=== PATIENT | male | born 1960 | race Caucasian/White ===

== ENCOUNTER 2022-12-28 11:51 | Inpatient (IN) | payer MEDICARE, SELFPAY ==
[2022-12-28] VITALS (32 sets, daily range): BP systolic 115–138; BP diastolic 66–107; PULSE 61–90; RESP 16–26; TEMP 36.4–37; O2SAT 62–100; BMI 49.4
--- NOTE | ~2022-12-28 | XR_ITS ---
Portable chest x-ray Comparison: 01/03/2023 Clinical History: Respiratory failure Findings: Mild to moderate pulmonary edema pattern is present with central congestive changes. Endot nathanael tube and NG tube are in satisfactory positions. Cardiomediastinal silhouette is stable. Bone s and soft tissues are unremarkable. Impression: [id number] pulmonary edema pattern with central congestive change. Support tubes, as above. Reviewed, dictated and finalized at location . SERVICE ADVISOR Impression: [id number] pulmonary edema pattern with central congestive change. Support tubes, as above.
--- NOTE | ~2022-12-28 | XR_ITS ---
EXAMINATION: XR chest 1V portable DATE: 12/29/2022 06:29 INDICATION: Respiratory failure. TECHNIQUE: A single frontal view of the chest was obtained. COMPARISON: Chest single view 12/28/2022 FINDINGS: There are airspace opacities in the perihilar regions and lower lung zones. There is a smal l left pleural effusion. No pneumothorax. The heart size is normal. The endotracheal tube tip is 4.2 cm above the love. The nasogastric tube tip is beyond the inferior margin of the radiograph, but at least to the stomach. IMPRESSION: 1. Airspace opacities in the perihilar regions and lower lung zones with worsening on the left, consi stent with pulmonary edema versus pneumonia versus atelectasis. 2. Small left pleural effusion. Reviewed, dictated and finalized at location A. PRESIDENT OF COMMUNICATIONS IMPRESSION: 1. Airspace opacities in the perihilar regions and lower lung zones with worsen ing on the left, consistent with pulmonary edema versus pneumonia versus atelec tasis. 2. Small left pleural effusion.
--- NOTE | ~2022-12-28 | CT_ITS ---
EXAMINATION: CT diagnostic chest wo con DATE: 01/04/2023 08:03 INDICATION: CHF. Infiltrates on chest x-ray. TECHNIQUE: Computed tomography (CT) of the chest was performed without intravenous contrast. The dose -length product was 813.62 mGy-cm. COMPARISON: Chest x-ray dated 01/04/[address] dated 03/15/2014 FINDINGS: Mild mediastinal lymphadenopathy. Small pleural effusions, right greater than left. There a re hazy groundglass opacities in both lungs interlobular septal thickening. There are scattered calci fied granulomas in the lung parenchyma. No pneumothorax. Endotracheal and NG tubes are present. There are gallstones. IMPRESSION: 1. Ill-defined groundglass opacities in both lungs with interlobular septal thickening, most likely e kelley. Atypical pneumonia less favored. 2: Small pleural effusions. 3: Cardiomegaly. 4: Mediastinal lymphadenopathy, likely reactive. 5: Cholelithiasis. Reviewed, dictated and finalized at location L. INSPECTION SPECIALIST IMPRESSION: 1. Ill-defined groundglass opacities in both lungs with interlobular septal thi ckening, most likely edema. Atypical pneumonia less favored. 2: Small pleural effusions. 3: Cardiomegaly. 4: Mediastinal lymphadenopathy, likely reactive. 5: Cholelithiasis.
--- NOTE | ~2022-12-28 | XR_ITS ---
Portable chest x-ray Comparison: 01/04/2023 Clinical History: Respiratory failure Findings: NG tube and right-sided PICC line are in place. ET tube and probable satisfactory position . There is central interstitial changes with minimal bibasilar pulmonary edema. Cardiomediastinal si lhouette is stable. Bones and soft tissues are unremarkable. Impression: Central congestive change and minimal bibasilar pulmonary edema. Support tubes, as above. Reviewed, dictated and finalized at location . NG MAKER Impression: Central congestive change and minimal bibasilar pulmonary edema. Support tubes, as above.
--- NOTE | ~2022-12-28 | XR_ITS ---
Portable chest x-ray Comparison: 01/01/2023 Clinical History: Respiratory failure Findings: Endotracheal tube, NG tube, and right-sided PICC line are in satisfactory positions. There is mild bibasilar pulmonary edema. Possible minimal left pleural effusion. Cardiomediastinal silhou ette is stable. Bones and soft tissues are unremarkable. Impression: Mild bibasilar pulmonary edema with possible minimal left pleural effusion. Support tubes, as above. Reviewed, dictated and finalized at location . NTIFIC ARTIST Impression: Mild bibasilar pulmonary edema with possible minimal left pleural effusion. Support tubes, as above.
--- NOTE | ~2022-12-28 | XR_ITS ---
EXAMINATION: XR chest ET placement DATE: 12/28/2022 12:20 INDICATION: Intubation. Dyspnea. TECHNIQUE: An anteroposterior view of the chest was obtained. COMPARISON: Chest single view 11/12/2014, chest CT 03/15/2014 FINDINGS: There is chronic mild elevation of right hemidiaphragm. There are airspace opacities in all lung zones bilaterally with a perihilar predominance. No pleural effusion or pneumothorax. The heart size is normal. The nasogastric tube tip is beyond the inferior margin of the radiograph, but at renetta st to the stomach. The endotracheal tube tip is 5.3 cm above the love. IMPRESSION: 1. Diffuse lung disease, consistent with pulmonary edema versus pneumonia. Reviewed, dictated and finalized at location A. RECOVERER
--- NOTE | ~2022-12-28 | US_ITS ---
EXAMINATION: US venous doppler [facility] DATE: 12/28/2022 15:45 INDICATION: Lower limb swelling TECHNIQUE: Monteiro scale images without and with compression and Doppler images of the bilateral lower e xtremity veins were obtained. COMPARISON: 05/27/2008 FINDINGS: The right common femoral vein, profunda femoral vein, femoral vein, popliteal vein, peroneal trunk, p osterior tibial veins, and greater saphenous vein are patent. The left common femoral vein, profunda femoral vein, femoral vein, popliteal vein, peroneal trunk, po sterior tibial veins, and greater saphenous vein are patent. IMPRESSION: 1. Patent bilateral lower extremity veins. No evidence of deep venous thrombosis. Reviewed, dictated and finalized at location A. AL COMMUNICATIONS INSTRUCTOR IMPRESSION: 1. Patent bilateral lower extremity veins. No evidence of deep venous thrombosi s.
--- NOTE | ~2022-12-28 | XR_ITS ---
XR chest PICC line 12/31/2022 14:04 Indication: PICC line placement Procedure: AP portable chest Comparison: 12/31/2022 Findings: Right subclavian PICC line tip in the condyle aspect of the SVC near the cavoatrial junctio n. NG tube is present. There is diffuse bilateral airspace disease, most likely edema. Cardiomegaly. No pneumothorax. Impression: 1: Cardiomegaly with diffuse bilateral airspace disease, most likely pulmonary edema. Reviewed, dictated and finalized at location A. UNITY RELATIONS REP Impression: 1: Cardiomegaly with diffuse bilateral airspace disease, most likely pulmonary edema.
--- NOTE | ~2022-12-28 | US_ITS ---
EXAMINATION: US renal BI DATE: 12/28/2022 15:44 INDICATION: Elevated creatinine TECHNIQUE: Multiple grayscale and Doppler ultrasound images of the kidneys were obtained. COMPARISON: None. FINDINGS: The right kidney measures 12.0 x 6.4 x 7.1 cm. The left kidney is not visualized due to bod y habitus and patient condition. The kidneys demonstrate normal parenchymal echogenicity. There is no hydronephrosis. The bladder is not distended. IMPRESSION: 1. Normal right kidney without hydronephrosis. 2. Left kidney not visualized. Reviewed, dictated and finalized at location A. OPERATOR
--- NOTE | ~2022-12-28 | XR_ITS ---
Portable chest x-ray Comparison: 01/02/2023 Clinical History: Respiratory failure Findings: Endotracheal tube and NG tube and right-sided PICC line are in satisfactory positions. Mil d bibasilar pulmonary edema/atelectatic changes present. Probable minimal left pleural effusion. Car diomediastinal silhouette is stable. Bones and soft tissues are unremarkable. Impression: Mild bibasilar pulmonary edema/atelectasis with minimal left pleural effusion. Support tubes, as above. Reviewed, dictated and finalized at location M. ROFIT FUNDRAISER Impression: Mild bibasilar pulmonary edema/atelectasis with minimal left pleural effusion. Support tubes, as above.
--- NOTE | ~2022-12-28 | XR_ITS ---
XR chest 1V portable 12/31/2022 06:02 Indication: Respiratory failure Procedure: AP portable chest Comparison: Comparison to multiple prior studies sequentially, with oldest reviewed study dated 11/2014. Findings: Stable diffuse bilateral airspace disease which may represent edema or pneumonia. Endotrach eal and NG tubes are stable. No pneumothorax. No significant effusion. Impression: 1: Stable diffuse bilateral airspace disease which may represent edema or pneumonia Reviewed, dictated and finalized at location A. UNTING MANAGER CPA Impression: 1: Stable diffuse bilateral airspace disease which may represent edema or pneum onia
--- NOTE | ~2022-12-28 | XR_ITS ---
XR chest 1V portable DATE: 01/06/2023 05:59 INDICATION: Respiratory failure TECHNIQUE: Portable upright AP chest on January 06, 2023 at 0503 hours COMPARISON: January 05, 2023 portable AP chest at 0516 hours FINDINGS: NG tube in stomach. ET tube not identified. Right upper extremity PIC catheter in superior vena cava. Cardiomegaly. There is prominent elevation right leaf of the diaphragm. There is infiltrate or atelectasis involvin g primarily the the lower lung zones. IMPRESSION: No significant change since January 05, 2023 Reviewed, dictated and finalized at location A. OMIZER
--- NOTE | ~2022-12-28 | XR_ITS ---
XR chest 1V portable 12/30/2022 05:53 Indication: Respiratory failure Procedure: AP portable chest Comparison: Comparison to multiple prior studies sequentially, with oldest reviewed study dated 10/14. Findings: Endotracheal tube 5.1 cm above the love. NG tube in the stomach. Unchanged mild interstit ial edema. No significant effusion or pneumothorax. Stable cardiomediastinal silhouette. Impression: 1: Stable mild interstitial edema. Reviewed, dictated and finalized at location A. ECTOR BOOTH OPERATOR Impression: 1: Stable mild interstitial edema.
--- NOTE | ~2022-12-28 | XR_ITS ---
XR abdomen obstructive series DATE: 01/06/2023 08:03 INDICATION: Distended abdomen TECHNIQUE: 3 portable recumbent AP views and 1 portable upright AP view COMPARISON: None FINDINGS: There is an NG tube in the body of the stomach. There is prominent gaseous distention of the colon, measuring up to approximately 8 cm diameter. No intraperitoneal free air is evident. No visceromegaly is detected. Degenerative changes of the thoracic and lumbar spine. Severe right hip osteoarthritic change with suggestion of possible avascular necrosis of the right fe moral head. Bone detail is limited. IMPRESSION: Prominent gaseous distention of the colon NG tube in stomach Reviewed, dictated and finalized at Location A. Reviewed, dictated and finalized at location A. TH AND WELLNESS SALES CONSULTANT
--- NOTE | ~2022-12-28 | XR_ITS ---
XR chest 1V portable DATE: 01/07/2023 06:32 INDICATION: Respiratory failure TECHNIQUE: Portable AP chest on January 07, 2023 at 0530 hours COMPARISON: January 06, 2023 portable AP chest at 0503 hours FINDINGS: NG tube in stomach. Prominent elevation right diaphragm Cardiomegaly. Aortic calcification. Bibasilar infiltrate and/or atelectasis.. IMPRESSION: Elevated right diaphragm and bibasilar infiltrate and/atelectasis; little interval change since January 06, 2023 NG tube in stomach Reviewed, dictated and finalized at location A. OPERATOR
--- NOTE | ~2022-12-28 | XR_ITS ---
Portable chest x-ray Comparison: 12/31/2022 Clinical History: Respiratory failure Findings: Endotracheal tube, NG tube, and right-sided PICC line are in satisfactory positions. Proba ble minimal pleural effusions with probable mild pulmonary edema pattern. Cardiomediastinal silhouet te is stable. Bones and soft tissues are unremarkable. Impression: Minimal pleural effusions and mild pulmonary edema pattern, unchanged. Support tubes, as above. Reviewed, dictated and finalized at location . TH MACHINE OPERATOR Impression: Minimal pleural effusions and mild pulmonary edema pattern, unchanged. Support tubes, as above.
--- NOTE | ~2022-12-28 | US_ITS ---
US abdomen limited INDICATION: Elevated liver function tests PROCEDURE: Realtime right upper abdominal ultrasound. COMPARISON: No prior studies for comparison. FINDINGS: The pancreas is normal without focal mass or pancreatic ductal dilation. Liver echotexture is increased, consistent with fatty infiltration. There is normal directional flow in the portal ve in. There are gallstones. Common bile duct measures 5 mm. No sonographic Berumen's sign. IMPRESSION: 1: Cholelithiasis. 2: Hepatic steatosis. Reviewed, dictated and finalized at location A. GEMENT PROFESSIONALS
--- NOTE | 2022-12-28 11:58 | ECG_ITS ---
Measurements Intervals [place] Rate: 84 P: 64 TN: 146 QRS: 6 QRSD: 130 T: 28 QT: 328 QTc: 388 Interpretive Statements SINUS RHYTHM BASELINE ARTIFACT IS PRESENT POSSIBLE LEFT ATRIAL ENLARGEMENT [-0.1mV P WAVE IN V1/V2] RIGHT BUNDLE BRANCH BLOCK NO PREVIOUS ECG AVAILABLE FOR COMPARISON Electronically Signed On 12-28-2022 15:00:05 TECHNICAL SPECIALIST by Bernarda Parisi M.D.
--- NOTE | 2022-12-28 12:15 | ED.GENADULT ---
HPI - General Adult General Chief complaint: Shortness of Breath/Dyspnea Stated complaint: SOB Time Seen by Provider: 12/28/22 12:03 History of Present Illness HPI narrative: 62-year-old male presenting to the emergency department from [facility] for evaluation of shortness of breath. Patient is normally on 4 L of oxygen by nasal cannula and was found to be saturating at 58%. Patient was cyanotic on the extremities and lips. Patient was placed on CPAP by EMS. Upon arrival to the emergency department patient had limited gag reflex and was unresponsive. Patient was emergently intubated. Patient typically goes to [facility] but patient was too critical to be transferred. Related Data Home Medications Medication Instructions Recorded Confirmed Acidophilus Probiotic Blend 1 billion cells PO DAILY 12/28/22 12/28/22 acetaminophen 500 mg tablet 500 mg PO Q6H PRN Pain, Mild 12/28/22 12/28/22 apixaban 5 mg tablet (Eliquis) 5 mg PO BID 12/28/22 12/28/22 atorvastatin 20 mg tablet 20 mg PO DAILY 12/28/22 12/28/22 cholecalciferol (vitamin D3) 125 125 mcg PO DAILY 12/28/22 12/28/22 mcg (5,000 unit) tablet (Vitamin D3) digoxin 250 mcg (0.25 mg) tablet 250 mcg PO DAILY 12/28/22 12/28/22 ferrous sulfate 325 mg (65 mg 325 mg PO BID 12/28/22 12/28/22 iron) tablet (FeroSul) fluticasone propionate 50 50 mcg intranasal DAILY 12/28/22 12/28/22 mcg/actuation nasal spray,suspension furosemide 80 mg tablet 80 mg PO DAILY 12/28/22 12/28/22 gabapentin 600 mg tablet 600 mg PO TID 12/28/22 12/28/22 metoprolol succinate 25 mg 25 mg PO DAILY 12/28/22 12/28/22 tablet,extended release 24 hr pantoprazole 20 mg tablet,delayed 20 mg PO DAILY 12/28/22 12/28/22 release spironolactone 25 mg tablet 25 mg PO DAILY 12/28/22 12/28/22 tamsulosin 0.4 mg capsule 0.4 mg PO DAILY 12/28/22 12/28/22 umeclidinium 62.5 mcg/actuation 1 inh inhalation DAILY 12/28/22 12/28/22 blister powder for inhalation (Incruse Ellipta) vitamin B complex (B 1 tablet PO DAILY 12/28/22 12/28/22 Complex-Vitamin B12 tablet) Allergies Allergy/AdvReac Type Severity Reaction Status Date / Time amoxicillin Allergy Unknown Unknown Verified 12/28/22 17:44 Review of Systems Review of Systems: ROS unobtainable: Yes unobtainable due to medical condition PMFSH Past Medical History Medical History (Updated 12/28/22 @ 18:41 by Tahir Jacques MD) Atrial fibrillation Chronic kidney disease, stage 3 Chronic obstructive pulmonary disease Chronic respiratory failure with hypoxia, on home oxygen therapy Congestive heart failure Diabetes mellitus Hyperlipidemia Lymphedema Obstructive sleep apnea Surgical History Surgical History (Updated 12/28/22 @ 13:52 by Manjula Pace PA-C) History of meniscectomy of left knee Family History Family History Mother Atrial fibrillation Hypothyroidism Father Colon cancer Deep venous thrombosis Social History Social History (Updated 12/28/22 @ 13:59 by Manjula Pace PA-C) Social History: Surrogate medical decision maker: Code status: Full code. Smoking status: Never smoker Alcohol intake: former Substance use: never Spiritual care concerns: No Exam Narrative: APPEARANCE: Ill-appearing, cyanotic, unresponsive HEAD: normocephalic, atraumatic. EYES: PERRLA/EOMI, conjunctivae clear. NOSE: Normal no drainage NECK: Supple. No adenopathy, no masses. RESPIRATORY: Labored respiration CARDIOVASCULAR: Regular rate and rhythm without murmurs rubs or gallops. ABDOMINAL: Soft, nontender, nondistended, normal bowel sounds MUSCULOSKELETAL: No signs of injury. NEURO: Unresponsive, minimal gag SKIN: Warm, dry. Normal Color Course Course Emergency Course: Patient was emergently intubated upon arrival to the emergency department. Patient's oxygenation was 60% on CPAP and patient was cyanotic. After intubation patient's oxygen
--- NOTE | 2022-12-28 12:18 | PC.NURSE ---
meds for intubation 1157 etomidate 20 mg ivp succhs 100 mg ivp tube size 7.5 25 @ the lip intubated by Dr Jacques @ 1254
[2022-12-28 12:36] LABS: Hematocrit 53.1 % (42.0-52.0); Hemoglobin 14.9 g/dL (14.0-18.0); Mean Corpuscular HGB Conc 28.1 g/dl (32-36); Mean Corpuscular Hemoglobin 29.2 pg (26-34); Mean Corpuscular Volume 103.9 fl (80-100); Platelet Count Result 188 k/mm3 (150-375); Red Blood Count 5.11 M/mm3 (4.6-6.20); Red Cell Distribution Width 16.6 % (11.5-14.5); White Blood Count 10.8 K/mm3 (4.5-10.0)
[2022-12-28 12:47] LABS: INR 2.1; Partial Thromboplastin Time 31.9 SECONDS (22.3-36.8)
[2022-12-28 12:48] LABS: Alveolar/Arterial O2 Gradient 525.6 mmHg; Base Excess ABG -1.7 mEq/l (+/-2.0); Fractional Inspired Oxygen 100 %; Oxygen Content ABG 21.1 %vol (16.0-22.0); Oxygen Saturation ABG 93.7 % (95.0-100.0); Oxyhemoglobin 92.5 % THb (90.0-100.0); PO2 ABG 91.7 mmHg (80.0-100.0); PO2 FiO2 Ratio Arterial Blood 0.92 %; Total Hemoglobin 16.2 g/dL (12.0-18.0)
[2022-12-28 12:51] LABS: Alanine Aminotransferase 721 U/L (6-50); Albumin Level 4.2 g/dL (3.5-5.1); Alkaline Phosphatase 70 U/L (38-126); Anion Gap 6 mmol/L (8-16); Bilirubin,Total 2.1 mg/dL (0.2-1.3); Blood Urea Nitrogen 47 mg/dL (9-20); Calcium 8.1 mg/dL (8.4-10.2); Carbon Dioxide 32 mmol/L (22-30); Chloride 96 mmol/L (98-107); Estimated CRCL calculation 39 ml/min; Estimated Glomerular Filt Rate 24; Glucose 128 mg/dL (65-110); Potassium 6.9 mmol/L (3.4-5.0); Sodium 134 mmol/L (137-145); Triglycerides 125 mg/dL (<150)
[2022-12-28 12:52] LABS: Device VENTILATOR; Modified Allen's Test Unable to perform; PCO2 ABG 95.7 mmHg (35.0-45.0); Site Drawn RIGHT RADIAL; pH ABG 7.128 (7.350-7.450)
[2022-12-28 12:56] LABS: Anisocytosis 1+ (NORMAL); Lymphocytes Absolute Manual 0.75 K/mm3 (1.1-4.5); Lymphocytes Percent Manual 7 % (18-44); Monocytes Absolute Manual 0.75 K/mm3 (0.1-0.90); Monocytes Percent Manual 7 % (3-9); Neutrophils Percent Manual 86 % (46-73); Nucleated Red Blood Cells 1 %; Platelet Estimate Adequate (Adequate); Schistocytes None Seen (NORMAL); Total Cells Counted 100
[2022-12-28] MEDS: IPRATROPIUM BR 0.02% INH SOLN 0.5 MG/2.5 ML VIAL 2 MG INHALATION (12:56)
[2022-12-28] MEDS: ALBUTEROL SULFATE NEB 2.5 MG/3 ML INH 10 MG INHALATION (12:56)
[2022-12-28 12:57] LABS: Macrocytosis 1+ (NORMAL)
[2022-12-28 12:58] LABS: Lactic Acid Reflex 3.3 mmol/L (0.7-2.0)
[2022-12-28 12:59] LABS: NT Pro B Type Natriuretic Pept 14800 pg/mL (19.9-100); Troponin I 0.013 ng/mL (0.000-0.034)
[2022-12-28 13:05] LABS: Aspartate Amino Transferase 972 U/L (17-59)
[2022-12-28 13:15] LABS: Influenza A QL RT-PCR Negative (Negative); Influenza B QL RT-PCR Negative (Negative); SARS-CoV-2 RNA PCR Negative
[2022-12-28] MEDS: methylPREDNISolone SOD SUCC 125 MG VIAL IV PUSH (13:17)
[2022-12-28] MEDS: SODIUM BICARBONATE 8.4% 50 MEQ/50 ML SYRINGE IV PUSH (13:20)
[2022-12-28] MEDS: DEXTROSE 50% 25 GM/50 ML SYRINGE IV PUSH (13:22)
[2022-12-28] MEDS: INSULIN HUMAN REGULAR (*BKC) 100 UNITS/ML IV PUSH (13:23)
[2022-12-28] MEDS: PROPOFOL IV EMULSION 100 ML 4.62 MG IV CONT (13:28)
--- NOTE | 2022-12-28 13:31 | WPDCNINT ---
Assessment and Plan Assessment and plan (1) Acute and chronic respiratory failure: Code(s): J96.20 - Acute and chronic respiratory failure, unspecified whether with hypoxia or hypercapnia Status: Acute Assessment and Plan: Acute on chronic respiratory failure secondary to hypoxia and hypercarbia Likely combination secondary to CHF and possible pneumonia Patient has never smoked and does not have any documented history of COPD Patient now intubated and on mechanical ventilation Chest x-ray and ABG reviewed IV steroid was given in the ED but I will not continue at this time continue bronchodilators, Lasix 80 mg IV x1 Check echocardiogram Empiric antibiotics azithromycin and Rocephin Check blood and sputum culture Check urine Legionella pneumococcal antigens and mycoplasma IgM Vent settings reviewed and currently on 70% FiO2 and 10 of PEEP. Repeat ABGs ordered (2) CHF (congestive heart failure): Code(s): I50.9 - Heart failure, unspecified Status: Acute Assessment and Plan: check echo see above (3) Elevated serum creatinine: Code(s): R79.89 - Other specified abnormal findings of blood chemistry Status: Acute Assessment and Plan: Baseline unknown Not a candidate for IV fluids due to pulmonary edema Check CK level, urine electrolytes renal ultrasound Monitor urine output electrolytes and creatinine (4) Elevated liver enzymes: Code(s): R74.8 - Abnormal levels of other serum enzymes Status: Acute Assessment and Plan: Likely secondary to hypoxia hypoperfusion. patient also on statin acetaminophen level was normal Check right upper quadrant ultrasound, hepatitis panel hold statin Monitor labs (5) Hyperkalemia: Code(s): E87.5 - Hyperkalemia Status: Acute Assessment and Plan: Likely secondary to combination of renal failure and metabolic acidosis patient also on Aldactone as an outpatient Patient was treated in the ER with hyperkalemia with insulin D50 bicarb and calcium Correct respiratory acidosis with ventilator start Lokelma per tube Lasix IV as above mention Repeat BMP ordered (6) Diabetes mellitus: Code(s): E11.9 - Type 2 diabetes mellitus without complications Status: Acute Assessment and Plan: sliding scale insulin (7) Lymphedema: Code(s): I89.0 - Lymphedema, not elsewhere classified Status: Acute Assessment and Plan: lower extremity Dopplers to rule out DVT. patient is on anticoagulation as outpatient diuretics (8) Chronic kidney disease, stage 3: Code(s): N18.30 - Chronic kidney disease, stage 3 unspecified Status: Acute Assessment and Plan: patient has history of chronic kidney disease stage 3 although creatinine level is not known presented with a creatinine of 2.7 hyperkalemia treatment as above Lasix for volume overload check renal ultrasound Check CK level check urine electrolytes consult nephrology (9) Atrial fibrillation: Code(s): I48.91 - Unspecified atrial fibrillation Status: Acute Assessment and Plan: patient is on digoxin and Eliquis Check digoxin level hold Eliquis for next 24 hours in case patient needs further invasive procedures Plan DVT prophylaxis - SCDs Stress ulcer prophylaxis - PPI Nutrition - NPO Code Status - Full Code as per patient's sister who is his POA Total Critical Care Time - 60 minutes Due to a high probability of clinically significant, life threatening deterioration, the patient required my highest level of preparedness to intervene emergently and I personally spent this critical care time directly and personally managing the patient. This critical care time included obtaining a history; examining the patient; pulse oximetry; ordering and review of studies; arranging urgent treatment with development of a management plan; evaluation of patient's response to treatment; frequent
[2022-12-28 13:41] LABS: Acetaminophen < 10 ug/mL (10-30)
[2022-12-28] MEDS: MIDAZOLAM HCL (*CRX) 2 MG/2 ML VIAL 1 MG IV PUSH ×2 (13:50)
--- NOTE | 2022-12-28 14:00 | PM.IMHP ---
H&P: HPI History of Present Illness Date/Time: 12/28/22 14:00 Chief Complaint: Hypoxia. Narrative: This is a 62-year-old male with history of congestive heart failure, chronic respiratory failure on oxygen, COPD, sleep apnea, chronic kidney disease, paroxysmal atrial fibrillation on chronic anticoagulation, GERD, benign prostatic hyperplasia, diabetes, and other comorbidities who presented to the emergency department via EMS from his assisted living facility for evaluation of hypoxia. The following history is obtained via a review of his electronic medical records as well as discussions with his sister Millie who is at bedside. He is unable to provide history as he is currently sedated and intubated on mechanical ventilation. Millie reports that her brother typically goes to [facility] and he was hospitalized there this past fall under similar circumstances. She is not certain that he is compliant with his BiPAP at night he has started growing out his mcgarry again and she mentions that it fits poorly when he has a mcgarry. He does not get up and about much and is content staying in his apartment and watching television. Since the beginning of December he has put on at least 30 lb in water weight and she has been concerned about that. This afternoon she received a phone call that he was found hypoxic with an SpO2 of 58% on his 4 L nasal cannula. He was cyanotic on EMS arrival and he was placed on CPAP. In the ED he was minimally responsive with limited gag reflex and he was intubated. He has been afebrile since arrival with stable blood pressures. Pertinent labs include a WBC count of 10.8, sodium 134, potassium 6.9, BUN 47, creatinine 2.70, lactic acid 3.3, total bilirubin 2.1, AST 972, ALT 721, proBNP 33271. Initial ABG showed a pH of 7.128, pCO2 95.7, HC03 31.0. Chest x-ray showed diffuse lung disease consistent with pulmonary edema versus pneumonia. He has since been started on broad-spectrum antibiotics for possible pneumonia and he was also given a dose of furosemide given evidence of volume overload. Review of Systems Review of Systems: Unable to assess given current clinical condition as above. [facility] Past Medical History Medical History (Updated 12/28/22 @ 19:44 by Manjula Pace PA-C) Chronic kidney disease, stage 3 Chronic obstructive pulmonary disease Chronic respiratory failure with hypoxia, on home oxygen therapy Congestive heart failure Hyperlipidemia Lymphedema Obstructive sleep apnea Paroxysmal atrial fibrillation Type 2 diabetes mellitus Surgical History Surgical History (Updated 12/28/22 @ 13:52 by Manjula Pace PA-C) History of meniscectomy of left knee Family History Family History Mother Atrial fibrillation Hypothyroidism Father Colon cancer Deep venous thrombosis Social History Social History (Updated 12/28/22 @ 19:44 by Manjula Pace PA-C) Social History: Healthcare power of personal injury attorney: Millie Skinner, sister. Code status: Full code. Smoking status: Never smoker Alcohol intake: former Substance use: never Additional living arrangements comments: Assisted living at [facility]. Spiritual care concerns: No Meds Home Medications and Allergies Home Medications Medication Instructions Recorded Confirmed Type Acidophilus Probiotic Blend 1 billion cells PO DAILY 12/28/22 12/28/22 History acetaminophen 500 mg tablet 500 mg PO Q6H PRN Pain, Mild 12/28/22 12/28/22 History apixaban 5 mg tablet (Eliquis) 5 mg PO BID 12/28/22 12/28/22 History atorvastatin 20 mg tablet 20 mg PO DAILY 12/28/22 12/28/22 History cholecalciferol (vitamin D3) 125 125 mcg PO DAILY 12/28/22 12/28/22 History mcg (5,000 unit) tablet (Vitamin D3) digoxin 250 mcg (0.25 mg) tablet 250 mcg PO DAILY 12/28/22 12/28/22 History ferrous sulfate 325 mg (65 mg 325 mg PO BID 12/28/22 12/28/22 History iron) tablet (FeroSul) fluticasone p
[2022-12-28 14:26] LABS: Alveolar/Arterial O2 Gradient 375.8 mmHg; Base Excess ABG 0.1 mEq/l (+/-2.0); Fractional Inspired Oxygen 70 %; HCO3 ABG 28.3 mEq/l (22.0-26.0); Oxygen Content ABG 18.3 %vol (16.0-22.0); PO2 ABG 57.9 mmHg (80.0-100.0); PO2 FiO2 Ratio Arterial Blood 0.83 %; Total Hemoglobin 14.9 g/dL (12.0-18.0)
[2022-12-28 14:27] LABS: PCO2 ABG 60.8 mmHg (35.0-45.0); pH ABG 7.285 (7.350-7.450)
[2022-12-28 14:28] LABS: Modified Allen's Test Unable to perform; Oxygen Saturation ABG 86.2 % (95.0-100.0); Oxyhemoglobin 87.5 % THb (90.0-100.0); Site Drawn RIGHT RADIAL
[2022-12-28 14:29] LABS: Arterial Blood Gas PEEP 10 cmH2O; Arterial Blood Gas Tidal Volume 470 ml; Arterial Blood Gas Vent Mode CMV; Arterial Blood Gas Ventilator rate 20 /MIN; Device VENTILATOR
[2022-12-28 15:00] LABS: Appearance Urine Slightly Cloudy (Clear); Bilirubin Urine 1+ (Negative); Blood Urine Trace-intact (Negative); Color Urine Yellow (Yellow); Glucose Urine UA Negative (Negative); Ketones Urine Negative (Negative); Leukocyte Esterase Ur Negative LEU/UL (Negative); Nitrate Urine Negative (Negative); Protein Urine 2+ mg/dL (Negative); Specific Grav Ur >= 1.030 (1.001-1.035); pH Urine 5.5 (5.0-9.0)
[2022-12-28 15:05] LABS: Amorphous Sediment Urine Few; Bacteria Urine Trace /hpf; Mucus Urine Rare /lpf; Squamous Epithelial Cell Urine Rare /hpf (Few); WBC Urine 0-3 /hpf
[2022-12-28 15:06] LABS: Add Urine Microscopic? YES
[2022-12-28 15:07] LABS: Ammonia 24 umol/L (9-30)
[2022-12-28 15:09] LABS: Anion Gap 4 mmol/L (8-16); Blood Urea Nitrogen 48 mg/dL (9-20); Carbon Dioxide 34 mmol/L (22-30); Chloride 96 mmol/L (98-107); Creatine Kinase 20 U/L (55-170); Estimated CRCL calculation 41 ml/min; Estimated Glomerular Filt Rate 25; Glucose 177 mg/dL (65-110); Potassium 4.7 mmol/L (3.4-5.0); Sodium 134 mmol/L (137-145)
--- NOTE | 2022-12-28 15:32 | PM.CNNEP ---
Assessment and Plan Assessment and plan (1) CKD (chronic kidney disease): Code(s): N18.9 - Chronic kidney disease, unspecified Status: Chronic Assessment and Plan: reported history baseline creatinine unknown - admitted with a creatinine of 2.7mg/dl possibly related to DM, vascular disease, and JANETH follow-up on renal ultrasound check urine electrolytes, urine eosinophis, and CPK obtain old records regarding basline kidney function follow repeat labs and UOP (2) Hyperkalemia: Code(s): E87.5 - Hyperkalemia Status: Acute Assessment and Plan: doing better s/p medical management likely precipitated by renal dysfunction, metabolic acidosis, and use of spironolactone lokelma PRN IV diuresis as tolerated follow trend (3) Acute and chronic respiratory failure: Qualifiers: Respiratory failure complication: hypoxia and hypercapnia Qualified Code(s): J96.21 - Acute and chronic respiratory failure with hypoxia; J96.22 - Acute and chronic respiratory failure with hypercapnia; J96.22 - Acute and chronic respiratory failure with hypercapnia Code(s): J96.20 - Acute and chronic respiratory failure, unspecified whether with hypoxia or hypercapnia Status: Acute Assessment and Plan: due to hypoxia and hypercarbia CHF and possible pneumonia contributing aswell on mechanical ventilation follow cultures on antibiotics (4) CHF (congestive heart failure): Code(s): I50.9 - Heart failure, unspecified Status: Acute Assessment and Plan: Echo ordered IV diuretics as tolerated follow volume status (5) Diabetes mellitus: Code(s): E11.9 - Type 2 diabetes mellitus without complications Status: Chronic Assessment and Plan: follow accuchecks glycemic control per hospitalists Will continue to follow. History of Present Illness Reason for Consult Consult date: 12/28/22 Reason for consult: chronic renal failure and hyperkalemia Chief Complaint Chief complaint: hypercapnic respiratory failure,hyperkalemia History of Present Illness Narrative: All of the information I have obtained is from review of the electronic medical record as well as discussion with the physician/ nurses involved in the patient's care as he is unable to provide me that any history as he is currently intubated and on mechanical ventilation. The patient is a 62-year-old male with a past medical history is outlined below presented to [facility] Emergency room from his assisted living for further evaluation of hypoxia. Apparently, nursing staff at his assisted living facility found him confused and without oxygen saturations of 58% on his 4 L of oxygen by nasal cannula. EMS was called and on their arrival he was apparently cyanotic. CPAP was applied he was subsequently transferred to the ER for further assessment. By the time of his arrival to the emergency room, the patient was minimally responsive and was unable to protect his airway. He was immediately intubated and placed on mechanical ventilation which improved his oxygen saturations significantly. Routine blood tests were significant for a mildly elevated white blood cell count, mild hyponatremia, severe hyperkalemia, and elevated BUN and creatinine. His proBNP was elevated as were his LFTs and he had a lactic acid of 3.3. His chest x-ray demonstrated few Diaz disease consistent with pulmonary edema versus pneumonia. After appropriate cultures were obtained he was started broad-spectrum antibiotic therapy on the concern for possible pneumonia and subsequently admitted to the ICU for further management therapy. Renal consultation was requested due to his hyperkalemia and history of chronic kidney disease. The details of his chronic kidney disease are unknown to me but apparently he has some element of this issue which apparently was present on his last hospitalization at [facility]
[2022-12-28 15:37] LABS: Digoxin 2.1 ng/mL (0.8-2.0)
[2022-12-28 15:38] LABS: Reflex Lactic Acid Yes or No Add Lactic
[2022-12-28 16:02] LABS: Procalcitonin 0.4 ng/mL
[2022-12-28 16:18] LABS: Hepatitis B Surface Antigen Negative (Negative)
[2022-12-28 16:24] LABS: HAV RESULT Negative (Negative); Hepatitis B Core IgM Result Negative (Negative)
--- NOTE | 2022-12-28 16:30 | ADMGEN ---
This patient, Carmelo Jasmine, was admitted to Intensive Care Unit-1. Patient/family oriented to hospital policies and general routines including ID bracelet, bed and alarms, visiting hours, pain management, procedures, bathroom and other care routines, personal items, smoking policy, room service/diet, and visiting hours. Information on how to activate the Rapid Response Team has been discussed. Patient/Family are encouraged to report perceived risks to care and to ask questions if they do not understand what they are told or what they should do.
[2022-12-28] MEDS: FUROSEMIDE INJ 100 MG/10 ML VIAL 80 MG IV PUSH (16:32)
[2022-12-28] MEDS: PANTOPRAZOLE SODIUM IV 40 MG VIAL IV PUSH (16:32)
[2022-12-28 16:35] LABS: Hepatitis C Virus Antibody Negative (Negative)
[2022-12-28 16:45] LABS: Lactic Acid 4.4 mmol/L (0.7-2.0)
[2022-12-28 18:12] LABS: Alveolar/Arterial O2 Gradient 446.3 mmHg; Carboxyhemoglobin 2.3 % THb (0-2.0); Fractional Inspired Oxygen 80 %; HCO3 ABG 31.3 mEq/l (22.0-26.0); Methemoglobin ABG 0.3 %THb (0-1.5); Oxygen Content ABG 20.3 %vol (16.0-22.0); Oxygen Saturation ABG 95.3 % (95.0-100.0); Oxyhemoglobin 93.1 % THb (90.0-100.0); PCO2 ABG 47.4 mmHg (35.0-45.0); PO2 ABG 74.3 mmHg (80.0-100.0); PO2 FiO2 Ratio Arterial Blood 0.93 %; Reduced Hemoglobin 4.3 %THb (0-5.0); Total Hemoglobin 15.5 g/dL (12.0-18.0); pH ABG 7.438 (7.350-7.450)
[2022-12-28 18:13] LABS: Device VENTILATOR; Modified Allen's Test Pass; Site Drawn RIGHT RADIAL
[2022-12-28 18:14] LABS: Arterial Blood Gas PEEP 10 cmH2O; Arterial Blood Gas Tidal Volume 470 ml; Arterial Blood Gas Vent Mode CMV; Arterial Blood Gas Ventilator rate 24 /MIN
[2022-12-28] MEDS: PROPOFOL IV EMULSION 100 ML 18.24 MG IV CONT (19:15)
[2022-12-28 20:41] LABS: Glucose Point of Care 148 mg/dl (65-105)
[2022-12-28] MEDS: MINERAL OIL/WHITE PETROLATUM OINTMENT 1 APPLIC EACH EYE (20:42)
[2022-12-28] MEDS: TOLNAFTATE 1% POWDER 45 GM BTL 1 APPLIC TOPICAL (20:42)
[2022-12-28 21:20] LABS: Creatinine Urine 16.1 mg/dL
[2022-12-28 21:21] LABS: Sodium Urine Random 104 meq/L
[2022-12-28 21:31] LABS: Triglycerides 116 mg/dL (<150)
[2022-12-28 21:50] LABS: Hemoglobin A1C 5.5 % (<5.7)
[2022-12-28] MEDS: SODIUM ZIRCONIUM CYCLOSILICATE 10 GM POWD.PACK FEED TUBE (22:31)
[2022-12-28 23:00] LABS: Thyroid Stimulating Hormone Reflex 0.313 uIU/mL (0.465-4.68)
[2022-12-29] VITALS (32 sets, daily range): BP systolic 111–148; BP diastolic 62–106; PULSE 62–91; RESP 20–24; TEMP 36.9–37.5; O2SAT 91–100; BMI 48.0
--- NOTE | 2022-12-29 | ECHO_ITS ---
Patient Info Name: Carmelo Jasmine Age: 62 years : 1960 Gender: Male Ht: 70 in Wt: 339 lbs BSA: 2.84 m2 HR: 82 bpm BP: 125 / 74 mmHg Heart Rhythm: Sinus Rhythm Exam Date: 12/29/2022 7:57 AM Exam Location: [facility] Patient Status: Inpatient Admit Date: 12/28/2022 Staff Ordering Physician: Adan Golden MD Broommaking Supervisor: Baron Berumen, MELISSA, RT Attending Provider: Ari Sneed MD Exam Type: CA echo dop color flow w con Study Info Indications I50.9 - Heart failure, unspecified Complete two-dimensional, color flow and Doppler transthoracic echocardiogram is performed with contrast to opacify the left ventricle and to improve the deliniation of the left ventricle endocardial borders. Summary 1. Technically difficult echocardiogram in intubated patient, definity contrast used to improve exam. 2. Left ventricular hypertrophy with normal LV size and good systolic function. 3. Grade 2 diastolic noncompliance. 4. Enlarged right ventricle. 5. Tricuspid regurgitation velocities suggesting at least moderately elevated pulmonary artery pressure. Left Ventricle Left ventricular chamber dimension is normal. Left ventricular systolic function is normal, estimated at 65-70%. There is mild concentric increased left ventricular wall thickness. The left ventricular diastolic function is grade II diastolic dysfunction. Right Ventricle Right ventricular chamber dimension is moderately enlarged. Right ventricular systolic function is normal. Left Atria Left atrial chamber dimension is moderately enlarged. Right Atria Right atrial chamber dimension is mildly enlarged. Aortic Valve The aortic valve is normal. Pulmonic Valve The pulmonic valve is not well visualized. Mitral Valve The mitral valve has normal leaflets. There is no mitral valve regurgitation. The mitral valve annulus is mildly calcified. Tricuspid Valve The tricuspid valve leaflets are normal. There is mild tricuspid valve regurgitation. Moderate pulmonary hypertension, estimated pulmonary arterial systolic pressure is 62 mmHg. Pericardium/Pleural The pericardium appears normal. Aorta The aortic root size at the sinus of Valsalva is normal. Left Ventricular Outflow Tract Name Value Normal LVOT 2D LVOT Diameter 2.11 cm LVOT Doppler LVOT Peak Gradient 7 mmHg LVOT Mean Gradient 3 mmHg LVOT VTI 25.22 cm LVOT VTI/AV VTI Ratio 0.79 LVOT Stroke Volume 88.53 ml LVOT CO 6.20 l/min LVOT CI 2.19 L/min/m2 Mitral Valve Name Value Normal MV Doppler MV Decel [place] 267.27 cm/s2 MV PHT 0 s MV Area (PHT)
[2022-12-29 00:06] LABS: Free T4 Free Thyroxine Reflex 1.16 ng/dL (0.78-2.19)
[2022-12-29 00:10] LABS: Glucose Point of Care 147 mg/dl (65-105)
[2022-12-29] MEDS: PROPOFOL IV EMULSION 100 ML 18.24 MG IV CONT ×5 (01:00→21:29)
[2022-12-29 01:46] LABS: Total Triiodothyronine (T3) 0.48 NG/ML (0.97-1.69)
[2022-12-29 04:06] LABS: Basophils Percent Auto 0.1 % (0.2-1.2); Hematocrit 44.9 % (42.0-52.0); Hemoglobin 13.6 g/dL (14.0-18.0); Immature Granulocyte Absolute 0.05 K/mm3 (0.00-0.031); Immature Granulocyte Percent A 0.5 % (0-0.5); Lymphocytes Absolute Auto 0.67 K/mm3 (0.9-3.2); Lymphocytes Percent Auto 7.2 % (18.3-44.2); Mean Corpuscular HGB Conc 30.3 g/dl (32-36); Mean Corpuscular Hemoglobin 29.1 pg (26-34); Mean Corpuscular Volume 95.9 fl (80-100); Mean Platelet Volume 9.7 fl (7.4-10.4); Monocytes Absolute Auto 0.5 K/mm3 (0.1-0.6); Monocytes Percent Auto 5.3 % (2.6-8.5); Neutrophils Absolute Auto 8.1 K/mm3 (1.3-6.7); Neutrophils Percent Auto 86.9 % (45.5-73.1); Nucleated Red Blood Cells Perc 0.3 % (0.0-0.2); Platelet Count Result 151 k/mm3 (150-375); Red Blood Count 4.68 M/mm3 (4.6-6.20); Red Cell Distribution Width 16.2 % (11.5-14.5); White Blood Count 9.3 K/mm3 (4.5-10.0)
[2022-12-29 04:15] LABS: Alkaline Phosphatase 62 U/L (38-126); Anion Gap 4 mmol/L (8-16); Bilirubin,Total 1.7 mg/dL (0.2-1.3); Blood Urea Nitrogen 52 mg/dL (9-20); Calcium 8.3 mg/dL (8.4-10.2); Carbon Dioxide 37 mmol/L (22-30); Chloride 97 mmol/L (98-107); Estimated CRCL calculation 49 ml/min; Estimated Glomerular Filt Rate 32; Glucose 128 mg/dL (65-110); Magnesium 2.1 mg/dL (1.6-2.3); Potassium 3.9 mmol/L (3.4-5.0); Sodium 138 mmol/L (137-145)
[2022-12-29 04:24] LABS: Alanine Aminotransferase 963 U/L (6-50); Aspartate Amino Transferase 894 U/L (17-59)
[2022-12-29 05:13] LABS: Glucose Point of Care 136 mg/dl (65-105)
[2022-12-29 06:19] LABS: Alveolar/Arterial O2 Gradient 327.9 mmHg; Base Excess ABG 13.9 mEq/l (+/-2.0); Carboxyhemoglobin 0.9 % THb (0-2.0); Fractional Inspired Oxygen 60 %; HCO3 ABG 37.3 mEq/l (22.0-26.0); Methemoglobin ABG 0.3 %THb (0-1.5); Oxygen Content ABG 18.8 %vol (16.0-22.0); Oxygen Saturation ABG 92.3 % (95.0-100.0); Oxyhemoglobin 90.4 % THb (90.0-100.0); PCO2 ABG 41.2 mmHg (35.0-45.0); PO2 ABG 54.6 mmHg (80.0-100.0); PO2 FiO2 Ratio Arterial Blood 0.91 %; Reduced Hemoglobin 8.4 %THb (0-5.0); Total Hemoglobin 14.8 g/dL (12.0-18.0); pH ABG 7.575 (7.350-7.450)
[2022-12-29 06:20] LABS: Device VENTILATOR; Modified Allen's Test Pass; Site Drawn RIGHT RADIAL
[2022-12-29 06:21] LABS: Arterial Blood Gas Ventilator rate 24 /MIN
[2022-12-29 06:22] LABS: Arterial Blood Gas PEEP 10 cmH2O; Arterial Blood Gas Tidal Volume 470 ml; Arterial Blood Gas Vent Mode CMV
[2022-12-29 08:02] LABS: Glucose Point of Care 137 mg/dl (65-105)
[2022-12-29] MEDS: EUCERIN CREAM 120 GM JAR 1 APPLIC TOPICAL (08:16)
[2022-12-29] MEDS: MINERAL OIL/WHITE PETROLATUM OINTMENT 1 APPLIC EACH EYE ×2 (08:17→20:39)
[2022-12-29] MEDS: PANTOPRAZOLE SODIUM IV 40 MG VIAL IV PUSH (08:17)
[2022-12-29] MEDS: TOLNAFTATE 1% POWDER 45 GM BTL 1 APPLIC TOPICAL ×2 (08:17→20:39)
[2022-12-29] MEDS: FUROSEMIDE INJ 100 MG/10 ML VIAL 80 MG IV PUSH (09:03)
[2022-12-29 09:58] LABS: Eosinophil Urine None Seen % (None Seen); Urine Eos QC 2nd Tech Confirmed
[2022-12-29 10:27] LABS: Urea Random Urine 690 MG/DL
[2022-12-29 10:28] LABS: Sodium Urine Random 76 meq/L
--- NOTE | 2022-12-29 10:37 | WPDINTPN ---
Progress Note: A&P Assessment and Plan (1) Acute and chronic respiratory failure: Qualifiers: Respiratory failure complication: hypoxia and hypercapnia Qualified Code(s): J96.21 - Acute and chronic respiratory failure with hypoxia; J96.22 - Acute and chronic respiratory failure with hypercapnia; J96.22 - Acute and chronic respiratory failure with hypercapnia Code(s): J96.20 - Acute and chronic respiratory failure, unspecified whether with hypoxia or hypercapnia Status: Acute Assessment and Plan: Acute on chronic respiratory failure secondary to hypoxia and hypercarbia Likely combination secondary to CHF and possible pneumonia Patient has never smoked and does not have any documented history of COPD Patient now intubated and on mechanical ventilation Chest x-ray reviewed ABG reviewed-decrease respiratory rate to 20 IV steroid was given in the ED but were not continued continue bronchodilators, Lasix 80 mg IV x1 was given yesterday with good urine output I will continue Lasix Pending echocardiogram Empiric antibiotics azithromycin, vancomycin and Rocephin Pending blood and sputum culture Pending urine Legionella pneumococcal antigens and mycoplasma IgM Vent settings reviewed and currently on 60% FiO2 and 10 of PEEP. (2) CHF (congestive heart failure): Code(s): I50.9 - Heart failure, unspecified Status: Acute Assessment and Plan: Echocardiogram pending Lasix for diuresis (3) Elevated liver enzymes: Code(s): R74.8 - Abnormal levels of other serum enzymes Status: Acute Assessment and Plan: Likely secondary to hypoxia hypoperfusion and hepatic congestion. patient also on statin acetaminophen level was normal Check right upper quadrant ultrasound, negative viral hepatitis panel hold statin Monitor labs (4) Hyperkalemia: Code(s): E87.5 - Hyperkalemia Status: Acute Assessment and Plan: Likely secondary to combination of renal failure and metabolic acidosis. patient also on Aldactone as an outpatient Patient was treated in the ER with hyperkalemia with insulin D50 bicarb and calcium Correct respiratory acidosis with ventilator Potassium level has improved and normalized Continue Lasix DC [employer] Monitor (5) Diabetes mellitus: Code(s): E11.9 - Type 2 diabetes mellitus without complications Status: Chronic Assessment and Plan: sliding scale insulin (6) Lymphedema: Code(s): I89.0 - Lymphedema, not elsewhere classified Status: Acute Assessment and Plan: lower extremity Dopplers negative for DVT patient is on anticoagulation as outpatient which will be continued diuretics and leg elevation Pressure bandage (7) Chronic kidney disease, stage 3: Code(s): N18.30 - Chronic kidney disease, stage 3 unspecified Status: Acute Assessment and Plan: Baseline unknown. Has chronic kidney disease disease stage III as per records Not a candidate for IV fluids due to pulmonary edema Normal CK level, urine electrolytes suggest renal etiology renal ultrasound IMPRESSION: 1. Normal right kidney without hydronephrosis. 2. Left kidney not visualized. Monitor urine output electrolytes and creatinine Consult nephrology (8) Atrial fibrillation: Code(s): I48.91 - Unspecified atrial fibrillation Status: Acute Assessment and Plan: patient is on digoxin and Eliquis digoxin level marginally elevated. Digoxin is on hold will recheck level in the morning Resume eliquis (9) Skin abnormalities: Code(s): L98.9 - Disorder of the skin and subcutaneous tissue, unspecified Status: Acute Assessment and Plan: Patient was evaluated by wound care and local wound care instructions were provided to the nurse for the wound on the left leg Redness at the bottom appears to be just superficial Wound on the left ear will be administered local care as it does not appear infected His l
[2022-12-29 12:06] LABS: Glucose Point of Care 125 mg/dl (65-105)
--- NOTE | 2022-12-29 13:53 | P.PNNP_ITS ---
Progress Note: A&P Assessment and Plan (1) CKD (chronic kidney disease): Code(s): N18.9 - Chronic kidney disease, unspecified Status: Chronic Assessment and Plan: * acc'd to patient history * baseline creatinine unknown - admitted with a creatinine of 2.7mg/dl * U/S shows normal right kidney, no left kidney * U 'lytes nonprerenal but pt was on lasix and FeUrea is 36 (less than 39) so prerenal * johana received furos 80 iv once yest and once today. u .o. is really good. * he has infiltrates on cxr. possibly pulmonary edema. with this and prerenal factors, consider bad LV. echo ordered and pending. * follow repeat labs and UOP (2) Hyperkalemia: Code(s): E87.5 - Hyperkalemia Status: Acute Assessment and Plan: * doing better s/p medical management * likely precipitated by renal dysfunction, metabolic acidosis, and use of spironolactone * he received furosemide, bicarb, and improved. (3) Acute and chronic respiratory failure: Qualifiers: Respiratory failure complication: hypoxia and hypercapnia Qualified Code(s): J96.21 - Acute and chronic respiratory failure with hypoxia; J96.22 - Acute and chronic respiratory failure with hypercapnia; J96.22 - Acute and chronic respiratory failure with hypercapnia Code(s): J96.20 - Acute and chronic respiratory failure, unspecified whether with hypoxia or hypercapnia Status: Acute Assessment and Plan: * due to hypoxia and hypercarbia * CHF and possible pneumonia contributing as well * on mechanical ventilation * follow cultures * on ceft/zith (4) CHF (congestive heart failure): Code(s): I50.9 - Heart failure, unspecified Status: Acute Assessment and Plan: * Echo ordered * IV diuretics as tolerated * good response to 80 qd furosemide. will go ahead and schedule it but watch the bun/cr * follow volume status (5) Diabetes mellitus: Code(s): E11.9 - Type 2 diabetes mellitus without complications Status: Chronic Assessment and Plan: * on accuchecks and ssi pre hospitalists/intensivists Subjective Date/time seen: 12/29/22 13:53 Interval history: patient is on vent and sedated. not interactive. Review of Systems Cardiovascular: Cardiovascular: Reports no additional cardiovascular complaints Respiratory: Respiratory: Reports no additional respiratory complaints Gastrointestinal: Gastrointestinal: Reports no additional gastrointestinal complaints Genitourinary: Genitourinary: Reports no additional male genitourinary complaints Exam Narrative: WDWN in NAD skin no rash head ncat lungs coarse bilaterally cor reg no rub abd BS+ nontender and soft ext 2+ bilateral edema. Objective Data Vital Signs Vital Signs: Vital Signs - 24 hr 12/28/22 14:00 12/28/22 14:15 12/28/22 14:16 Temperature Pulse Rate 86 86 89 Respiratory Rate 20 20 20 Blood Pressure 131/107 H Pulse Oximetry 96 Oxygen Delivery Fraction of Inspired Oxygen 12/28/22 14:40 12/28/22 14:54 12/28/22 15:52 Temperature Pulse Rate 90 86 87 Respiratory Rate 18 17 Blood Pressure 132/66 Pulse Oximetry 100 92 Oxygen Delivery Mechanical Ventilation Fraction of Inspired Oxygen 90
--- NOTE | 2022-12-29 13:53 | PM.PNNEP ---
Progress Note: A&P Assessment and Plan (1) CKD (chronic kidney disease): Code(s): N18.9 - Chronic kidney disease, unspecified Status: Chronic Assessment and Plan: acc'd to patient history baseline creatinine unknown - admitted with a creatinine of 2.7mg/dl U/S shows normal right kidney, no left kidney U 'lytes nonprerenal but pt was on lasix and FeUrea is 36 (less than 39) so prerenal johana received furos 80 iv once yest and once today. u .o. is really good. he has infiltrates on cxr. possibly pulmonary edema. with this and prerenal factors, consider bad LV. echo ordered and pending. follow repeat labs and UOP (2) Hyperkalemia: Code(s): E87.5 - Hyperkalemia Status: Acute Assessment and Plan: doing better s/p medical management likely precipitated by renal dysfunction, metabolic acidosis, and use of spironolactone he received furosemide, bicarb, and improved. (3) Acute and chronic respiratory failure: Qualifiers: Respiratory failure complication: hypoxia and hypercapnia Qualified Code(s): J96.21 - Acute and chronic respiratory failure with hypoxia; J96.22 - Acute and chronic respiratory failure with hypercapnia; J96.22 - Acute and chronic respiratory failure with hypercapnia Code(s): J96.20 - Acute and chronic respiratory failure, unspecified whether with hypoxia or hypercapnia Status: Acute Assessment and Plan: due to hypoxia and hypercarbia CHF and possible pneumonia contributing as well on mechanical ventilation follow cultures on ceft/zith (4) CHF (congestive heart failure): Code(s): I50.9 - Heart failure, unspecified Status: Acute Assessment and Plan: Echo ordered IV diuretics as tolerated good response to 80 qd furosemide. will go ahead and schedule it but watch the bun/cr follow volume status (5) Diabetes mellitus: Code(s): E11.9 - Type 2 diabetes mellitus without complications Status: Chronic Assessment and Plan: on accuchecks and ssi pre hospitalists/intensivists Subjective Date/time seen: 12/29/22 13:53 Interval history: patient is on vent and sedated. not interactive. Review of Systems Cardiovascular: Cardiovascular: Reports no additional cardiovascular complaints Respiratory: Respiratory: Reports no additional respiratory complaints Gastrointestinal: Gastrointestinal: Reports no additional gastrointestinal complaints Genitourinary: Genitourinary: Reports no additional male genitourinary complaints Exam Narrative: WDWN in NAD skin no rash head ncat lungs coarse bilaterally cor reg no rub abd BS+ nontender and soft ext 2+ bilateral edema. Objective Data Vital Signs Vital Signs: Vital Signs - 24 hr 12/28/22 14:00 12/28/22 14:15 12/28/22 14:16 Temperature Pulse Rate 86 86 89 Respiratory Rate 20 20 20 Blood Pressure 131/107 H Pulse Oximetry 96 Oxygen Delivery Fraction of Inspired Oxygen 12/28/22 14:40 12/28/22 14:54 12/28/22 15:52 Temperature Pulse Rate 90 86 87 Respiratory Rate 18 17 Blood Pressure 132/66 Pulse Oximetry 100 92 Oxygen Delivery Mechanical Ventilation Fraction of Inspired Oxygen 90 12/28/22 15:21 12/28/22 15:30 12/28/22 15:31 Temperature Pulse Rate 90 89 90 Respiratory Rate 20 19 20 Blood Pressure 138/74 Pulse Oximetry 96 Oxygen Delivery Fraction of Inspired Oxygen 12/28/22 15:55 12/28/22 16:00 12/28/22 16:45 Temperature Pulse Rate 83 88 84 Respiratory Rate 20 19 Blood Pressure Pulse Oximetry 85 L 98 Oxygen Delivery Mechanical Ventilation Fraction of Inspired Oxygen 90 12/28/22 16:35 12/28/22 18:00 12/28/22 18:00 Temperature 97.6 F Pulse Rate 80 81 81 Respiratory Rate 24 H Blood Pressure 125/67 Pulse Oximetry 97 Oxygen Delivery Fraction of Inspired Oxygen 12/28/22 19:15 12/28/22 20:41 12/28/22 20:00 Temperature Pulse
[2022-12-29 16:25] LABS: Glucose Point of Care 116 mg/dl (65-105)
[2022-12-29] MEDS: APIXABAN 5 MG TABLET PO (20:38)
[2022-12-29 21:11] LABS: Glucose Point of Care 116 mg/dl (65-105)
[2022-12-30] VITALS (28 sets, daily range): BP systolic 109–131; BP diastolic 50–76; PULSE 66–90; RESP 18–23; TEMP 36.8–37.4; O2SAT 90–96; BMI 48.0
[2022-12-30] MEDS: fentaNYL CITRATE INJ (*CRX) 100 MCG/2 ML VIAL 25 MCG IV PUSH ×3 (00:30→08:39)
[2022-12-30] MEDS: PROPOFOL IV EMULSION 100 ML 18.24 MG IV CONT ×4 (01:57→18:53)
[2022-12-30 03:55] LABS: Glucose Point of Care 118 mg/dl (65-105)
[2022-12-30 04:30] LABS: Glucose Point of Care 117 mg/dl (65-105)
[2022-12-30 05:20] LABS: Alveolar/Arterial O2 Gradient 174.1 mmHg; Base Excess ABG 15.1 mEq/l (+/-2.0); Carboxyhemoglobin 0.8 % THb (0-2.0); Fractional Inspired Oxygen 40 %; HCO3 ABG 38.9 mEq/l (22.0-26.0); Methemoglobin ABG 0.4 %THb (0-1.5); Oxygen Content ABG 18.9 %vol (16.0-22.0); Oxygen Saturation ABG 94.3 % (95.0-100.0); Oxyhemoglobin 91.5 % THb (90.0-100.0); PCO2 ABG 43.2 mmHg (35.0-45.0); PO2 ABG 61.4 mmHg (80.0-100.0); PO2 FiO2 Ratio Arterial Blood 1.54 %; Reduced Hemoglobin 7.3 %THb (0-5.0); Total Hemoglobin 14.7 g/dL (12.0-18.0)
[2022-12-30 05:22] LABS: Basophils Percent Auto 0.1 % (0.2-1.2); Eosinophils Percent Auto 0.1 % (0-4.4); Hemoglobin 13.3 g/dL (14.0-18.0); Immature Granulocyte Absolute 0.05 K/mm3 (0.00-0.031); Immature Granulocyte Percent A 0.4 % (0-0.5); Lymphocytes Absolute Auto 1.32 K/mm3 (0.9-3.2); Lymphocytes Percent Auto 9.4 % (18.3-44.2); Mean Corpuscular HGB Conc 30.9 g/dl (32-36); Mean Corpuscular Hemoglobin 28.5 pg (26-34); Mean Corpuscular Volume 92.1 fl (80-100); Mean Platelet Volume 9.7 fl (7.4-10.4); Monocytes Absolute Auto 1.3 K/mm3 (0.1-0.6); Monocytes Percent Auto 9.1 % (2.6-8.5); Neutrophils Absolute Auto 11.3 K/mm3 (1.3-6.7); Neutrophils Percent Auto 80.9 % (45.5-73.1); Platelet Count Result 160 k/mm3 (150-375); Red Blood Count 4.67 M/mm3 (4.6-6.20)
[2022-12-30 05:22] LABS: Device VENTILATOR; Modified Allen's Test Pass; Site Drawn RIGHT RADIAL; pH ABG 7.572 (7.350-7.450)
[2022-12-30 05:23] LABS: Arterial Blood Gas PEEP 5 cmH2O; Arterial Blood Gas Tidal Volume 470 ml; Arterial Blood Gas Vent Mode CMV; Arterial Blood Gas Ventilator rate 20 /MIN
[2022-12-30 06:07] LABS: Digoxin 0.9 ng/mL (0.8-2.0)
[2022-12-30 06:13] LABS: Alanine Aminotransferase 668 U/L (6-50); Alkaline Phosphatase 63 U/L (38-126); Anion Gap 2 mmol/L (8-16); Aspartate Amino Transferase 305 U/L (17-59); Bilirubin,Total 1.6 mg/dL (0.2-1.3); Blood Urea Nitrogen 57 mg/dL (9-20); Calcium 8.2 mg/dL (8.4-10.2); Carbon Dioxide 39 mmol/L (22-30); Chloride 91 mmol/L (98-107); Estimated CRCL calculation 53 ml/min; Estimated Glomerular Filt Rate 36; Glucose 114 mg/dL (65-110); Phosphorus 3.1 mg/dL (2.5-4.5); Potassium 3.5 mmol/L (3.4-5.0); Sodium 132 mmol/L (137-145); Triglycerides 173 mg/dL (<150)
[2022-12-30] MEDS: PANTOPRAZOLE SODIUM IV 40 MG VIAL IV PUSH (08:46)
[2022-12-30] MEDS: TOLNAFTATE 1% POWDER 45 GM BTL 1 APPLIC TOPICAL ×2 (08:46→21:23)
[2022-12-30] MEDS: MINERAL OIL/WHITE PETROLATUM OINTMENT 1 APPLIC EACH EYE ×2 (08:47→21:23)
[2022-12-30] MEDS: POTASSIUM CHLORIDE 20 MEQ PACKET (FOR LIQUID) 40 MEQ FEED TUBE (08:48)
[2022-12-30] MEDS: FUROSEMIDE INJ 100 MG/10 ML VIAL 80 MG IV PUSH (08:48)
[2022-12-30] MEDS: APIXABAN 5 MG TABLET PO ×2 (08:48→21:24)
[2022-12-30] MEDS: LIDOCAINE 5% PATCH 1 PATCH TRANSDERM (09:11)
--- NOTE | 2022-12-30 09:34 | WPDINTPN ---
Progress Note: A&P Assessment and Plan (1) Acute and chronic respiratory failure: Qualifiers: Respiratory failure complication: hypoxia and hypercapnia Qualified Code(s): J96.21 - Acute and chronic respiratory failure with hypoxia; J96.22 - Acute and chronic respiratory failure with hypercapnia; J96.22 - Acute and chronic respiratory failure with hypercapnia Code(s): J96.20 - Acute and chronic respiratory failure, unspecified whether with hypoxia or hypercapnia Status: Acute Assessment and Plan: Acute on chronic respiratory failure secondary to hypoxia and hypercarbia, -Likely combination secondary to CHF and possible pneumonia -Patient has never smoked and does not have any documented history of COPD - intubated on 12/28/2022 in the ER upon arrival -Chest x-ray reviewed -ABG reviewed- will decrease tidal volume and respiratory rate -continue bronchodilators, - patient responding well to diuresis, remains on Lasix 80 mg IV daily per Nephrology Empiric antibiotics azithromycin, vancomycin and ceftriaxone -12/28 Blood cultures negative x2 - 12/29 sputum cultures negative so far - urine Legionella and urine pneumococcal antigens are pending - sedated with propofol, maintain RASS of 0--2, daily sedation vacation (2) CHF (congestive heart failure): Code(s): I50.9 - Heart failure, unspecified Status: Acute Assessment and Plan: 12/29/2022: Echocardiogram showed LV hypertrophy with normal LV size and good systolic function, grade 2 diastolic noncompliance, and was right ventricle, moderate pulmonary hypertension with RVSP 60 mg - continue Lasix for diuresis per Nephrology (3) Elevated liver enzymes: Code(s): R74.8 - Abnormal levels of other serum enzymes Status: Acute Assessment and Plan: Likely secondary to hypoxia hypoperfusion and hepatic congestion. patient also on statin - acetaminophen level was normal -Check right upper quadrant ultrasound, -negative viral hepatitis panel - hold statin - LFTs trending down, will continue to monitor (4) Hyperkalemia: Code(s): E87.5 - Hyperkalemia Status: Acute Assessment and Plan: Likely secondary to combination of renal failure and metabolic acidosis. patient also on Aldactone as an outpatient -Patient was treated in the ER for hyperkalemia with insulin D50 bicarb and calcium -Correct respiratory acidosis with ventilator -Potassium level has improved and normalized -Continue Lasix -DC Lokelma - continue to monitor (5) Diabetes mellitus: Code(s): E11.9 - Type 2 diabetes mellitus without complications Status: Chronic Assessment and Plan: sliding scale insulin and Accu-Cheks (6) Lymphedema: Code(s): I89.0 - Lymphedema, not elsewhere classified Status: Acute Assessment and Plan: 12/28/2022: lower extremity Dopplers negative for DVT -patient is on anticoagulation as outpatient which will be continued -diuretics and leg elevation -Pressure bandage (7) Chronic kidney disease, stage 3: Code(s): N18.30 - Chronic kidney disease, stage 3 unspecified Status: Acute Assessment and Plan: Baseline unknown. Has chronic kidney disease disease stage III as per records -Not a candidate for IV fluids due to pulmonary edema -Normal CK level, urine electrolytes suggest renal etiology -12/28: renal ultrasound: Normal right kidney without hydronephrosis.. Left kidney not visualized - Good urine output response to diuresis, will continue - appreciate Nephrology evaluation (8) Atrial fibrillation: Code(s): I48.91 - Unspecified atrial fibrillation Status: Acute Assessment and Plan: patient is on digoxin and Eliquis - digoxin level marginally elevated. digoxin level is within normal limits this morning - continue Eliquis (9) Skin abnormalities: Code(s): L98.9 - Disorder of the skin and subcutaneous tissue, unspecified Status
--- NOTE | 2022-12-30 10:54 | P.PNNP_ITS ---
Progress Note: A&P Assessment and Plan (1) CKD (chronic kidney disease): Code(s): N18.9 - Chronic kidney disease, unspecified Status: Chronic Assessment and Plan: * acc'd to patient history * baseline creatinine unknown - admitted with a creatinine of 2.7mg/dl * U/S shows normal right kidney, no left kidney * U 'lytes nonprerenal but pt was on lasix and FeUrea is 36 (less than 39) so prerenal * he received furos 80 iv once yest and once today. u .o. was 4600 yesterday. * he has infiltrates on cxr. possibly pulmonary edema. echo shows good LVEF but gr2 DD. also has pulmonary hypertension. * continue diuretics * CO2 is high. add acetazolamide * follow repeat labs and UOP (2) Hyperkalemia: Code(s): E87.5 - Hyperkalemia Status: Acute Assessment and Plan: * resolved (3) Acute and chronic respiratory failure: Qualifiers: Respiratory failure complication: hypoxia and hypercapnia Qualified Code(s): J96.21 - Acute and chronic respiratory failure with hypoxia; J96.22 - Acute and chronic respiratory failure with hypercapnia; J96.22 - Acute and chronic respiratory failure with hypercapnia Code(s): J96.20 - Acute and chronic respiratory failure, unspecified whether with hypoxia or hypercapnia Status: Acute Assessment and Plan: * due to hypoxia and hypercarbia * CHF and possible pneumonia contributing as well * on mechanical ventilation * follow cultures * on ceft/zith (4) CHF (congestive heart failure): Code(s): I50.9 - Heart failure, unspecified Status: Acute Assessment and Plan: * Echo results as above. * chest x-ray still shows fluid * Continue furosemide 80 daily * follow volume status (5) Diabetes mellitus: Code(s): E11.9 - Type 2 diabetes mellitus without complications Status: Chronic Assessment and Plan: * on accuchecks and ssi pre hospitalists/intensivists Subjective Date/time seen: 12/30/22 10:54 Interval history: patient is on vent and sedated. He looks comfortable. Exam Narrative: WDWN in NAD skin no rash or subcu nodules head ncat lungs coarse bilaterally cor reg no rub or gallop abd BS+ nontender and soft ext 2+ bilateral edema. Objective Data Vital Signs Vital Signs: Vital Signs - 24 hr 12/29/22 11:12 12/29/22 11:14 12/29/22 11:32 Temperature Pulse Rate 74 79 Respiratory Rate 20 Blood Pressure Pulse Oximetry 100 100 Oxygen Delivery Mechanical Ventilation Mechanical Ventilation Fraction of Inspired Oxygen 60 60 50 12/29/22 12:04 12/29/22 12:00 12/29/22 14:37 Temperature 99.1 F Pulse Rate 71 67 71 Respiratory Rate 20 Blood Pressure 121/65 Pulse Oximetry 100 100 Oxygen Delivery Mechanical Ventilation Fraction of Inspired Oxygen 50 12/29/22 14:00 12/29/22 14:00 12/29/22 15:08 Temperature Pulse Rate 83 77 75 Respiratory Rate 20 20 Blood Pressure 141/100 H Pulse Oximetry 99 Oxygen Delivery Fraction of Inspired Oxygen 12/29/22 15:22 12/29/22 15:22 12/29/22 15:38 Temperature Pulse Rate 87 87 74 Respiratory Rate 20 20 20 Blood Pre
--- NOTE | 2022-12-30 10:54 | PM.PNNEP ---
Progress Note: A&P Assessment and Plan (1) CKD (chronic kidney disease): Code(s): N18.9 - Chronic kidney disease, unspecified Status: Chronic Assessment and Plan: acc'd to patient history baseline creatinine unknown - admitted with a creatinine of 2.7mg/dl U/S shows normal right kidney, no left kidney U 'lytes nonprerenal but pt was on lasix and FeUrea is 36 (less than 39) so prerenal he received furos 80 iv once yest and once today. u .o. was 4600 yesterday. he has infiltrates on cxr. possibly pulmonary edema. echo shows good LVEF but gr2 DD. also has pulmonary hypertension. continue diuretics CO2 is high. add acetazolamide follow repeat labs and UOP (2) Hyperkalemia: Code(s): E87.5 - Hyperkalemia Status: Acute Assessment and Plan: resolved (3) Acute and chronic respiratory failure: Qualifiers: Respiratory failure complication: hypoxia and hypercapnia Qualified Code(s): J96.21 - Acute and chronic respiratory failure with hypoxia; J96.22 - Acute and chronic respiratory failure with hypercapnia; J96.22 - Acute and chronic respiratory failure with hypercapnia Code(s): J96.20 - Acute and chronic respiratory failure, unspecified whether with hypoxia or hypercapnia Status: Acute Assessment and Plan: due to hypoxia and hypercarbia CHF and possible pneumonia contributing as well on mechanical ventilation follow cultures on ceft/zith (4) CHF (congestive heart failure): Code(s): I50.9 - Heart failure, unspecified Status: Acute Assessment and Plan: Echo results as above. chest x-ray still shows fluid Continue furosemide 80 daily follow volume status (5) Diabetes mellitus: Code(s): E11.9 - Type 2 diabetes mellitus without complications Status: Chronic Assessment and Plan: on accuchecks and ssi pre hospitalists/intensivists Subjective Date/time seen: 12/30/22 10:54 Interval history: patient is on vent and sedated. He looks comfortable. Exam Narrative: WDWN in NAD skin no rash or subcu nodules head ncat lungs coarse bilaterally cor reg no rub or gallop abd BS+ nontender and soft ext 2+ bilateral edema. Objective Data Vital Signs Vital Signs: Vital Signs - 24 hr 12/29/22 11:12 12/29/22 11:14 12/29/22 11:32 Temperature Pulse Rate 74 79 Respiratory Rate 20 Blood Pressure Pulse Oximetry 100 100 Oxygen Delivery Mechanical Ventilation Mechanical Ventilation Fraction of Inspired Oxygen 60 60 50 12/29/22 12:04 12/29/22 12:00 12/29/22 14:37 Temperature 99.1 F Pulse Rate 71 67 71 Respiratory Rate 20 Blood Pressure 121/65 Pulse Oximetry 100 100 Oxygen Delivery Mechanical Ventilation Fraction of Inspired Oxygen 50 12/29/22 14:00 12/29/22 14:00 12/29/22 15:08 Temperature Pulse Rate 83 77 75 Respiratory Rate 20 20 Blood Pressure 141/100 H Pulse Oximetry 99 Oxygen Delivery Fraction of Inspired Oxygen 12/29/22 15:22 12/29/22 15:22 12/29/22 15:38 Temperature Pulse Rate 87 87 74 Respiratory Rate 20 20 20 Blood Pressure Pulse Oximetry 100 Oxygen Delivery Mechanical Ventilation Fraction of Inspired Oxygen 50 12/29/22 16:00 12/29/22 16:00 12/29/22 16:00 Temperature 98.4 F Pulse Rate 75 74 Respiratory Rate 20 Blood Pressure 132/70 Pulse Oximetry 98 Oxygen Delivery Fraction of Inspired Oxygen 50 12/29/22 17:21 12/29/22 18:00 12/29/22 18:00 Temperature Pulse Rate 82 79 76 Respiratory Rate 20 Blood Pressure 125/67 Pulse Oximetry 100 96 Oxygen Delivery Mechanical Ventilation Fraction of Inspired Oxygen 40 12/29/22 19:27 12/29/22 20:00 12/29/22 20:00 Temperature Pulse Rate 77 77 77 Respiratory Rate 20 Blood Pressure Pulse Oximetry 93 94 Oxygen Delivery Mechanical Ventilation Mechanical Ventilation Fraction of Inspired Oxygen 40 40 12/29/22
[2022-12-30] MEDS: EUCERIN CREAM 120 GM JAR 1 APPLIC TOPICAL (11:37)
[2022-12-30 11:59] LABS: Glucose Point of Care 102 mg/dl (65-105)
[2022-12-30] MEDS: acetaZOLAMIDE TAB 250 MG TABLET 500 MG PO ×2 (15:18→21:24)
[2022-12-30 18:04] LABS: Glucose Point of Care 112 mg/dl (65-105)
[2022-12-30] MEDS: SENNA/DOCUSATE SODIUM TABLET 1 TAB PO (21:24)
[2022-12-31] VITALS (33 sets, daily range): BP systolic 94–128; BP diastolic 56–75; PULSE 68–89; RESP 18–20; TEMP 36.9–37.4; O2SAT 92–98
[2022-12-31] MEDS: PROPOFOL IV EMULSION 100 ML 18.24 MG IV CONT ×3 (00:41→11:32)
[2022-12-31 00:52] LABS: Glucose Point of Care 111 mg/dl (65-105)
[2022-12-31 00:56] LABS: Vancomycin Trough 21.9 ug/mL (10.0-20.0)
[2022-12-31 04:47] LABS: Basophils Percent Auto 0.1 % (0.2-1.2); Eosinophils Absolute Auto 0.1 K/mm3 (0-0.3); Eosinophils Percent Auto 0.8 % (0-4.4); Hematocrit 43.8 % (42.0-52.0); Hemoglobin 13.2 g/dL (14.0-18.0); Immature Granulocyte Absolute 0.05 K/mm3 (0.00-0.031); Immature Granulocyte Percent A 0.5 % (0-0.5); Lymphocytes Absolute Auto 1.28 K/mm3 (0.9-3.2); Lymphocytes Percent Auto 13.7 % (18.3-44.2); Mean Corpuscular HGB Conc 30.1 g/dl (32-36); Mean Corpuscular Hemoglobin 28.1 pg (26-34); Mean Corpuscular Volume 93.2 fl (80-100); Mean Platelet Volume 9.8 fl (7.4-10.4); Monocytes Absolute Auto 1.1 K/mm3 (0.1-0.6); Monocytes Percent Auto 11.9 % (2.6-8.5); Neutrophils Absolute Auto 6.8 K/mm3 (1.3-6.7); Platelet Count Result 156 k/mm3 (150-375); Red Cell Distribution Width 17.6 % (11.5-14.5); White Blood Count 9.3 K/mm3 (4.5-10.0)
[2022-12-31 04:58] LABS: Alanine Aminotransferase 545 U/L (6-50); Albumin Level 3.2 g/dL (3.5-5.1); Alkaline Phosphatase 72 U/L (38-126); Anion Gap 0 mmol/L (8-16); Aspartate Amino Transferase 152 U/L (17-59); Bilirubin,Total 1.5 mg/dL (0.2-1.3); Blood Urea Nitrogen 50 mg/dL (9-20); Calcium 8.3 mg/dL (8.4-10.2); Carbon Dioxide 39 mmol/L (22-30); Chloride 91 mmol/L (98-107); Estimated CRCL calculation 56 ml/min; Estimated Glomerular Filt Rate 39; Glucose 105 mg/dL (65-110); Magnesium 1.9 mg/dL (1.6-2.3); Phosphorus 4.2 mg/dL (2.5-4.5); Potassium 3.5 mmol/L (3.4-5.0); Sodium 130 mmol/L (137-145)
[2022-12-31 05:19] LABS: Alveolar/Arterial O2 Gradient 157.3 mmHg; Base Excess ABG 9.3 mEq/l (+/-2.0); Carboxyhemoglobin 1.3 % THb (0-2.0); Fractional Inspired Oxygen 40 %; HCO3 ABG 34.1 mEq/l (22.0-26.0); Methemoglobin ABG 0.4 %THb (0-1.5); Oxygen Content ABG 18.3 %vol (16.0-22.0); Oxygen Saturation ABG 95.7 % (95.0-100.0); Oxyhemoglobin 92.9 % THb (90.0-100.0); PCO2 ABG 46.8 mmHg (35.0-45.0); PO2 ABG 74.1 mmHg (80.0-100.0); PO2 FiO2 Ratio Arterial Blood 1.85 %; Reduced Hemoglobin 5.4 %THb (0-5.0); pH ABG 7.481 (7.350-7.450)
[2022-12-31 05:22] LABS: Device VENTILATOR; Modified Allen's Test Pass; Site Drawn RIGHT RADIAL
[2022-12-31 05:23] LABS: Arterial Blood Gas PEEP 8 cmH2O; Arterial Blood Gas Tidal Volume 450 ml; Arterial Blood Gas Vent Mode CMV; Arterial Blood Gas Ventilator rate 18 /MIN
[2022-12-31] MEDS: acetaZOLAMIDE TAB 250 MG TABLET 500 MG PO ×3 (05:35→21:47)
--- NOTE | 2022-12-31 08:53 | WPDINTPN ---
Progress Note: A&P Assessment and Plan (1) Acute and chronic respiratory failure: Qualifiers: Respiratory failure complication: hypoxia and hypercapnia Qualified Code(s): J96.21 - Acute and chronic respiratory failure with hypoxia; J96.22 - Acute and chronic respiratory failure with hypercapnia; J96.22 - Acute and chronic respiratory failure with hypercapnia Code(s): J96.20 - Acute and chronic respiratory failure, unspecified whether with hypoxia or hypercapnia Status: Acute Assessment and Plan: Acute on chronic respiratory failure secondary to hypoxia and hypercarbia, -Likely combination secondary to CHF and possible pneumonia -Patient has never smoked and does not have any documented history of COPD - intubated on 12/28/2022 in the ER upon arrival -Chest x-ray this morning: Stable diffuse bilateral airspace disease which may represent edema or pneumonia -ABG reviewed- will decrease tidal volume and respiratory rate -continue bronchodilators, - patient responding well to diuresis, will continue Empiric antibiotics azithromycin, vancomycin and ceftriaxone -12/28 Blood cultures negative x2 - 12/29 sputum cultures negative so far - urine Legionella and urine pneumococcal antigens are pending - sedated with propofol, maintain RASS of 0--2, daily sedation vacation (2) CHF (congestive heart failure): Code(s): I50.9 - Heart failure, unspecified Status: Acute Assessment and Plan: 12/29/2022: Echocardiogram showed LV hypertrophy with normal LV size and good systolic function, grade 2 diastolic noncompliance, and was right ventricle, moderate pulmonary hypertension with RVSP 60 mg - continue diuresis per Nephrology (3) Elevated liver enzymes: Code(s): R74.8 - Abnormal levels of other serum enzymes Status: Acute Assessment and Plan: Likely secondary to hypoxia hypoperfusion and hepatic congestion. patient also on statin - acetaminophen level was normal -Check right upper quadrant ultrasound, -negative viral hepatitis panel - hold statin - LFTs trending down, will continue to monitor (4) Hyperkalemia: Code(s): E87.5 - Hyperkalemia Status: Acute Assessment and Plan: Likely secondary to combination of renal failure and metabolic acidosis. patient also on Aldactone as an outpatient -Patient was treated in the ER for hyperkalemia with insulin D50 bicarb and calcium -Correct respiratory acidosis with ventilator -Potassium level has improved and normalized - continue to monitor (5) Diabetes mellitus: Code(s): E11.9 - Type 2 diabetes mellitus without complications Status: Chronic Assessment and Plan: sliding scale insulin and Accu-Cheks (6) Lymphedema: Code(s): I89.0 - Lymphedema, not elsewhere classified Status: Acute Assessment and Plan: 12/28/2022: lower extremity Dopplers negative for DVT -patient is on anticoagulation as outpatient which will be continued -diuretics and leg elevation -Pressure bandage (7) Chronic kidney disease, stage 3: Code(s): N18.30 - Chronic kidney disease, stage 3 unspecified Status: Acute Assessment and Plan: Baseline unknown. Has chronic kidney disease disease stage III as per records -Not a candidate for IV fluids due to pulmonary edema -Normal CK level, urine electrolytes suggest renal etiology -12/28: renal ultrasound: Normal right kidney without hydronephrosis.. Left kidney not visualized - Good urine output response to diuresis, will continue - appreciate Nephrology evaluation -hold Lasix and continue Diamox, will discuss with Nephrology (8) Atrial fibrillation: Code(s): I48.91 - Unspecified atrial fibrillation Status: Acute Assessment and Plan: patient is on digoxin and Eliquis - digoxin level marginally elevated. digoxin level is within normal limits this morning - continue Eliquis -in sinus rhythm (9) Skin abnormalities:
[2022-12-31] MEDS: APIXABAN 5 MG TABLET PO ×2 (08:56→21:47)
[2022-12-31] MEDS: PANTOPRAZOLE SODIUM IV 40 MG VIAL IV PUSH (08:56)
[2022-12-31] MEDS: polyethylene glycoL 3350 17 GM POWD.PACK PO (08:56)
[2022-12-31] MEDS: MINERAL OIL/WHITE PETROLATUM OINTMENT 1 APPLIC EACH EYE ×2 (08:56→21:47)
--- NOTE | 2022-12-31 10:18 | P.PNNP_ITS ---
Progress Note: A&P Assessment and Plan (1) CKD (chronic kidney disease): Code(s): N18.9 - Chronic kidney disease, unspecified Status: Chronic Assessment and Plan: * acc'd to patient history * baseline creatinine unknown - admitted with a creatinine of 2.7mg/dl * currently creatinine 1.8 * U/S shows normal right kidney, no left kidney * U 'lytes nonprerenal but pt was on lasix and FeUrea is 36 (less than 39) so prerenal * he received furos 80 iv once yest and once today. u .o. was 4600 yesterday. * he has infiltrates on cxr. possibly pulmonary edema. echo shows good LVEF but gr2 DD. also has pulmonary hypertension. * urine output very high yesterday. Possibly post ATN diuresis * will stop loop diuretic * CO2 is still high. we just started acetazolamide * follow repeat labs and UOP (2) Hyperkalemia: Code(s): E87.5 - Hyperkalemia Status: Acute Assessment and Plan: * resolved (3) Acute and chronic respiratory failure: Qualifiers: Respiratory failure complication: hypoxia and hypercapnia Qualified Code(s): J96.21 - Acute and chronic respiratory failure with hypoxia; J96.22 - Acute and chronic respiratory failure with hypercapnia; J96.22 - Acute and chronic respiratory failure with hypercapnia Code(s): J96.20 - Acute and chronic respiratory failure, unspecified whether with hypoxia or hypercapnia Status: Acute Assessment and Plan: * due to hypoxia and hypercarbia * CHF and possible pneumonia contributing as well * FiO2 at 40%. * on mechanical ventilation * follow cultures * on ceft/zith (4) CHF (congestive heart failure): Code(s): I50.9 - Heart failure, unspecified Status: Acute Assessment and Plan: * Echo results as above. * chest x-ray still shows fluid * holding loop diuretics because of vigorous diuresis * follow volume status (5) Diabetes mellitus: Code(s): E11.9 - Type 2 diabetes mellitus without complications Status: Chronic Assessment and Plan: * on accuchecks and ssi pre hospitalists/intensivists Subjective Date/time seen: 12/31/22 10:18 Interval history: patient is on vent and sedated. on no pressors Exam Narrative: WDWN in NAD skin no rash or subcu nodules head ncat lungs coarse bilaterally cor reg no rub or gallop abd BS+ nontender and soft ext 1-2+ improved bilateral edema. Objective Data Vital Signs Vital Signs: Vital Signs - 24 hr 12/30/22 11:21 12/30/22 11:38 12/30/22 13:39 Temperature 98.6 F Pulse Rate 66 68 77 Respiratory Rate 18 18 Blood Pressure 110/60 Pulse Oximetry 95 95 Oxygen Delivery Mechanical Ventilation Fraction of Inspired Oxygen 50 12/30/22 12:00 12/30/22 12:00 12/30/22 12:00 Temperature Pulse Rate 69 Respiratory Rate 18 Blood Pressure 124/66 Pulse Oximetry 94 95 Oxygen Delivery Mechanical Ventilation Fraction of Inspired Oxygen 50 50 12/30/22 14:53 12/30/22 14:00 12/30/22 12:00 Temperature Pulse Rate 74 74 74 Respiratory Rate 18 Blood Pressure 109/70 Pulse Oximetry 95 95 Oxygen Delivery Mechanical Ventilation Fraction of Inspired Oxygen 50
--- NOTE | 2022-12-31 10:18 | PM.PNNEP ---
Progress Note: A&P Assessment and Plan (1) CKD (chronic kidney disease): Code(s): N18.9 - Chronic kidney disease, unspecified Status: Chronic Assessment and Plan: acc'd to patient history baseline creatinine unknown - admitted with a creatinine of 2.7mg/dl currently creatinine 1.8 U/S shows normal right kidney, no left kidney U 'lytes nonprerenal but pt was on lasix and FeUrea is 36 (less than 39) so prerenal he received furos 80 iv once yest and once today. u .o. was 4600 yesterday. he has infiltrates on cxr. possibly pulmonary edema. echo shows good LVEF but gr2 DD. also has pulmonary hypertension. urine output very high yesterday. Possibly post ATN diuresis will stop loop diuretic CO2 is still high. we just started acetazolamide follow repeat labs and UOP (2) Hyperkalemia: Code(s): E87.5 - Hyperkalemia Status: Acute Assessment and Plan: resolved (3) Acute and chronic respiratory failure: Qualifiers: Respiratory failure complication: hypoxia and hypercapnia Qualified Code(s): J96.21 - Acute and chronic respiratory failure with hypoxia; J96.22 - Acute and chronic respiratory failure with hypercapnia; J96.22 - Acute and chronic respiratory failure with hypercapnia Code(s): J96.20 - Acute and chronic respiratory failure, unspecified whether with hypoxia or hypercapnia Status: Acute Assessment and Plan: due to hypoxia and hypercarbia CHF and possible pneumonia contributing as well FiO2 at 40%. on mechanical ventilation follow cultures on ceft/zith (4) CHF (congestive heart failure): Code(s): I50.9 - Heart failure, unspecified Status: Acute Assessment and Plan: Echo results as above. chest x-ray still shows fluid holding loop diuretics because of vigorous diuresis follow volume status (5) Diabetes mellitus: Code(s): E11.9 - Type 2 diabetes mellitus without complications Status: Chronic Assessment and Plan: on accuchecks and ssi pre hospitalists/intensivists Subjective Date/time seen: 12/31/22 10:18 Interval history: patient is on vent and sedated. on no pressors Exam Narrative: WDWN in NAD skin no rash or subcu nodules head ncat lungs coarse bilaterally cor reg no rub or gallop abd BS+ nontender and soft ext 1-2+ improved bilateral edema. Objective Data Vital Signs Vital Signs: Vital Signs - 24 hr 12/30/22 11:21 12/30/22 11:38 12/30/22 13:39 Temperature 98.6 F Pulse Rate 66 68 77 Respiratory Rate 18 18 Blood Pressure 110/60 Pulse Oximetry 95 95 Oxygen Delivery Mechanical Ventilation Fraction of Inspired Oxygen 50 12/30/22 12:00 12/30/22 12:00 12/30/22 12:00 Temperature Pulse Rate 69 Respiratory Rate 18 Blood Pressure 124/66 Pulse Oximetry 94 95 Oxygen Delivery Mechanical Ventilation Fraction of Inspired Oxygen 50 50 12/30/22 14:53 12/30/22 14:00 12/30/22 12:00 Temperature Pulse Rate 74 74 74 Respiratory Rate 18 Blood Pressure 109/70 Pulse Oximetry 95 95 Oxygen Delivery Mechanical Ventilation Fraction of Inspired Oxygen 50 12/30/22 14:00 12/30/22 17:34 12/30/22 16:00 Temperature Pulse Rate 74 77 Respiratory Rate Blood Pressure Pulse Oximetry 95 95 Oxygen Delivery Mechanical Ventilation Mechanical Ventilation Fraction of Inspired Oxygen 30 50 12/30/22 16:00 12/30/22 16:00 12/30/22 18:00 Temperature 99.3 F Pulse Rate 78 80 Respiratory Rate 18 18 Blood Pressure 120/59 L 121/58 L Pulse Oximetry 95 95 Oxygen Delivery Fraction of Inspired Oxygen 50 12/30/22 16:00 12/30/22 18:00 12/30/22 18:53 Temperature Pulse Rate 77 80 86 Respiratory Rate 18 Blood Pressure Pulse Oximetry Oxygen Delivery Fraction of Inspired Oxygen 12/30/22 19:59 12/30/22 20:00 12/30/22 20:00 Temperature 99.3 F Pulse Rate 77 79 79 Respiratory R
[2022-12-31] MEDS: TOLNAFTATE 1% POWDER 45 GM BTL 1 APPLIC TOPICAL ×2 (10:55→21:47)
[2022-12-31] MEDS: EUCERIN CREAM 120 GM JAR 1 APPLIC TOPICAL (10:55)
[2022-12-31] MEDS: LIDOCAINE 5% PATCH 2 PATCH TRANSDERM (10:55)
[2022-12-31] MEDS: MAGNESIUM SULF 2 GM/WATER 50ML 2 GM/50 ML BAG IVPB (11:17)
[2022-12-31] MEDS: POTASSIUM CHLORIDE 20 MEQ PACKET (FOR LIQUID) 40 MEQ FEED TUBE (11:17)
[2022-12-31 11:47] LABS: Glucose Point of Care 99 mg/dl (65-105)
[2022-12-31] MEDS: CENTRAL LINE FLUSH 10 ML IV PUSH ×2 (14:24→21:47)
[2022-12-31] MEDS: PROPOFOL IV EMULSION 100 ML 13.68 MG IV CONT (16:50)
[2022-12-31 17:09] LABS: Glucose Point of Care 94 mg/dl (65-105)
[2022-12-31] MEDS: SENNA/DOCUSATE SODIUM TABLET 1 TAB PO (21:47)
[2023-01-01] VITALS (30 sets, daily range): BP systolic 102–130; BP diastolic 62–78; PULSE 70–93; RESP 14–24; TEMP 37.1–37.4; O2SAT 92–96; BMI 45.0
[2023-01-01] MEDS: PROPOFOL IV EMULSION 100 ML 13.68 MG IV CONT (00:10)
[2023-01-01 00:25] LABS: Glucose Point of Care 123 mg/dl (65-105)
[2023-01-01 04:53] LABS: Alanine Aminotransferase 381 U/L (6-50); Albumin Level 3.2 g/dL (3.5-5.1); Alkaline Phosphatase 71 U/L (38-126); Anion Gap 3 mmol/L (8-16); Aspartate Amino Transferase 82 U/L (17-59); Bilirubin,Total 1.2 mg/dL (0.2-1.3); Blood Urea Nitrogen 42 mg/dL (9-20); Calcium 8.6 mg/dL (8.4-10.2); Carbon Dioxide 31 mmol/L (22-30); Chloride 97 mmol/L (98-107); Estimated CRCL calculation 61 ml/min; Estimated Glomerular Filt Rate 44; Glucose 110 mg/dL (65-110); Magnesium 2.2 mg/dL (1.6-2.3); Potassium 3.9 mmol/L (3.4-5.0); Sodium 131 mmol/L (137-145); Triglycerides 137 mg/dL (<150)
[2023-01-01 05:01] LABS: Basophils Percent Auto 0.1 % (0.2-1.2); Eosinophils Absolute Auto 0.3 K/mm3 (0-0.3); Eosinophils Percent Auto 4.7 % (0-4.4); Hemoglobin 13.3 g/dL (14.0-18.0); Immature Granulocyte Absolute 0.03 K/mm3 (0.00-0.031); Immature Granulocyte Percent A 0.4 % (0-0.5); Immature Platelet Fraction Pct 3.3 % (0.9-11.2); Lymphocytes Absolute Auto 0.84 K/mm3 (0.9-3.2); Lymphocytes Percent Auto 11.7 % (18.3-44.2); Mean Corpuscular HGB Conc 29.6 g/dl (32-36); Mean Corpuscular Hemoglobin 28.6 pg (26-34); Mean Corpuscular Volume 96.8 fl (80-100); Mean Platelet Volume 10.3 fl (7.4-10.4); Monocytes Absolute Auto 0.8 K/mm3 (0.1-0.6); Monocytes Percent Auto 11.5 % (2.6-8.5); Neutrophils Absolute Auto 5.1 K/mm3 (1.3-6.7); Neutrophils Percent Auto 71.6 % (45.5-73.1); Platelet Count Result 140 k/mm3 (150-375); Red Blood Count 4.65 M/mm3 (4.6-6.20); Red Cell Distribution Width 17.6 % (11.5-14.5); White Blood Count 7.2 K/mm3 (4.5-10.0)
[2023-01-01 05:01] LABS: Alveolar/Arterial O2 Gradient 120.5 mmHg; Base Excess ABG 4.4 mEq/l (+/-2.0); Carboxyhemoglobin 1.5 % THb (0-2.0); Fractional Inspired Oxygen 35 %; HCO3 ABG 30.9 mEq/l (22.0-26.0); Methemoglobin ABG 0.3 %THb (0-1.5); Oxygen Content ABG 18.5 %vol (16.0-22.0); Oxygen Saturation ABG 92.7 % (95.0-100.0); PCO2 ABG 53.3 mmHg (35.0-45.0); PO2 ABG 67.1 mmHg (80.0-100.0); PO2 FiO2 Ratio Arterial Blood 1.92 %; Reduced Hemoglobin 8.2 %THb (0-5.0); Total Hemoglobin 14.6 g/dL (12.0-18.0); pH ABG 7.381 (7.350-7.450)
[2023-01-01 05:02] LABS: Device VENTILATOR; Modified Allen's Test Pass; Site Drawn LEFT RADIAL
[2023-01-01] MEDS: acetaZOLAMIDE TAB 250 MG TABLET 500 MG PO ×3 (06:15→21:30)
[2023-01-01] MEDS: CENTRAL LINE FLUSH 10 ML IV PUSH ×2 (06:16→21:34)
[2023-01-01] MEDS: MINERAL OIL/WHITE PETROLATUM OINTMENT 1 APPLIC EACH EYE ×2 (08:14→21:31)
[2023-01-01] MEDS: polyethylene glycoL 3350 17 GM POWD.PACK PO (08:14)
[2023-01-01] MEDS: PANTOPRAZOLE SODIUM IV 40 MG VIAL IV PUSH (08:14)
[2023-01-01] MEDS: TOLNAFTATE 1% POWDER 45 GM BTL 1 APPLIC TOPICAL ×2 (08:15→21:31)
[2023-01-01] MEDS: APIXABAN 5 MG TABLET PO ×2 (08:15→21:30)
[2023-01-01] MEDS: LIDOCAINE 5% PATCH 2 PATCH TRANSDERM (08:15)
[2023-01-01] MEDS: EUCERIN CREAM 120 GM JAR 1 APPLIC TOPICAL (08:16)
--- NOTE | 2023-01-01 08:46 | WPDINTPN ---
Progress Note: A&P Assessment and Plan (1) Acute and chronic respiratory failure: Qualifiers: Respiratory failure complication: hypoxia and hypercapnia Qualified Code(s): J96.21 - Acute and chronic respiratory failure with hypoxia; J96.22 - Acute and chronic respiratory failure with hypercapnia; J96.22 - Acute and chronic respiratory failure with hypercapnia Code(s): J96.20 - Acute and chronic respiratory failure, unspecified whether with hypoxia or hypercapnia Status: Acute Assessment and Plan: Acute on chronic respiratory failure secondary to hypoxia and hypercarbia, -Likely combination secondary to CHF and possible pneumonia -Patient has never smoked and does not have any documented history of COPD - intubated on 12/28/2022 in the ER upon arrival -Chest x-ray this morning: Stable diffuse bilateral airspace disease which may represent edema or pneumonia -ABG reviewed -continue bronchodilators, - patient responding well to diuresis, will continue Empiric antibiotics azithromycin, vancomycin and ceftriaxone -12/28 Blood cultures negative x2 - 12/29 sputum cultures negative so far - urine Legionella and urine pneumococcal antigens are pending -off propofol, placed patient on ASV mode of ventilation, 35% FiO2, he is a little somnolent, once more awake will place him on pressure support ventilation and evaluate for extubation (2) CHF (congestive heart failure): Code(s): I50.9 - Heart failure, unspecified Status: Acute Assessment and Plan: 12/29/2022: Echocardiogram showed LV hypertrophy with normal LV size and good systolic function, grade 2 diastolic noncompliance, and was right ventricle, moderate pulmonary hypertension with RVSP 60 mg - continue diuresis per Nephrology (3) Elevated liver enzymes: Code(s): R74.8 - Abnormal levels of other serum enzymes Status: Acute Assessment and Plan: Likely secondary to hypoxia hypoperfusion and hepatic congestion. patient also on statin - acetaminophen level was normal -Check right upper quadrant ultrasound, -negative viral hepatitis panel - hold statin - LFTs trending down, will continue to monitor (4) Hyperkalemia: Code(s): E87.5 - Hyperkalemia Status: Acute Assessment and Plan: Likely secondary to combination of renal failure and metabolic acidosis. patient also on Aldactone as an outpatient -Patient was treated in the ER for hyperkalemia with insulin D50 bicarb and calcium -Correct respiratory acidosis with ventilator -Potassium level has improved and normalized - continue to monitor (5) Diabetes mellitus: Code(s): E11.9 - Type 2 diabetes mellitus without complications Status: Chronic Assessment and Plan: sliding scale insulin and Accu-Cheks (6) Lymphedema: Code(s): I89.0 - Lymphedema, not elsewhere classified Status: Acute Assessment and Plan: 12/28/2022: lower extremity Dopplers negative for DVT -patient is on anticoagulation as outpatient which will be continued -diuretics and leg elevation -lower extremity edema much improved (7) Chronic kidney disease, stage 3: Code(s): N18.30 - Chronic kidney disease, stage 3 unspecified Status: Acute Assessment and Plan: Baseline unknown. Has chronic kidney disease disease stage III as per records -Not a candidate for IV fluids due to pulmonary edema -Normal CK level, urine electrolytes suggest renal etiology -12/28: renal ultrasound: Normal right kidney without hydronephrosis.. Left kidney not visualized - Good urine output response to diuresis, will continue - appreciate Nephrology evaluation -continue Diamox as per Nephrology -creatinine continues to improve (8) Atrial fibrillation: Code(s): I48.91 - Unspecified atrial fibrillation Status: Acute Assessment and Plan: patient is on digoxin and Eliquis - digoxin level marginally elevated. digoxin level is within n
--- NOTE | 2023-01-01 10:37 | PCFNICU ---
ICU Rounding Note: Pt current nutrition is Nepro @ 40 ml/h with 30 ml flushes q 4 h. Marcelino flushes BID. Nutrition recommendation: Continue with current tube feeding, flushes and Marcelino supplement as ordered. Last recorded weight is 138.4 kg. Bowel Motility: 0 BM charted Labs Reviewed: Alb 3.2, Na 131, BUN 42, Cre 1.6 Meds Noted: No propofol. Vancomycin, rocephin, novolog, protonix Skin: Wounds to eat, buttock, leg. Improving Additional Notes: Breathing trial today. Sedation is off. Nepro @ 40 ml/h for 2065 kcals, 71 g protein, 640 ml free water. Needs being met @100% EER ([facility]). Marcelino for wounds. Agree with current orders. Following daily in ICU rounds. Will monitor every Sunday and Sunday..
--- NOTE | 2023-01-01 11:24 | PM.PNNEP ---
Progress Note: A&P Assessment and Plan (1) CKD (chronic kidney disease): Code(s): N18.9 - Chronic kidney disease, unspecified Status: Chronic Assessment and Plan: according to patient history baseline creatinine unknown - admitted with a creatinine of 2.7mg/dl creatinine improving since admission evaluation to date: renal u/s with normal right kidney, no left kidney visualized (due to body habitus) urine electrolytes by FeUrea is prerenal reasonable urine output in response to IV diuretics significant urine output in the last 24 - 48 hours -- possibly post ATN diuresis (?) holding diuretics at this time started acetazolamide for high CO2 follow repeat labs and UOP (2) Hyperkalemia: Code(s): E87.5 - Hyperkalemia Status: Acute Assessment and Plan: resolved (3) Acute and chronic respiratory failure: Qualifiers: Respiratory failure complication: hypoxia and hypercapnia Qualified Code(s): J96.21 - Acute and chronic respiratory failure with hypoxia; J96.22 - Acute and chronic respiratory failure with hypercapnia; J96.22 - Acute and chronic respiratory failure with hypercapnia Code(s): J96.20 - Acute and chronic respiratory failure, unspecified whether with hypoxia or hypercapnia Status: Acute Assessment and Plan: due to hypoxia and hypercarbia CHF and possible pneumonia contributing as well on mechanical ventilation follow cultures on antibiotics (4) CHF (congestive heart failure): Code(s): I50.9 - Heart failure, unspecified Status: Acute Assessment and Plan: Echo results as above. chest x-ray still shows fluid holding loop diuretics because of vigorous diuresis follow volume status (5) Diabetes mellitus: Code(s): E11.9 - Type 2 diabetes mellitus without complications Status: Chronic Assessment and Plan: on accuchecks glycemic control per hosptialist/cafe operator Will continue to follow Subjective Date/time seen: 01/01/23 11:24 Chart reviewed since last seen -- remains intubated but off sedation; following simple commands and nods to questions; good urine output in response to previous diuretic therapy with improvement in renal function as well; no issues/events overnight or earlier this AM. Exam Narrative: General: WD/WN male intubated on mechanical ventilation Heart: normal S1 and S2; no rub Lungs: coarse bilaterally Abdomen: soft, nontender, nondistended, positive bowel sounds Extremities: no cyanosis or clubbing; 1+ edema Skin: warm and dry Objective Data Vital Signs Vital Signs: Vital Signs Temp Pulse Resp BP Pulse Ox O2 Del Method FiO2 01/01/23 10:36 88 94 Mechanical Ventilation 35 01/01/23 10:00 83 01/01/23 09:56 82 18 122/71 96 01/01/23 08:00 87 01/01/23 08:24 86 96 Mechanical Ventilation 35 01/01/23 07:25 99 F 78 18 114/67 94 01/01/23 06:00 70 01/01/23 06:00 70 18 106/62 95 01/01/23 04:00 76 01/01/23 04:00 35 01/01/23 04:00 Mechanical Ventilation 35 01/01/23 04:00 99.1 F 76 18 102/65 94 01/01/23 04:46 80 94 Mechanical Ventilation 35 01/01/23 02:01 78 19 119/72 92 01/01/23 02:00 77 01/01/23 03:00 75 93 Mechanical Ventilation 40 01/01/23 00:00 76 01/01/23 00:00 99.3 F 76 18 116/69 93 01/01/23 00:00 35 01/01/23 00:00 Mechanical Ventilation 35 12/31/22 23:56 71 97 Mechanical Ventilation 40 12/31/22 22:01 81 18 128/73 93 12/31/22 22:00 80 12/31/22 20:00 74 12/31/22 19:25 70 96 Mechanical Ventilation 40 12/31/22 20:01 99.4 F 76 18 114/67 93 12/31/22 20:00 35 12/31/22 20:00 Mechanical Ventilation 35 12/31/22 18:00 76 12/31/22 16:00 68 12/31/22 18:00 80 18 124/75 96 12/31/22 16:00 35 12/31/22 16:00
--- NOTE | 2023-01-01 11:24 | P.PNNP_ITS ---
Progress Note: A&P Assessment and Plan (1) CKD (chronic kidney disease): Code(s): N18.9 - Chronic kidney disease, unspecified Status: Chronic Assessment and Plan: * according to patient history * baseline creatinine unknown - admitted with a creatinine of 2.7mg/dl * creatinine improving since admission * evaluation to date: * renal u/s with normal right kidney, no left kidney visualized (due to body habitus) * urine electrolytes by FeUrea is prerenal * reasonable urine output in response to IV diuretics * significant urine output in the last 24 - 48 hours -- possibly post ATN diuresis (?) * holding diuretics at this time * started acetazolamide for high CO2 * follow repeat labs and UOP (2) Hyperkalemia: Code(s): E87.5 - Hyperkalemia Status: Acute Assessment and Plan: * resolved (3) Acute and chronic respiratory failure: Qualifiers: Respiratory failure complication: hypoxia and hypercapnia Qualified Code(s): J96.21 - Acute and chronic respiratory failure with hypoxia; J96.22 - Acute and chronic respiratory failure with hypercapnia; J96.22 - Acute and chronic respiratory failure with hypercapnia Code(s): J96.20 - Acute and chronic respiratory failure, unspecified whether with hypoxia or hypercapnia Status: Acute Assessment and Plan: * due to hypoxia and hypercarbia * CHF and possible pneumonia contributing as well * on mechanical ventilation * follow cultures * on antibiotics (4) CHF (congestive heart failure): Code(s): I50.9 - Heart failure, unspecified Status: Acute Assessment and Plan: * Echo results as above. * chest x-ray still shows fluid * holding loop diuretics because of vigorous diuresis * follow volume status (5) Diabetes mellitus: Code(s): E11.9 - Type 2 diabetes mellitus without complications Status: Chronic Assessment and Plan: * on accuchecks * glycemic control per hosptialist/pin inserter regulator Will continue to follow Subjective Date/time seen: 01/01/23 11:24 Chart reviewed since last seen -- remains intubated but off sedation; following simple commands and nods to questions; good urine output in response to previous diuretic therapy with improvement in renal function as well; no issues/events overnight or earlier this AM. Exam 2 Narrative: General: WD/WN male intubated on mechanical ventilation Heart: normal S1 and S2; no rub Lungs: coarse bilaterally Abdomen: soft, nontender, nondistended, positive bowel sounds Extremities: no cyanosis or clubbing; 1+ edema Skin: warm and dry Objective Data Vital Signs Vital Signs: Vital Signs Temp Pulse Resp BP Pulse Ox O2 Del Method FiO2 01/01/23 10:36 88 94 Mechanical Ventilation 35 01/01/23 10:00 83 01/01/23 09:56 82 18 122/71 96 01/01/23 08:00 87 01/01/23 08:24 86 96 Mechanical Ventilation 35 01/01/23 07:25 99 F 78 18 114/67 94 01/01/23 06:00 70 01/01/23 06:00 70 18 106/62 95 01/01/23 04:00 76 01/01/23 04:00 35 01/01/23 04:00 Mechanical Ventilation 35 01/01/23 04:00 99.1 F 76 18 102/65 94 01/01/23 04:46 80 94 Mechanical Ventilation 35 01/01/23 02:01 78 19 119/72 92 01/01/23 02:00 77
[2023-01-01 11:43] LABS: Glucose Point of Care 91 mg/dl (65-105)
--- NOTE | 2023-01-01 12:34 | P.CDI_ITS ---
CDI Query Clarification Request please refer to the appropriate provider <Juan J Jacobsen MD - Last Filed: 01/01/23 15:01> Clarified Diagnosis Clarified Diagnosis: Documented history of CHF. CHF noted on the assessment and plan. Elevated BNP on 12/28/22 lab work. Chest xray on 12/28/22 notes Pulmonary edema. Patient presented with shortness of breath and has edema documented in the chart. Patient takes Furosemide as a home medication. Please specify type and acuity of heart failure if known. * Acute * Chronic * Acute on Chronic * Unknown * Systolic * Diastolic * Combined Systolic and Diastolic * Unknown <Tamar Hills RN - Last Filed: 01/01/23 12:39>
[2023-01-01] MEDS: ACETAMINOPHEN ELIXIR 325 MG/10.15 ML UDC 650 MG PO (15:46)
[2023-01-01 16:49] LABS: Pneumococcal Antigen Urine Not Detected (Not Detected)
[2023-01-01] MEDS: SENNA/DOCUSATE SODIUM TABLET 1 TAB PO (21:30)
[2023-01-01 21:45] LABS: Glucose Point of Care 102 mg/dl (65-105)
[2023-01-02] VITALS (25 sets, daily range): BP systolic 99–119; BP diastolic 60–71; PULSE 72–94; RESP 13–26; TEMP 36.8–37.1; O2SAT 90–97
[2023-01-02 00:35] LABS: Glucose Point of Care 103 mg/dl (65-105)
[2023-01-02 01:18] LABS: Arterial Blood Gas PEEP 10 cmH2O; Arterial Blood Gas Tidal Volume 470 ml; Arterial Blood Gas Vent Mode CMV; Arterial Blood Gas Ventilator rate 20 /MIN
[2023-01-02 05:02] LABS: Basophils Percent Auto 0.2 % (0.2-1.2); Eosinophils Absolute Auto 0.5 K/mm3 (0-0.3); Eosinophils Percent Auto 5.2 % (0-4.4); Hematocrit 46.1 % (42.0-52.0); Hemoglobin 13.4 g/dL (14.0-18.0); Immature Granulocyte Absolute 0.06 K/mm3 (0.00-0.031); Immature Granulocyte Percent A 0.7 % (0-0.5); Immature Platelet Fraction Pct 3.9 % (0.9-11.2); Lymphocytes Percent Auto 9.2 % (18.3-44.2); Mean Corpuscular HGB Conc 29.1 g/dl (32-36); Mean Corpuscular Hemoglobin 28.3 pg (26-34); Mean Corpuscular Volume 97.5 fl (80-100); Mean Platelet Volume 10.4 fl (7.4-10.4); Neutrophils Absolute Auto 6.3 K/mm3 (1.3-6.7); Neutrophils Percent Auto 72.7 % (45.5-73.1); Platelet Count Result 134 k/mm3 (150-375); Red Blood Count 4.73 M/mm3 (4.6-6.20); Red Cell Distribution Width 17.2 % (11.5-14.5); White Blood Count 8.7 K/mm3 (4.5-10.0)
[2023-01-02 05:14] LABS: Alanine Aminotransferase 272 U/L (6-50); Albumin Level 3.3 g/dL (3.5-5.1); Alkaline Phosphatase 78 U/L (38-126); Anion Gap 2 mmol/L (8-16); Aspartate Amino Transferase 54 U/L (17-59); Bilirubin,Total 0.8 mg/dL (0.2-1.3); Blood Urea Nitrogen 33 mg/dL (9-20); Calcium 8.6 mg/dL (8.4-10.2); Carbon Dioxide 29 mmol/L (22-30); Chloride 101 mmol/L (98-107); Estimated CRCL calculation 63 ml/min; Estimated Glomerular Filt Rate 48; Glucose 106 mg/dL (65-110); Magnesium 2.1 mg/dL (1.6-2.3); Potassium 4.1 mmol/L (3.4-5.0); Sodium 132 mmol/L (137-145)
[2023-01-02 05:43] LABS: Base Excess ABG 0.8 mEq/l (+/-2.0); Carboxyhemoglobin 1.4 % THb (0-2.0); Fractional Inspired Oxygen 35 %; HCO3 ABG 27.8 mEq/l (22.0-26.0); Methemoglobin ABG 0.4 %THb (0-1.5); Oxygen Content ABG 18.7 %vol (16.0-22.0); Oxygen Saturation ABG 92.4 % (95.0-100.0); Oxyhemoglobin 91.1 % THb (90.0-100.0); PCO2 ABG 53.9 mmHg (35.0-45.0); PO2 ABG 68.9 mmHg (80.0-100.0); PO2 FiO2 Ratio Arterial Blood 1.97 %; Reduced Hemoglobin 7.1 %THb (0-5.0); Total Hemoglobin 14.6 g/dL (12.0-18.0)
[2023-01-02] MEDS: CENTRAL LINE FLUSH 10 ML IV PUSH ×3 (06:19→22:28)
[2023-01-02] MEDS: acetaZOLAMIDE TAB 250 MG TABLET 500 MG PO ×3 (06:19→22:28)
[2023-01-02 08:09] LABS: Arterial Blood Gas PEEP 5 cmH2O; Arterial Blood Gas Vent Mode ASV; Device VENTILATOR
[2023-01-02 08:10] LABS: Arterial Blood Gas Minute Volume 7.2 LPM
[2023-01-02] MEDS: EUCERIN CREAM 120 GM JAR 1 APPLIC TOPICAL (08:26)
[2023-01-02] MEDS: TOLNAFTATE 1% POWDER 45 GM BTL 1 APPLIC TOPICAL ×2 (08:26→20:16)
[2023-01-02] MEDS: APIXABAN 5 MG TABLET PO ×2 (08:26→20:16)
[2023-01-02] MEDS: polyethylene glycoL 3350 17 GM POWD.PACK PO (08:26)
[2023-01-02] MEDS: PANTOPRAZOLE SODIUM IV 40 MG VIAL IV PUSH (08:26)
[2023-01-02] MEDS: MINERAL OIL/WHITE PETROLATUM OINTMENT 1 APPLIC EACH EYE ×2 (08:28→20:16)
--- NOTE | 2023-01-02 08:50 | P.CDI_ITS ---
CDI Query Clarified Diagnosis Clarified Diagnosis: Documented history of CHF. CHF noted on the assessment and plan. Elevated BNP on 12/28/22 lab work. Chest xray on 12/28/22 notes Pulmonary edema. Patient presented with shortness of breath and has edema documented in the chart. Patient takes Furosemide as a home medication. Please specify type and acuity of heart failure if known. * Acute * Chronic * Acute on Chronic * Unknown * Systolic * Diastolic * Combined Systolic and Diastolic * Unknown
--- NOTE | 2023-01-02 09:54 | PM.PNNEP ---
Progress Note: A&P Assessment and Plan (1) CKD (chronic kidney disease): Code(s): N18.9 - Chronic kidney disease, unspecified Status: Chronic Assessment and Plan: according to patient history baseline creatinine unknown - admitted with a creatinine of 2.7mg/dl creatinine improving since admission evaluation to date: renal u/s with normal right kidney, no left kidney visualized (due to body habitus) urine electrolytes by FeUrea is prerenal reasonable urine output in response to IV diuretics significant urine output in the last few days without diuretics -- possibly post ATN diuresis (?) continue to hold loop diuretics at this time on acetazolamide for high CO2 follow repeat labs and UOP (2) Hyperkalemia: Code(s): E87.5 - Hyperkalemia Status: Acute Assessment and Plan: resolved (3) Acute and chronic respiratory failure: Qualifiers: Respiratory failure complication: hypoxia and hypercapnia Qualified Code(s): J96.21 - Acute and chronic respiratory failure with hypoxia; J96.22 - Acute and chronic respiratory failure with hypercapnia; J96.22 - Acute and chronic respiratory failure with hypercapnia Code(s): J96.20 - Acute and chronic respiratory failure, unspecified whether with hypoxia or hypercapnia Status: Acute Assessment and Plan: due to hypoxia and hypercarbia CHF and possible pneumonia contributing as well on mechanical ventilation follow cultures on antibiotics (4) CHF (congestive heart failure): Code(s): I50.9 - Heart failure, unspecified Status: Acute Assessment and Plan: Echo results as above. chest x-ray still shows fluid holding loop diuretics because of vigorous diuresis follow volume status (5) Diabetes mellitus: Code(s): E11.9 - Type 2 diabetes mellitus without complications Status: Chronic Assessment and Plan: on accuchecks glycemic control per hosptialist/technical designer Will continue to follow Subjective Date/time seen: 01/02/23 09:54 Remains intubated and on mechanical ventilation at the time of my visit; off sedation and able to nod to yes/no questions and follow simple commands but still sleepy; continues to make good urine output (without diuretics); otherwise, hemodynamically stable. Exam Narrative: General: WD/WN male intubated on mechanical ventilation Heart: normal S1 and S2; no rub Lungs: coarse bilaterally Abdomen: soft, nontender, nondistended, positive bowel sounds Extremities: no cyanosis or clubbing; 1+ edema Skin: warm and intact Objective Data Vital Signs Vital Signs: Vital Signs Temp Pulse Resp BP Pulse Ox O2 Del Method FiO2 01/02/23 09:48 94 93 Mechanical Ventilation 35 01/02/23 08:00 35 01/02/23 08:00 82 19 93 Mechanical Ventilation 35 01/02/23 08:00 98.7 F 82 19 104/60 93 01/02/23 08:00 82 01/02/23 08:56 88 92 Mechanical Ventilation 35 01/02/23 08:05 85 93 Mechanical Ventilation 35 01/02/23 05:30 72 13 118/65 93 01/02/23 06:00 78 01/02/23 05:05 73 93 Mechanical Ventilation 35 01/02/23 04:00 98.3 F 81 17 114/63 93 01/02/23 04:00 35 01/02/23 04:00 Mechanical Ventilation 35 01/02/23 04:00 78 01/02/23 02:05 85 93 Mechanical Ventilation 35 01/02/23 02:00 82 17 116/61 92 01/02/23 02:00 82 01/02/23 00:34 85 18 93 01/02/23 00:31 98.7 F 86 16 114/67 92 01/02/23 00:00 35 01/02/23 00:00 Mechanical Ventilation 35 01/02/23 00:00 82 01/01/23 23:10 90 94 Mechanical Ventilation 35 01/01/23 22:01 86 17 116/68 93 01/01/23 20:09 99 F 80 15 118/68 94 01/01/23 22:00 86 01/01/23 20:00 78 01/01/23 20:00 35 01/01/23 20:00 Mechanical Ventilation 35 01/01/23 20:05 80 93 Mechanical Ventilation 35 01/01/23 18:00
--- NOTE | 2023-01-02 09:54 | P.PNNP_ITS ---
Progress Note: A&P Assessment and Plan (1) CKD (chronic kidney disease): Code(s): N18.9 - Chronic kidney disease, unspecified Status: Chronic Assessment and Plan: * according to patient history * baseline creatinine unknown - admitted with a creatinine of 2.7mg/dl * creatinine improving since admission * evaluation to date: * renal u/s with normal right kidney, no left kidney visualized (due to body habitus) * urine electrolytes by FeUrea is prerenal * reasonable urine output in response to IV diuretics * significant urine output in the last few days without diuretics -- possibly post ATN diuresis (?) * continue to hold loop diuretics at this time * on acetazolamide for high CO2 * follow repeat labs and UOP (2) Hyperkalemia: Code(s): E87.5 - Hyperkalemia Status: Acute Assessment and Plan: * resolved (3) Acute and chronic respiratory failure: Qualifiers: Respiratory failure complication: hypoxia and hypercapnia Qualified Code(s): J96.21 - Acute and chronic respiratory failure with hypoxia; J96.22 - Acute and chronic respiratory failure with hypercapnia; J96.22 - Acute and chronic respiratory failure with hypercapnia Code(s): J96.20 - Acute and chronic respiratory failure, unspecified whether with hypoxia or hypercapnia Status: Acute Assessment and Plan: * due to hypoxia and hypercarbia * CHF and possible pneumonia contributing as well * on mechanical ventilation * follow cultures * on antibiotics (4) CHF (congestive heart failure): Code(s): I50.9 - Heart failure, unspecified Status: Acute Assessment and Plan: * Echo results as above. * chest x-ray still shows fluid * holding loop diuretics because of vigorous diuresis * follow volume status (5) Diabetes mellitus: Code(s): E11.9 - Type 2 diabetes mellitus without complications Status: Chronic Assessment and Plan: * on accuchecks * glycemic control per hosptialist/wireless architect Will continue to follow Subjective Date/time seen: 01/02/23 09:54 Remains intubated and on mechanical ventilation at the time of my visit; off sedation and able to nod to yes/no questions and follow simple commands but still sleepy; continues to make good urine output (without diuretics); otherwise, hemodynamically stable. Exam Narrative: General: WD/WN male intubated on mechanical ventilation Heart: normal S1 and S2; no rub Lungs: coarse bilaterally Abdomen: soft, nontender, nondistended, positive bowel sounds Extremities: no cyanosis or clubbing; 1+ edema Skin: warm and intact Objective Data Vital Signs Vital Signs: Vital Signs Temp Pulse Resp BP Pulse Ox O2 Del Method FiO2 01/02/23 09:48 94 93 Mechanical Ventilation 35 01/02/23 08:00 35 01/02/23 08:00 82 19 93 Mechanical Ventilation 35 01/02/23 08:00 98.7 F 82 19 104/60 93 01/02/23 08:00 82 01/02/23 08:56 88 92 Mechanical Ventilation 35 01/02/23 08:05 85 93 Mechanical Ventilation 35 01/02/23 05:30 72 13 118/65 93 01/02/23 06:00 78 01/02/23 05:05 73 93 Mechanical Ventilation 35 01/02/23 04:00 98.3 F 81 17 114/63 93 01/02/23 04:00 35 01/02/23 04:00 Mechanical Ventilation 35 01/02/23 04:00 78
[2023-01-02 10:47] LABS: Alveolar/Arterial O2 Gradient 107.7 mmHg; Fractional Inspired Oxygen 35 %; HCO3 ABG 28.2 mEq/l (22.0-26.0); Oxygen Saturation ABG 92.1 % (95.0-100.0); Oxyhemoglobin 90.7 % THb (90.0-100.0); PO2 ABG 71.4 mmHg (80.0-100.0); PO2 FiO2 Ratio Arterial Blood 2.04 %; Total Hemoglobin 14.9 g/dL (12.0-18.0)
[2023-01-02 10:48] LABS: Device VENTILATOR; Modified Allen's Test Pass; PCO2 ABG 60.6 mmHg (35.0-45.0); Site Drawn LEFT RADIAL; pH ABG 7.285 (7.350-7.450)
[2023-01-02 10:49] LABS: Arterial Blood Gas PEEP 5 cmH2O; Arterial Blood Gas Pressure Support 8 cmH2O
--- NOTE | 2023-01-02 10:52 | PCNFU ---
Nutrition Follow-Up Complete: Inadequate Oral intake as related to mechanical ventilation as evidenced by NPO. Goal: Meet estimated nutritional needs Patient is progressing towards goal. We will continue current goal. Pt current nutrition is Nepro at 40 ml/hr. Last recorded weight is 134.4 kg. Bowel Motility:No BM reported. Labs Reviewed:Cr 1.5,GFR 48, BUN 33, Na 132 Meds Noted:Eliquis Skin: Left Ear abrasion Additional Notes: Patient tube feedings on hold for breathing trial today. Marcelino BID for wound healing. goal: extubated today. Agree with diet orders. Monitoring: will monitor daily in ICU rounds and will reassess every Sunday and Sunday.
--- NOTE | 2023-01-02 11:04 | WPDINTPN ---
Progress Note: A&P Assessment and Plan (1) Acute and chronic respiratory failure: Qualifiers: Respiratory failure complication: hypoxia and hypercapnia Qualified Code(s): J96.21 - Acute and chronic respiratory failure with hypoxia; J96.22 - Acute and chronic respiratory failure with hypercapnia; J96.22 - Acute and chronic respiratory failure with hypercapnia Code(s): J96.20 - Acute and chronic respiratory failure, unspecified whether with hypoxia or hypercapnia Status: Acute Assessment and Plan: Acute on chronic respiratory failure secondary to hypoxia and hypercarbia, -Likely combination secondary to CHF and possible pneumonia -Patient has never smoked and does not have any documented history of COPD - intubated on 12/28/2022 in the ER upon arrival -Chest x-ray this morning: Mild bibasilar pulmonary edema with possible minimal left pleural effusion. -ABG reviewed -continue bronchodilators, - patient responding well to diuresis, will continue Empiric antibiotics azithromycin, vancomycin and ceftriaxone -12/28 Blood cultures negative x2 - 12/29 sputum cultures negative so far - urine Legionella and urine pneumococcal antigens are pending -off sedation x72 hrs, patient has been tolerating ASV mode of ventilation all night long, place patient on SBT and evaluate for extubation (2) CHF (congestive heart failure): Code(s): I50.9 - Heart failure, unspecified Status: Acute Assessment and Plan: 12/29/2022: Echocardiogram showed LV hypertrophy with normal LV size and good systolic function, grade 2 diastolic noncompliance, and was right ventricle, moderate pulmonary hypertension with RVSP 60 mg - continue diuresis per Nephrology (3) Elevated liver enzymes: Code(s): R74.8 - Abnormal levels of other serum enzymes Status: Acute Assessment and Plan: Likely secondary to hypoxia hypoperfusion and hepatic congestion. patient also on statin - acetaminophen level was normal -Check right upper quadrant ultrasound, -negative viral hepatitis panel - hold statin - LFTs trending down, will continue to monitor (4) Hyperkalemia: Code(s): E87.5 - Hyperkalemia Status: Acute Assessment and Plan: Likely secondary to combination of renal failure and metabolic acidosis. patient also on Aldactone as an outpatient -Patient was treated in the ER for hyperkalemia with insulin D50 bicarb and calcium -Correct respiratory acidosis with ventilator -Potassium level has improved and normalized - continue to monitor (5) Diabetes mellitus: Code(s): E11.9 - Type 2 diabetes mellitus without complications Status: Chronic Assessment and Plan: sliding scale insulin and Accu-Cheks (6) Lymphedema: Code(s): I89.0 - Lymphedema, not elsewhere classified Status: Acute Assessment and Plan: 12/28/2022: lower extremity Dopplers negative for DVT -patient is on anticoagulation as outpatient which will be continued -diuretics and leg elevation -lower extremity edema much improved (7) Chronic kidney disease, stage 3: Code(s): N18.30 - Chronic kidney disease, stage 3 unspecified Status: Acute Assessment and Plan: Baseline unknown. Has chronic kidney disease disease stage III as per records -Not a candidate for IV fluids due to pulmonary edema -Normal CK level, urine electrolytes suggest renal etiology -12/28: renal ultrasound: Normal right kidney without hydronephrosis.. Left kidney not visualized - Good urine output response to diuresis, will continue - appreciate Nephrology evaluation -continue Diamox as per Nephrology -creatinine continues to improve (8) Atrial fibrillation: Code(s): I48.91 - Unspecified atrial fibrillation Status: Acute Assessment and Plan: patient is on digoxin and Eliquis - digoxin level marginally elevated. digoxin level is within normal limits this morning - continue Eliquis
[2023-01-02 11:23] LABS: Glucose Point of Care 108 mg/dl (65-105)
[2023-01-02 16:57] LABS: Glucose Point of Care 111 mg/dl (65-105)
[2023-01-02] MEDS: SENNA/DOCUSATE SODIUM TABLET 1 TAB PO (20:15)
[2023-01-02 21:08] LABS: Legionella pneumophila Ag Ur Not Detected (Not Detected)
[2023-01-02 23:45] LABS: Glucose Point of Care 99 mg/dl (65-105)
[2023-01-03] VITALS (22 sets, daily range): BP systolic 102–112; BP diastolic 57–66; PULSE 17–90; RESP 11–26; TEMP 36.9–37.2; O2SAT 90–99
[2023-01-03] MEDS: ACETAMINOPHEN ELIXIR 325 MG/10.15 ML UDC 650 MG PO ×3 (04:19→22:50)
[2023-01-03 05:30] LABS: Hematocrit 47.3 % (42.0-52.0); Hemoglobin 13.8 g/dL (14.0-18.0); Mean Corpuscular HGB Conc 29.2 g/dl (32-36); Mean Corpuscular Hemoglobin 28.7 pg (26-34); Mean Corpuscular Volume 98.3 fl (80-100); Mean Platelet Volume 10.6 fl (7.4-10.4); Platelet Count Result 147 k/mm3 (150-375); Red Blood Count 4.81 M/mm3 (4.6-6.20); Red Cell Distribution Width 17.2 % (11.5-14.5); White Blood Count 8.6 K/mm3 (4.5-10.0)
[2023-01-03 05:42] LABS: Alanine Aminotransferase 203 U/L (6-50); Albumin Level 3.4 g/dL (3.5-5.1); Alkaline Phosphatase 82 U/L (38-126); Anion Gap 6 mmol/L (8-16); Aspartate Amino Transferase 44 U/L (17-59); Bilirubin,Total 0.7 mg/dL (0.2-1.3); Blood Urea Nitrogen 38 mg/dL (9-20); Calcium 8.7 mg/dL (8.4-10.2); Carbon Dioxide 25 mmol/L (22-30); Chloride 104 mmol/L (98-107); Estimated CRCL calculation 73 ml/min; Estimated Glomerular Filt Rate 56; Glucose 116 mg/dL (65-110); Magnesium 2.1 mg/dL (1.6-2.3); Phosphorus 3.9 mg/dL (2.5-4.5); Sodium 135 mmol/L (137-145)
[2023-01-03] MEDS: CENTRAL LINE FLUSH 10 ML IV PUSH ×3 (05:49→22:38)
[2023-01-03 05:56] LABS: Alveolar/Arterial O2 Gradient 112.6 mmHg; Base Excess ABG -2.5 mEq/l (+/-2.0); Carboxyhemoglobin 1.3 % THb (0-2.0); Fractional Inspired Oxygen 35 %; HCO3 ABG 24.7 mEq/l (22.0-26.0); Methemoglobin ABG 0.4 %THb (0-1.5); Oxygen Content ABG 19.6 %vol (16.0-22.0); Oxygen Saturation ABG 93.8 % (95.0-100.0); Oxyhemoglobin 93.3 % THb (90.0-100.0); PCO2 ABG 51.8 mmHg (35.0-45.0); PO2 ABG 76.7 mmHg (80.0-100.0); PO2 FiO2 Ratio Arterial Blood 2.19 %; Total Hemoglobin 14.9 g/dL (12.0-18.0)
[2023-01-03 05:58] LABS: Modified Allen's Test Pass; Site Drawn RIGHT RADIAL; pH ABG 7.296 (7.350-7.450)
[2023-01-03 05:59] LABS: Arterial Blood Gas PEEP 5 cmH2O; Arterial Blood Gas Vent Mode ASV; Arterial Blood Gas Ventilator rate 13 /MIN; Device VENTILATOR
[2023-01-03 06:00] LABS: Arterial Blood Gas Tidal Volume 529 ml
[2023-01-03] MEDS: acetaZOLAMIDE TAB 250 MG TABLET 500 MG PO (06:33)
[2023-01-03] MEDS: BUMETANIDE INJ 1 MG/4 ML VIAL IV PUSH (08:07)
[2023-01-03] MEDS: MINERAL OIL/WHITE PETROLATUM OINTMENT 1 APPLIC EACH EYE ×2 (08:07→20:02)
[2023-01-03] MEDS: APIXABAN 5 MG TABLET PO ×2 (08:08→20:02)
[2023-01-03] MEDS: TOLNAFTATE 1% POWDER 45 GM BTL 1 APPLIC TOPICAL ×2 (08:08→20:03)
[2023-01-03] MEDS: polyethylene glycoL 3350 17 GM POWD.PACK PO (08:08)
[2023-01-03] MEDS: PANTOPRAZOLE SODIUM IV 40 MG VIAL IV PUSH (08:08)
--- NOTE | 2023-01-03 09:12 | WPDINTPN ---
Progress Note: A&P Assessment and Plan (1) Acute and chronic respiratory failure: Qualifiers: Respiratory failure complication: hypoxia and hypercapnia Qualified Code(s): J96.21 - Acute and chronic respiratory failure with hypoxia; J96.22 - Acute and chronic respiratory failure with hypercapnia; J96.22 - Acute and chronic respiratory failure with hypercapnia Code(s): J96.20 - Acute and chronic respiratory failure, unspecified whether with hypoxia or hypercapnia Status: Acute Assessment and Plan: Acute on chronic respiratory failure secondary to hypoxia and hypercarbia, -Likely combination secondary to CHF and possible pneumonia -Patient has never smoked and does not have any documented history of COPD - intubated on 12/28/2022 in the ER upon arrival -Chest x-ray this morning: Mild bibasilar pulmonary edema/atelectasis with minimal left pleural effusion. -ABG reviewed -continue bronchodilators, - patient responding well to diuresis, will continue Off all antibiotics -12/28 Blood cultures negative x2 - 12/29 sputum cultures negative so far -12/28 urine Legionella and urine pneumococcal antigens not detect -off sedation x96 hrs, patient has been tolerating ASV mode of ventilation all night long, -01/01 & 01/02 place patient on SBT with pressure support ventilation of 8/5, patient did not do well as he was hypercapnic with respiratory acidosis on his ABGs, he is still remains somnolent -01/03; place him back on SBT and evaluate for extubation (2) CHF (congestive heart failure): Code(s): I50.9 - Heart failure, unspecified Status: Acute Assessment and Plan: 12/29/2022: Echocardiogram showed LV hypertrophy with normal LV size and good systolic function, grade 2 diastolic noncompliance, and was right ventricle, moderate pulmonary hypertension with RVSP 60 mg -will switch Diamox to Bumex for diuresis (3) Elevated liver enzymes: Code(s): R74.8 - Abnormal levels of other serum enzymes Status: Acute Assessment and Plan: Likely secondary to hypoxia hypoperfusion and hepatic congestion. patient also on statin - acetaminophen level was normal -Check right upper quadrant ultrasound, -negative viral hepatitis panel - hold statin - LFTs trending down, will continue to monitor (4) Hyperkalemia: Code(s): E87.5 - Hyperkalemia Status: Acute Assessment and Plan: Likely secondary to combination of renal failure and metabolic acidosis. patient also on Aldactone as an outpatient -Patient was treated in the ER for hyperkalemia with insulin D50 bicarb and calcium -Correct respiratory acidosis with ventilator -Potassium level has improved and normalized - continue to monitor (5) Diabetes mellitus: Code(s): E11.9 - Type 2 diabetes mellitus without complications Status: Chronic Assessment and Plan: sliding scale insulin and Accu-Cheks (6) Lymphedema: Code(s): I89.0 - Lymphedema, not elsewhere classified Status: Acute Assessment and Plan: 12/28/2022: lower extremity Dopplers negative for DVT -patient is on anticoagulation as outpatient which will be continued -diuretics and leg elevation -lower extremity edema much improved (7) Chronic kidney disease, stage 3: Code(s): N18.30 - Chronic kidney disease, stage 3 unspecified Status: Acute Assessment and Plan: Baseline unknown. Has chronic kidney disease disease stage III as per records -Not a candidate for IV fluids due to pulmonary edema -Normal CK level, urine electrolytes suggest renal etiology -12/28: renal ultrasound: Normal right kidney without hydronephrosis.. Left kidney not visualized - Good urine output response to diuresis, will continue - appreciate Nephrology evaluation -continue diuresis -creatinine continues to improve (8) Atrial fibrillation: Code(s): I48.91 - Unspecified atrial fibrillation Status: Acute Assessment an
[2023-01-03] MEDS: LACTULOSE 20 GM/30 ML UDC PO (10:25)
--- NOTE | 2023-01-03 12:09 | PCFNICU ---
ICU Rounding Note: Pt current nutrition is Nepro at 40 ml/hr. Last recorded weight is 132.1 kg. Bowel Motility:No Bm reported. Labs Reviewed:Glu 116, GFR 56, BUN 38, Na 135, Alb 3.4 Meds Noted:Eliquis,Miralax, Senokot, Lactulose, Bumex Skin: Necrotic ear Additional Notes: Patient remains on mechanical vent. Failed breathing trial yesterday. Tube feedings remain of Nepro at 40 ml/hr and tolerating per nursing. Protein Modular of Marcelino BID for wound healing. Flush 50 ml q 4 hours. Agree with diet orders. Following daily in ICU rounds. Will monitor every Sunday and Sunday.
[2023-01-03 12:11] LABS: Glucose Point of Care 130 mg/dl (65-105)
--- NOTE | 2023-01-03 12:28 | PM.PNNEP ---
Progress Note: A&P Assessment and Plan (1) CKD (chronic kidney disease): Code(s): N18.9 - Chronic kidney disease, unspecified Status: Chronic Assessment and Plan: according to patient history (but not confirmed) baseline creatinine unknown - admitted with a creatinine of 2.7mg/dl creatinine improving since admission evaluation to date: renal u/s with normal right kidney, no left kidney visualized (due to body habitus) urine electrolytes by FeUrea is prerenal reasonable urine output in response to IV diuretics significant urine output in the last few days without diuretics -- possibly post ATN diuresis (?) resumed on IV bumex today follow repeat labs and UOP (2) Hyperkalemia: Code(s): E87.5 - Hyperkalemia Status: Acute Assessment and Plan: resolved (3) Acute and chronic respiratory failure: Qualifiers: Respiratory failure complication: hypoxia and hypercapnia Qualified Code(s): J96.21 - Acute and chronic respiratory failure with hypoxia; J96.22 - Acute and chronic respiratory failure with hypercapnia; J96.22 - Acute and chronic respiratory failure with hypercapnia Code(s): J96.20 - Acute and chronic respiratory failure, unspecified whether with hypoxia or hypercapnia Status: Acute Assessment and Plan: due to hypoxia and hypercarbia CHF and possible pneumonia contributing as well on mechanical ventilation follow cultures on antibiotics (4) CHF (congestive heart failure): Code(s): I50.9 - Heart failure, unspecified Status: Acute Assessment and Plan: Echo results as noted CXR findings reviewed resumed on IV bumex follow volume status (5) Diabetes mellitus: Code(s): E11.9 - Type 2 diabetes mellitus without complications Status: Chronic Assessment and Plan: on accuchecks glycemic control per hosptialist/clinical academic allergist Will continue to follow Subjective Date/time seen: 01/03/23 12:28 No significant change noted -- remains intubated and on mechanical ventilation; continues to make good urine output ad IV diuretics restarted today; follows simple commands off sedation; no apparent distress noted. Exam Narrative: General: WD/WN male intubated on mechanical ventilation Heart: normal S1 and S2; no rub Lungs: coarse bilaterally Abdomen: soft, nontender, nondistended, positive bowel sounds Extremities: no cyanosis or clubbing; 1+ edema Skin: warm and intact Objective Data Vital Signs Vital Signs: Vital Signs Temp Pulse Resp BP Pulse Ox O2 Del Method FiO2 01/03/23 12:00 98.6 F 78 23 H 104/57 L 93 01/03/23 12:00 35 01/03/23 12:00 95 Mechanical Ventilation 35 01/03/23 12:01 73 99 Mechanical Ventilation 35 01/03/23 10:00 83 01/03/23 10:00 90 20 109/59 L 90 01/03/23 08:00 88 01/03/23 08:00 35 01/03/23 08:00 95 Mechanical Ventilation 35 01/03/23 08:10 81 95 Mechanical Ventilation 35 01/03/23 07:43 98.6 F 68 11 L 102/58 L 95 01/03/23 06:00 73 01/03/23 06:00 98.5 F 74 11 L 103/58 L 95 01/03/23 05:05 17 L 94 Mechanical Ventilation 35 01/03/23 04:00 Mechanical Ventilation 35 01/03/23 04:00 74 01/03/23 04:00 98.6 F 80 16 104/61 98 01/03/23 04:00 35 01/03/23 00:00 Mechanical Ventilation 35 01/03/23 02:00 99.0 F 73 14 102/65 95 01/03/23 02:00 70 01/03/23 02:21 71 95 Mechanical Ventilation 35 01/03/23 00:00 73 01/03/23 00:00 98.9 F 76 13 105/59 L 95 01/03/23 00:00 35 01/02/23 22:56 80 95 Mechanical Ventilation 35 01/02/23 21:48 Mechanical Ventilation 35 01/02/23 22:00 81 01/02/23 22:00 98.7 F 81 16 99/66 L 95 01/02/23 20:00 Mechanical Ventilation 35 01/02/23 20:00 88 01/02/23 20:00 35 01/02/23 20:00 98.5 F 85 25 H 105/66 95
--- NOTE | 2023-01-03 12:28 | P.PNNP_ITS ---
Progress Note: A&P Assessment and Plan (1) CKD (chronic kidney disease): Code(s): N18.9 - Chronic kidney disease, unspecified Status: Chronic Assessment and Plan: * according to patient history (but not confirmed) * baseline creatinine unknown - admitted with a creatinine of 2.7mg/dl * creatinine improving since admission * evaluation to date: * renal u/s with normal right kidney, no left kidney visualized (due to body habitus) * urine electrolytes by FeUrea is prerenal * reasonable urine output in response to IV diuretics * significant urine output in the last few days without diuretics -- possibly post ATN diuresis (?) * resumed on IV bumex today * follow repeat labs and UOP (2) Hyperkalemia: Code(s): E87.5 - Hyperkalemia Status: Acute Assessment and Plan: * resolved (3) Acute and chronic respiratory failure: Qualifiers: Respiratory failure complication: hypoxia and hypercapnia Qualified Code(s): J96.21 - Acute and chronic respiratory failure with hypoxia; J96.22 - Acute and chronic respiratory failure with hypercapnia; J96.22 - Acute and chronic respiratory failure with hypercapnia Code(s): J96.20 - Acute and chronic respiratory failure, unspecified whether with hypoxia or hypercapnia Status: Acute Assessment and Plan: * due to hypoxia and hypercarbia * CHF and possible pneumonia contributing as well * on mechanical ventilation * follow cultures * on antibiotics (4) CHF (congestive heart failure): Code(s): I50.9 - Heart failure, unspecified Status: Acute Assessment and Plan: * Echo results as noted * CXR findings reviewed * resumed on IV bumex * follow volume status (5) Diabetes mellitus: Code(s): E11.9 - Type 2 diabetes mellitus without complications Status: Chronic Assessment and Plan: * on accuchecks * glycemic control per hosptialist/oil processing technician Will continue to follow Subjective Date/time seen: 01/03/23 12:28 No significant change noted -- remains intubated and on mechanical ventilation; continues to make good urine output ad IV diuretics restarted today; follows simple commands off sedation; no apparent distress noted. Exam Narrative: General: WD/WN male intubated on mechanical ventilation Heart: normal S1 and S2; no rub Lungs: coarse bilaterally Abdomen: soft, nontender, nondistended, positive bowel sounds Extremities: no cyanosis or clubbing; 1+ edema Skin: warm and intact Objective Data Vital Signs Vital Signs: Vital Signs Temp Pulse Resp BP Pulse Ox O2 Del Method FiO2 01/03/23 12:00 98.6 F 78 23 H 104/57 L 93 01/03/23 12:00 35 01/03/23 12:00 95 Mechanical Ventilation 35 01/03/23 12:01 73 99 Mechanical Ventilation 35 01/03/23 10:00 83 01/03/23 10:00 90 20 109/59 L 90 01/03/23 08:00 88 01/03/23 08:00 35 01/03/23 08:00 95 Mechanical Ventilation 35 01/03/23 08:10 81 95 Mechanical Ventilation 35 01/03/23 07:43 98.6 F 68 11 L 102/58 L 95 01/03/23 06:00 73 01/03/23 06:00 98.5 F 74 11 L 103/58 L 95 01/03/23 05:05 17 L 94 Mechanical Ventilation 35 01/03/23 04:00 Mechanical Ventilation 35 01/03/23 04:00 74 02
[2023-01-03] MEDS: LIDOCAINE 5% PATCH 2 PATCH TRANSDERM (12:33)
[2023-01-03 17:21] LABS: Glucose Point of Care 118 mg/dl (65-105)
[2023-01-03] MEDS: SENNA/DOCUSATE SODIUM TABLET 1 TAB PO (20:02)
[2023-01-04] VITALS (23 sets, daily range): BP systolic 94–115; BP diastolic 58–73; PULSE 68–98; RESP 12–23; TEMP 36.5–37.3; O2SAT 93–100
[2023-01-04 00:51] LABS: Glucose Point of Care 113 mg/dl (65-105)
[2023-01-04 05:48] LABS: Hematocrit 47.5 % (42.0-52.0); Hemoglobin 14.4 g/dL (14.0-18.0); Mean Corpuscular HGB Conc 30.3 g/dl (32-36); Mean Corpuscular Hemoglobin 28.8 pg (26-34); Mean Platelet Volume 10.1 fl (7.4-10.4); Platelet Count Result 145 k/mm3 (150-375); Red Cell Distribution Width 17.1 % (11.5-14.5); White Blood Count 9.5 K/mm3 (4.5-10.0)
[2023-01-04 06:03] LABS: Alanine Aminotransferase 183 U/L (6-50); Albumin Level 3.6 g/dL (3.5-5.1); Alkaline Phosphatase 93 U/L (38-126); Anion Gap 5 mmol/L (8-16); Aspartate Amino Transferase 52 U/L (17-59); Bilirubin,Total 0.8 mg/dL (0.2-1.3); Blood Urea Nitrogen 44 mg/dL (9-20); Calcium 8.6 mg/dL (8.4-10.2); Carbon Dioxide 27 mmol/L (22-30); Chloride 103 mmol/L (98-107); Estimated CRCL calculation 67 ml/min; Estimated Glomerular Filt Rate 52; Glucose 116 mg/dL (65-110); Magnesium 2.2 mg/dL (1.6-2.3); Potassium 3.8 mmol/L (3.4-5.0); Sodium 135 mmol/L (137-145)
[2023-01-04] MEDS: ACETAMINOPHEN ELIXIR 325 MG/10.15 ML UDC 650 MG PO ×2 (06:28→20:33)
[2023-01-04] MEDS: CENTRAL LINE FLUSH 10 ML IV PUSH ×3 (06:33→20:35)
[2023-01-04 07:37] LABS: Alveolar/Arterial O2 Gradient 107.3 mmHg; Base Excess ABG 0.2 mEq/l (+/-2.0); Carboxyhemoglobin 1.1 % THb (0-2.0); Fractional Inspired Oxygen 35 %; HCO3 ABG 26.8 mEq/l (22.0-26.0); Methemoglobin ABG 0.4 %THb (0-1.5); Oxygen Saturation ABG 95.4 % (95.0-100.0); Oxyhemoglobin 94.2 % THb (90.0-100.0); PCO2 ABG 51.1 mmHg (35.0-45.0); PO2 ABG 82.8 mmHg (80.0-100.0); PO2 FiO2 Ratio Arterial Blood 2.37 %; Reduced Hemoglobin 4.3 %THb (0-5.0); Total Hemoglobin 15.1 g/dL (12.0-18.0); pH ABG 7.338 (7.350-7.450)
[2023-01-04 07:38] LABS: Arterial Blood Gas PEEP 5 cmH2O; Device VENTILATOR; Modified Allen's Test Pass; Site Drawn RIGHT RADIAL
[2023-01-04 07:39] LABS: Arterial Blood Gas Vent Mode ASV
[2023-01-04] MEDS: PANTOPRAZOLE SODIUM IV 40 MG VIAL IV PUSH (08:28)
[2023-01-04] MEDS: TOLNAFTATE 1% POWDER 45 GM BTL 1 APPLIC TOPICAL ×2 (08:28→20:34)
[2023-01-04] MEDS: MINERAL OIL/WHITE PETROLATUM OINTMENT 1 APPLIC EACH EYE ×2 (08:28→20:34)
[2023-01-04] MEDS: polyethylene glycoL 3350 17 GM POWD.PACK PO (08:28)
[2023-01-04] MEDS: APIXABAN 5 MG TABLET PO ×2 (08:28→20:34)
[2023-01-04] MEDS: BUMETANIDE INJ 1 MG/4 ML VIAL IV PUSH (08:36)
[2023-01-04] MEDS: LIDOCAINE 5% PATCH 2 PATCH TRANSDERM (10:51)
[2023-01-04] MEDS: LACTULOSE 20 GM/30 ML UDC PO (10:53)
--- NOTE | 2023-01-04 11:15 | PCFNICU ---
ICU Rounding Note: Pt current nutrition is Nepro at 40 ml/hr. Last recorded weight is 130.3 kg. Bowel Motility:No Bm reported Labs Reviewed:Glu 116, Cr 1.4,BUN 44, GFR 55, Na 135 Meds Noted:Miralax, Senokot, Lactulose, Bumex Skin: necrotic ear Additional Notes: Patient remains on mechanical vent and tube feedings of Nepro at 40 ml/hr. Tolerating tube feedings. Protein Modular of Marcelino BID for wound healing. Flush 50 ml q 4 hours. Agree with diet orders. Following daily in ICU rounds. Will monitor every Sunday and Sunday.
--- NOTE | 2023-01-04 11:22 | WPDINTPN ---
Progress Note: A&P Assessment and Plan (1) Acute and chronic respiratory failure: Qualifiers: Respiratory failure complication: hypoxia and hypercapnia Qualified Code(s): J96.21 - Acute and chronic respiratory failure with hypoxia; J96.22 - Acute and chronic respiratory failure with hypercapnia; J96.22 - Acute and chronic respiratory failure with hypercapnia Code(s): J96.20 - Acute and chronic respiratory failure, unspecified whether with hypoxia or hypercapnia Status: Acute Assessment and Plan: Acute on chronic respiratory failure secondary to hypoxia and hypercarbia, -Likely combination secondary to CHF and possible pneumonia -Patient has never smoked and does not have any documented history of COPD - intubated on 12/28/2022 in the ER upon arrival -Chest x-ray this morning: Mild bibasilar pulmonary edema/atelectasis with minimal left pleural effusion. -ABG reviewed -continue bronchodilators, - patient responding well to diuresis, will continue Off all antibiotics -12/28 Blood cultures negative x2 - 12/29 sputum cultures negative so far -12/28 urine Legionella and urine pneumococcal antigens not detect -off sedation x96 hrs, patient has been tolerating ASV mode of ventilation all night long, -01/01, 01/02, 01/03 place patient on SBT with pressure support ventilation of 8/5, patient did not do well as he has low tidal volumes and low minute ventilation as he was hypercapnic with respiratory acidosis on his ABGs, he is still remains somnolent -01/04; place him back on SBT and evaluate for extubation (2) CHF (congestive heart failure): Code(s): I50.9 - Heart failure, unspecified Status: Acute Assessment and Plan: 12/29/2022: Echocardiogram showed LV hypertrophy with normal LV size and good systolic function, grade 2 diastolic noncompliance, and was right ventricle, moderate pulmonary hypertension with RVSP 60 mg -can you Bumex for diuresis (3) Elevated liver enzymes: Code(s): R74.8 - Abnormal levels of other serum enzymes Status: Acute Assessment and Plan: Likely secondary to hypoxia hypoperfusion and hepatic congestion. patient also on statin - acetaminophen level was normal -Check right upper quadrant ultrasound, -negative viral hepatitis panel - hold statin - LFTs trending down, will continue to monitor (4) Hyperkalemia: Code(s): E87.5 - Hyperkalemia Status: Acute Assessment and Plan: Likely secondary to combination of renal failure and metabolic acidosis. patient also on Aldactone as an outpatient -Patient was treated in the ER for hyperkalemia with insulin D50 bicarb and calcium -Correct respiratory acidosis with ventilator -Potassium level has improved and normalized - continue to monitor (5) Diabetes mellitus: Code(s): E11.9 - Type 2 diabetes mellitus without complications Status: Chronic Assessment and Plan: sliding scale insulin and Accu-Cheks (6) Lymphedema: Code(s): I89.0 - Lymphedema, not elsewhere classified Status: Acute Assessment and Plan: 12/28/2022: lower extremity Dopplers negative for DVT -patient is on anticoagulation as outpatient which will be continued -diuretics and leg elevation -lower extremity edema much improved (7) Chronic kidney disease, stage 3: Code(s): N18.30 - Chronic kidney disease, stage 3 unspecified Status: Acute Assessment and Plan: Baseline unknown. Has chronic kidney disease disease stage III as per records -Not a candidate for IV fluids due to pulmonary edema -Normal CK level, urine electrolytes suggest renal etiology -12/28: renal ultrasound: Normal right kidney without hydronephrosis.. Left kidney not visualized - Good urine output response to diuresis, will continue - appreciate Nephrology evaluation -continue diuresis -creatinine continues to improve (8) Atrial fibrillation: Code(s): I48.91 - Unspecified atrial fibri
[2023-01-04 11:35] LABS: Glucose Point of Care 109 mg/dl (65-105)
--- NOTE | 2023-01-04 12:55 | P.PNNP_ITS ---
Progress Note: A&P Assessment and Plan (1) CKD (chronic kidney disease): Code(s): N18.9 - Chronic kidney disease, unspecified Status: Chronic Assessment and Plan: * according to patient history (but not confirmed) * baseline creatinine unknown - admitted with a creatinine of 2.7mg/dl * creatinine improving since admission * evaluation to date: * renal u/s with normal right kidney, no left kidney visualized (due to body habitus) * urine electrolytes by FeUrea is prerenal * reasonable urine output in response to IV diuretics * follow repeat labs and UOP (2) Hyperkalemia: Code(s): E87.5 - Hyperkalemia Status: Acute Assessment and Plan: * resolved (3) Acute and chronic respiratory failure: Qualifiers: Respiratory failure complication: hypoxia and hypercapnia Qualified Code(s): J96.21 - Acute and chronic respiratory failure with hypoxia; J96.22 - Acute and chronic respiratory failure with hypercapnia; J96.22 - Acute and chronic respiratory failure with hypercapnia Code(s): J96.20 - Acute and chronic respiratory failure, unspecified whether with hypoxia or hypercapnia Status: Acute Assessment and Plan: * due to hypoxia and hypercarbia * CHF and possible pneumonia contributing as well * on mechanical ventilation * follow cultures * on antibiotics (4) CHF (congestive heart failure): Code(s): I50.9 - Heart failure, unspecified Status: Acute Assessment and Plan: * Echo results as noted * CXR findings reviewed * resumed on IV bumex * follow volume status (5) Diabetes mellitus: Code(s): E11.9 - Type 2 diabetes mellitus without complications Status: Chronic Assessment and Plan: * on accuchecks * glycemic control per hosptialist/food processing scientist Will continue to follow Subjective Date/time seen: 01/04/23 12:55 Remains intubated and on mechanical ventilation and seems otherwise stable; continues to make good urine output and tolerating diuretic therapy with stability in renal function; no other apparent issues/events overnight. Exam Narrative: General: WD/WN male intubated on mechanical ventilation Heart: normal S1 and S2; no rub Lungs: coarse bilaterally Abdomen: soft, nontender, nondistended, positive bowel sounds Extremities: no cyanosis or clubbing; 1+ edema Skin: no rash Objective Data Vital Signs Vital Signs: Vital Signs Temp Pulse Resp BP Pulse Ox O2 Del Method FiO2 01/04/23 12:00 77 01/04/23 12:00 35 01/04/23 12:00 95 Mechanical Ventilation 35 01/04/23 10:26 73 100 Mechanical Ventilation 35 01/04/23 11:42 99.0 F 78 13 103/68 100 01/04/23 10:00 80 01/04/23 08:00 98 01/04/23 09:42 79 21 H 112/69 97 01/04/23 08:15 89 95 Mechanical Ventilation 35 01/04/23 08:00 35 01/04/23 08:00 95 Mechanical Ventilation 35 01/04/23 07:25 98.2 F 78 22 H 115/73 96 01/04/23 06:00 74 01/04/23 04:00 79 01/04/23 06:27 79 94 Mechanical Ventilation 35 01/04/23 06:00 97.7 F 88 18 105/64 96 01/04/23 04:00 95 Mechanical Ventilation 35 01/04/23 04:00 98.5 F 74 12 104/58 L 95 01/04/23 04:00 35 01/04/23 02:00 80
--- NOTE | 2023-01-04 12:55 | PM.PNNEP ---
Progress Note: A&P Assessment and Plan (1) CKD (chronic kidney disease): Code(s): N18.9 - Chronic kidney disease, unspecified Status: Chronic Assessment and Plan: according to patient history (but not confirmed) baseline creatinine unknown - admitted with a creatinine of 2.7mg/dl creatinine improving since admission evaluation to date: renal u/s with normal right kidney, no left kidney visualized (due to body habitus) urine electrolytes by FeUrea is prerenal reasonable urine output in response to IV diuretics follow repeat labs and UOP (2) Hyperkalemia: Code(s): E87.5 - Hyperkalemia Status: Acute Assessment and Plan: resolved (3) Acute and chronic respiratory failure: Qualifiers: Respiratory failure complication: hypoxia and hypercapnia Qualified Code(s): J96.21 - Acute and chronic respiratory failure with hypoxia; J96.22 - Acute and chronic respiratory failure with hypercapnia; J96.22 - Acute and chronic respiratory failure with hypercapnia Code(s): J96.20 - Acute and chronic respiratory failure, unspecified whether with hypoxia or hypercapnia Status: Acute Assessment and Plan: due to hypoxia and hypercarbia CHF and possible pneumonia contributing as well on mechanical ventilation follow cultures on antibiotics (4) CHF (congestive heart failure): Code(s): I50.9 - Heart failure, unspecified Status: Acute Assessment and Plan: Echo results as noted CXR findings reviewed resumed on IV bumex follow volume status (5) Diabetes mellitus: Code(s): E11.9 - Type 2 diabetes mellitus without complications Status: Chronic Assessment and Plan: on accuchecks glycemic control per hosptialist/lamp assembler Will continue to follow Subjective Date/time seen: 01/04/23 12:55 Remains intubated and on mechanical ventilation and seems otherwise stable; continues to make good urine output and tolerating diuretic therapy with stability in renal function; no other apparent issues/events overnight. Exam Narrative: General: WD/WN male intubated on mechanical ventilation Heart: normal S1 and S2; no rub Lungs: coarse bilaterally Abdomen: soft, nontender, nondistended, positive bowel sounds Extremities: no cyanosis or clubbing; 1+ edema Skin: no rash Objective Data Vital Signs Vital Signs: Vital Signs Temp Pulse Resp BP Pulse Ox O2 Del Method FiO2 01/04/23 12:00 77 01/04/23 12:00 35 02/23/23 12:00 95 Mechanical Ventilation 35 01/04/23 10:26 73 100 Mechanical Ventilation 35 01/04/23 11:42 99.0 F 78 13 103/68 100 01/04/23 10:00 80 01/04/23 08:00 98 01/04/23 09:42 79 21 H 112/69 97 01/04/23 08:15 89 95 Mechanical Ventilation 35 01/04/23 08:00 35 01/04/23 08:00 95 Mechanical Ventilation 35 01/04/23 07:25 98.2 F 78 22 H 115/73 96 01/04/23 06:00 74 01/04/23 04:00 79 01/04/23 06:27 79 94 Mechanical Ventilation 35 01/04/23 06:00 97.7 F 88 18 105/64 96 01/04/23 04:00 95 Mechanical Ventilation 35 01/04/23 04:00 98.5 F 74 12 104/58 L 95 01/04/23 04:00 35 01/04/23 02:00 80 01/04/23 00:00 95 Mechanical Ventilation 35 01/04/23 02:00 98.5 F 79 12 107/58 L 95 01/04/23 01:46 77 95 Mechanical Ventilation 35 01/03/23 23:00 81 94 Mechanical Ventilation 35 01/04/23 00:00 84 01/04/23 00:00 35 01/04/23 00:00 99.2 F 77 13 101/63 95 01/03/23 22:00 98.7 F 78 12 108/63 95 01/03/23 22:00 78 01/03/23 20:00 95 Mechanical Ventilation 35 01/03/23 20:00 80 01/03/23 20:00 35 01/03/23 20:00 98.7 F 81 18 106/65 95 01/03/23 19:40 81 94 Mechanical Ventilation 35 01/03/23 18:00 78 01/03/23 18:00 78 12 102/61 94 01/03/23 16:00 86
[2023-01-04 17:45] LABS: Glucose Point of Care 100 mg/dl (65-105)
[2023-01-04] MEDS: MELATONIN 5 MG TABLET PO (20:34)
[2023-01-04] MEDS: SENNA/DOCUSATE SODIUM TABLET 1 TAB PO (20:34)
[2023-01-05] VITALS (50 sets, daily range): BP systolic 89–103; BP diastolic 56–67; PULSE 70–97; RESP 11–29; TEMP 36.8–37.3; O2SAT 90–96
[2023-01-05 00:14] LABS: Glucose Point of Care 136 mg/dl (65-105)
[2023-01-05 05:43] LABS: Hematocrit 47.4 % (42.0-52.0); Hemoglobin 14.6 g/dL (14.0-18.0); Mean Corpuscular HGB Conc 30.8 g/dl (32-36); Mean Platelet Volume 10.5 fl (7.4-10.4); Platelet Count Result 152 k/mm3 (150-375); Red Blood Count 5.04 M/mm3 (4.6-6.20); Red Cell Distribution Width 16.7 % (11.5-14.5); White Blood Count 9.6 K/mm3 (4.5-10.0)
[2023-01-05 05:53] LABS: Alveolar/Arterial O2 Gradient 117.8 mmHg; Base Excess ABG 1.1 mEq/l (+/-2.0); Carboxyhemoglobin 1.3 % THb (0-2.0); Fractional Inspired Oxygen 35 %; HCO3 ABG 27.1 mEq/l (22.0-26.0); Methemoglobin ABG 0.4 %THb (0-1.5); Modified Allen's Test Unable to perform; Oxygen Content ABG 19.8 %vol (16.0-22.0); Oxygen Saturation ABG 94.8 % (95.0-100.0); Oxyhemoglobin 93.3 % THb (90.0-100.0); PO2 FiO2 Ratio Arterial Blood 2.17 %; Site Drawn LEFT RADIAL; Total Hemoglobin 15.1 g/dL (12.0-18.0)
[2023-01-05 05:53] LABS: Alanine Aminotransferase 148 U/L (6-50); Albumin Level 3.7 g/dL (3.5-5.1); Alkaline Phosphatase 96 U/L (38-126); Anion Gap 4 mmol/L (8-16); Aspartate Amino Transferase 50 U/L (17-59); Bilirubin,Total 0.8 mg/dL (0.2-1.3); Blood Urea Nitrogen 48 mg/dL (9-20); Calcium 8.8 mg/dL (8.4-10.2); Carbon Dioxide 28 mmol/L (22-30); Chloride 100 mmol/L (98-107); Estimated CRCL calculation 76 ml/min; Estimated Glomerular Filt Rate > 60; Glucose 106 mg/dL (65-110); Magnesium 2.2 mg/dL (1.6-2.3); Potassium 3.3 mmol/L (3.4-5.0); Sodium 132 mmol/L (137-145)
[2023-01-05 05:54] LABS: Arterial Blood Gas PEEP 5 cmH2O; Arterial Blood Gas Vent Mode ASV; Device VENTILATOR
[2023-01-05] MEDS: CENTRAL LINE FLUSH 10 ML IV PUSH ×2 (08:14→12:26)
[2023-01-05] MEDS: POTASSIUM CHLORIDE 20 MEQ PACKET (FOR LIQUID) 40 MEQ FEED TUBE (08:15)
[2023-01-05] MEDS: MINERAL OIL/WHITE PETROLATUM OINTMENT 1 APPLIC EACH EYE (08:15)
[2023-01-05] MEDS: PANTOPRAZOLE SODIUM IV 40 MG VIAL IV PUSH (08:15)
[2023-01-05] MEDS: KCL 40 MEQ/WATER 100 ML 100 ML 25 ML IVPB (08:15)
[2023-01-05] MEDS: polyethylene glycoL 3350 17 GM POWD.PACK PO (08:15)
[2023-01-05] MEDS: APIXABAN 5 MG TABLET PO ×2 (08:16→20:27)
[2023-01-05] MEDS: LIDOCAINE 5% PATCH 2 PATCH TRANSDERM (08:16)
[2023-01-05] MEDS: LACTULOSE 20 GM/30 ML UDC PO (08:17)
[2023-01-05] MEDS: BUMETANIDE INJ 1 MG/4 ML VIAL IV PUSH (09:53)
[2023-01-05] MEDS: TOLNAFTATE 1% POWDER 45 GM BTL 1 APPLIC TOPICAL ×2 (09:53→20:29)
--- NOTE | 2023-01-05 10:57 | PCNFU ---
Nutrition Follow-Up Complete: Inadequate Oral intake as related to mechanical ventilation as evidenced by NPO. Goal: Meet estimated nutritional needs Patient is progressing towards goal. We will continue current goal. Pt current nutrition is Nepro at 40 ml/hr Last recorded weight is 127.2 kg. Bowel Motility:+Bm reported 01/05 Labs Reviewed:BUN 48, Na 132 Meds Noted:Senokot, Miralax, Eliquis, Bumex, Lactulose Skin: necrotic ear Additional Notes: Patient remains on mechanical vent and tube feedings of Nepro at 40 ml/hr. Plans for breathing trial today. Protein Modular of Marcelino BID continues for wound healing. Agree with diet orders. Monitoring in ICU rounds and reassessing every Sunday and Sunday.
--- NOTE | 2023-01-05 11:14 | PM.PNNEP ---
Progress Note: A&P Assessment and Plan (1) CKD (chronic kidney disease): Code(s): N18.9 - Chronic kidney disease, unspecified Status: Chronic Assessment and Plan: according to patient history (but not confirmed) baseline creatinine unknown - admitted with a creatinine of 2.7mg/dl creatinine has been improving since admission evaluation to date: renal u/s with normal right kidney, no left kidney visualized (due to body habitus) urine electrolytes by FeUrea is prerenal reasonable urine output in response to IV diuretics follow repeat labs and UOP (2) Hyperkalemia: Code(s): E87.5 - Hyperkalemia Status: Acute Assessment and Plan: resolved (3) Acute and chronic respiratory failure: Qualifiers: Respiratory failure complication: hypoxia and hypercapnia Qualified Code(s): J96.21 - Acute and chronic respiratory failure with hypoxia; J96.22 - Acute and chronic respiratory failure with hypercapnia; J96.22 - Acute and chronic respiratory failure with hypercapnia Code(s): J96.20 - Acute and chronic respiratory failure, unspecified whether with hypoxia or hypercapnia Status: Acute Assessment and Plan: due to hypoxia and hypercarbia CHF and possible pneumonia contributing as well on mechanical ventilation follow cultures on antibiotics (4) CHF (congestive heart failure): Code(s): I50.9 - Heart failure, unspecified Status: Acute Assessment and Plan: Echo results as noted CXR findings reviewed resumed on IV bumex follow volume status (5) Diabetes mellitus: Code(s): E11.9 - Type 2 diabetes mellitus without complications Status: Chronic Assessment and Plan: on accuchecks glycemic control per hosptialist/artist consultant Will continue to follow Subjective Date/time seen: 01/05/23 11:14 Renal function stable if not improved and appears to be tolerating ongoing diuresis with excellent urine output; remains intubated and on mechanical ventilation but awake and alert as well as following commands since being off sedation; no other issues/events overnight or earlier this AM. Exam Narrative: General: WD/WN male intubated on mechanical ventilation Heart: normal S1 and S2; no rub Lungs: coarse bilaterally Abdomen: soft, nontender, nondistended, positive bowel sounds Extremities: no cyanosis or clubbing; 1+ edema Skin: no nodules Objective Data Vital Signs Vital Signs: Vital Signs Temp Pulse Resp BP Pulse Ox O2 Del Method O2 Flow Rate 01/05/23 11:14 75 22 H 94 Mechanical Ventilation 01/05/23 10:51 83 94 Mechanical Ventilation 01/05/23 10:53 01/05/23 10:00 83 01/05/23 10:00 84 23 H 101/66 93 01/05/23 08:00 78 01/05/23 08:34 91 94 Mechanical Ventilation 01/05/23 08:18 01/05/23 08:00 01/05/23 08:00 78 12 95 Mechanical Ventilation 01/05/23 07:53 79 96 Mechanical Ventilation 01/05/23 07:52 99 F 73 11 L 102/67 95 01/05/23 06:00 76 01/05/23 04:00 75 01/05/23 06:00 99.1 F 97 13 100/62 96 01/05/23 05:05 81 96 Mechanical Ventilation 01/05/23 02:15 74 95 Mechanical Ventilation 01/05/23 04:00 98.3 F 70 13 96/61 L 95 01/05/23 04:00 Mechanical Ventilation 01/05/23 03:31 01/05/23 02:00 98.5 F 74 13 93/59 L 92 01/05/23 02:00 71 01/04/23 23:10 83 95 Mechanical Ventilation 01/05/23 00:00 Mechanical Ventilation 01/05/23 00:00 84 01/05/23 00:00 98.2 F 82 13 89/58 L 95 01/05/23 00:00 01/04/23 22:00 93 01/04/23 22:00 98.0 F 94 15 94/60 L 93 01/04/23 20:01 97 95 Mechanical Ventilation 01/04/23 20:00 Mechanical Ventilation 01/04/23 20:00 85 01/04/23 20:00 01/04/23 20:00 98.2 F 87 23 H 115/72 95 01/04/23 18:00 84 22 H 110/69 95
--- NOTE | 2023-01-05 11:14 | P.PNNP_ITS ---
Progress Note: A&P Assessment and Plan (1) CKD (chronic kidney disease): Code(s): N18.9 - Chronic kidney disease, unspecified Status: Chronic Assessment and Plan: * according to patient history (but not confirmed) * baseline creatinine unknown - admitted with a creatinine of 2.7mg/dl * creatinine has been improving since admission * evaluation to date: * renal u/s with normal right kidney, no left kidney visualized (due to body habitus) * urine electrolytes by FeUrea is prerenal * reasonable urine output in response to IV diuretics * follow repeat labs and UOP (2) Hyperkalemia: Code(s): E87.5 - Hyperkalemia Status: Acute Assessment and Plan: * resolved (3) Acute and chronic respiratory failure: Qualifiers: Respiratory failure complication: hypoxia and hypercapnia Qualified Code(s): J96.21 - Acute and chronic respiratory failure with hypoxia; J96.22 - Acute and chronic respiratory failure with hypercapnia; J96.22 - Acute and chronic respiratory failure with hypercapnia Code(s): J96.20 - Acute and chronic respiratory failure, unspecified whether with hypoxia or hypercapnia Status: Acute Assessment and Plan: * due to hypoxia and hypercarbia * CHF and possible pneumonia contributing as well * on mechanical ventilation * follow cultures * on antibiotics (4) CHF (congestive heart failure): Code(s): I50.9 - Heart failure, unspecified Status: Acute Assessment and Plan: * Echo results as noted * CXR findings reviewed * resumed on IV bumex * follow volume status (5) Diabetes mellitus: Code(s): E11.9 - Type 2 diabetes mellitus without complications Status: Chronic Assessment and Plan: * on accuchecks * glycemic control per hosptialist/cop winder Will continue to follow Subjective Date/time seen: 01/05/23 11:14 Renal function stable if not improved and appears to be tolerating ongoing diuresis with excellent urine output; remains intubated and on mechanical ventilation but awake and alert as well as following commands since being off sedation; no other issues/events overnight or earlier this AM. Exam Narrative: General: WD/WN male intubated on mechanical ventilation Heart: normal S1 and S2; no rub Lungs: coarse bilaterally Abdomen: soft, nontender, nondistended, positive bowel sounds Extremities: no cyanosis or clubbing; 1+ edema Skin: no nodules Objective Data Vital Signs Vital Signs: Vital Signs Temp Pulse Resp BP Pulse Ox O2 Del Method O2 Flow Rate 01/05/23 11:14 75 22 H 94 Mechanical Ventilation 01/05/23 10:51 83 94 Mechanical Ventilation 01/05/23 10:53 01/05/23 10:00 83 01/05/23 10:00 84 23 H 101/66 93 01/05/23 08:00 78 01/05/23 08:34 91 94 Mechanical Ventilation 01/05/23 08:18 01/05/23 08:00 01/05/23 08:00 78 12 95 Mechanical Ventilation 01/05/23 07:53 79 96 Mechanical Ventilation 01/05/23 07:52 99 F 73 11 L 102/67 95 01/05/23 06:00 76 01/05/23 04:00 75 01/05/23 06:00 99.1 F 97 13 100/62 96 01/05/23 05:05 81 96 Mechanical Ventilation 01/05/23 02:15 74 95 Mechanical Ventilation 01/05/23 04:00 98.3 F 70 13 96
[2023-01-05 11:45] LABS: Glucose Point of Care 111 mg/dl (65-105)
[2023-01-05 12:38] LABS: Alveolar/Arterial O2 Gradient 115.2 mmHg; Base Excess ABG 0.8 mEq/l (+/-2.0); Fractional Inspired Oxygen 35 %; HCO3 ABG 27.3 mEq/l (22.0-26.0); Oxygen Content ABG 20.7 %vol (16.0-22.0); Oxygen Saturation ABG 94.4 % (95.0-100.0); Oxyhemoglobin 93.2 % THb (90.0-100.0); PCO2 ABG 50.4 mmHg (35.0-45.0); PO2 ABG 75.8 mmHg (80.0-100.0); PO2 FiO2 Ratio Arterial Blood 2.17 %; Total Hemoglobin 15.8 g/dL (12.0-18.0); pH ABG 7.351 (7.350-7.450)
[2023-01-05 12:40] LABS: Device VENTILATOR; Modified Allen's Test Pass; Site Drawn LEFT RADIAL
[2023-01-05 12:41] LABS: Arterial Blood Gas PEEP 5 cmH2O; Arterial Blood Gas Pressure Support 8 cmH2O
--- NOTE | 2023-01-05 12:44 | WPDINTPN ---
Progress Note: A&P Assessment and Plan (1) Acute and chronic respiratory failure: Qualifiers: Respiratory failure complication: hypoxia and hypercapnia Qualified Code(s): J96.21 - Acute and chronic respiratory failure with hypoxia; J96.22 - Acute and chronic respiratory failure with hypercapnia; J96.22 - Acute and chronic respiratory failure with hypercapnia Code(s): J96.20 - Acute and chronic respiratory failure, unspecified whether with hypoxia or hypercapnia Status: Acute Assessment and Plan: Acute on chronic respiratory failure secondary to hypoxia and hypercarbia, -Likely combination secondary to CHF and possible pneumonia -Patient has never smoked and does not have any documented history of COPD - intubated on 12/28/2022 in the ER upon arrival -Chest x-ray this morning: Mild bibasilar pulmonary edema/atelectasis with minimal left pleural effusion. -ABG reviewed -continue bronchodilators, - patient responding well to diuresis, will continue Off all antibiotics -12/28 Blood cultures negative x2 - 12/29 sputum cultures negative so far -12/28 urine Legionella and urine pneumococcal antigens not detect -off sedation x96 hrs, patient has been tolerating ASV mode of ventilation all night long, -01/01, 01/02, 01/03, 01/04 place patient on SBT with pressure support ventilation of 8/5, patient did not do well as he has low tidal volumes and low minute ventilation as he was hypercapnic with respiratory acidosis on his ABGs, he is still remains somnolent -01/04; place him back on SBT and evaluate for extubation, and has been doing well and tolerating pressure support 8/5, anticipate extubation today after ABGs (2) CHF (congestive heart failure): Code(s): I50.9 - Heart failure, unspecified Status: Acute Assessment and Plan: 12/29/2022: Echocardiogram showed LV hypertrophy with normal LV size and good systolic function, grade 2 diastolic noncompliance, and was right ventricle, moderate pulmonary hypertension with RVSP 60 mg -continue Bumex for diuresis (3) Elevated liver enzymes: Code(s): R74.8 - Abnormal levels of other serum enzymes Status: Acute Assessment and Plan: Likely secondary to hypoxia hypoperfusion and hepatic congestion. patient also on statin - acetaminophen level was normal -12/30/2022 RUQ ultrasound, cholelithiasis hepatic steatosis -negative viral hepatitis panel - hold statin - LFTs trending down, will continue to monitor (4) Hyperkalemia: Code(s): E87.5 - Hyperkalemia Status: Acute Assessment and Plan: Likely secondary to combination of renal failure and metabolic acidosis. patient also on Aldactone as an outpatient -Patient was treated in the ER for hyperkalemia with insulin D50 bicarb and calcium -Correct respiratory acidosis with ventilator -currently hypokalemia will replace potassium - continue to monitor (5) Diabetes mellitus: Code(s): E11.9 - Type 2 diabetes mellitus without complications Status: Chronic Assessment and Plan: sliding scale insulin and Accu-Cheks (6) Lymphedema: Code(s): I89.0 - Lymphedema, not elsewhere classified Status: Acute Assessment and Plan: 12/28/2022: lower extremity Dopplers negative for DVT -patient is on anticoagulation as outpatient which will be continued -diuretics and leg elevation -lower extremity edema much improved (7) Chronic kidney disease, stage 3: Code(s): N18.30 - Chronic kidney disease, stage 3 unspecified Status: Acute Assessment and Plan: Baseline unknown. Has chronic kidney disease disease stage III as per records -Not a candidate for IV fluids due to pulmonary edema -Normal CK level, urine electrolytes suggest renal etiology -12/28: renal ultrasound: Normal right kidney without hydronephrosis.. Left kidney not visualized - Good urine output response to diuresis, will continue - appreciate Nephrology evaluation
[2023-01-05 17:19] LABS: Glucose Point of Care 99 mg/dl (65-105)
[2023-01-05] MEDS: MELATONIN 5 MG TABLET PO (20:27)
[2023-01-05] MEDS: SENNA/DOCUSATE SODIUM TABLET 1 TAB PO (20:27)
[2023-01-05] MEDS: ACETAMINOPHEN ELIXIR 325 MG/10.15 ML UDC 650 MG PO (20:27)
[2023-01-06] VITALS (40 sets, daily range): BP systolic 96–111; BP diastolic 57–71; PULSE 82–108; RESP 17–30; TEMP 36.3–36.9; O2SAT 89–98
[2023-01-06 00:52] LABS: Glucose Point of Care 103 mg/dl (65-105)
[2023-01-06] MEDS: CENTRAL LINE FLUSH 10 ML IV PUSH ×4 (02:19→20:51)
[2023-01-06] MEDS: ACETAMINOPHEN ELIXIR 325 MG/10.15 ML UDC 650 MG PO ×2 (02:26→17:49)
--- NOTE | 2023-01-06 03:23 | PC.NURSE ---
Patient firmly refusing turns this shift. Educated on pressure and how it can lead to injuries, as well as the need to routinely move in the bed. Patient verbalized understanding.
[2023-01-06 05:46] LABS: Base Excess ABG -1.2 mEq/l (+/-2.0); Carboxyhemoglobin 1.7 % THb (0-2.0); Fractional Inspired Oxygen 40 %; HCO3 ABG 26.6 mEq/l (22.0-26.0); Methemoglobin ABG 0.3 %THb (0-1.5); Oxygen Content ABG 20.5 %vol (16.0-22.0); Oxygen Saturation ABG 92.4 % (95.0-100.0); Oxyhemoglobin 91.3 % THb (90.0-100.0); PCO2 ABG 56.3 mmHg (35.0-45.0); PO2 ABG 71.5 mmHg (80.0-100.0); PO2 FiO2 Ratio Arterial Blood 1.79 %; Reduced Hemoglobin 6.7 %THb (0-5.0)
[2023-01-06 05:47] LABS: Modified Allen's Test Pass; Site Drawn LEFT RADIAL; pH ABG 7.292 (7.350-7.450)
[2023-01-06 05:48] LABS: Device OTHER DEVICE
[2023-01-06 05:57] LABS: Hemoglobin 14.8 g/dL (14.0-18.0); Mean Corpuscular HGB Conc 30.2 g/dl (32-36); Mean Corpuscular Hemoglobin 28.8 pg (26-34); Mean Corpuscular Volume 95.3 fl (80-100); Mean Platelet Volume 10.4 fl (7.4-10.4); Platelet Count Result 183 k/mm3 (150-375); Red Blood Count 5.14 M/mm3 (4.6-6.20); Red Cell Distribution Width 16.6 % (11.5-14.5); White Blood Count 8.1 K/mm3 (4.5-10.0)
[2023-01-06 06:09] LABS: Alanine Aminotransferase 130 U/L (6-50); Albumin Level 3.8 g/dL (3.5-5.1); Alkaline Phosphatase 86 U/L (38-126); Anion Gap 5 mmol/L (8-16); Aspartate Amino Transferase 45 U/L (17-59); Bilirubin,Total 0.9 mg/dL (0.2-1.3); Blood Urea Nitrogen 46 mg/dL (9-20); Calcium 8.7 mg/dL (8.4-10.2); Carbon Dioxide 28 mmol/L (22-30); Chloride 103 mmol/L (98-107); Estimated CRCL calculation 76 ml/min; Estimated Glomerular Filt Rate > 60; Glucose 101 mg/dL (65-110); Magnesium 2.3 mg/dL (1.6-2.3); Phosphorus 4.9 mg/dL (2.5-4.5); Potassium 3.8 mmol/L (3.4-5.0); Sodium 136 mmol/L (137-145)
[2023-01-06] MEDS: PANTOPRAZOLE SODIUM IV 40 MG VIAL IV PUSH (08:11)
--- NOTE | 2023-01-06 08:47 | WPDINTPN ---
Progress Note: A&P Assessment and Plan (1) Acute and chronic respiratory failure: Qualifiers: Respiratory failure complication: hypoxia and hypercapnia Qualified Code(s): J96.21 - Acute and chronic respiratory failure with hypoxia; J96.22 - Acute and chronic respiratory failure with hypercapnia; J96.22 - Acute and chronic respiratory failure with hypercapnia Code(s): J96.20 - Acute and chronic respiratory failure, unspecified whether with hypoxia or hypercapnia Status: Acute Assessment and Plan: Acute on chronic respiratory failure secondary to hypoxia and hypercarbia, -Likely combination secondary to CHF and possible pneumonia -Patient has never smoked and does not have any documented history of COPD - intubated on 12/28/2022 in the ER upon arrival -extubated on 01/05/2023 -ABGs this morning with respiratory acidosis and hypercapnia, patient on Vapotherm, will increase settings to 45 L flow rate and 45% FiO2, will repeat ABGs later today -continue bronchodilators, - patient responding well to diuresis, will continue Off all antibiotics -12/28 Blood cultures negative x2 - 12/29 sputum cultures negative so far -12/28 urine Legionella and urine pneumococcal antigens not detect - (2) CHF (congestive heart failure): Code(s): I50.9 - Heart failure, unspecified Status: Acute Assessment and Plan: 12/29/2022: Echocardiogram showed LV hypertrophy with normal LV size and good systolic function, grade 2 diastolic noncompliance, and was right ventricle, moderate pulmonary hypertension with RVSP 60 mg -continue Bumex for diuresis (3) Elevated liver enzymes: Code(s): R74.8 - Abnormal levels of other serum enzymes Status: Acute Assessment and Plan: Likely secondary to hypoxia hypoperfusion and hepatic congestion. patient also on statin - acetaminophen level was normal -12/30/2022 RUQ ultrasound, cholelithiasis hepatic steatosis -negative viral hepatitis panel - hold statin - LFTs trending down, will continue to monitor (4) Hyperkalemia: Code(s): E87.5 - Hyperkalemia Status: Acute Assessment and Plan: Likely secondary to combination of renal failure and metabolic acidosis. patient also on Aldactone as an outpatient -Patient was treated in the ER for hyperkalemia with insulin D50 bicarb and calcium -Correct respiratory acidosis with ventilator -currently hypokalemia will replace potassium - continue to monitor (5) Diabetes mellitus: Code(s): E11.9 - Type 2 diabetes mellitus without complications Status: Chronic Assessment and Plan: sliding scale insulin and Accu-Cheks (6) Lymphedema: Code(s): I89.0 - Lymphedema, not elsewhere classified Status: Acute Assessment and Plan: 12/28/2022: lower extremity Dopplers negative for DVT -patient is on anticoagulation as outpatient which will be continued -diuretics and leg elevation -lower extremity edema much improved (7) Chronic kidney disease, stage 3: Code(s): N18.30 - Chronic kidney disease, stage 3 unspecified Status: Acute Assessment and Plan: Baseline unknown. Has chronic kidney disease disease stage III as per records -Not a candidate for IV fluids due to pulmonary edema -Normal CK level, urine electrolytes suggest renal etiology -12/28: renal ultrasound: Normal right kidney without hydronephrosis.. Left kidney not visualized - appreciate Nephrology evaluation -continue diuresis -creatinine continues to improve (8) Atrial fibrillation: Code(s): I48.91 - Unspecified atrial fibrillation Status: Acute Assessment and Plan: patient is on digoxin and Eliquis at home - digoxin level marginally elevated. digoxin level is within normal limits this morning - continue Eliquis -in sinus rhythm (9) Skin abnormalities: Code(s): L98.9 - Disorder of the skin and subcutaneous tissue, unspecified Status: Acu
[2023-01-06] MEDS: BUMETANIDE INJ 1 MG/4 ML VIAL IV PUSH (09:08)
[2023-01-06] MEDS: LACTULOSE 20 GM/30 ML UDC PO (09:08)
[2023-01-06] MEDS: APIXABAN 5 MG TABLET PO ×2 (09:08→20:50)
[2023-01-06] MEDS: polyethylene glycoL 3350 17 GM POWD.PACK PO (09:08)
--- NOTE | 2023-01-06 12:32 | PM.PNNEP ---
Progress Note: A&P Assessment and Plan (1) CKD (chronic kidney disease): Code(s): N18.9 - Chronic kidney disease, unspecified Status: Chronic Assessment and Plan: according to patient history (but not confirmed) baseline creatinine unknown - admitted with a creatinine of 2.7mg/dl creatinine has been improving since admission evaluation to date: renal u/s with normal right kidney, no left kidney visualized (due to body habitus) urine electrolytes by FeUrea is prerenal reasonable urine output in response to IV diuretics follow repeat labs and UOP (2) Hyperkalemia: Code(s): E87.5 - Hyperkalemia Status: Acute Assessment and Plan: resolved (3) Acute and chronic respiratory failure: Qualifiers: Respiratory failure complication: hypoxia and hypercapnia Qualified Code(s): J96.21 - Acute and chronic respiratory failure with hypoxia; J96.22 - Acute and chronic respiratory failure with hypercapnia; J96.22 - Acute and chronic respiratory failure with hypercapnia Code(s): J96.20 - Acute and chronic respiratory failure, unspecified whether with hypoxia or hypercapnia Status: Acute Assessment and Plan: resolving extubated on 01/05/23 due to hypoxia and hypercarbia CHF and possible pneumonia contributing as well follow cultures on antibiotics (4) CHF (congestive heart failure): Code(s): I50.9 - Heart failure, unspecified Status: Acute Assessment and Plan: Echo results as noted CXR findings reviewed on IV bumex follow volume status (5) Diabetes mellitus: Code(s): E11.9 - Type 2 diabetes mellitus without complications Status: Chronic Assessment and Plan: on accuchecks glycemic control per hosptialist/flavoring maker Will continue to follow Subjective Date/time seen: 01/06/23 12:32 Successfully extubated yesterday afternoon and remains on high flow oxygen therapy; continues to have good urine output in response to diuretic therapy; awake.aert and stable mentation since extubation; no other acute issues/events overnight or earlier this AM. Exam Narrative: General: WD/WN male in NAD Heart: normal S1 and S2; no rub Lungs: coarse bilaterally Abdomen: soft, nontender, nondistended, positive bowel sounds Extremities: no cyanosis or clubbing; 1+ edema Skin: warm and dry Objective Data Vital Signs Vital Signs: Vital Signs Temp Pulse Resp BP Pulse Ox O2 Del Method O2 Flow Rate 02/25/23 12:04 108 H 18 95 01/06/23 11:49 96 28 H 92 01/06/23 11:30 92 26 H 94 01/06/23 11:15 89 25 H 93 01/06/23 11:01 85 24 H 92 01/06/23 10:15 83 20 89 L 01/06/23 10:01 87 19 92 01/06/23 10:00 88 19 98/63 L 91 01/06/23 09:46 83 28 H 90 01/06/23 09:34 89 27 H 92 01/06/23 07:49 94 30 H 93 01/06/23 06:49 86 27 H 92 01/06/23 05:19 86 26 H 92 01/06/23 05:04 89 28 H 91 01/06/23 04:48 85 24 H 91 01/06/23 04:37 86 23 H 90 01/06/23 02:55 85 27 H 92 01/06/23 02:40 85 17 93 01/06/23 02:21 85 19 94 01/06/23 01:30 84 24 H 90 01/06/23 00:53 84 26 H 93 01/06/23 00:17 84 28 H 92 01/05/23 23:39 84 28 H 91 01/05/23 23:21 81 24 H 92 01/05/23 22:45 82 27 H 92 01/05/23 22:30 86 27 H 92 01/05/23 22:15 83 21 H 94 01/05/23 22:01 85 29 H 93 01/05/23 22:00 82 27 H 100/63 94 01/05/23 21:45 84 26 H 94 01/05/23 21:30 84 27 H 93 01/05/23 21:15 84 26 H 94 01/05/23 21:02 83 25 H 91 01/05/23 21:01 85 23 H 95/62 L 92 01/05/23 20:45 85 24 H 92 01/05/23 20:30 86 28 H 95 01/05/23 20:26 87 25 H 90 01/05/23 19:45 87 19 90 01/05/23 19:30 83 27 H 93 01/05/23 19:21 86 24 H 92 01/05/23 19:07 87 21 H 93 02/2
--- NOTE | 2023-01-06 12:32 | P.PNNP_ITS ---
Progress Note: A&P Assessment and Plan (1) CKD (chronic kidney disease): Code(s): N18.9 - Chronic kidney disease, unspecified Status: Chronic Assessment and Plan: * according to patient history (but not confirmed) * baseline creatinine unknown - admitted with a creatinine of 2.7mg/dl * creatinine has been improving since admission * evaluation to date: * renal u/s with normal right kidney, no left kidney visualized (due to body habitus) * urine electrolytes by FeUrea is prerenal * reasonable urine output in response to IV diuretics * follow repeat labs and UOP (2) Hyperkalemia: Code(s): E87.5 - Hyperkalemia Status: Acute Assessment and Plan: * resolved (3) Acute and chronic respiratory failure: Qualifiers: Respiratory failure complication: hypoxia and hypercapnia Qualified Code(s): J96.21 - Acute and chronic respiratory failure with hypoxia; J96.22 - Acute and chronic respiratory failure with hypercapnia; J96.22 - Acute and chronic respiratory failure with hypercapnia Code(s): J96.20 - Acute and chronic respiratory failure, unspecified whether with hypoxia or hypercapnia Status: Acute Assessment and Plan: * resolving * extubated on 01/05/23 * due to hypoxia and hypercarbia * CHF and possible pneumonia contributing as well * follow cultures * on antibiotics (4) CHF (congestive heart failure): Code(s): I50.9 - Heart failure, unspecified Status: Acute Assessment and Plan: * Echo results as noted * CXR findings reviewed * on IV bumex * follow volume status (5) Diabetes mellitus: Code(s): E11.9 - Type 2 diabetes mellitus without complications Status: Chronic Assessment and Plan: * on accuchecks * glycemic control per hosptialist/software engineering manager Will continue to follow Subjective Date/time seen: 01/06/23 12:32 Successfully extubated yesterday afternoon and remains on high flow oxygen therapy; continues to have good urine output in response to diuretic therapy; awake.aert and stable mentation since extubation; no other acute issues/events overnight or earlier this AM. Exam Narrative: General: WD/WN male in NAD Heart: normal S1 and S2; no rub Lungs: coarse bilaterally Abdomen: soft, nontender, nondistended, positive bowel sounds Extremities: no cyanosis or clubbing; 1+ edema Skin: warm and dry Objective Data Vital Signs Vital Signs: Vital Signs Temp Pulse Resp BP Pulse Ox O2 Del Method O2 Flow Rate 01/06/23 12:04 108 H 18 95 01/06/23 11:49 96 28 H 92 01/06/23 11:30 92 26 H 94 01/06/23 11:15 89 25 H 93 01/06/23 11:01 85 24 H 92 01/06/23 10:15 83 20 89 L 01/06/23 10:01 87 19 92 01/06/23 10:00 88 19 98/63 L 91 01/06/23 09:46 83 28 H 90 01/06/23 09:34 89 27 H 92 01/06/23 07:49 94 30 H 93 01/06/23 06:49 86 27 H 92 01/06/23 05:19 86 26 H 92 01/06/23 05:04 89 28 H 91 01/06/23 04:48 85 24 H 91 01/06/23 04:37 86 23 H 90 01/06/23 02:55 85 27 H 92 01/06/23 02:40 85 17 93 01/06/23 02:21 85 19 94 01/06/23 01:30 84 24 H 90 01/06/23 00:53 84 26 H 93
[2023-01-06 12:57] LABS: Alveolar/Arterial O2 Gradient 189.2 mmHg; Base Excess ABG 1.5 mEq/l (+/-2.0); Device HIGH FLOW THERAPY; Fractional Inspired Oxygen 45 %; HCO3 ABG 28.7 mEq/l (22.0-26.0); Oxygen Content ABG 21.7 %vol (16.0-22.0); Oxygen Saturation ABG 92.8 % (95.0-100.0); Oxyhemoglobin 92.2 % THb (90.0-100.0); PCO2 ABG 54.4 mmHg (35.0-45.0); PO2 ABG 69.8 mmHg (80.0-100.0); PO2 FiO2 Ratio Arterial Blood 1.55 %; Site Drawn LEFT BRACHIAL; Total Hemoglobin 16.8 g/dL (12.0-18.0)
--- NOTE | 2023-01-06 13:59 | PCSTNOTE ---
Bedside swallowing evaluation post extubation yesterday. Patient seen upright in chair in room, alert and cooperative. NG tube in place. Patient answering questions and following simple one part commands. Trials of thin liquid by spoon, cup, and straw given. No signs of aspiration noted. Trials of chilled applesauce given by spoon. Patient tolerated well and demonstrated no signs of aspiration. He refused to trial other food items including pudding and sherbet. Recommendation: pureed diet with thin liquids. No speech therapy recommended. Diet consistency may be advanced per nursing recommendations. Swallowing precaution recommendations posted in chart. Please note that silent aspiration cannot be ruled out at bedside. Thank you for the referral of this patient.
--- NOTE | 2023-01-06 17:27 | PC.NURSE ---
2420- If patient refuses procedures, activity, or nursing care, KEVIN Aguirre wants to be notified so she can encourage him [phone]
[2023-01-06 18:09] LABS: Glucose Point of Care 104 mg/dl (65-105)
[2023-01-06 20:48] LABS: Glucose Point of Care 150 mg/dl (65-105)
[2023-01-06] MEDS: TOLNAFTATE 1% POWDER 45 GM BTL 1 APPLIC TOPICAL (20:50)
[2023-01-06 21:25] LABS: Glucose Point of Care 114 mg/dl (65-105)
[2023-01-07] VITALS (18 sets, daily range): BP systolic 104–118; BP diastolic 58–69; PULSE 80–101; RESP 16–22; TEMP 35.9–36.8; O2SAT 88–98
[2023-01-07] MEDS: ACETAMINOPHEN ELIXIR 325 MG/10.15 ML UDC 650 MG PO ×2 (02:54→21:10)
[2023-01-07] MEDS: CENTRAL LINE FLUSH 10 ML IV PUSH ×3 (05:08→21:05)
[2023-01-07 05:19] LABS: Basophils Percent Auto 0.4 % (0.2-1.2); Eosinophils Absolute Auto 0.2 K/mm3 (0-0.3); Hematocrit 49.5 % (42.0-52.0); Immature Granulocyte Absolute 0.04 K/mm3 (0.00-0.031); Immature Granulocyte Percent A 0.4 % (0-0.5); Lymphocytes Percent Auto 13.8 % (18.3-44.2); Mean Corpuscular HGB Conc 30.3 g/dl (32-36); Mean Corpuscular Hemoglobin 28.2 pg (26-34); Mean Corpuscular Volume 93.2 fl (80-100); Mean Platelet Volume 11.5 fl (7.4-10.4); Monocytes Absolute Auto 1.4 K/mm3 (0.1-0.6); Monocytes Percent Auto 15.1 % (2.6-8.5); Neutrophils Absolute Auto 6.4 K/mm3 (1.3-6.7); Neutrophils Percent Auto 68.3 % (45.5-73.1); Platelet Count Result 213 k/mm3 (150-375); Red Blood Count 5.31 M/mm3 (4.6-6.20); Red Cell Distribution Width 16.2 % (11.5-14.5); White Blood Count 9.4 K/mm3 (4.5-10.0)
[2023-01-07 05:34] LABS: Alanine Aminotransferase 109 U/L (6-50); Albumin Level 4.1 g/dL (3.5-5.1); Alkaline Phosphatase 94 U/L (38-126); Anion Gap 5 mmol/L (8-16); Aspartate Amino Transferase 41 U/L (17-59); Bilirubin,Total 1.3 mg/dL (0.2-1.3); Blood Urea Nitrogen 45 mg/dL (9-20); Carbon Dioxide 29 mmol/L (22-30); Chloride 96 mmol/L (98-107); Estimated CRCL calculation 70 ml/min; Estimated Glomerular Filt Rate 56; Glucose 101 mg/dL (65-110); Magnesium 2.3 mg/dL (1.6-2.3); Phosphorus 3.4 mg/dL (2.5-4.5); Potassium 3.4 mmol/L (3.4-5.0); Sodium 130 mmol/L (137-145)
[2023-01-07] MEDS: APIXABAN 5 MG TABLET PO ×2 (08:36→21:05)
[2023-01-07] MEDS: PANTOPRAZOLE SODIUM IV 40 MG VIAL IV PUSH (08:36)
[2023-01-07] MEDS: TOLNAFTATE 1% POWDER 45 GM BTL 1 APPLIC TOPICAL (08:37)
[2023-01-07 09:03] LABS: Glucose Point of Care 109 mg/dl (65-105)
[2023-01-07] MEDS: BUMETANIDE INJ 1 MG/4 ML VIAL IV PUSH (09:52)
--- NOTE | 2023-01-07 11:23 | P.PNIM_ITS ---
Progress Note: A&P Assessment and Plan (1) Acute and chronic respiratory failure: Qualifiers: Respiratory failure complication: hypoxia and hypercapnia Qualified Code(s): J96.21 - Acute and chronic respiratory failure with hypoxia; J96.22 - Acute and chronic respiratory failure with hypercapnia; J96.22 - Acute and chronic respiratory failure with hypercapnia Code(s): J96.20 - Acute and chronic respiratory failure, unspecified whether with hypoxia or hypercapnia Status: Acute Assessment and Plan: Acute on chronic respiratory failure secondary to hypoxia and hypercarbia, -Likely combination secondary to CHF and possible pneumonia -Patient has never smoked and does not have any documented history of COPD - intubated on 12/28/2022 in the ER upon arrival -extubated on 01/05/2023 -ABGs this morning with respiratory acidosis and hypercapnia, patient on Vapotherm, will increase settings to 45 L flow rate and 45% FiO2, will repeat ABGs later today -continue bronchodilators, - patient responding well to diuresis, will continue Off all antibiotics -12/28 Blood cultures negative x2 - 12/29 sputum cultures negative so far -12/28 urine Legionella and urine pneumococcal antigens not detect - (2) CHF (congestive heart failure): Code(s): I50.9 - Heart failure, unspecified Status: Acute Assessment and Plan: 12/29/2022: Echocardiogram showed LV hypertrophy with normal LV size and good systolic function, grade 2 diastolic noncompliance, and was right ventricle, moderate pulmonary hypertension with RVSP 60 mg -continue Bumex for diuresis (3) Elevated liver enzymes: Code(s): R74.8 - Abnormal levels of other serum enzymes Status: Acute Assessment and Plan: Likely secondary to hypoxia hypoperfusion and hepatic congestion. patient also on statin - acetaminophen level was normal -12/30/2022 RUQ ultrasound, cholelithiasis hepatic steatosis -negative viral hepatitis panel - hold statin - LFTs trending down (4) Hyperkalemia: Code(s): E87.5 - Hyperkalemia Status: Acute Assessment and Plan: Likely secondary to combination of renal failure and metabolic acidosis. patient also on Aldactone as an outpatient -Patient was treated in the ER for hyperkalemia with insulin D50 bicarb and calcium -Correct respiratory acidosis with ventilator -currently hypokalemia will replace potassium - continue to monitor (5) Diabetes mellitus: Code(s): E11.9 - Type 2 diabetes mellitus without complications Status: Chronic Assessment and Plan: sliding scale insulin and Accu-Cheks (6) Lymphedema: Code(s): I89.0 - Lymphedema, not elsewhere classified Status: Acute Assessment and Plan: 12/28/2022: lower extremity Dopplers negative for DVT -patient is on anticoagulation as outpatient which will be continued -diuretics and leg elevation -lower extremity edema much improved (7) Chronic kidney disease, stage 3: Code(s): N18.30 - Chronic kidney disease, stage 3 unspecified Status: Acute Assessment and Plan: Baseline unknown. Has chronic kidney disease disease stage III as per records -Not a candidate for IV fluids due to pulmonary edema -Normal CK level, urine electrolytes suggest renal etiology -12/28: renal ultrasound: Normal right kidney without hydronephrosis.. Left kidney not visualized - appreciate Nephrology evaluation -continue diuresis -creatinine continues to improve (8) Atrial fibrillation: Code(s): I48.91 - Unspecified atrial fi
--- NOTE | 2023-01-07 13:15 | PM.PNNEP ---
Progress Note: A&P Assessment and Plan (1) CKD (chronic kidney disease): Code(s): N18.9 - Chronic kidney disease, unspecified Status: Chronic Assessment and Plan: according to patient history (but not confirmed) baseline creatinine unknown - admitted with a creatinine of 2.7mg/dl creatinine has been improving since admission evaluation to date: renal u/s with normal right kidney, no left kidney visualized (due to body habitus) urine electrolytes by FeUrea is prerenal reasonable urine output in response to IV diuretics follow repeat labs and UOP (2) Hyperkalemia: Code(s): E87.5 - Hyperkalemia Status: Acute Assessment and Plan: resolved (3) Acute and chronic respiratory failure: Qualifiers: Respiratory failure complication: hypoxia and hypercapnia Qualified Code(s): J96.21 - Acute and chronic respiratory failure with hypoxia; J96.22 - Acute and chronic respiratory failure with hypercapnia; J96.22 - Acute and chronic respiratory failure with hypercapnia Code(s): J96.20 - Acute and chronic respiratory failure, unspecified whether with hypoxia or hypercapnia Status: Acute Assessment and Plan: resolving extubated on 01/05/23 due to hypoxia and hypercarbia CHF and possible pneumonia contributing as well follow cultures - negative to date completed course of antibiotics (4) CHF (congestive heart failure): Code(s): I50.9 - Heart failure, unspecified Status: Acute Assessment and Plan: Echo results as noted CXR findings reviewed on IV bumex follow volume status (5) Diabetes mellitus: Code(s): E11.9 - Type 2 diabetes mellitus without complications Status: Chronic Assessment and Plan: on accuchecks glycemic control per hospitalists Will continue to follow Subjective Date/time seen: 01/07/23 13:15 Sitting up in chair in no apparent distress watching TV at the time of my visit; breathing/respiratory status seems relatively stable; renal function stable and tolerating ongoing diuresis; swelling/edema in LE appear better as well; no other acute issues/complaints voiced. Exam Narrative: General: WD/WN male in NAD Heart: normal S1 and S2; no rub Lungs: coarse bilaterally Abdomen: soft, nontender, nondistended, positive bowel sounds Extremities: no cyanosis or clubbing; 1+ edema Skin: warm and intact; chronic venous stasis changes Objective Data Vital Signs Vital Signs: Vital Signs Temp Pulse Resp BP Pulse Ox O2 Del Method O2 Flow Rate 01/07/23 12:00 87 01/07/23 12:00 94 High Flow Nasal Cannula 40 01/07/23 11:49 97.0 F L 91 20 104/62 92 01/07/23 10:50 High Flow Therapy with Na 45 01/07/23 10:00 90 01/07/23 08:00 101 H 01/07/23 08:00 98 High Flow Nasal Cannula 40 01/07/23 08:06 97.0 F L 87 22 H 117/69 92 01/07/23 08:00 92 97 High Flow Therapy with Na 45 01/07/23 07:55 High Flow Therapy with Na 45 01/07/23 06:00 80 01/07/23 04:00 98.3 F 86 16 105/58 L 97 01/07/23 04:00 86 01/07/23 02:00 85 01/07/23 00:00 88 01/06/23 22:00 84 01/06/23 20:00 87 01/07/23 01:17 94 High Flow Therapy with Na 45 01/07/23 00:00 98.2 F 87 16 111/65 95 01/06/23 20:00 97.8 F 87 22 H 108/64 98 01/06/23 21:19 97 High Flow Therapy with Na 45 01/06/23 18:00 94 01/06/23 16:30 97.3 F L 88 28 H 107/57 L 94 01/06/23 16:00 91 29 H 111/66 93 01/06/23 16:00 91 01/06/23 16:00 95 High Flow Therapy with Na 45 Intake/Output Intake/Output: Intake & Output 01/04/23 01/05/23 01/06/23 01/07/23 23:59 23:59 23:59 23:59 Intake Total 1108 3031 080 1400 Output Total 2950 6510 3250 675 [facility] [phone] Meds/Results Medications: Active Medications Generic Name Dose Route Start La
--- NOTE | 2023-01-07 13:15 | P.PNNP_ITS ---
Progress Note: A&P Assessment and Plan (1) CKD (chronic kidney disease): Code(s): N18.9 - Chronic kidney disease, unspecified Status: Chronic Assessment and Plan: * according to patient history (but not confirmed) * baseline creatinine unknown - admitted with a creatinine of 2.7mg/dl * creatinine has been improving since admission * evaluation to date: * renal u/s with normal right kidney, no left kidney visualized (due to body habitus) * urine electrolytes by FeUrea is prerenal * reasonable urine output in response to IV diuretics * follow repeat labs and UOP (2) Hyperkalemia: Code(s): E87.5 - Hyperkalemia Status: Acute Assessment and Plan: * resolved (3) Acute and chronic respiratory failure: Qualifiers: Respiratory failure complication: hypoxia and hypercapnia Qualified Code(s): J96.21 - Acute and chronic respiratory failure with hypoxia; J96.22 - Acute and chronic respiratory failure with hypercapnia; J96.22 - Acute and chronic respiratory failure with hypercapnia Code(s): J96.20 - Acute and chronic respiratory failure, unspecified whether with hypoxia or hypercapnia Status: Acute Assessment and Plan: * resolving * extubated on 01/05/23 * due to hypoxia and hypercarbia * CHF and possible pneumonia contributing as well * follow cultures - negative to date * completed course of antibiotics (4) CHF (congestive heart failure): Code(s): I50.9 - Heart failure, unspecified Status: Acute Assessment and Plan: * Echo results as noted * CXR findings reviewed * on IV bumex * follow volume status (5) Diabetes mellitus: Code(s): E11.9 - Type 2 diabetes mellitus without complications Status: Chronic Assessment and Plan: * on accuchecks * glycemic control per hospitalists Will continue to follow Subjective Date/time seen: 01/07/23 13:15 Sitting up in chair in no apparent distress watching TV at the time of my visit; breathing/respiratory status seems relatively stable; renal function stable and tolerating ongoing diuresis; swelling/edema in LE appear better as well; no other acute issues/complaints voiced. Exam Narrative: General: WD/WN male in NAD Heart: normal S1 and S2; no rub Lungs: coarse bilaterally Abdomen: soft, nontender, nondistended, positive bowel sounds Extremities: no cyanosis or clubbing; 1+ edema Skin: warm and intact; chronic venous stasis changes Objective Data Vital Signs Vital Signs: Vital Signs Temp Pulse Resp BP Pulse Ox O2 Del Method O2 Flow Rate 01/07/23 12:00 87 01/07/23 12:00 94 High Flow Nasal Cannula 40 01/07/23 11:49 97.0 F L 91 20 104/62 92 01/07/23 10:50 High Flow Therapy with Na 45 01/07/23 10:00 90 01/07/23 08:00 101 H 01/07/23 08:00 98 High Flow Nasal Cannula 40 01/07/23 08:06 97.0 F L 87 22 H 117/69 92 01/07/23 08:00 92 97 High Flow Therapy with Na 45 01/07/23 07:55 High Flow Therapy with Na 45 01/07/23 06:00 80 01/07/23 04:00 98.3 F 86 16 105/58 L 97 01/07/23 04:00 86 01/07/23 02:00 85 01/07/23 00:00 88 01/06/23 22:00 84 01/06/23 20:00 87 01/07/23 01:17 94 High
[2023-01-07 14:10] LABS: Glucose Point of Care 112 mg/dl (65-105)
[2023-01-07 17:05] LABS: Glucose Point of Care 98 mg/dl (65-105)
--- NOTE | 2023-01-07 19:35 | PM.CNPUL ---
Assessment and Plan Assessment and plan (1) Obesity hypoventilation syndrome: Code(s): E66.2 - Morbid (severe) obesity with alveolar hypoventilation Status: Acute Assessment and Plan: Patient with morbid obesity, diuresed well with a repeat BNP at 245, he is a never smoker? with no evidence of bullous emphysema on his CT scan. ? No significant thyroid disease. ? His home BiPAP pressures of 24/20 through [facility] were uncomfortable and he could not tolerate them.? He may tolerate noninvasive ventilator with? AVAPS mode, respiratory rate 20, tidal volume 500, EPAP 5, minimal inspiratory pressure 6, maximal inspiratory pressure 25, inspiratory time 1 second, rise of 3 and 40% FiO2.? (2) Fluid overload: Code(s): E87.70 - Fluid overload, unspecified Status: Acute Assessment and Plan: Patient continues to diurese from an admission weight of 152 kg to currently 124.3 kg.? His BNP has improved. Creatinine improved with diuresis. History of Present Illness History of Present Illness Consult date: 02/08/23 Requesting physician: Santosh Mcclain MD Chief complaint: hypercapnic respiratory failure,hyperkalemia Narrative: Patient was seen 01/07/2023 at 19:40 NEW: Carmelo Jasmine is a 62-year-old man with no smoking history has chronic hypercapnic hypoxemic respiratory failure. He has been at [facility] in July 2022 with a similar presentation, heart failure with preserved ejection fraction, COPD, atrial fib, chronic hypoxemic hypercapnic respiratory failure on 6 L from a long-term, intubated and sedated. After discharged, he returned to Assisted Living with care given by the nurse practitioner, no follow up with pulmonary because it was not convenient. He was brought here poorly responsive with increased shortness of breath and leg swelling, does not recall circumstances because he was asleep and could not wake up. Next thing he remembers, he was on the ventilator. I reviewed the records from his stay at [facility] Jul 2022. He was in the hospital in May 2022 with congestive heart failure and refused an echo. Intubated from July 29 through August 03 PMH: O2, chronic hypercapnic hypoxemia resp failure, O2 at home, NPPV with noncompliance, intubated Set 2021, HTN, CRF with creatinine baseline 1.3-1.4, CHF with preserved EF, chronic microcytic anemia. He tells me that he is a never smoker. He denies vaping, denies marijuana. 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 He went on disability 10 years ago based on his lung function. He has been on oxygen for 4-5 years. He has been at assisted living for a year and a half. He moved in because he needed help with meals, medications and help with daily activities. He uses a Rollator. He sleeps in a recliner. He has not slept in a bed for many years. He had a sleep study years ago, does not use his device at home. DATA * ABG data 12/28 12:45 12/28 18:03 12/30 4:59 01/01 4:34 01/02 10:37 01/04 01/05 12:34 01/06 5:26 01/06 12:43 pH 7.128 7.43 7.57 7.38 7.28 7.34 7.35 7.29 7.34 pCO2 95 47 43 53 60 51 50 56 55.4 pO2 91 74 61 67 71 82 75 71 69.8 HCO3 31 31 38.9 30 28 27 27 26 28.7 O2 sat 93% 95% 94% 92% 92% 95% 94% [address] [facility] last fall 07/29/2022182707/29/20222109 pH 7.19 7.32 pCO2 107 79.5 pO2 49.9 72 HCO3 40.5 41.1 O2 sat 79.6% 93.5 FiO2 100% * 01/07/2023 CXR Elevated right diaphragm and bibasilar infiltrate and/atelectasis; little interval change since January 06, 2023 NG tube in stomach? * 01/04/[address] ?Ill-defined groundglass opacities in both lungs with interlobular septal thickening, most likely edema. Atypical pneumonia less favored. 2:? Small
[2023-01-07 20:04] LABS: Glucose Point of Care 92 mg/dl (65-105)
[2023-01-08] VITALS (23 sets, daily range): BP systolic 95–108; BP diastolic 51–60; PULSE 74–112; RESP 18–21; TEMP 36.1–36.7; O2SAT 93–98
[2023-01-08 06:53] LABS: Anion Gap 6 mmol/L (8-16); Blood Urea Nitrogen 31 mg/dL (9-20); Carbon Dioxide 30 mmol/L (22-30); Chloride 92 mmol/L (98-107); Estimated CRCL calculation 75 ml/min; Estimated Glomerular Filt Rate > 60; Glucose 78 mg/dL (65-110); Potassium 3.2 mmol/L (3.4-5.0); Sodium 128 mmol/L (137-145)
[2023-01-08] MEDS: CENTRAL LINE FLUSH 10 ML IV PUSH ×3 (08:04→21:11)
[2023-01-08 08:18] LABS: Glucose Point of Care 98 mg/dl (65-105)
[2023-01-08] MEDS: POTASSIUM CHLORIDE 20 MEQ PACKET (FOR LIQUID) 40 MEQ PO (09:42)
[2023-01-08] MEDS: PANTOPRAZOLE SODIUM IV 40 MG VIAL IV PUSH (09:44)
[2023-01-08] MEDS: BUMETANIDE INJ 1 MG/4 ML VIAL IV PUSH (09:44)
[2023-01-08] MEDS: APIXABAN 5 MG TABLET PO ×2 (09:45→21:10)
[2023-01-08 10:19] LABS: NT Pro B Type Natriuretic Pept 245 pg/mL (19.9-100)
--- NOTE | 2023-01-08 11:00 | PM.PNNEP ---
Progress Note: A&P Assessment and Plan (1) CKD (chronic kidney disease): Code(s): N18.9 - Chronic kidney disease, unspecified Status: Chronic Assessment and Plan: according to patient history (but not confirmed) baseline creatinine unknown - admitted with a creatinine of 2.7mg/dl creatinine has improved since admission and is stable at this time evaluation to date: renal u/s with normal right kidney, no left kidney visualized (due to body habitus) urine electrolytes by FeUrea is prerenal reasonable urine output in response to IV diuretics follow repeat labs and UOP (2) Acute and chronic respiratory failure: Qualifiers: Respiratory failure complication: hypoxia and hypercapnia Qualified Code(s): J96.21 - Acute and chronic respiratory failure with hypoxia; J96.22 - Acute and chronic respiratory failure with hypercapnia; J96.22 - Acute and chronic respiratory failure with hypercapnia Code(s): J96.20 - Acute and chronic respiratory failure, unspecified whether with hypoxia or hypercapnia Status: Acute Assessment and Plan: resolving extubated on 01/05/23 due to hypoxia and hypercarbia CHF and possible pneumonia contributing as well follow cultures - negative to date completed course of antibiotics (3) CHF (congestive heart failure): Code(s): I50.9 - Heart failure, unspecified Status: Acute Assessment and Plan: Echo results as noted CXR findings reviewed on IV bumex follow volume status (4) Diabetes mellitus: Code(s): E11.9 - Type 2 diabetes mellitus without complications Status: Chronic Assessment and Plan: on accuchecks glycemic control per hospitalists Will continue to follow Subjective Date/time seen: 01/08/23 11:00 Overall, continues to make slow and steady improvement; breathing/respiratory status and well as swelling/edema better with diuretic therapy; no issues overnight or earlier this morning. Exam Narrative: General: WD/WN male in NAD Heart: normal S1 and S2; no rub Lungs: coarse bilaterally Abdomen: soft, nontender, nondistended, positive bowel sounds Extremities: no cyanosis or clubbing; 1+ edema Skin: no rash but chronic venous stasis changes Objective Data Vital Signs Vital Signs: Vital Signs Temp Pulse Resp BP Pulse Ox O2 Del Method O2 Flow Rate 01/08/23 10:57 90 20 93 High Flow Therapy with Na 40 01/08/23 09:53 84 20 93 High Flow Therapy with Na 40 01/08/23 08:34 96.9 F L 86 20 103/57 L 94 01/08/23 06:00 84 01/08/23 04:00 81 01/08/23 07:40 88 20 97 High Flow Therapy with Na 45 01/08/23 04:00 98.0 F 80 20 104/55 L 94 01/08/23 04:00 95 High Flow Therapy with Na 45 01/08/23 02:00 90 95 High Flow Nasal Cannula 45 01/08/23 00:00 97 High Flow Therapy with Na 45 01/08/23 02:00 74 01/08/23 00:00 88 01/07/23 23:33 97.6 F 86 20 104/58 L 97 01/07/23 21:30 88 L High Flow Therapy with Na 45 01/07/23 22:00 84 01/07/23 20:00 86 01/07/23 20:00 96 High Flow Therapy with Na 40 01/07/23 20:00 97.9 F 96 22 H 113/63 96 01/07/23 19:58 91 92 High Flow Nasal Cannula 45 01/07/23 18:00 85 01/07/23 16:00 90 High Flow Nasal Cannula 40 01/07/23 16:00 87 01/07/23 16:00 96.6 F L 88 22 H 118/63 91 01/07/23 14:00 80 01/07/23 12:00 87 01/07/23 12:00 94 High Flow Nasal Cannula 40 01/07/23 11:49 97.0 F L 91 20 104/62 92 Intake/Output Intake/Output: Intake & Output 01/05/23 01/06/23 01/07/23 01/08/23 23:59 23:59 23:59 23:59 Intake Total 4838 018 7374 300 Output Total 2500 8350 8798 3113 [facility] -8513 -2819 -895 -1000 Meds/Results Medications: Active Medications Generic Name Dose Route Start Last Admin Trade Name Freq PRN Reason Stop Dose Admin Acetaminophen 65
--- NOTE | 2023-01-08 11:22 | PM.IMPN ---
Progress Note: A&P Assessment and Plan (1) Acute and chronic respiratory failure: Qualifiers: Respiratory failure complication: hypoxia and hypercapnia Qualified Code(s): J96.21 - Acute and chronic respiratory failure with hypoxia; J96.22 - Acute and chronic respiratory failure with hypercapnia; J96.22 - Acute and chronic respiratory failure with hypercapnia Code(s): J96.20 - Acute and chronic respiratory failure, unspecified whether with hypoxia or hypercapnia Status: Acute Assessment and Plan: Will try to titrate oxygen down to nasal cannula. - patient responding well to diuresis, will continue Off all antibiotics - (2) CHF (congestive heart failure): Code(s): I50.9 - Heart failure, unspecified Status: Acute Assessment and Plan: 12/29/2022: Echocardiogram showed LV hypertrophy with normal LV size and good systolic function, grade 2 diastolic noncompliance, and was right ventricle, moderate pulmonary hypertension with RVSP 60 mg -continue Bumex for diuresis (3) Elevated liver enzymes: Code(s): R74.8 - Abnormal levels of other serum enzymes Status: Acute Assessment and Plan: - LFTs trending down (4) Hyperkalemia: Code(s): E87.5 - Hyperkalemia Status: Acute Assessment and Plan: -currently hypokalemia will replace potassium - continue to monitor (5) Diabetes mellitus: Code(s): E11.9 - Type 2 diabetes mellitus without complications Status: Chronic Assessment and Plan: sliding scale insulin and Accu-Cheks (6) Lymphedema: Code(s): I89.0 - Lymphedema, not elsewhere classified Status: Acute Assessment and Plan: 12/28/2022: lower extremity Dopplers negative for DVT -patient is on anticoagulation as outpatient which will be continued -diuretics and leg elevation -lower extremity edema much improved (7) Chronic kidney disease, stage 3: Code(s): N18.30 - Chronic kidney disease, stage 3 unspecified Status: Acute Assessment and Plan: - appreciate Nephrology evaluation -continue diuresis -creatinine continues to improve (8) Atrial fibrillation: Code(s): I48.91 - Unspecified atrial fibrillation Status: Acute Assessment and Plan: patient is on digoxin and Eliquis at home - digoxin level marginally elevated. digoxin level is within normal limits this morning - continue Eliquis -in sinus rhythm (9) Skin abnormalities: Code(s): L98.9 - Disorder of the skin and subcutaneous tissue, unspecified Status: Acute Assessment and Plan: Patient was evaluated by wound care and local wound care instructions were provided to the nurse Subjective Date/time seen: 01/08/23 11:22 Feeling better. Exam Narrative: General: Patient is extubated, awake, in no distress Lungs/Chest: , bilateral coarse breathing and bilateral crackles. no wheezing heard, adequate air entry Cardiac: Regular rate and rhythm, S1-S2 normal Circulation: feet are warm, with palpable bilateral pedal pulses Abdomen: normoactive bowel sounds. morbidly obese Obese. Soft. NT. ND. Extremities: Bilateral pitting edema has reduced significantly, bilateral chronic venous status changes : Clar[place] in place Neurologic: patient is intubated, off sedation, opens his eyes, nods to questions and follows simple commands in all extremities. Pupils equal and reactive Skin: Significant?seborrheic dermatitis of the face and head has improved, wound on lateral aspect of left leg, wound on superior aspect of left pinna likely from oxygen tubing pressure ulcer, blanching redness and sacral area, Objective Data Vital Signs Vital Signs: Vital Signs - 24 hr 01/07/23 11:49 01/07/23 12:00 01/07/23 12:00 Temperature 97.0 F L Pulse Rate 91 87 Respiratory Rate 20 Blood Pressure 104/62 Pulse Oximetry 92 94 Oxygen Delivery High Flow Nasal Cannula Oxygen Flow Rate 40 Frac
[2023-01-08 11:26] LABS: Glucose Point of Care 100 mg/dl (65-105)
--- NOTE | 2023-01-08 12:23 | P.CDI_ITS ---
CDI Query Clarified Diagnosis Clarified Diagnosis: Documented history of CHF. CHF noted on the assessment and plan. Elevated BNP on 12/28/22 lab work. Chest xray on 12/28/22 notes Pulmonary edema. Patient presented with shortness of breath and has edema documented in the chart. Patient takes Furosemide as a home medication. Pt receiving Bumex IV. Please specify type and acuity of heart failure if known. * Acute * Chronic * Acute on Chronic * Unknown * Systolic * Diastolic * Combined Systolic and Diastolic * Unknown
[2023-01-08] MEDS: TOLNAFTATE 1% POWDER 45 GM BTL 1 APPLIC TOPICAL ×2 (13:21→21:11)
[2023-01-08 16:09] LABS: Glucose Point of Care 90 mg/dl (65-105)
--- NOTE | 2023-01-08 16:16 | PM.PNPUL ---
Progress Note: A&P Assessment and Plan (1) Obesity hypoventilation syndrome: Code(s): E66.2 - Morbid (severe) obesity with alveolar hypoventilation Status: Acute Assessment and Plan: Patient with morbid obesity, diuresed well with a repeat BNP at 245, he is a never smoker with no evidence of bullous emphysema on his CT scan. No significant thyroid disease. ABG on 11/05/2023 7.34/55/70 on high-flow nasal cannula 45 L and 45% FiO2. Discontinue all standing bronchodilators patient tells me that his home BiPAP pressures of 24/20 through [facility] were uncomfortable and he could not tolerate them. I will initiate the patient on noninvasive ventilator with AVAPS mode, respiratory rate 20, tidal volume 500, EPAP 5, minimal inspiratory pressure 6, maximal inspiratory pressure 25, inspiratory time 1 second, rise of 3 and 40% FiO2. I will check an ABG prior to removal and an overnight oximetry on these settings. (2) Fluid overload: Code(s): E87.70 - Fluid overload, unspecified Status: Acute Assessment and Plan: Patient continues to diurese from an admission weight of 152 kg to currently 124.3 kg. His BNP has improved from 15481 to 245. creatinine has improved from 2.70-1.20. currently he is on Bumex 1 mg IV push q.day. Subjective Date/time seen: 01/08/23 16:16 Interval history: 01/07/2023 at 19:40 NEW:?Carmelo Jasmine is a 62-year-old man with no smoking history has chronic hypercapnic hypoxemic respiratory failure. He has been at [facility] in July 2022 with a similar presentation, heart failure with preserved ejection fraction, COPD, atrial fib, chronic hypoxemic hypercapnic respiratory failure on 6 L from a [place] [facility], intubated and sedated.? After discharged, he returned to Assisted Living with care given by the nurse practitioner, no follow up with pulmonary because it was not convenient. He was brought here poorly responsive with increased shortness of breath and leg swelling, does not recall circumstances because he was asleep and could not wake up. Next thing he remembers, he was on the ventilator. I reviewed the records from his stay at [facility] Jul 2022.? He was in the hospital in May 2022 with congestive heart failure and refused an echo.? Intubated from July 29 through August 03 PMH: O2, chronic hypercapnic hypoxemia resp failure, O2 5 L at home, NPPV with noncompliance, intubated Set 2021, HTN, CRF? with creatinine baseline 1.3-1.4, CHF with preserved EF, chronic microcytic anemia. He tells me that he is a never smoker.? He denies vaping, denies marijuana. ? 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 He? went on disability 10 years ago based on his lung function. ? He has been on oxygen for 4-5 years.? He has been at assisted living for a year and a half.? He moved in because he needed help with meals, medications and help with daily activities. He uses a Rollator.? He sleeps in a recliner.? He has not slept in a bed for many years.? He had a sleep study years ago, does not use his device at home. 01/08: The patient tells me 10 years ago he had a sleep study and was prescribed BiPAP and he has a machine at his current residence which is [facility]. His DME is [facility] and we contacted them and the remote feature on his machine does not work so the only way to get a download is through the [employer] card which we do not have. The patient does not know his current settings and states he has not been using his fullface mask and machine for the last 6 months and has been sleeping with 5 L on. Patient states that when he is sitting he is breathing normally but he has dyspnea on exertion. Patient never sleeps in bed and sleeps in a recliner. His creatinine is 1.2. His weight is 124.3, admission weight was 152 kilos. Patient was currently on 30 L nasal cannula 35% FiO2 with saturations 93%. Repeat BNP was 245, muc
[2023-01-08 20:01] LABS: Glucose Point of Care 97 mg/dl (65-105)
[2023-01-08] MEDS: ACETAMINOPHEN ELIXIR 325 MG/10.15 ML UDC 650 MG PO (21:21)
[2023-01-09] VITALS (19 sets, daily range): BP systolic 90–111; BP diastolic 50–66; PULSE 74–101; RESP 18–22; TEMP 35.7–36.7; O2SAT 94–99
--- NOTE | 2023-01-09 02:25 | PCRCNOTE ---
Patient was put on AVAPS at 0035 and apnea link (pulse oximetry only) was applied. Patient called out 1 hour later stating the bipap mask must be removed, that it was not tolerable. Apnea link removed and abg not obtained.
[2023-01-09] MEDS: CENTRAL LINE FLUSH 10 ML IV PUSH ×3 (05:40→20:37)
[2023-01-09 05:44] LABS: Albumin Level 3.8 g/dL (3.5-5.1); Anion Gap 5 mmol/L (8-16); Blood Urea Nitrogen 27 mg/dL (9-20); Calcium 8.8 mg/dL (8.4-10.2); Carbon Dioxide 33 mmol/L (22-30); Chloride 92 mmol/L (98-107); Estimated CRCL calculation 82 ml/min; Estimated Glomerular Filt Rate > 60; Glucose 81 mg/dL (65-110); Phosphorus 4.1 mg/dL (2.5-4.5); Potassium 3.4 mmol/L (3.4-5.0); Sodium 130 mmol/L (137-145)
[2023-01-09 07:57] LABS: Glucose Point of Care 95 mg/dl (65-105)
[2023-01-09] MEDS: APIXABAN 5 MG TABLET PO ×2 (09:11→20:37)
[2023-01-09] MEDS: PANTOPRAZOLE SODIUM IV 40 MG VIAL IV PUSH (09:11)
[2023-01-09] MEDS: POTASSIUM CHLORIDE 20 MEQ TABLET 40 MEQ PO (09:11)
[2023-01-09] MEDS: BUMETANIDE INJ 1 MG/4 ML VIAL IV PUSH (09:11)
--- NOTE | 2023-01-09 11:16 | PM.IMPN ---
Progress Note: A&P Assessment and Plan (1) Acute and chronic respiratory failure: Qualifiers: Respiratory failure complication: hypoxia and hypercapnia Qualified Code(s): J96.21 - Acute and chronic respiratory failure with hypoxia; J96.22 - Acute and chronic respiratory failure with hypercapnia; J96.22 - Acute and chronic respiratory failure with hypercapnia Code(s): J96.20 - Acute and chronic respiratory failure, unspecified whether with hypoxia or hypercapnia Status: Acute Assessment and Plan: Will try to titrate oxygen down to nasal cannula. - patient responding well to diuresis, will continue Off all antibiotics - (2) CHF (congestive heart failure): Code(s): I50.9 - Heart failure, unspecified Status: Acute Assessment and Plan: 12/29/2022: Echocardiogram showed LV hypertrophy with normal LV size and good systolic function, grade 2 diastolic noncompliance, and was right ventricle, moderate pulmonary hypertension with RVSP 60 mg -continue Bumex for diuresis (3) Elevated liver enzymes: Code(s): R74.8 - Abnormal levels of other serum enzymes Status: Acute Assessment and Plan: - LFTs trending down (4) Hyperkalemia: Code(s): E87.5 - Hyperkalemia Status: Acute Assessment and Plan: -currently hypokalemia will replace potassium - continue to monitor (5) Diabetes mellitus: Code(s): E11.9 - Type 2 diabetes mellitus without complications Status: Chronic Assessment and Plan: sliding scale insulin and Accu-Cheks (6) Lymphedema: Code(s): I89.0 - Lymphedema, not elsewhere classified Status: Acute Assessment and Plan: 12/28/2022: lower extremity Dopplers negative for DVT -patient is on anticoagulation as outpatient which will be continued -diuretics and leg elevation -lower extremity edema much improved (7) Chronic kidney disease, stage 3: Code(s): N18.30 - Chronic kidney disease, stage 3 unspecified Status: Acute Assessment and Plan: - appreciate Nephrology evaluation -continue diuresis -creatinine continues to improve (8) Atrial fibrillation: Code(s): I48.91 - Unspecified atrial fibrillation Status: Acute Assessment and Plan: patient is on digoxin and Eliquis at home - digoxin level marginally elevated. digoxin level is within normal limits this morning - continue Eliquis -in sinus rhythm (9) Skin abnormalities: Code(s): L98.9 - Disorder of the skin and subcutaneous tissue, unspecified Status: Acute Assessment and Plan: Patient was evaluated by wound care and local wound care instructions were provided to the nurse Subjective Date/time seen: 01/09/23 11:16 no complaints today Exam Narrative: General: Patient is extubated, awake, in no distress Lungs/Chest: , bilateral coarse breathing and bilateral crackles. no wheezing heard, adequate air entry Cardiac: Regular rate and rhythm, S1-S2 normal Circulation: feet are warm, with palpable bilateral pedal pulses Abdomen: normoactive bowel sounds. morbidly obese Obese. Soft. NT. ND. Extremities: Bilateral pitting edema has reduced significantly, bilateral chronic venous status changes : Clar[place] in place Neurologic: patient is intubated, off sedation, opens his eyes, nods to questions and follows simple commands in all extremities. Pupils equal and reactive Skin: Significant?seborrheic dermatitis of the face and head has improved, wound on lateral aspect of left leg, wound on superior aspect of left pinna likely from oxygen tubing pressure ulcer, blanching redness and sacral area, Objective Data Vital Signs Vital Signs: Vital Signs - 24 hr 01/08/23 12:05 01/08/23 13:47 01/08/23 14:11 Temperature 97.1 F L Pulse Rate 90 98 Respiratory Rate 21 H 20 Blood Pressure 103/56 L Pulse Oximetry 96 93 95 Oxygen Delivery High Flow Therapy with Na High Flow Ther
--- NOTE | 2023-01-09 11:25 | PM.PNNEP ---
Progress Note: A&P Assessment and Plan (1) CKD (chronic kidney disease): Code(s): N18.9 - Chronic kidney disease, unspecified Status: Chronic Assessment and Plan: according to patient history (but not confirmed) baseline creatinine unknown - admitted with a creatinine of 2.7mg/dl creatinine has improved since admission and is stable at this time evaluation to date: renal u/s with normal right kidney, no left kidney visualized (due to body habitus) urine electrolytes by FeUrea is prerenal reasonable urine output in response to IV diuretics follow repeat labs and UOP (2) Acute and chronic respiratory failure: Qualifiers: Respiratory failure complication: hypoxia and hypercapnia Qualified Code(s): J96.21 - Acute and chronic respiratory failure with hypoxia; J96.22 - Acute and chronic respiratory failure with hypercapnia; J96.22 - Acute and chronic respiratory failure with hypercapnia Code(s): J96.20 - Acute and chronic respiratory failure, unspecified whether with hypoxia or hypercapnia Status: Acute Assessment and Plan: resolving extubated on 01/05/23 due to hypoxia and hypercarbia CHF and possible pneumonia contributing as well follow cultures - negative to date completed course of antibiotics (3) CHF (congestive heart failure): Code(s): I50.9 - Heart failure, unspecified Status: Acute Assessment and Plan: Echo results as noted CXR findings reviewed on IV bumex follow volume status (4) Diabetes mellitus: Code(s): E11.9 - Type 2 diabetes mellitus without complications Status: Chronic Assessment and Plan: on accuchecks glycemic control per hospitalists Not much else to add from renal perspective -- will continue to follow intermittently. Subjective Date/time seen: 01/09/23 11:25 Respiratory status seems relativley stable at this time; renal function continues to improve if not stable and continues to tolerated ongoing diuresis; no acute distress voiced; weaned down to nasal cannula. Exam Narrative: General: WD/WN male in NAD Heart: normal S1 and S2; no rub Lungs: coarse bilaterally and decreased at bases Abdomen: soft, nontender, nondistended, positive bowel sounds Extremities: no cyanosis or clubbing; 1+ edema Skin: no rash but chronic venous stasis changes Objective Data Vital Signs Vital Signs: Vital Signs Temp Pulse Resp BP Pulse Ox O2 Del Method O2 Flow Rate 01/09/23 10:00 81 01/09/23 08:00 88 01/09/23 08:00 95 Nasal Cannula 5 01/09/23 08:05 95 Nasal Cannula 5 01/09/23 08:00 96.6 F L 78 21 H 104/55 L 94 01/09/23 06:00 88 01/09/23 04:00 97 High Flow Therapy with Na 45 01/09/23 04:00 84 01/09/23 04:00 98.0 F 89 18 90/66 L 99 01/09/23 00:35 75 97 Nasal Cannula 5 01/09/23 00:35 75 20 98 BiPAP 01/09/23 02:00 82 01/09/23 00:00 83 01/09/23 00:00 97 High Flow Therapy with Na 45 01/08/23 23:39 97.7 F 88 20 101/53 L 94 01/08/23 20:00 98 High Flow Therapy with Na 45 01/08/23 22:00 82 01/08/23 20:00 112 H 01/08/23 16:00 96 High Flow Therapy with Na 45 01/08/23 18:00 86 01/08/23 16:00 80 01/08/23 14:00 99 01/08/23 12:00 87 01/08/23 20:00 97.9 F 110 H 20 108/60 97 01/08/23 16:54 85 18 97 Nasal Cannula 5 01/08/23 16:10 97.0 F L 92 20 95/51 L 96 01/08/23 14:33 90 20 96 High Flow Nasal Cannula 6 01/08/23 12:00 95 High Flow Therapy with Na 45 01/08/23 14:11 98 20 95 High Flow Therapy with Na 30 01/08/23 13:47 93 High Flow Therapy with Na 40 01/08/23 12:05 97.1 F L 90 21 H 103/56 L 96 Intake/Output Intake/Output: Intake & Output 01/06/23 01/07/23 01/08/23 01/09/23 23:59 23:59 23:59 23:59 Intake Total 431 4017 149 0195 Output Total 32
--- NOTE | 2023-01-09 11:46 | PCNFU ---
Nutrition Follow-Up Complete: Inadequate Oral intake as related to mechanical ventilation as evidenced by NPO. Goal:Meet estimated nutritional needs. Pt is meeting goal. Pt current nutrition is Pureed, level 4 diabetic consistent carb. Nutrition recommendation: Advance to soft and bite sized, then regular consistency diet as tolerated Last recorded weight is 124.3 kg. Bowel Motility: +BM 01/07 Labs Reviewed: NA:130, BUN:27 Meds Noted: Eliquis, bumex Skin: necrotic ear Additional Notes: Pt diet advanced over the weekend to pureed, level 4 per speech. Pt is tolerating well with 75-100% intake, Pt requesting diet advancement. Spoke with [employer] and Dr. Mcclain to advance to soft and bite sized for lunch. Will further advance to regular if tolerated. Will monitor tolerance, intake, wt, labs. Follow up in 5 days.
[2023-01-09 12:02] LABS: Glucose Point of Care 115 mg/dl (65-105)
--- NOTE | 2023-01-09 12:11 | PM.PNPUL ---
Progress Note: A&P Assessment and Plan (1) Obesity hypoventilation syndrome: Code(s): E66.2 - Morbid (severe) obesity with alveolar hypoventilation Status: Acute Assessment and Plan: Patient with morbid obesity with obesity hypovwentilation syndrome. He has diuresed well with a repeat BNP at 245, he is a never smoker with no evidence of bullous emphysema on his CT scan. No significant thyroid disease. ABG on 11/05/2023 was 7.34/55/70 on high-flow nasal cannula 45 L and 45% FiO2. Discontinue all standing bronchodilators patient tells me that his home BiPAP pressures of 24/20 through [facility] were uncomfortable and he could not tolerate them. I will initiate the patient on noninvasive ventilator with AVAPS mode, respiratory rate 20, tidal volume 500, EPAP 5, minimal inspiratory pressure 6, maximal inspiratory pressure 25, inspiratory time 1 second, rise of 3 and 40% FiO2. I will check an ABG prior to removal and an overnight oximetry on these settings. 01/09 the patient could not tolerate the hospital noninvasive ventilator with the BiPAP mode or AVAPS mode. the patient told me the mask was too small compared to his home mask although it was the largest mask we have, it gave him a dry mouth and headache. He could only wear it for 1 hour and then took it off. An overnight oximetry and ABG were not obtained. Currently the patient states that he is breathing normally at rest but is weak and has dyspnea on exertion. He has no wheezing. His saturations are 93% on 5 L nasal cannula. The patient is scheduled to go to a rehab center or assisted facility and they will manage his obesity hypoventilation syndrome while he is in that facility. We will initiate a home noninvasive ventilator with the AVAPS mode so that when he is discharged back to his home this will be in place. The coordinator volunteer services will discuss this option with [facility] patient. Tonight I will perform an overnight oximetry on 5 L nasal cannula. The patient is suitable for discharge from a pulmonary perspective on these pulmonary medications: Oxygen at rest and with ambulation per facilities protocol: Currently patient is on 5 L nasal cannula at rest with saturations 93%. Noninvasive ventilation at night per facilities protocol for his obesity hypoventilation syndrome. He cannot tolerate BiPAP or noninvasive ventilation with an AVAPS-mode in our hospital but hopefully can tolerate and alternative machine and mask at his rehab center. Discussed with Dr. Mcclain (2) Fluid overload: Code(s): E87.70 - Fluid overload, unspecified Status: Acute Assessment and Plan: Patient continues to diurese from an admission weight of 152 kg to currently 124.3 kg. His B[place] has [place] [address]5727 to 245. creatinine has improved from 2.70-1.20. currently he is on Bumex 1 mg IV push q.day. 01/09: His creatinine is 1.1, he has diuresed 31 L since admission and his weight is 124.3 kilos. Subjective Date/time seen: 01/09/23 12:11 Interval history: 01/07/2023 at 19:40 NEW:?Carmelo Jasmine is a 62-year-old man with no smoking history has chronic hypercapnic hypoxemic respiratory failure. He has been at [facility] in July 2022 with a similar presentation, heart failure with preserved ejection fraction, COPD, atrial fib, chronic hypoxemic hypercapnic respiratory failure on 6 L from a mcfp, intubated and sedated.? After discharged, he returned to Assisted Living with care given by the nurse practitioner, no follow up with pulmonary because it was not convenient. He was brought here poorly responsive with increased shortness of breath and leg swelling, does not recall circumstances because he was asleep and could not wake up. Next thing he remembers, he was on the ventilator. I reviewed the records from his stay at [facility] Jul 2022.? He was in the hospital in May 2022 with congestive heart kierra
[2023-01-09 16:39] LABS: Glucose Point of Care 105 mg/dl (65-105)
[2023-01-09] MEDS: TOLNAFTATE 1% POWDER 45 GM BTL 1 APPLIC TOPICAL ×2 (17:46→20:37)
[2023-01-09 19:50] LABS: Glucose Point of Care 121 mg/dl (65-105)
[2023-01-10] VITALS (11 sets, daily range): BP systolic 106–119; BP diastolic 47–78; PULSE 69–93; RESP 18–24; TEMP 36–36.7; O2SAT 94–98
[2023-01-10 04:57] LABS: Basophils Percent Auto 0.6 % (0.2-1.2); Eosinophils Absolute Auto 0.4 K/mm3 (0-0.3); Eosinophils Percent Auto 6.1 % (0-4.4); Hematocrit 47.9 % (42.0-52.0); Hemoglobin 14.4 g/dL (14.0-18.0); Immature Granulocyte Absolute 0.02 K/mm3 (0.00-0.031); Immature Granulocyte Percent A 0.3 % (0-0.5); Lymphocytes Absolute Auto 1.86 K/mm3 (0.9-3.2); Lymphocytes Percent Auto 25.7 % (18.3-44.2); Mean Corpuscular HGB Conc 30.1 g/dl (32-36); Mean Corpuscular Hemoglobin 28.4 pg (26-34); Mean Corpuscular Volume 94.5 fl (80-100); Mean Platelet Volume 9.7 fl (7.4-10.4); Monocytes Absolute Auto 0.7 K/mm3 (0.1-0.6); Monocytes Percent Auto 9.8 % (2.6-8.5); Neutrophils Absolute Auto 4.2 K/mm3 (1.3-6.7); Neutrophils Percent Auto 57.5 % (45.5-73.1); Platelet Count Result 210 k/mm3 (150-375); Red Blood Count 5.07 M/mm3 (4.6-6.20); White Blood Count 7.3 K/mm3 (4.5-10.0)
[2023-01-10 05:09] LABS: Albumin Level 3.7 g/dL (3.5-5.1); Anion Gap 3 mmol/L (8-16); Blood Urea Nitrogen 28 mg/dL (9-20); Calcium 8.5 mg/dL (8.4-10.2); Carbon Dioxide 35 mmol/L (22-30); Chloride 96 mmol/L (98-107); Estimated CRCL calculation 75 ml/min; Estimated Glomerular Filt Rate > 60; Glucose 86 mg/dL (65-110); Potassium 3.7 mmol/L (3.4-5.0); Sodium 134 mmol/L (137-145)
[2023-01-10] MEDS: CENTRAL LINE FLUSH 10 ML IV PUSH ×3 (05:20→21:24)
[2023-01-10 08:16] LABS: Glucose Point of Care 96 mg/dl (65-105)
--- NOTE | 2023-01-10 08:35 | PM.PNPUL ---
Progress Note: A&P Assessment and Plan (1) Obesity hypoventilation syndrome: Code(s): E66.2 - Morbid (severe) obesity with alveolar hypoventilation Status: Acute Assessment and Plan: Patient with morbid obesity with obesity hypovwentilation syndrome. He has diuresed well with a repeat BNP at 245, he is a never smoker with no evidence of bullous emphysema on his CT scan. No significant thyroid disease. ABG on 11/05/2023 was 7.34/55/70 on high-flow nasal cannula 45 L and 45% FiO2. Discontinue all standing bronchodilators patient tells me that his home BiPAP pressures of 24/20 through [facility] were uncomfortable and he could not tolerate them. I will initiate the patient on noninvasive ventilator with AVAPS mode, respiratory rate 20, tidal volume 500, EPAP 5, minimal inspiratory pressure 6, maximal inspiratory pressure 25, inspiratory time 1 second, rise of 3 and 40% FiO2. I will check an ABG prior to removal and an overnight oximetry on these settings. 01/09 the patient could not tolerate the hospital noninvasive ventilator with the BiPAP mode or AVAPS mode. the patient told me the mask was too small compared to his home mask although it was the largest mask we have, it gave him a dry mouth and headache. He could only wear it for 1 hour and then took it off. An overnight oximetry and ABG were not obtained. Currently the patient states that he is breathing normally at rest but is weak and has dyspnea on exertion. He has no wheezing. His saturations are 93% on 5 L nasal cannula. The patient is scheduled to go to a rehab center or senior living facility and they will manage his obesity hypoventilation syndrome while he is in that facility. We will initiate a home noninvasive ventilator with the AVAPS mode so that when he is discharged back to his home this will be in place. The customer solutions coordinator will discuss this option with [facility] patient. Sweta I will perform an overnight oximetry on 5 L nasal cannula. 01/10 patient slept last night on 5 L nasal cannula and said that he did well. Patient is breathing normal at rest. Patient is weak and has dyspnea on exertion. Patient had an overnight oximetry on 5 L nasal cannula with an average saturation of 96%, low saturation 90%, time with saturation less than or equal to 88% was 0.0 minutes, oxygen desaturation index was 3.5. Patient's white blood cell count is 7.3, creatinine is 1.2, weight is 124. The patient will be eventually discharged to a rehabilitation center and he will have a noninvasive ventilator at night per the rehabilitation centers protocol or he can use his pre-existing home BiPAP machine. I have initiated the process for a home noninvasive ventilator through [facility] ([facility]) so that when he is discharged from the rehabilitation center back to his residence at the [facility] he can use this machine. I have sent in orders for a noninvasive ventilator with the trilogy and AVAPS-AE mode with a set rate of 20, tidal volume 500, minimal EPAP 5, maximal EPAP 15, minimal pressure support 6, maximal pressure support 25, inspiratory time 1 second, AVAPS speed auto, maximum pressure 35, 5 L bleed in The patient is suitable for discharge from a pulmonary perspective on these pulmonary medications: Oxygen at rest and with ambulation per facilities protocol: Currently patient is on 5 L nasal cannula at rest with saturations 93%. Noninvasive ventilation at night per facilities protocol or previous BIPAP machine for his obesity hypoventilation syndrome. on discharge back to [facility] nonivasive ventilation with AVAPS-AE through [facility] with settings as above. follow-up in Pulmonary Clinic in 3-4 weeks. I gave him our business card and informed our bailing machine operator. Discussed with Dr. Neal, will sign off, call with questions. (2) Fluid overload: Code(s): E87.70 - Fluid overload, unspecified Stat
[2023-01-10] MEDS: BUMETANIDE INJ 1 MG/4 ML VIAL IV PUSH (08:39)
[2023-01-10] MEDS: PANTOPRAZOLE SODIUM IV 40 MG VIAL IV PUSH (08:39)
[2023-01-10] MEDS: APIXABAN 5 MG TABLET PO ×2 (08:39→21:24)
[2023-01-10 11:57] LABS: Glucose Point of Care 117 mg/dl (65-105)
--- NOTE | 2023-01-10 14:44 | PM.IMPN ---
Progress Note: A&P Assessment and Plan (1) Acute and chronic respiratory failure: Qualifiers: Respiratory failure complication: hypoxia and hypercapnia Qualified Code(s): J96.21 - Acute and chronic respiratory failure with hypoxia; J96.22 - Acute and chronic respiratory failure with hypercapnia; J96.22 - Acute and chronic respiratory failure with hypercapnia Code(s): J96.20 - Acute and chronic respiratory failure, unspecified whether with hypoxia or hypercapnia Status: Acute Assessment and Plan: Will try to titrate oxygen down to nasal cannula. - patient responding well to diuresis, will continue Off all antibiotics 01/10/2023 interval history: 62-year-old male morbidly obese with respiratory failure multifactorial secondary to hypercarbic hypoventilation, due to morbid obesity as well as acute on chronic diastolic congestive heart failure with preserved LV function, patient had been diuresed, and was seen by pulmonology and was placed on BiPAP and patient's symptoms have improved, he has difficulty tolerating BiPAP and range operator adjusting satting, his clinical symptoms have improved patient will be discharged to rehab, and range operator as med or add per night and when she ventilator at the rehab center- (2) CHF (congestive heart failure): Code(s): I50.9 - Heart failure, unspecified Status: Acute Assessment and Plan: 12/29/2022: Echocardiogram showed LV hypertrophy with normal LV size and good systolic function, grade 2 diastolic noncompliance, and was right ventricle, moderate pulmonary hypertension with RVSP 60 mg -continue Bumex for diuresis (3) Elevated liver enzymes: Code(s): R74.8 - Abnormal levels of other serum enzymes Status: Acute Assessment and Plan: - LFTs trending down (4) Hyperkalemia: Code(s): E87.5 - Hyperkalemia Status: Acute Assessment and Plan: -currently hypokalemia will replace potassium - continue to monitor (5) Diabetes mellitus: Code(s): E11.9 - Type 2 diabetes mellitus without complications Status: Chronic Assessment and Plan: sliding scale insulin and Accu-Cheks (6) Lymphedema: Code(s): I89.0 - Lymphedema, not elsewhere classified Status: Acute Assessment and Plan: 12/28/2022: lower extremity Dopplers negative for DVT -patient is on anticoagulation as outpatient which will be continued -diuretics and leg elevation -lower extremity edema much improved (7) Chronic kidney disease, stage 3: Code(s): N18.30 - Chronic kidney disease, stage 3 unspecified Status: Acute Assessment and Plan: - appreciate Nephrology evaluation -continue diuresis -creatinine continues to improve (8) Atrial fibrillation: Code(s): I48.91 - Unspecified atrial fibrillation Status: Acute Assessment and Plan: patient is on digoxin and Eliquis at home - digoxin level marginally elevated. digoxin level is within normal limits this morning - continue Eliquis -in sinus rhythm (9) Skin abnormalities: Code(s): L98.9 - Disorder of the skin and subcutaneous tissue, unspecified Status: Acute Assessment and Plan: Patient was evaluated by wound care and local wound care instructions were provided to the nurse Subjective Date/time seen: 01/10/23 14:44 01/10/2023 01/10/2023 interval history: 62-year-old male morbidly obese with respiratory failure multifactorial secondary to hypercarbic hypoventilation, due to morbid obesity as well as acute on chronic diastolic congestive heart failure with preserved LV function, patient had been diuresed, and was seen by pulmonology and was placed on BiPAP and patient's symptoms have improved, he has difficulty tolerating BiPAP and range operator adjusting satting, his clinical symptoms have improved patient will be discharged to rehab, and range operator as med or add per night and when she v
[2023-01-10] MEDS: TOLNAFTATE 1% POWDER 45 GM BTL 1 APPLIC TOPICAL ×2 (17:01→21:24)
[2023-01-10 17:21] LABS: Glucose Point of Care 117 mg/dl (65-105)
[2023-01-10 19:59] LABS: Glucose Point of Care 128 mg/dl (65-105)
--- NOTE | 2023-01-11 01:10 | PC.NURSE ---
Report was called to HERMANN Leung on 3M/S. Patient going to room 323 bed 1.
[2023-01-11 08:44] VITALS: O2SAT 95
[2023-01-11] MEDS: BUMETANIDE INJ 1 MG/4 ML VIAL IV PUSH (08:44)
[2023-01-11] MEDS: PANTOPRAZOLE SODIUM IV 40 MG VIAL IV PUSH (08:44)
[2023-01-11] MEDS: APIXABAN 5 MG TABLET PO ×2 (08:44→21:36)
[2023-01-11] MEDS: TOLNAFTATE 1% POWDER 45 GM BTL 1 APPLIC TOPICAL ×2 (08:54→21:37)
[2023-01-11 09:10] LABS: Albumin Level 3.8 g/dL (3.5-5.1); Anion Gap 4 mmol/L (8-16); Blood Urea Nitrogen 23 mg/dL (9-20); Calcium 8.6 mg/dL (8.4-10.2); Carbon Dioxide 36 mmol/L (22-30); Chloride 91 mmol/L (98-107); Estimated CRCL calculation 82 ml/min; Estimated Glomerular Filt Rate > 60; Glucose 122 mg/dL (65-110); Phosphorus 3.3 mg/dL (2.5-4.5); Potassium 3.7 mmol/L (3.4-5.0); Sodium 131 mmol/L (137-145)
[2023-01-11 11:16] LABS: Glucose Point of Care 128 mg/dl (65-105)
[2023-01-11 11:43] LABS: Glucose Point of Care 114 mg/dl (65-105)
[2023-01-11 14:00] VITALS: BP 106/62; PULSE 81; RESP 18; TEMP 36.6; O2SAT 95
--- NOTE | 2023-01-11 15:45 | PM.IMPN ---
Progress Note: A&P Assessment and Plan (1) Acute and chronic respiratory failure: Qualifiers: Respiratory failure complication: hypoxia and hypercapnia Qualified Code(s): J96.21 - Acute and chronic respiratory failure with hypoxia; J96.22 - Acute and chronic respiratory failure with hypercapnia; J96.22 - Acute and chronic respiratory failure with hypercapnia Code(s): J96.20 - Acute and chronic respiratory failure, unspecified whether with hypoxia or hypercapnia Status: Acute Assessment and Plan: Will try to titrate oxygen down to nasal cannula. - patient responding well to diuresis, will continue Off all antibiotics 01/11/2023 interval history: 62-year-old male morbidly obese with respiratory failure multifactorial secondary to hypercarbic hypoventilation, due to morbid obesity as well as acute on chronic diastolic congestive heart failure with preserved LV function, patient had been diuresed, and was seen by pulmonology and was placed on BiPAP and patient's symptoms have improved, he has difficulty tolerating BiPAP and interlocker adjusting satting, patient states he did not wear BiPAP last night, his clinical symptoms have improved patient will be discharged to rehab, pending insurance authorization, and interlocker has made adjustment to his ventilator, when he arrives at the rehab center- (2) CHF (congestive heart failure): Code(s): I50.9 - Heart failure, unspecified Status: Acute Assessment and Plan: 12/29/2022: Echocardiogram showed LV hypertrophy with normal LV size and good systolic function, grade 2 diastolic noncompliance, and was right ventricle, moderate pulmonary hypertension with RVSP 60 mg -continue Bumex for diuresis (3) Elevated liver enzymes: Code(s): R74.8 - Abnormal levels of other serum enzymes Status: Acute Assessment and Plan: - LFTs trending down (4) Hyperkalemia: Code(s): E87.5 - Hyperkalemia Status: Acute Assessment and Plan: -currently hypokalemia will replace potassium - continue to monitor (5) Diabetes mellitus: Code(s): E11.9 - Type 2 diabetes mellitus without complications Status: Chronic Assessment and Plan: sliding scale insulin and Accu-Cheks (6) Lymphedema: Code(s): I89.0 - Lymphedema, not elsewhere classified Status: Acute Assessment and Plan: 12/28/2022: lower extremity Dopplers negative for DVT -patient is on anticoagulation as outpatient which will be continued -diuretics and leg elevation -lower extremity edema much improved (7) Chronic kidney disease, stage 3: Code(s): N18.30 - Chronic kidney disease, stage 3 unspecified Status: Acute Assessment and Plan: - appreciate Nephrology evaluation -continue diuresis -creatinine continues to improve (8) Atrial fibrillation: Code(s): I48.91 - Unspecified atrial fibrillation Status: Acute Assessment and Plan: patient is on digoxin and Eliquis at home - digoxin level marginally elevated. digoxin level is within normal limits this morning - continue Eliquis -in sinus rhythm (9) Skin abnormalities: Code(s): L98.9 - Disorder of the skin and subcutaneous tissue, unspecified Status: Acute Assessment and Plan: Patient was evaluated by wound care and local wound care instructions were provided to the nurse Subjective Date/time seen: 01/11/23 15:45 01/11/2023 interval history: 62-year-old male morbidly obese with respiratory failure multifactorial secondary to hypercarbic hypoventilation, due to morbid obesity as well as acute on chronic diastolic congestive heart failure with preserved LV function, patient had been diuresed, and was seen by pulmonology and was placed on BiPAP and patient's symptoms have improved, he has difficulty tolerating BiPAP and interlocker adjusting satting, patient states he did not wear BiPAP last night, his cl
[2023-01-11 16:42] LABS: Glucose Point of Care 106 mg/dl (65-105)
--- NOTE | 2023-01-11 17:24 | PC.NURSE ---
Pt has been up in the chair today. Pt has participated and contributed in plan of care. Pt has had no complaints of pain. Pt has been in the chair all day. Pt has not gotten out of the chair. Pt has home BiPap to wear over night. Will continue to monitor pt.
[2023-01-11 20:00] VITALS: PULSE 86; RESP 20; O2SAT 97
[2023-01-11] MEDS: CENTRAL LINE FLUSH 10 ML IV PUSH (21:36)
[2023-01-11 22:00] VITALS: BP 96/60; PULSE 86; RESP 20; TEMP 36.3; O2SAT 95
[2023-01-12 00:46] VITALS: O2SAT 97
[2023-01-12 03:25] LABS: Glucose Point of Care 99 mg/dl (65-105)
[2023-01-12] MEDS: CENTRAL LINE FLUSH 10 ML IV PUSH ×3 (04:44→20:43)
[2023-01-12 06:00] VITALS: BP 103/63; PULSE 82; RESP 18; TEMP 36.3; O2SAT 91
[2023-01-12 07:56] LABS: Glucose Point of Care 96 mg/dl (65-105)
[2023-01-12 08:00] VITALS: O2SAT 92
[2023-01-12] MEDS: APIXABAN 5 MG TABLET PO ×2 (09:03→20:43)
[2023-01-12] MEDS: BUMETANIDE INJ 1 MG/4 ML VIAL IV PUSH (09:03)
[2023-01-12] MEDS: PANTOPRAZOLE SODIUM IV 40 MG VIAL IV PUSH (09:03)
[2023-01-12] MEDS: TOLNAFTATE 1% POWDER 45 GM BTL 1 APPLIC TOPICAL ×2 (09:03→20:42)
--- NOTE | 2023-01-12 10:56 | PCNFU ---
Nutrition Follow-Up Complete: Inadequate Oral intake as related to mechanical ventilation as evidenced by NPO. Meet estimanted nutritional needs - Goal is being met PO Goal: Pt current nutrition is Diabetic consistent carb diet. Advanced to regular textures. Tolerating well. Intakes 75-100% with 1 instance of refusing lunch. Average intakes 75%. Nutrition recommendation: Continue with same diet order Last recorded weight is 124 kg. Bowel Motility: +3 BMs 01/12/23 Labs Reviewed: Na 131, BUN 23 Meds Noted: Bumex, Miralax, Senokot, lactulose, protonix Skin: Ear; friction to buttocks Additional Notes: Intakes improved. Pt doing well and likely to discharge to rehab Will monitor every 5 days
[2023-01-12 11:51] LABS: Glucose Point of Care 120 mg/dl (65-105)
--- NOTE | 2023-01-12 13:41 | PM.IMPN ---
Progress Note: A&P Assessment and Plan (1) Acute and chronic respiratory failure: Qualifiers: Respiratory failure complication: hypoxia and hypercapnia Qualified Code(s): J96.21 - Acute and chronic respiratory failure with hypoxia; J96.22 - Acute and chronic respiratory failure with hypercapnia; J96.22 - Acute and chronic respiratory failure with hypercapnia Code(s): J96.20 - Acute and chronic respiratory failure, unspecified whether with hypoxia or hypercapnia Status: Acute Assessment and Plan: Will try to titrate oxygen down to nasal cannula. - patient responding well to diuresis, will continue Off all antibiotics 01/12/2023 interval history: 62-year-old male morbidly obese with respiratory failure multifactorial secondary to hypercarbic hypoventilation, due to morbid obesity as well as acute on chronic diastolic congestive heart failure with preserved LV function, patient had been diuresed, and was seen by pulmonology and was placed on BiPAP and patient's symptoms have improved, he has difficulty tolerating BiPAP and binder selector adjusting satting, patient states he did wear BiPAP last night for few hours, his clinical symptoms have improved patient will be discharged to rehab, pending insurance authorization, and binder selector has made adjustment to his ventilator, when he arrives at the rehab center- (2) CHF (congestive heart failure): Code(s): I50.9 - Heart failure, unspecified Status: Acute Assessment and Plan: 12/29/2022: Echocardiogram showed LV hypertrophy with normal LV size and good systolic function, grade 2 diastolic noncompliance, and was right ventricle, moderate pulmonary hypertension with RVSP 60 mg -continue Bumex for diuresis (3) Elevated liver enzymes: Code(s): R74.8 - Abnormal levels of other serum enzymes Status: Acute Assessment and Plan: - LFTs trending down (4) Hyperkalemia: Code(s): E87.5 - Hyperkalemia Status: Acute Assessment and Plan: -currently hypokalemia will replace potassium - continue to monitor (5) Diabetes mellitus: Code(s): E11.9 - Type 2 diabetes mellitus without complications Status: Chronic Assessment and Plan: sliding scale insulin and Accu-Cheks (6) Lymphedema: Code(s): I89.0 - Lymphedema, not elsewhere classified Status: Acute Assessment and Plan: 12/28/2022: lower extremity Dopplers negative for DVT -patient is on anticoagulation as outpatient which will be continued -diuretics and leg elevation -lower extremity edema much improved (7) Chronic kidney disease, stage 3: Code(s): N18.30 - Chronic kidney disease, stage 3 unspecified Status: Acute Assessment and Plan: - appreciate Nephrology evaluation -continue diuresis -creatinine continues to improve (8) Atrial fibrillation: Code(s): I48.91 - Unspecified atrial fibrillation Status: Acute Assessment and Plan: patient is on digoxin and Eliquis at home - digoxin level marginally elevated. digoxin level is within normal limits this morning - continue Eliquis -in sinus rhythm (9) Skin abnormalities: Code(s): L98.9 - Disorder of the skin and subcutaneous tissue, unspecified Status: Acute Assessment and Plan: Patient was evaluated by wound care and local wound care instructions were provided to the nurse Subjective Date/time seen: 01/12/23 13:41 01/12/2023 interval history: 62-year-old male morbidly obese with respiratory failure multifactorial secondary to hypercarbic hypoventilation, due to morbid obesity as well as acute on chronic diastolic congestive heart failure with preserved LV function, patient had been diuresed, and was seen by pulmonology and was placed on BiPAP and patient's symptoms have improved, he has difficulty tolerating BiPAP and binder selector adjusting satting, patient states he did wear BiPAP last night for
[2023-01-12 14:00] VITALS: BP 102/58; PULSE 82; RESP 20; TEMP 36.6; O2SAT 98
[2023-01-12 16:50] LABS: Glucose Point of Care 99 mg/dl (65-105)
[2023-01-12 19:54] VITALS: BP 90/58; PULSE 78; RESP 18; TEMP 36.3; O2SAT 94
[2023-01-12 21:41] LABS: Glucose Point of Care 108 mg/dl (65-105)
[2023-01-12 21:46] VITALS: PULSE 88; O2SAT 93
[2023-01-13 06:00] VITALS: BP 106/59; PULSE 84; RESP 18; TEMP 36.2; O2SAT 96
[2023-01-13] MEDS: CENTRAL LINE FLUSH 10 ML IV PUSH ×3 (06:18→20:26)
[2023-01-13 07:54] LABS: Glucose Point of Care 82 mg/dl (65-105)
[2023-01-13 08:14] VITALS: PULSE 99; RESP 18; O2SAT 92
[2023-01-13 08:50] VITALS: O2SAT 92
[2023-01-13] MEDS: BUMETANIDE INJ 1 MG/4 ML VIAL IV PUSH (08:50)
[2023-01-13] MEDS: TOLNAFTATE 1% POWDER 45 GM BTL 1 APPLIC TOPICAL ×2 (08:50→20:25)
[2023-01-13] MEDS: PANTOPRAZOLE SODIUM IV 40 MG VIAL IV PUSH (08:50)
[2023-01-13] MEDS: APIXABAN 5 MG TABLET PO ×2 (08:50→20:26)
[2023-01-13 11:41] LABS: Glucose Point of Care 111 mg/dl (65-105)
[2023-01-13 14:00] VITALS: BP 112/64; PULSE 82; RESP 18; TEMP 36.6; O2SAT 96
--- NOTE | 2023-01-13 14:04 | PM.IMPN ---
Progress Note: A&P Assessment and Plan (1) Acute and chronic respiratory failure: Qualifiers: Respiratory failure complication: hypoxia and hypercapnia Qualified Code(s): J96.21 - Acute and chronic respiratory failure with hypoxia; J96.22 - Acute and chronic respiratory failure with hypercapnia; J96.22 - Acute and chronic respiratory failure with hypercapnia Code(s): J96.20 - Acute and chronic respiratory failure, unspecified whether with hypoxia or hypercapnia Status: Acute Assessment and Plan: Will try to titrate oxygen down to nasal cannula. - patient responding well to diuresis, will continue Off all antibiotics 01/13/2023 interval history: 62-year-old male morbidly obese with respiratory failure multifactorial secondary to hypercarbic hypoventilation, due to morbid obesity as well as acute on chronic diastolic congestive heart failure with preserved LV function, patient had been diuresed, and was seen by pulmonology and was placed on BiPAP and patient's symptoms have improved, he has difficulty tolerating BiPAP and creative developer adjusted satting, patient states again he did wear BiPAP last night for few hours, his clinical symptoms have improved patient will be discharged to rehab, pending insurance authorization, and creative developer has made adjustment to his ventilator, when he arrives at the rehab center- (2) CHF (congestive heart failure): Code(s): I50.9 - Heart failure, unspecified Status: Acute Assessment and Plan: 12/29/2022: Echocardiogram showed LV hypertrophy with normal LV size and good systolic function, grade 2 diastolic noncompliance, and was right ventricle, moderate pulmonary hypertension with RVSP 60 mg -continue Bumex for diuresis (3) Elevated liver enzymes: Code(s): R74.8 - Abnormal levels of other serum enzymes Status: Acute Assessment and Plan: - LFTs trending down (4) Hyperkalemia: Code(s): E87.5 - Hyperkalemia Status: Acute Assessment and Plan: -currently hypokalemia will replace potassium - continue to monitor (5) Diabetes mellitus: Code(s): E11.9 - Type 2 diabetes mellitus without complications Status: Chronic Assessment and Plan: sliding scale insulin and Accu-Cheks (6) Lymphedema: Code(s): I89.0 - Lymphedema, not elsewhere classified Status: Acute Assessment and Plan: 12/28/2022: lower extremity Dopplers negative for DVT -patient is on anticoagulation as outpatient which will be continued -diuretics and leg elevation -lower extremity edema much improved (7) Chronic kidney disease, stage 3: Code(s): N18.30 - Chronic kidney disease, stage 3 unspecified Status: Acute Assessment and Plan: - appreciate Nephrology evaluation -continue diuresis -creatinine continues to improve (8) Atrial fibrillation: Code(s): I48.91 - Unspecified atrial fibrillation Status: Acute Assessment and Plan: patient is on digoxin and Eliquis at home - digoxin level marginally elevated. digoxin level is within normal limits this morning - continue Eliquis -in sinus rhythm (9) Skin abnormalities: Code(s): L98.9 - Disorder of the skin and subcutaneous tissue, unspecified Status: Acute Assessment and Plan: Patient was evaluated by wound care and local wound care instructions were provided to the nurse Subjective Date/time seen: 01/13/23 14:04 01/13/2023 interval history: 62-year-old male morbidly obese with respiratory failure multifactorial secondary to hypercarbic hypoventilation, due to morbid obesity as well as acute on chronic diastolic congestive heart failure with preserved LV function, patient had been diuresed, and was seen by pulmonology and was placed on BiPAP and patient's symptoms have improved, he has difficulty tolerating BiPAP and creative developer adjusted satting, patient states again he did wear BiPAP last
[2023-01-13 16:48] LABS: Glucose Point of Care 112 mg/dl (65-105)
[2023-01-13 20:52] LABS: Glucose Point of Care 114 mg/dl (65-105)
[2023-01-13 21:15] VITALS: PULSE 85; O2SAT 95
[2023-01-13 22:00] VITALS: BP 101/60; PULSE 96; RESP 18; TEMP 35.6; O2SAT 91
[2023-01-14] MEDS: CENTRAL LINE FLUSH 10 ML IV PUSH ×3 (05:47→20:29)
[2023-01-14 06:00] VITALS: BP 106/61; PULSE 86; RESP 24; TEMP 36.3; O2SAT 94
[2023-01-14 08:00] VITALS: O2SAT 93
[2023-01-14 08:41] LABS: Glucose Point of Care 103 mg/dl (65-105)
[2023-01-14] MEDS: BUMETANIDE INJ 1 MG/4 ML VIAL IV PUSH (08:52)
[2023-01-14] MEDS: APIXABAN 5 MG TABLET PO ×2 (08:52→20:27)
[2023-01-14] MEDS: TOLNAFTATE 1% POWDER 45 GM BTL 1 APPLIC TOPICAL ×2 (08:52→20:28)
[2023-01-14] MEDS: PANTOPRAZOLE SODIUM IV 40 MG VIAL IV PUSH (08:52)
[2023-01-14 11:53] LABS: Glucose Point of Care 96 mg/dl (65-105)
--- NOTE | 2023-01-14 13:03 | PM.IMPN ---
Progress Note: A&P Assessment and Plan (1) Acute and chronic respiratory failure: Qualifiers: Respiratory failure complication: hypoxia and hypercapnia Qualified Code(s): J96.21 - Acute and chronic respiratory failure with hypoxia; J96.22 - Acute and chronic respiratory failure with hypercapnia; J96.22 - Acute and chronic respiratory failure with hypercapnia Code(s): J96.20 - Acute and chronic respiratory failure, unspecified whether with hypoxia or hypercapnia Status: Acute Assessment and Plan: Will try to titrate oxygen down to nasal cannula. - patient responding well to diuresis, will continue Off all antibiotics 01/14/2023 interval history: 62-year-old male morbidly obese with respiratory failure multifactorial secondary to hypercarbic hypoventilation, due to morbid obesity as well as acute on chronic diastolic congestive heart failure with preserved LV function, patient had been diuresed, and was seen by pulmonology and was placed on BiPAP and patient's symptoms have improved, he has difficulty tolerating BiPAP and fun house attendant adjusted satting, patient states again he did wear BiPAP last night for few hours, his clinical symptoms have improved patient will be discharged to rehab, pending insurance authorization, and fun house attendant has made adjustment to his ventilator, when he arrives at the rehab center- patient is clinically stable has no new complaint. (2) CHF (congestive heart failure): Code(s): I50.9 - Heart failure, unspecified Status: Acute Assessment and Plan: 12/29/2022: Echocardiogram showed LV hypertrophy with normal LV size and good systolic function, grade 2 diastolic noncompliance, and was right ventricle, moderate pulmonary hypertension with RVSP 60 mg -continue Bumex for diuresis (3) Elevated liver enzymes: Code(s): R74.8 - Abnormal levels of other serum enzymes Status: Acute Assessment and Plan: - LFTs trending down (4) Hyperkalemia: Code(s): E87.5 - Hyperkalemia Status: Acute Assessment and Plan: -currently hypokalemia will replace potassium - continue to monitor (5) Diabetes mellitus: Code(s): E11.9 - Type 2 diabetes mellitus without complications Status: Chronic Assessment and Plan: sliding scale insulin and Accu-Cheks (6) Lymphedema: Code(s): I89.0 - Lymphedema, not elsewhere classified Status: Acute Assessment and Plan: 12/28/2022: lower extremity Dopplers negative for DVT -patient is on anticoagulation as outpatient which will be continued -diuretics and leg elevation -lower extremity edema much improved (7) Chronic kidney disease, stage 3: Code(s): N18.30 - Chronic kidney disease, stage 3 unspecified Status: Acute Assessment and Plan: - appreciate Nephrology evaluation -continue diuresis -creatinine continues to improve (8) Atrial fibrillation: Code(s): I48.91 - Unspecified atrial fibrillation Status: Acute Assessment and Plan: patient is on digoxin and Eliquis at home - digoxin level marginally elevated. digoxin level is within normal limits this morning - continue Eliquis -in sinus rhythm (9) Skin abnormalities: Code(s): L98.9 - Disorder of the skin and subcutaneous tissue, unspecified Status: Acute Assessment and Plan: Patient was evaluated by wound care and local wound care instructions were provided to the nurse Subjective Date/time seen: 01/14/23 13:03 01/14/2023 interval history: 62-year-old male morbidly obese with respiratory failure multifactorial secondary to hypercarbic hypoventilation, due to morbid obesity as well as acute on chronic diastolic congestive heart failure with preserved LV function, patient had been diuresed, and was seen by pulmonology and was placed on BiPAP and patient's symptoms have improved, he has difficulty tolerating BiPAP and fun house attendant adjusted sat
[2023-01-14 14:20] VITALS: BP 103/60; PULSE 89; RESP 18; TEMP 36.6; O2SAT 95
[2023-01-14 16:43] LABS: Glucose Point of Care 109 mg/dl (65-105)
[2023-01-14 20:54] VITALS: BP 106/56; PULSE 85; RESP 16; TEMP 36.2; O2SAT 93
[2023-01-14 20:55] LABS: Glucose Point of Care 164 mg/dl (65-105)
[2023-01-15 03:23] VITALS: BP 101/70; PULSE 79; RESP 14; TEMP 35.9; O2SAT 97
[2023-01-15] MEDS: CENTRAL LINE FLUSH 10 ML IV PUSH (06:11)
[2023-01-15 08:04] LABS: Glucose Point of Care 111 mg/dl (65-105)
[2023-01-15] MEDS: APIXABAN 5 MG TABLET PO (09:26)
[2023-01-15] MEDS: PANTOPRAZOLE SODIUM IV 40 MG VIAL IV PUSH (09:26)
[2023-01-15] MEDS: BUMETANIDE INJ 1 MG/4 ML VIAL IV PUSH (09:26)
[2023-01-15] MEDS: TOLNAFTATE 1% POWDER 45 GM BTL 1 APPLIC TOPICAL (09:27)
--- NOTE | 2023-01-15 11:02 | PCPTNOTE ---
Attempted to see patient 2x this A.M., however patient c/o having an upset stomach. Patient requests PT return this afternoon.
[2023-01-15 11:34] LABS: Glucose Point of Care 119 mg/dl (65-105)
--- NOTE | 2023-01-15 13:39 | PM.IMPN ---
Progress Note: A&P Assessment and Plan (1) Acute and chronic respiratory failure: Qualifiers: Respiratory failure complication: hypoxia and hypercapnia Qualified Code(s): J96.21 - Acute and chronic respiratory failure with hypoxia; J96.22 - Acute and chronic respiratory failure with hypercapnia; J96.22 - Acute and chronic respiratory failure with hypercapnia Code(s): J96.20 - Acute and chronic respiratory failure, unspecified whether with hypoxia or hypercapnia Status: Acute Assessment and Plan: Will try to titrate oxygen down to nasal cannula. - patient responding well to diuresis, will continue Off all antibiotics 01/15/2023 interval history: 62-year-old male morbidly obese with respiratory failure multifactorial secondary to hypercarbic hypoventilation, due to morbid obesity as well as acute on chronic diastolic congestive heart failure with preserved LV function, patient had been diuresed, and was seen by pulmonology and was placed on BiPAP and patient's symptoms have improved, he has difficulty tolerating BiPAP and harness placer adjusted satting, patient states again he did wear BiPAP last night for few hours, his clinical symptoms have improved patient will be discharged to rehab, pending insurance authorization, and harness placer has made adjustment to his ventilator, when he arrives at the rehab center- patient is clinically stable has no new complaint. (2) CHF (congestive heart failure): Code(s): I50.9 - Heart failure, unspecified Status: Acute Assessment and Plan: 12/29/2022: Echocardiogram showed LV hypertrophy with normal LV size and good systolic function, grade 2 diastolic noncompliance, and was right ventricle, moderate pulmonary hypertension with RVSP 60 mg -continue Bumex for diuresis (3) Elevated liver enzymes: Code(s): R74.8 - Abnormal levels of other serum enzymes Status: Acute Assessment and Plan: - LFTs trending down (4) Hyperkalemia: Code(s): E87.5 - Hyperkalemia Status: Acute Assessment and Plan: -currently hypokalemia will replace potassium - continue to monitor (5) Diabetes mellitus: Code(s): E11.9 - Type 2 diabetes mellitus without complications Status: Chronic Assessment and Plan: sliding scale insulin and Accu-Cheks (6) Lymphedema: Code(s): I89.0 - Lymphedema, not elsewhere classified Status: Acute Assessment and Plan: 12/28/2022: lower extremity Dopplers negative for DVT -patient is on anticoagulation as outpatient which will be continued -diuretics and leg elevation -lower extremity edema much improved (7) Chronic kidney disease, stage 3: Code(s): N18.30 - Chronic kidney disease, stage 3 unspecified Status: Acute Assessment and Plan: - appreciate Nephrology evaluation -continue diuresis -creatinine continues to improve (8) Atrial fibrillation: Code(s): I48.91 - Unspecified atrial fibrillation Status: Acute Assessment and Plan: patient is on digoxin and Eliquis at home - digoxin level marginally elevated. digoxin level is within normal limits this morning - continue Eliquis -in sinus rhythm (9) Skin abnormalities: Code(s): L98.9 - Disorder of the skin and subcutaneous tissue, unspecified Status: Acute Assessment and Plan: Patient was evaluated by wound care and local wound care instructions were provided to the nurse Subjective Date/time seen: 01/15/23 13:39 01/15/2023 interval history: 62-year-old male morbidly obese with respiratory failure multifactorial secondary to hypercarbic hypoventilation, due to morbid obesity as well as acute on chronic diastolic congestive heart failure with preserved LV function, patient had been diuresed, and was seen by pulmonology and was placed on BiPAP and patient's symptoms have improved, he has difficulty tolerating BiPAP and harness placer adjusted sat
[2023-01-15 14:00] VITALS: BP 100/65; PULSE 89; RESP 14; TEMP 36.6; O2SAT 96
--- NOTE | 2023-01-15 15:15 | PM.DS ---
DS: Admitting Diagnosis Discharge Date 01/15/ Admitting Diagnosis Hypoxia DS: Discharge Diagnosis Discharge Diagnosis (1) Acute and chronic respiratory failure: Qualifiers: Respiratory failure complication: hypoxia and hypercapnia Qualified Code(s): J96.21 - Acute and chronic respiratory failure with hypoxia; J96.22 - Acute and chronic respiratory failure with hypercapnia; J96.22 - Acute and chronic respiratory failure with hypercapnia Code(s): J96.20 - Acute and chronic respiratory failure, unspecified whether with hypoxia or hypercapnia Status: Acute Assessment and Plan: Will try to titrate oxygen down to nasal cannula. - patient responding well to diuresis, will continue Off all antibiotics 01/15/2023 interval history: 62-year-old male morbidly obese with respiratory failure multifactorial secondary to hypercarbic hypoventilation, due to morbid obesity as well as acute on chronic diastolic congestive heart failure with preserved LV function, patient had been diuresed, and was seen by pulmonology and was placed on BiPAP and patient's symptoms have improved, he has difficulty tolerating BiPAP and director of compliance adjusted satting, patient states again he did wear BiPAP last night for few hours, his clinical symptoms have improved patient will be discharged to rehab, pending insurance authorization, and director of compliance has made adjustment to his ventilator, when he arrives at the rehab center- patient is clinically stable has no new complaint. (2) CHF (congestive heart failure): Code(s): I50.9 - Heart failure, unspecified Status: Acute Assessment and Plan: 12/29/2022: Echocardiogram showed LV hypertrophy with normal LV size and good systolic function, grade 2 diastolic noncompliance, and was right ventricle, moderate pulmonary hypertension with RVSP 60 mg -continue Bumex for diuresis (3) Elevated liver enzymes: Code(s): R74.8 - Abnormal levels of other serum enzymes Status: Acute Assessment and Plan: - LFTs trending down (4) Hyperkalemia: Code(s): E87.5 - Hyperkalemia Status: Acute Assessment and Plan: -currently hypokalemia will replace potassium - continue to monitor (5) Diabetes mellitus: Code(s): E11.9 - Type 2 diabetes mellitus without complications Status: Chronic Assessment and Plan: sliding scale insulin and Accu-Cheks (6) Lymphedema: Code(s): I89.0 - Lymphedema, not elsewhere classified Status: Acute Assessment and Plan: 12/28/2022: lower extremity Dopplers negative for DVT -patient is on anticoagulation as outpatient which will be continued -diuretics and leg elevation -lower extremity edema much improved (7) Chronic kidney disease, stage 3: Code(s): N18.30 - Chronic kidney disease, stage 3 unspecified Status: Acute Assessment and Plan: - appreciate Nephrology evaluation -continue diuresis -creatinine continues to improve (8) Atrial fibrillation: Code(s): I48.91 - Unspecified atrial fibrillation Status: Acute Assessment and Plan: patient is on digoxin and Eliquis at home - digoxin level marginally elevated. digoxin level is within normal limits this morning - continue Eliquis -in sinus rhythm (9) Skin abnormalities: Code(s): L98.9 - Disorder of the skin and subcutaneous tissue, unspecified Status: Acute Assessment and Plan: Patient was evaluated by wound care and local wound care instructions were provided to the nurse DS: Summary Hospital Course Reason for hospitalization: Hypoxia. Narrative: This is a 62-year-old male with history of congestive heart failure, chronic respiratory failure on oxygen, COPD, sleep apnea, chronic kidney disease, paroxysmal atrial fibrillation on chronic anticoagulation, GERD, benign prostatic hyperplasia, diabetes, and other comorbidities who presented to the emergency department
[2023-01-15 16:28] LABS: Glucose Point of Care 99 mg/dl (65-105)
[2023-01-15 17:55] LABS: EDCOVIDSCREEN Negative (Negative)
== END 2023-01-15 18:30 | DRG 291 ==
LOC: ANHED 12:10 → ANHICU 14:28 → ANHIMU 01-06 17:04 → ANH3MEDSUR 01-11 02:01
PROVIDERS: Chiropractor; Internal Medicine; Internal Medicine Nephrology; Internal Medicine Pulmonary Disease; Physician Assistant; Admitting Provider Internal Medicine; Emergency Provider Emergency Medicine; PCP Internal Medicine; Visit Provider Family Medicine
DX: I50.33 Acute on chronic diastolic (congestive) heart failure (principal); J96.21 Acute and chronic respiratory failure with hypoxia; J96.22 Acute and chronic respiratory failure with hypercapnia; E66.2 Morbid (severe) obesity with alveolar hypoventilation; Z68.41 Body mass index [BMI] 40.0-44.9, adult; E87.21 Acute metabolic acidosis; E11.22 Type 2 diabetes mellitus with diabetic chronic kidney disease; N18.30 Chronic kidney disease, stage 3 unspecified; Z20.822 Contact with and (suspected) exposure to COVID-19; L98.9 Disorder of the skin and subcutaneous tissue, unspecified; E87.5 Hyperkalemia; I89.0 Lymphedema, not elsewhere classified; J44.9 Chronic obstructive pulmonary disease, unspecified; D50.9 Iron deficiency anemia, unspecified; E87.6 Hypokalemia; N40.0 Benign prostatic hyperplasia without lower urinary tract symptoms; E78.5 Hyperlipidemia, unspecified; K21.9 Gastro-esophageal reflux disease without esophagitis; L21.8 Other seborrheic dermatitis; I48.0 Paroxysmal atrial fibrillation; Z99.81 Dependence on supplemental oxygen; Z79.01 Long term (current) use of anticoagulants
CPT/HCPCS: 31500; 36415; 36569; 36600; 71045; 71250; 74019; 76705; 76775; 80048; 80053; 80069; 80074; 80162; 80202; 80307; 81001; 82140; 82375; 82550; 82570; 82805; 82948; 83036; 83050; 83605; 83735; 83880; 84100; 84145; 84300; 84439; 84443; 84478; 84480; 84484; 84540; 85025; 85027; 85055; 85610; 85730; 85999; 87040; 87070; 87205; 87426; 87449; 87636; 87899; 92610; 93005; 93970; 94002; 94003; 94640; 94660; 94762; 96361; 96365; 96367; 96368; 96375; 97110; 97116; 97161; 97165; 97530; 97535; 99291; A9270; C1751; C8929; C9113; C9803; J0330; J0456; J0696; J1815; J1940; J2250; J2704; J2930; J3010; J3370; J3475; J3480

== ENCOUNTER 2023-04-10 10:13 | Inpatient (IN) | payer MEDICARE, SELFPAY ==
[2023-04-10] VITALS (28 sets, daily range): BP systolic 102–125; BP diastolic 54–106; PULSE 73–108; RESP 17–30; TEMP 35.8–36.7; O2SAT 80–100; BMI 45.3
--- NOTE | ~2023-04-10 | XR_ITS ---
EXAMINATION: XR tibia fibula RT 2V DATE: 04/10/2023 11:42 INDICATION: Wound to the right lower leg TECHNIQUE: AP and lateral views of the right tibia and fibula were obtained on overlapping proximal a nd distal images. COMPARISON: None. FINDINGS: Bone alignment is normal. No fracture. There is at least mild osteoarthritis at the medial compartmen t of the right knee joint space narrowing can be underestimated on nonweightbearing imaging. Small pl suni calcaneal spur. There is benign-appearing periosteal reaction extending along the length of the medial side of the right tibial diaphysis. No evident underlying cortical erosion to suggest osteomy elitis. Diffuse soft tissue swelling with subcutaneous edema about the right lower leg most prominent anteriorly additional prominent soft tissue swelling over the dorsum of the forefoot. No soft tissue gas or radiopaque foreign bodies. IMPRESSION: 1. Benign-appearing periosteal reaction along the medial margin of the tibial diaphysis most likely r elated to chronic venous stasis which may also completely diffuse soft tissue swelling and subcutaneo us edema about the right lower leg and dorsum of the foot. 2. No soft tissue gas, radiopaque foreign bodies or cortical erosions suspicious for osteomyelitis. Reviewed, dictated and finalized at location A. IMPRESSION: 1. Benign-appearing periosteal reaction along the medial margin of the tibial d iaphysis most likely related to chronic venous stasis which may also completely diffuse soft tissue swelling and subcutaneous edema about the right lower leg and dorsum of the foot. 2. No soft tissue gas, radiopaque foreign bodies or cortical erosions suspiciou s for osteomyelitis.
--- NOTE | ~2023-04-10 | XR_ITS ---
EXAMINATION: XR chest 1V portable DATE: 04/10/2023 11:42 INDICATION: Hypoxia. TECHNIQUE: A single frontal view of the chest was obtained. COMPARISON: Chest single view 01/07/2023, chest CT 01/04/2023 FINDINGS: There is chronic elevation of right hemidiaphragm. There are airspace opacities in the lowe r lung zones. No pleural effusion or pneumothorax. Cardiomegaly is noted. IMPRESSION: 1. Airspace opacities in the lower lung zones, consistent with atelectasis versus pneumonia. 2. Cardiomegaly. 3. Chronic elevation of right hemidiaphragm. Reviewed, dictated and finalized at location L. IMPRESSION: 1. Airspace opacities in the lower lung zones, consistent with atelectasis vers us pneumonia. 2. Cardiomegaly. 3. Chronic elevation of right hemidiaphragm.
--- NOTE | 2023-04-10 10:23 | ECG_ITS ---
Measurements Intervals [place] Rate: 95 P: 59 CA: 144 QRS: 2 QRSD: 132 T: -38 QT: 368 QTc: 465 Interpretive Statements SINUS RHYTHM RIGHT BUNDLE BRANCH BLOCK ST-T WAVE ABNORMALITY IN ANTEROLATERAL LEADS- CONSIDER ISCHEMIA ABNORMAL ECG NO PREVIOUS ECG AVAILABLE FOR COMPARISON Electronically Signed On 04-10-2023 12:10:09 CDT by Hemant Watson D.O.
[2023-04-10 11:12] LABS: Alveolar/Arterial O2 Gradient 239.1 mmHg; Base Excess ABG 4.9 mEq/l (+/-2.0); Carboxyhemoglobin 1.1 % THb (0-2.0); Fractional Inspired Oxygen 52 %; HCO3 ABG 33.1 mEq/l (22.0-26.0); Methemoglobin ABG 0.2 %THb (0-1.5); Oxygen Content ABG 16.3 %vol (16.0-22.0); PO2 ABG 57.5 mmHg (80.0-100.0); PO2 FiO2 Ratio Arterial Blood 1.11 %; Reduced Hemoglobin 12.3 %THb (0-5.0); Total Hemoglobin 13.4 g/dL (12.0-18.0); pH ABG 7.317 (7.350-7.450)
[2023-04-10 11:13] LABS: Oxygen Saturation ABG 86.7 % (95.0-100.0); Oxyhemoglobin 86.4 % THb (90.0-100.0); PCO2 ABG 66.2 mmHg (35.0-45.0); Site Drawn LEFT RADIAL
[2023-04-10 11:14] LABS: Device HIGH FLOW NASAL CANN; Modified Allen's Test Pass
[2023-04-10 11:42] LABS: Basophils Percent Auto 0.4 % (0.2-1.2); Eosinophils Absolute Auto 0.1 K/mm3 (0-0.3); Eosinophils Percent Auto 1.7 % (0-4.4); Hematocrit 42.5 % (42.0-52.0); Hemoglobin 12.7 g/dL (14.0-18.0); Immature Granulocyte Absolute 0.01 K/mm3 (0.00-0.031); Immature Granulocyte Percent A 0.1 % (0-0.5); Lymphocytes Percent Auto 13.1 % (18.3-44.2); Mean Corpuscular HGB Conc 29.9 g/dl (32-36); Mean Corpuscular Hemoglobin 31.5 pg (26-34); Mean Corpuscular Volume 105.5 fl (80-100); Monocytes Absolute Auto 0.9 K/mm3 (0.1-0.6); Monocytes Percent Auto 13.5 % (2.6-8.5); Neutrophils Absolute Auto 4.9 K/mm3 (1.3-6.7); Neutrophils Percent Auto 71.2 % (45.5-73.1); Platelet Count Result 190 k/mm3 (150-375); Red Blood Count 4.03 M/mm3 (4.6-6.20); Red Cell Distribution Width 16.9 % (11.5-14.5); White Blood Count 6.9 K/mm3 (4.5-10.0)
[2023-04-10 11:47] LABS: Alanine Aminotransferase 23 U/L (6-50); Albumin Level 3.5 g/dL (3.5-5.1); Alkaline Phosphatase 76 U/L (38-126); Anion Gap 1 mmol/L (8-16); Aspartate Amino Transferase 22 U/L (17-59); Bilirubin,Total 1.1 mg/dL (0.2-1.3); Blood Urea Nitrogen 21 mg/dL (9-20); Calcium 8.4 mg/dL (8.4-10.2); Carbon Dioxide 36 mmol/L (22-30); Chloride 101 mmol/L (98-107); Estimated CRCL calculation 82 ml/min; Estimated Glomerular Filt Rate 56; Glucose 96 mg/dL (65-110); Potassium 4.5 mmol/L (3.4-5.0); Sodium 138 mmol/L (137-145)
[2023-04-10 12:10] LABS: Anisocytosis 1+ (NORMAL); Platelet Estimate Adequate (Adequate)
[2023-04-10 12:11] LABS: Macrocytosis 1+ (NORMAL); Schistocytes None Seen (NORMAL)
--- NOTE | 2023-04-10 12:45 | PC.NURSE ---
RN Spoke with pt sister Millie Skinner and updated her on what we have done for the pt as well as the breathing treatment pt is doing. Pt sister was also informed that he will be admitted and we are just waiting on a bed.
[2023-04-10 12:57] LABS: NT Pro B Type Natriuretic Pept 5740 pg/mL (19.9-100); Troponin I < 0.012 ng/mL (0.000-0.034)
[2023-04-10 12:59] LABS: INR 1.4; Prothrombin Time 17.5 Seconds (11.1-14.7)
[2023-04-10 13:00] LABS: Partial Thromboplastin Time 35.1 SECONDS (22.3-36.8)
--- NOTE | 2023-04-10 13:17 | ED.GENADULT ---
HPI - General Adult General Chief complaint: Shortness of Breath/Dyspnea Stated complaint: Low O2 Time Seen by Provider: 04/10/23 10:24 Source: patient, RN notes reviewed and old records reviewed Mode of arrival: EMS Limitations: no limitations History of Present Illness HPI narrative: This is a 63 year old male with history of morbid obesity, chronic respiratory failure, CHF who presents for evaluation of hypoxia and bilateral leg swelling. PAtient states that he has been having bilateral leg swelling for 2 months. He has been having weeping from his legs. He notes he had blister to right lower leg that has ruptured. He states he normally wears 5 L NC and he was sent to ER for evaluation due to low oxygen saturation. He denies chest pain, fever, or worsening shortness of breath. He states he is not sure why he had to come to hospital. It is reported that patient's oxygen was in the 80s so he has been increased to 8L NC in ER. He also reports he wears CPAP at night but he is unable to keep on for more than a couple hours. Related Data Home Medications Medication Instructions Recorded Confirmed Acidophilus Probiotic Blend 1 billion cells PO DAILY 12/28/22 04/10/23 acetaminophen 500 mg tablet 500 mg PO Q6H PRN Pain, Mild 12/28/22 04/10/23 apixaban 5 mg tablet (Eliquis) 5 mg PO BID 12/28/22 04/10/23 atorvastatin 20 mg tablet 20 mg PO DAILY 12/28/22 04/10/23 ferrous sulfate 325 mg (65 mg 325 mg PO BID 12/28/22 04/10/23 iron) tablet (FeroSul) fluticasone propionate 50 50 mcg intranasal DAILY 12/28/22 04/10/23 mcg/actuation nasal spray,suspension pantoprazole 20 mg tablet,delayed 20 mg PO DAILY 12/28/22 04/10/23 release umeclidinium 62.5 mcg/actuation 1 inh inhalation DAILY 12/28/22 04/10/23 blister powder for inhalation (Incruse Ellipta) gabapentin 300 mg capsule 300 mg PO TID 04/10/23 04/10/23 lactulose 10 gram/15 mL oral 30 ml PO DAILY PRN Constipation 04/10/23 04/10/23 solution (Enulose) lidocaine 4 % topical patch 2 patch topical DAILY PRN Back Pain 04/10/23 04/10/23 (Lidocaine Pain Relief) potassium chloride 20 mEq 20 meq PO DAILY 04/10/23 04/10/23 tablet,extended release Allergies Allergy/AdvReac Type Severity Reaction Status Date / Time amoxicillin Allergy Unknown Unknown Verified 04/10/23 16:29 Review of Systems Constitutional: Constitutional: Denies weakness Cardiovascular: Cardiovascular: Denies syncope, Denies rapid heart rate, Denies irregular heart rhythm, Reports leg edema and Reports dyspnea (chronic) Respiratory: Respiratory: Denies chest congestion, Denies hemoptysis, Denies excessive phlegm production and Denies dyspnea Gastrointestinal: Gastrointestinal: Denies abdominal pain, Denies hematochezia, Denies diarrhea and Denies vomiting Genitourinary: Genitourinary: Denies hematuria, Denies dysuria, Denies penile discharge and Denies testicular pain Musculoskeletal: Musculoskeletal: Denies joint swelling, Denies loss of height and Denies muscle weakness Integumentary/Breasts: Skin/Breast: Reports skin ulcer Neurologic: Denies syncope, Denies focal weakness and Denies weakness [facility] Past Medical History Medical History (Updated 04/11/23 @ 14:37 by Neva Milner MD) Chronic kidney disease, stage 3 Chronic respiratory failure with hypoxia, on home oxygen therapy Congestive heart failure Hyperlipidemia Lymphedema Obesity hypoventilation syndrome Obstructive sleep apnea Paroxysmal atrial fibrillation Type 2 diabetes mellitus Surgical History Surgical History (System 04/10/23 @ 16:29 by Gabrielle Tan) History of meniscectomy of left knee Family History Family History Mother Atrial fibrillation Hypothyroidism Father Colon cancer Deep venous thrombosis Social History Social History (System 04/10/23 @ 16:29 by Gabrielle Tan) Social History: Patient lives at [facility] [[email or web address]
[2023-04-10] MEDS: FUROSEMIDE INJ 40 MG/4 ML VIAL IV PUSH (13:21)
--- NOTE | 2023-04-10 15:34 | PM.IMHP ---
H&P: HPI History of Present Illness Date/Time: 04/10/23 15:34 Chief Complaint: Low oxygen levels Narrative: Date of admission: 04/10/2023 Carmelo Jasmine is a a 63-year-old male with a history of chronic respiratory failure maintained on 5 L supplemental O2 at all times, obesity hypoventilation syndrome, COPD, CHF, CKD, paroxysmal atrial fibrillation and questionable history of type 2 diabetes mellitus who presented to the emergency department on 04/10/2023 from his assisted living facility under the direction of his home health care nurse. Patient states that he is feeling well but ?they told me to come.? States that for the past 2-3 days, he has had routine vital signs which have shown his spO2 to be in the mid to upper 80s, states that he is typically in the low 90s. He had been feeling well despite these low oxygen saturations. He did not make any adjustment to his oxygen settings, maintained 5 L at all times. Patient states that he has been instructed to be on BiPAP nightly, however he has difficulty tolerating this, instead uses this about 3-4 nights a week for no more than 2 hours at a time. He notes that he has a wound on his right lower extremity which has been managed with home health. Today, staff at his assisted living facility noted that the wound was weeping fluid and summoned home health to evaluate. They then recommended the patient come to the ER for evaluation. Upon presentation to the ED, he was tachypneic with spO2 80%, ABG demonstrated respiratory acidosis, and CXR showed airspace opacities in the lower lung zones consistent with atelectasis versus pneumonia, cardiomegaly, chronic elevation of right hemidiaphragm. He was placed on continuous BiPAP and O2 sats have been stable. At the time my evaluation, the patient is feeling well. He offers no complaints. He does state that since his last hospitalization in December-January 2023, he has put on about 25-30 lbs. He denies shortness of breath, cough, or chest pain. Endorses chronic orthopnea and sleeps in a recliner. He denies dyspnea on exertion, stating that he is able to get around his apartment without any difficulty, but with further questioning admits that he has to take breaks when walking to the dining room of his assisted living facility. Denies chest pain or palpitations. Denies any urinary symptoms. Denies any changes to his chronic lower extremity edema. *Of note, no prior medical history, medications, previous hospital stays visible in this chart. Patient has another active chart under a different account number. Awaiting admitting services/medical records to merge these charts. To avoid duplication, I have not updated the medical history in this particular chart while awaiting merging of charts. I have reviewed the patients medical history with the patient at length with pertinent history listed above. Review of Systems Review of Systems: All systems reviewed & are unremarkable except as noted in HPI and below [facility] Social History Social History (Updated 04/10/23 @ 16:04 by Kelly Tate PA-C) Social History: Patient lives at [facility] His primary care provider is ELISABETH Berry based at [facility]. He is a full code. He designates his sister, Verito, as his surrogate decision maker Smoking status: Never smoker Alcohol intake: former Alcohol use details: No alcohol in 4 years Substance use: never Meds Home Medications and Allergies Allergies Allergy/AdvReac Type Severity Reaction Status Date / Time No Known Allergies Allergy Verified 04/10/23 12:52 Vital Signs Vital Signs - 24 hr 04/10/23 10:24 04/10/23 10:24 04/10/23 10:31 Temperature 98.1 F Pulse Rate 96 99 Respiratory Rate 20 Blood Pressure 119/72 Pulse Oximetry 80 L 95 Oxygen Delivery Nasal Cannula Nasal Cannula Oxygen Flow Rate 5 8 Fraction of Inspired Oxygen 04/10/23 10:35 04/10/23 11:35 04/10/23 12:38 Temperature
[2023-04-10 17:01] LABS: Glucose Point of Care 85 mg/dl (65-105)
[2023-04-10 17:21] LABS: Alveolar/Arterial O2 Gradient 146.5 mmHg; Base Excess ABG 8.3 mEq/l (+/-2.0); Fractional Inspired Oxygen 40 %; HCO3 ABG 37.2 mEq/l (22.0-26.0); Oxygen Content ABG 16.6 %vol (16.0-22.0); PO2 ABG 54.6 mmHg (80.0-100.0); PO2 FiO2 Ratio Arterial Blood 1.37 %; Total Hemoglobin 13.8 g/dL (12.0-18.0); pH ABG 7.324 (7.350-7.450)
[2023-04-10 17:25] LABS: PCO2 ABG 73.1 mmHg (35.0-45.0)
[2023-04-10 17:26] LABS: Device NASAL CANNULA; Modified Allen's Test Pass; Oxygen Saturation ABG 84.7 % (95.0-100.0); Oxyhemoglobin 85.4 % THb (90.0-100.0); Site Drawn LEFT RADIAL
--- NOTE | 2023-04-10 17:44 | ADMGEN ---
This patient, Carmelo Jasmine, was admitted to IMU Room 231-01 on 04/10/23 at 1631. Patient/family oriented to hospital policies and general routines including ID bracelet, bed and alarms, visiting hours, pain management, procedures, bathroom and other care routines, personal items, smoking policy, room service/diet, and visiting hours. Information on how to activate the Rapid Response Team has been discussed. Patient/Family are encouraged to report perceived risks to care and to ask questions if they do not understand what they are told or what they should do.
[2023-04-10 19:55] LABS: Glucose Point of Care 99 mg/dl (65-105)
[2023-04-10] MEDS: FUROSEMIDE INJ 40 MG/4 ML VIAL (20:32)
[2023-04-10 21:12] LABS: Alveolar/Arterial O2 Gradient 190.2 mmHg; Base Excess ABG 8.7 mEq/l (+/-2.0); Fractional Inspired Oxygen 50 %; HCO3 ABG 37.4 mEq/l (22.0-26.0); Oxygen Content ABG 18.7 %vol (16.0-22.0); Oxygen Saturation ABG 95.4 % (95.0-100.0); Oxyhemoglobin 94.5 % THb (90.0-100.0); PO2 ABG 85.2 mmHg (80.0-100.0); pH ABG 7.333 (7.350-7.450)
[2023-04-10 21:16] LABS: Device NON-INVASIVE VENT; Modified Allen's Test Pass; PCO2 ABG 72.1 mmHg (35.0-45.0); Site Drawn LEFT RADIAL
[2023-04-10 21:17] LABS: Non-Invasive Expiratory Pressure 6 CMH2O; Non-Invasive Inspiratory Pressure 14 CMH2O; Non-Invasive Vent Rate 20 /MIN
[2023-04-11] VITALS (20 sets, daily range): BP systolic 95–105; BP diastolic 52–70; PULSE 72–103; RESP 18–27; TEMP 35.7–36.3; O2SAT 93–100
[2023-04-11 05:12] LABS: Basophils Percent Auto 0.4 % (0.2-1.2); Eosinophils Absolute Auto 0.2 K/mm3 (0-0.3); Eosinophils Percent Auto 2.5 % (0-4.4); Hematocrit 45.7 % (42.0-52.0); Hemoglobin 13.7 g/dL (14.0-18.0); Immature Granulocyte Absolute 0.03 K/mm3 (0.00-0.031); Immature Granulocyte Percent A 0.4 % (0-0.5); Lymphocytes Absolute Auto 1.16 K/mm3 (0.9-3.2); Lymphocytes Percent Auto 17.1 % (18.3-44.2); Mean Corpuscular Hemoglobin 31.2 pg (26-34); Mean Corpuscular Volume 104.1 fl (80-100); Mean Platelet Volume 9.6 fl (7.4-10.4); Monocytes Absolute Auto 0.8 K/mm3 (0.1-0.6); Monocytes Percent Auto 11.7 % (2.6-8.5); Neutrophils Absolute Auto 4.6 K/mm3 (1.3-6.7); Neutrophils Percent Auto 67.9 % (45.5-73.1); Platelet Count Result 188 k/mm3 (150-375); Red Blood Count 4.39 M/mm3 (4.6-6.20); Red Cell Distribution Width 16.7 % (11.5-14.5); White Blood Count 6.8 K/mm3 (4.5-10.0)
[2023-04-11 05:26] LABS: Alanine Aminotransferase 23 U/L (6-50); Albumin Level 3.7 g/dL (3.5-5.1); Alkaline Phosphatase 72 U/L (38-126); Aspartate Amino Transferase 24 U/L (17-59); Bilirubin,Total 1.4 mg/dL (0.2-1.3); Blood Urea Nitrogen 21 mg/dL (9-20); Calcium 8.5 mg/dL (8.4-10.2); Carbon Dioxide > 40 mmol/L (22-30); Chloride 94 mmol/L (98-107); Estimated CRCL calculation 86 ml/min; Estimated Glomerular Filt Rate > 60; Glucose 80 mg/dL (65-110); Potassium 4.1 mmol/L (3.4-5.0); Sodium 139 mmol/L (137-145)
[2023-04-11 05:36] LABS: Alveolar/Arterial O2 Gradient 142.4 mmHg; Base Excess ABG 9.5 mEq/l (+/-2.0); Fractional Inspired Oxygen 40 %; HCO3 ABG 37.5 mEq/l (22.0-26.0); Oxygen Content ABG 17.5 %vol (16.0-22.0); Oxygen Saturation ABG 91.8 % (95.0-100.0); Oxyhemoglobin 90.7 % THb (90.0-100.0); PO2 ABG 66.2 mmHg (80.0-100.0); PO2 FiO2 Ratio Arterial Blood 1.65 %; Total Hemoglobin 13.7 g/dL (12.0-18.0); pH ABG 7.368 (7.350-7.450)
[2023-04-11 05:38] LABS: Device BIPAP; Expiratory Pressure 8 cmH2O; Inspiratory Pressure 18 cmH2O; Modified Allen's Test Pass; PCO2 ABG 66.6 mmHg (35.0-45.0); Site Drawn LEFT RADIAL
[2023-04-11 07:56] LABS: Glucose Point of Care 72 mg/dl (65-105)
--- NOTE | 2023-04-11 08:55 | PM.CNPUL ---
Assessment and Plan Assessment and plan (1) Obesity hypoventilation syndrome: Code(s): E66.2 - Morbid (severe) obesity with alveolar hypoventilation Status: Acute Assessment and Plan: Patient with morbid obesity with obesity hypoventilation syndrome. He has diuresed well with a repeat BNP at 245, he is a never smoker? with no evidence of bullous emphysema on his CT scan. ? No significant thyroid disease. ? ABG on 11/05/2023 was 7.34/55/70? on high-flow nasal cannula 45 L and 45% FiO2. ? Discontinue all standing bronchodilators. his weight on admission was 152 kg and on 01/10/2023 was 124.3 kg. Per my last progress note on 01/10/2023: The patient will be eventually discharged to a rehabilitation center and he will have a noninvasive ventilator at night per the rehabilitation centers protocol or he can use his pre-existing home BiPAP machine.? I have initiated the process for a home noninvasive ventilator? through [facility] (DME) so that when he is discharged from the rehabilitation center back to his residence at the [facility] he can use this machine.? I have sent in orders for a noninvasive ventilator with the trilogy and AVAPS-AE mode with a set rate of 20, tidal volume 500, minimal EPAP 5, maximal EPAP 15, minimal pressure support 6, maximal pressure support 25, inspiratory time 1 second, AVAPS speed auto, maximum pressure 35, 5 L bleed in. The patient was scheduled to see us in the Pulmonary Clinic on 02/20/2023 but was not seen. Patient tells me that he was discharged to [facility] for approximately 2 weeks and that he used his old BiPAP machine at [facility]. When he left there he was walking approximately 3/4 of a block and using 5 L nasal cannula with rest and ambulation. The patient was then discharged to his assisted living facility at the [facility]. the patient tells me that he never received a new BiPAP machine and is unsure what his current settings are and is unsure if his old BiPAP machine was reprogrammed to a noninvasive ventilator mode with the above AVAPS-AE settings. The patient tells me that he would intermittently wear his BiPAP for short bursts with a fullface mask. He was wearing 5 L nasal cannula at rest, with ambulation and bleed in on his home BiPAP machine. The patient tells me that his sister called his assisted living and stated that BiPAP was allowed but a new machine was not allowed. Currently the patient Has gained 15 kg since his discharge weight in January of 2023, lower extremity that began weeping yesterday, elevated BNP at 5740 (was 245 on 01/08/23), worsening hypoxic respiratory failure and initial blood gas with a compensated respiratory acidosis with pH of 7.32/66/57 on 8 L nasal cannula. The patient improved with BiPAP final settings of her rate of 22, pressures 18/8 and 40% with a blood gas of 7.37/67/66 this morning. These setting provide adequate oxygenation and ventilation. Currently the patient is off BiPAP on 5 L nasal cannula saturations 89-91 and this appears to be his baseline. I do not feel there is an active pulmonary infection and do not see a need for antibiotics from a pulmonary perspective. The patient does not have COPD and I see no need for bronchodilators or inhaled or systemic steroids. I have contacted our emergency preparedness coordinator to obtain a download from [facility] patient to see what settings the patient's home machine is set at and check compliance. I asked the patient if he could have his home machine brought into the hospital so that we could perform an ABG at the end of the night and an overnight oximetry on these home settings and this would require his brother sister to bring in the machine and he is unsure if this can be accomplished. The BiPAP settings of a rate of 22, pressures 18/8 and 40% provide adequate oxygenation and ventilation. I asked the patient if I could place him on BiPAP and put him on an AVAPS
[2023-04-11] MEDS: FUROSEMIDE INJ 40 MG/4 ML VIAL IV PUSH ×2 (09:21→20:46)
[2023-04-11 10:54] LABS: Hemoglobin A1C 5.1 % (<5.7)
--- NOTE | 2023-04-11 12:01 | PM.IMPN ---
Progress Note: A&P Assessment and Plan (1) Acute and chronic respiratory failure: Code(s): J96.20 - Acute and chronic respiratory failure, unspecified whether with hypoxia or hypercapnia Status: Acute Assessment and Plan: Patient with chronic respiratory failure, maintained on 5 L supplemental O2 at all times.? Presented with hypoxia, O2 sats in the 80s.? ABG with respiratory acidosis.?Placed on continuous BiPAP with improvement in O2 sats.? ABG with overall improvement. appreciate pulmonology consultation. will work on setting up patient for BiPAP at home. Monitor O2 sats closely with goal 90% or above (2) Obesity hypoventilation syndrome: Code(s): E66.2 - Morbid (severe) obesity with alveolar hypoventilation Status: Acute Assessment and Plan: Likely the main etiology of respiratory failure.? Patient is not compliant with BiPAP.? Only uses for 2 hours 3-4 nights per week.? Continue with supplemental O2 during the day and BiPAP at night. appreciate pulmonology recommendations (3) CHF (congestive heart failure): Qualifiers: Heart failure type: diastolic Heart failure chronicity: acute on chronic Qualified Code(s): I50.33 - Acute on chronic diastolic (congestive) heart failure Code(s): I50.9 - Heart failure, unspecified Status: Acute Assessment and Plan: Acute on chronic.? Echo reviewed from December 2022 showed grade 2 diastolic dysfunction.? BNP elevated at 5700 and patient appears volume overloaded. Endorses 30 lb weight gain in 2 months.? continue Lasix 40 mg IV b.i.d.. patient has almost 5 L negative fluid balance.? Monitor volume status closely with strict I&O and daily weights. Continue with aggressive diuresis, monitor renal function (4) COPD (chronic obstructive pulmonary disease): Code(s): J44.9 - Chronic obstructive pulmonary disease, unspecified Status: Inactive Assessment and Plan: Following discussion with pulmonology, patient does not have history of COPD. This has been removed from his medical history. no need for bronchodilators (5) Paroxysmal atrial fibrillation: Code(s): I48.0 - Paroxysmal atrial fibrillation Status: Acute Assessment and Plan: patient is in sinus rhythm. Not on any rate controlling medications. Continue Eliquis for stroke prophylaxis.? (6) Lower extremity ulceration: Code(s): L97.909 - Non-pressure chronic ulcer of unspecified part of unspecified lower leg with unspecified severity Status: Acute Assessment and Plan: Patient with regular, shallow ulceration of medial right lower extremity weeping serous fluid.? Maintained by home wound care. evaluated by Wound Care this admission, continue with silver gel and elastic wraps.? Subjective Date/time seen: 04/11/23 12:01 Interval history: 04/11/2023 Carmelo Jasmine is a a 63-year-old male with a history of chronic respiratory failure maintained on 5 L supplemental O2 at all times, obesity hypoventilation syndrome, CHF, CKD, paroxysmal atrial fibrillation who is seen in follow-up for acute on chronic respiratory failure. He is feeling well today. He offers no complaints. He denies shortness of breath, GUTHRIE, cough. No chest pain. Does endorse some mild congestion and some white/ yellowish mucus production. Denies abdominal pain. No nausea or vomiting. Review of Systems Review of Systems: All systems reviewed & are unremarkable except as noted in HPI and below Exam Narrative: General:? Obese, chronically ill-appearing 63-year-old male, semi recumbent in bed, comfortable, NARD Neuro: awake, alert and oriented x4, speech clear, no focal neuro deficits noted HEENMT:? normocephalic, atraumatic, EOMI, sclerae anicteric Respiratory:?nonlabored breathing, no accessory muscle use Abdomen:? Obese, normoactive bowel sounds, soft, nontender to palpation Extremities:? 2+ edema of bilateral lower extremit
[2023-04-11 12:12] LABS: Glucose Point of Care 91 mg/dl (65-105)
[2023-04-11] MEDS: APIXABAN 5 MG TABLET PO ×2 (12:40→17:48)
[2023-04-11] MEDS: GABAPENTIN 300 MG CAPSULE PO ×2 (12:40→17:48)
[2023-04-11] MEDS: FERROUS SULFATE 324 MG TABLET PO ×2 (12:40→17:48)
[2023-04-11] MEDS: ATORVASTATIN 20 MG TABLET PO (12:40)
[2023-04-11] MEDS: PANTOPRAZOLE SOD SESQUIHYDRATE 20 MG TAB PO (12:40)
[2023-04-11] MEDS: POTASSIUM CHLORIDE 20 MEQ TABLET.ER PO (12:41)
[2023-04-11] MEDS: SILVERGEL (ELTA) 45 ML 1 APPLIC TOPICAL (12:43)
[2023-04-11 16:46] LABS: Glucose Point of Care 93 mg/dl (65-105)
[2023-04-11 20:12] LABS: Glucose Point of Care 91 mg/dl (65-105)
[2023-04-11] MEDS: ACETAMINOPHEN 500 MG TABLET PO (23:10)
[2023-04-12] VITALS (21 sets, daily range): BP systolic 96–109; BP diastolic 53–65; PULSE 83–103; RESP 18–25; TEMP 35.6–36.4; O2SAT 91–99
[2023-04-12 06:07] LABS: Alveolar/Arterial O2 Gradient 137.1 mmHg; Base Excess ABG 14.6 mEq/l (+/-2.0); Fractional Inspired Oxygen 40 %; HCO3 ABG 43.2 mEq/l (22.0-26.0); Oxygen Saturation ABG 91.5 % (95.0-100.0); Oxyhemoglobin 90.1 % THb (90.0-100.0); PO2 ABG 64.5 mmHg (80.0-100.0); PO2 FiO2 Ratio Arterial Blood 1.61 %; Total Hemoglobin 14.2 g/dL (12.0-18.0); pH ABG 7.392 (7.350-7.450)
[2023-04-12 06:08] LABS: Device NON-INVASIVE VENT; Modified Allen's Test Pass; Non-Invasive Vent Rate 20 /MIN; PCO2 ABG 72.7 mmHg (35.0-45.0); Site Drawn RIGHT RADIAL
[2023-04-12 06:09] LABS: Non-Invasive Expiratory Pressure 8 CMH2O
[2023-04-12 06:57] LABS: Hematocrit 43.5 % (42.0-52.0); Mean Corpuscular HGB Conc 29.9 g/dl (32-36); Mean Corpuscular Hemoglobin 30.7 pg (26-34); Mean Corpuscular Volume 102.8 fl (80-100); Mean Platelet Volume 9.8 fl (7.4-10.4); Platelet Count Result 197 k/mm3 (150-375); Red Blood Count 4.23 M/mm3 (4.6-6.20); Red Cell Distribution Width 16.4 % (11.5-14.5); White Blood Count 6.6 K/mm3 (4.5-10.0)
[2023-04-12 07:11] LABS: Blood Urea Nitrogen 26 mg/dL (9-20); Calcium 8.3 mg/dL (8.4-10.2); Carbon Dioxide > 40 mmol/L (22-30); Chloride 91 mmol/L (98-107); Estimated CRCL calculation 68 ml/min; Estimated Glomerular Filt Rate 51; Glucose 91 mg/dL (65-110); Sodium 137 mmol/L (137-145)
[2023-04-12 08:12] LABS: Glucose Point of Care 88 mg/dl (65-105)
--- NOTE | 2023-04-12 08:45 | PM.IMPN ---
Progress Note: A&P Assessment and Plan (1) Acute and chronic respiratory failure: Qualifiers: Respiratory failure complication: hypoxia and hypercapnia Qualified Code(s): J96.21 - Acute and chronic respiratory failure with hypoxia; J96.22 - Acute and chronic respiratory failure with hypercapnia; J96.22 - Acute and chronic respiratory failure with hypercapnia Code(s): J96.20 - Acute and chronic respiratory failure, unspecified whether with hypoxia or hypercapnia Status: Acute Assessment and Plan: Chronic respiratory failure, 5 L supplemental O2 at Home Presented with hypoxia, O2 sats in the 80s.? ABG with compensated respiratory acidosis 7.392/72.7/64.5/43.2 Bipap 18/8 rate of 22 and 40%, converted to AVAPS Pulmonology consult Trend SPO2 Most likely will need a home O2 eval Titrate Oxygen to maintain saturations >90% (2) Obesity hypoventilation syndrome: Code(s): E66.2 - Morbid (severe) obesity with alveolar hypoventilation Status: Acute Assessment and Plan: Likely the main etiology of respiratory failure Non-compliant with BiPAP, reports Only uses for 2 hours 3-4 nights per week.? Switched to AVAPS, stated felt more comfortable and was able to tolerate overnight Continue with supplemental O2 during the day and BiPAP at night. Pulmonary consulted (3) CHF (congestive heart failure): Qualifiers: Heart failure chronicity: acute on chronic Heart failure type: diastolic Qualified Code(s): I50.33 - Acute on chronic diastolic (congestive) heart failure Code(s): I50.9 - Heart failure, unspecified Status: Acute Assessment and Plan: Acute on chronic diastolic heart failure with exacerbation Echo reviewed from December 2022 showed grade 2 diastolic dysfunction and EF of 65-70%.? BNP elevated at 5700, appears volume overloaded Endorses 30 lb weight gain in 2 months Change Lasix 40 mg IV b.i.d, home bumex 1mg PO daily Down 8L, edema is better Monitor volume status closely with strict I&O and daily weights. Deescalate diuresis at this time with notable improvement (4) Paroxysmal atrial fibrillation: Code(s): I48.0 - Paroxysmal atrial fibrillation Status: Acute Assessment and Plan: Currently in sinus rhythm No rate control medications Continue Eliquis for stroke prophylaxis (5) Lower extremity ulceration: Qualifiers: Laterality: right Non-pressure ulcer stage: unspecified non-pressure ulcer stage Qualified Code(s): L97.919 - Non-pressure chronic ulcer of unspecified part of right lower leg with unspecified severity Code(s): L97.909 - Non-pressure chronic ulcer of unspecified part of unspecified lower leg with unspecified severity Status: Acute Assessment and Plan: Regular, shallow ulceration of medial right lower extremity weeping serous fluid.? Xray confirms no gas or osteomyelitis Maintained by home wound care Wound care consulted continue with silver gel and elastic wraps.? 3 appears stable Most likely related to CHF exacerbation Time Spent With Patient Time: 48 minutes Time with patient: Greater than 35 minutes Subjective Date/time seen: 04/12/23844 Interval history: 04/12/23844 Currently patient is sitting in the chair. He denies any current chest pain, shortness of breath, nausea, vomiting, diarrhea, or constipation. He stated that he did feel better overnight and the machine was comfortable. Saturations have maintained, and oxygen was titrated to 3LNC. Appetite is good. Edema is better. Creatinine has went up a bit to 1.40, baseline appears to be 1.10-1.20. Will transition him to PO lasix at this time. Currently appears stable should be able to downgrade to med Vidimax. 04/11/2023 1201 Carmelo Jasmine is a a 63-year-old male with a history of chronic respiratory failure m
--- NOTE | 2023-04-12 08:45 | P.PNIM_ITS ---
Progress Note: A&P Assessment and Plan (1) Acute and chronic respiratory failure: Qualifiers: Respiratory failure complication: hypoxia and hypercapnia Qualified Code(s): J96.21 - Acute and chronic respiratory failure with hypoxia; J96.22 - Acute and chronic respiratory failure with hypercapnia; J96.22 - Acute and chronic respiratory failure with hypercapnia Code(s): J96.20 - Acute and chronic respiratory failure, unspecified whether with hypoxia or hypercapnia Status: Acute Assessment and Plan: * Chronic respiratory failure, 5 L supplemental O2 at Home * Presented with hypoxia, O2 sats in the 80s.? * ABG with compensated respiratory acidosis 7.392/72.7/64.5/43.2 * Bipap 18/8 rate of 22 and 40%, converted to AVAPS * Pulmonology consult * Trend SPO2 * Most likely will need a home O2 eval * Titrate Oxygen to maintain saturations >90% (2) Obesity hypoventilation syndrome: Code(s): E66.2 - Morbid (severe) obesity with alveolar hypoventilation Status: Acute Assessment and Plan: * Likely the main etiology of respiratory failure * Non-compliant with BiPAP, reports Only uses for 2 hours 3-4 nights per week.? * Switched to AVAPS, stated felt more comfortable and was able to tolerate overnight * Continue with supplemental O2 during the day and BiPAP at night. * Pulmonary consulted (3) CHF (congestive heart failure): Qualifiers: Heart failure chronicity: acute on chronic Heart failure type: diasto lic Qualified Code(s): I50.33 - Acute on chronic diastolic (congestive) heart failure Code(s): I50.9 - Heart failure, unspecified Status: Acute Assessment and Plan: * Acute on chronic diastolic heart failure with exacerbation * Echo reviewed from December 2022 showed grade 2 diastolic dysfunction and EF of 65-70%.? * BNP elevated at 5700, appears volume overloaded * Endorses 30 lb weight gain in 2 months * Change Lasix 40 mg IV b.i.d, home bumex 1mg PO daily * Down 8L, edema is better * Monitor volume status closely with strict I&O and daily weights. * Deescalate diuresis at this time with notable improvement (4) Paroxysmal atrial fibrillation: Code(s): I48.0 - Paroxysmal atrial fibrillation Status: Acute Assessment and Plan: * Currently in sinus rhythm * No rate control medications * Continue Eliquis for stroke prophylaxis (5) Lower extremity ulceration: Qualifiers: Laterality: right Non-pressure ulcer stage: unspecified non-pressure ulcer stage Qualified Code(s): L97.919 - Non-pressure chronic ulcer of unspecified part of right lower leg with unspecified severity Code(s): L97.909 - Non-pressure chronic ulcer of unspecified part of unspecified lower leg with unspecified severity Status: Acute Assessment and Plan: * Regular, shallow ulceration of medial right lower extremity weeping serous fluid.? * Xray confirms no gas or osteomyelitis * Maintained by home wound care * Wound care consulted * continue with silver gel and elastic wraps.? 3 * appears stable * Most likely related to CHF exacerbation Time Spent With Patient Time: 48 minutes Time with patient: Greater than 35 minutes Subjective Date/time seen: 04/12/23844 Interval history: 04/12/23844 Currently patient is sitting in the chair. He denies any current chest pain, shortness of b
--- NOTE | 2023-04-12 09:51 | PM.PNPUL ---
Progress Note: A&P Assessment and Plan (1) Obesity hypoventilation syndrome: Code(s): E66.2 - Morbid (severe) obesity with alveolar hypoventilation Status: Acute Assessment and Plan: Patient with morbid obesity with obesity hypoventilation syndrome. He has diuresed well with a repeat BNP at 245, he is a never smoker? with no evidence of bullous emphysema on his CT scan. ? No significant thyroid disease. ? ABG on 11/05/2023 was 7.34/55/70? on high-flow nasal cannula 45 L and 45% FiO2. ? Discontinue all standing bronchodilators. his weight on admission was 152 kg and on 01/10/2023 was 124.3 kg. Per my last progress note on 01/10/2023: The patient will be eventually discharged to a rehabilitation center and he will have a noninvasive ventilator at night per the rehabilitation centers protocol or he can use his pre-existing home BiPAP machine.? I have initiated the process for a home noninvasive ventilator? through [facility] (DME) so that when he is discharged from the rehabilitation center back to his residence at the [facility] he can use this machine.? I have sent in orders for a noninvasive ventilator with the trilogy and AVAPS-AE mode with a set rate of 20, tidal volume 500, minimal EPAP 5, maximal EPAP 15, minimal pressure support 6, maximal pressure support 25, inspiratory time 1 second, AVAPS speed auto, maximum pressure 35, 5 L bleed in. The patient was scheduled to see us in the Pulmonary Clinic on 02/20/2023 but was not seen. Patient tells me that he was discharged to [facility] for approximately 2 weeks and that he used his old BiPAP machine at [facility]. When he left there he was walking approximately 3/4 of a block and using 5 L nasal cannula with rest and ambulation. The patient was then discharged to his assisted living facility at the [facility]. the patient tells me that he never received a new BiPAP machine and is unsure what his current settings are and is unsure if his old BiPAP machine was reprogrammed to a noninvasive ventilator mode with the above AVAPS-AE settings. The patient tells me that he would intermittently wear his BiPAP for short bursts with a fullface mask. He was wearing 5 L nasal cannula at rest, with ambulation and bleed in on his home BiPAP machine. The patient tells me that his sister called his assisted living and stated that BiPAP was allowed but a new machine was not allowed. 04/11/23 Currently the patient Has gained 15 kg since his discharge weight in January of 2023, lower extremity that began weeping yesterday, elevated BNP at 5740 (was 245 on 01/08/23), worsening hypoxic respiratory failure and initial blood gas with a compensated respiratory acidosis with pH of 7.32/66/57 on 8 L nasal cannula. The patient improved with BiPAP final settings of her rate of 22, pressures 18/8 and 40% with a blood gas of 7.37/67/66 this morning. These setting provide adequate oxygenation and ventilation. Currently the patient is off BiPAP on 5 L nasal cannula saturations 89-91 and this appears to be his baseline. I do not feel there is an active pulmonary infection and do not see a need for antibiotics from a pulmonary perspective. The patient does not have COPD and I see no need for bronchodilators or inhaled or systemic steroids. I have contacted our patient resource coordinator to obtain a download from [facility] to see what settings the patient's home machine is set at and check compliance. I asked the patient if he could have his home machine brought into the hospital so that we could perform an ABG at the end of the night and an overnight oximetry on these home settings and this would require his brother sister to bring in the machine and he is unsure if this can be accomplished. The BiPAP settings of a rate of 22, pressures 18/8 and 40% provide adequate oxygenation and ventilation. I asked the patient if I could place him on BiPAP and put him on an
[2023-04-12] MEDS: PANTOPRAZOLE SOD SESQUIHYDRATE 20 MG TAB PO (10:51)
[2023-04-12] MEDS: FERROUS SULFATE 324 MG TABLET PO ×2 (10:51→16:34)
[2023-04-12] MEDS: POTASSIUM CHLORIDE 20 MEQ TABLET.ER PO (10:51)
[2023-04-12] MEDS: BUMETANIDE 1 MG TABLET PO (10:51)
[2023-04-12] MEDS: APIXABAN 5 MG TABLET PO ×2 (10:51→16:34)
[2023-04-12] MEDS: ATORVASTATIN 20 MG TABLET PO (10:51)
[2023-04-12] MEDS: GABAPENTIN 300 MG CAPSULE PO ×3 (10:51→16:34)
[2023-04-12] MEDS: FLUTICASONE PROPIONATE 0.05% NA SPR 16 GM BTL (*BKC) 1 SPRAY NASAL (10:52)
[2023-04-12] MEDS: SILVERGEL (ELTA) 45 ML 1 APPLIC TOPICAL (10:52)
[2023-04-12 11:52] LABS: Glucose Point of Care 102 mg/dl (65-105)
--- NOTE | 2023-04-12 14:22 | PCRCNOTE ---
Arrangements for new home bipap machine being made with [facility]. Plan is for set-up at patient's apartment tomorrow.
[2023-04-12 16:04] LABS: Glucose Point of Care 88 mg/dl (65-105)
[2023-04-12 19:59] LABS: Glucose Point of Care 96 mg/dl (65-105)
[2023-04-13] VITALS (14 sets, daily range): BP systolic 97–124; BP diastolic 48–64; PULSE 82–107; RESP 18–23; TEMP 36.1–36.5; O2SAT 90–96
[2023-04-13 08:04] LABS: Glucose Point of Care 87 mg/dl (65-105)
[2023-04-13] MEDS: FLUTICASONE PROPIONATE 0.05% NA SPR 16 GM BTL (*BKC) 1 SPRAY NASAL (09:52)
[2023-04-13] MEDS: POTASSIUM CHLORIDE 20 MEQ TABLET.ER PO (09:52)
[2023-04-13] MEDS: PANTOPRAZOLE SOD SESQUIHYDRATE 20 MG TAB PO (09:53)
[2023-04-13] MEDS: ATORVASTATIN 20 MG TABLET PO (09:53)
[2023-04-13] MEDS: APIXABAN 5 MG TABLET PO (09:53)
[2023-04-13] MEDS: FERROUS SULFATE 324 MG TABLET PO (09:53)
[2023-04-13] MEDS: BUMETANIDE 1 MG TABLET PO (09:53)
[2023-04-13] MEDS: GABAPENTIN 300 MG CAPSULE PO (09:53)
[2023-04-13] MEDS: SILVERGEL (ELTA) 45 ML 1 APPLIC TOPICAL (09:53)
--- NOTE | 2023-04-13 09:58 | PM.PNPUL ---
Progress Note: A&P Assessment and Plan (1) Obesity hypoventilation syndrome: Code(s): E66.2 - Morbid (severe) obesity with alveolar hypoventilation Status: Acute Assessment and Plan: Patient with morbid obesity with obesity hypoventilation syndrome. He has diuresed well with a repeat BNP at 245, he is a never smoker? with no evidence of bullous emphysema on his CT scan. ? No significant thyroid disease. ? ABG on 11/05/2023 was 7.34/55/70? on high-flow nasal cannula 45 L and 45% FiO2. ? Discontinue all standing bronchodilators. his weight on admission was 152 kg and on 01/10/2023 was 124.3 kg. Per my last progress note on 01/10/2023: The patient will be eventually discharged to a rehabilitation center and he will have a noninvasive ventilator at night per the rehabilitation centers protocol or he can use his pre-existing home BiPAP machine.? I have initiated the process for a home noninvasive ventilator? through [facility] (DME) so that when he is discharged from the rehabilitation center back to his residence at the [facility] he can use this machine.? I have sent in orders for a noninvasive ventilator with the trilogy and AVAPS-AE mode with a set rate of 20, tidal volume 500, minimal EPAP 5, maximal EPAP 15, minimal pressure support 6, maximal pressure support 25, inspiratory time 1 second, AVAPS speed auto, maximum pressure 35, 5 L bleed in. The patient was scheduled to see us in the Pulmonary Clinic on 02/20/2023 but was not seen. Patient tells me that he was discharged to [facility] for approximately 2 weeks and that he used his old BiPAP machine at [facility]. When he left there he was walking approximately 3/4 of a block and using 5 L nasal cannula with rest and ambulation. The patient was then discharged to his assisted living facility at the [facility]. the patient tells me that he never received a new BiPAP machine and is unsure what his current settings are and is unsure if his old BiPAP machine was reprogrammed to a noninvasive ventilator mode with the above AVAPS-AE settings. The patient tells me that he would intermittently wear his BiPAP for short bursts with a fullface mask. He was wearing 5 L nasal cannula at rest, with ambulation and bleed in on his home BiPAP machine. The patient tells me that his sister called his assisted living and stated that BiPAP was allowed but a new machine was not allowed. 04/11/23 Currently the patient Has gained 15 kg since his discharge weight in January of 2023, lower extremity that began weeping yesterday, elevated BNP at 5740 (was 245 on 01/08/23), worsening hypoxic respiratory failure and initial blood gas with a compensated respiratory acidosis with pH of 7.32/66/57 on 8 L nasal cannula. The patient improved with BiPAP final settings of her rate of 22, pressures 18/8 and 40% with a blood gas of 7.37/67/66 this morning. These setting provide adequate oxygenation and ventilation. Currently the patient is off BiPAP on 5 L nasal cannula saturations 89-91 and this appears to be his baseline. I do not feel there is an active pulmonary infection and do not see a need for antibiotics from a pulmonary perspective. The patient does not have COPD and I see no need for bronchodilators or inhaled or systemic steroids. I have contacted our medical education coordinator to obtain a download from [facility] to see what settings the patient's home machine is set at and check compliance. I asked the patient if he could have his home machine brought into the hospital so that we could perform an ABG at the end of the night and an overnight oximetry on these home settings and this would require his brother sister to bring in the machine and he is unsure if this can be accomplished. The BiPAP settings of a rate of 22, pressures 18/8 and 40% provide adequate oxygenation and ventilation. I asked the patient if I could place him on BiPAP and put him on an
--- NOTE | 2023-04-13 11:04 | HOMEO2EVAL ---
Evaluation was performed at [facility] Home Oxygen Evaluation RC: Home Oxygen (O2) Evaluation Start: 04/13/23 10:05 Freq: ONCE Status: Active Protocol: RPE Activity Type Activity Date Activity User E-sign Co-sign Detail Recorded Client Recorded Date Recorded By Document 04/13/23 10:15 [facility] [email or web address] 04/13/23 11:03 [facility] Document 04/13/23 10:30 [facility] [email or web address] 04/13/23 11:03 [facility] Document 04/13/23 10:35 [facility] [email or web address] 04/13/23 11:03 [facility] 04/13/23 04/13/23 04/13/23 10:15 10:30 10:35 Home O2 Evaluation [Oxygen] -Test Phase Resting Exercise Resting -Oxygen Delivery Nasal Cannula Nasal Cannula Nasal Cannula -Oxygen Flow Rate (L/min) 5 5 [Pulse Oximetry] -Pulse Oximetry (90-100 %) 90 92 90 [Pulse Rate] -Pulse Rate (60-100 beats/min) 101 H 103 H 101 H [Charges] -Treatment Charges O2 Evaluation - Inpatient
--- NOTE | 2023-04-13 11:05 | PCRCNOTE ---
HOME O2 EVAL COMPLETE. PATIENT REQUIRES 5LPM WITH REST AND ACTIVITY. RN NOTIFIED.
[2023-04-13 11:35] LABS: Glucose Point of Care 79 mg/dl (65-105)
--- NOTE | 2023-04-13 12:07 | HOMEO2EVAL ---
Evaluation was performed at [facility] Home Oxygen Evaluation RC: Home Oxygen (O2) Evaluation Start: 04/13/23 10:05 Freq: ONCE Status: Active Protocol: RPE Activity Type Activity Date Activity User E-sign Co-sign Detail Recorded Client Recorded Date Recorded By Document 04/13/23 10:15 [facility] [email or web address] 04/13/23 11:03 [facility] Document 04/13/23 10:30 [facility] [email or web address] 04/13/23 11:03 [facility] Document 04/13/23 10:35 [facility] [email or web address] 04/13/23 11:03 [facility] 04/13/23 04/13/23 04/13/23 10:15 10:30 10:35 Home O2 Evaluation [Oxygen] -Test Phase Resting Exercise Resting -Oxygen Delivery Nasal Cannula Nasal Cannula Nasal Cannula -Oxygen Flow Rate (L/min) 5 5 5 [Pulse Oximetry] -Pulse Oximetry (90-100 %) 90 92 90 [Pulse Rate] -Pulse Rate (60-100 beats/min) 101 H 103 H 101 H [Charges] -Treatment Charges O2 Evaluation - Inpatient
--- NOTE | 2023-04-13 13:26 | P.DS_ITS ---
DS: Admitting Diagnosis Discharge Date 04/13/23 1330 Admitting Diagnosis Acute on chronic respiratory failure, obesity hypoventilation syndrome, CHF exacerbation DS: Discharge Diagnosis Discharge Diagnosis (1) Acute and chronic respiratory failure: Qualifiers: Respiratory failure complication: hypoxia and hypercapnia Qualified Code(s): J96.21 - Acute and chronic respiratory failure with hypoxia; J96.22 - Acute and chronic respiratory failure with hypercapnia; J96.22 - Acute and chronic respiratory failure with hypercapnia Code(s): J96.20 - Acute and chronic respiratory failure, unspecified whether with hypoxia or hypercapnia Status: Acute Assessment and Plan: * Chronic respiratory failure, 5 L supplemental O2 at Home * Presented with hypoxia, O2 sats in the 80s.? * ABG with compensated respiratory acidosis 7.392/72.7/64.5/43.2 * Bipap 18/8 rate of 22 and 40%, converted to AVAPS * Pulmonology consult * Trend SPO2 * Most likely will need a home O2 eval * Titrate Oxygen to maintain saturations >90% (2) Obesity hypoventilation syndrome: Code(s): E66.2 - Morbid (severe) obesity with alveolar hypoventilation Status: Acute Assessment and Plan: * Likely the main etiology of respiratory failure * Non-compliant with BiPAP, reports Only uses for 2 hours 3-4 nights per week.? * Switched to AVAPS, stated felt more comfortable and was able to tolerate overnight * Continue with supplemental O2 during the day and BiPAP at night. * Pulmonary consulted (3) CHF (congestive heart failure): Qualifiers: Heart failure chronicity: acute on chronic Heart failure type: diastolic Qualified Code(s): I50.33 - Acute on chronic diastolic (congestive) heart failure Code(s): I50.9 - Heart failure, unspecified Status: Acute Assessment and Plan: * Acute on chronic diastolic heart failure with exacerbation * Echo reviewed from December 2022 showed grade 2 diastolic dysfunction and EF of 65-70%.? * BNP elevated at 5700, appears volume overloaded * Endorses 30 lb weight gain in 2 months * Change Lasix 40 mg IV b.i.d, home bumex 1mg PO daily * Down 8L, edema is better * Monitor volume status closely with strict I&O and daily weights. * Deescalate diuresis at this time with notable improvement (4) Paroxysmal atrial fibrillation: Code(s): I48.0 - Paroxysmal atrial fibrillation Status: Acute Assessment and Plan: * Currently in sinus rhythm * No rate control medications * Continue Eliquis for stroke prophylaxis (5) Lower extremity ulceration: Qualifiers: Laterality: right Non-pressure ulcer stage: unspecified non-pressure ulcer stage Qualified Code(s): L97.919 - Non-pressure chronic ulcer of unspecified part of right lower leg with unspecified severity Code(s): L97.909 - Non-pressure chronic ulcer of unspecified part of unspecified lower leg with unspecified severity Status: Acute Assessment and Plan: * Regular, shallow ulceration of medial right lower extremity weeping serous fluid.? * Xray confirms no gas or osteomyelitis * Maintained by home wound care * Wound care consulted * continue with silver gel and elastic wraps.? 3 * appears stable * Most likely related to CHF exacerbation DS: Summary Hospital Course Hospital Course: Carmelo Jasmine is a a 63-year-old male with a hi
--- NOTE | 2023-04-13 13:26 | PM.DS ---
DS: Admitting Diagnosis Discharge Date 04/13/23 1330 Admitting Diagnosis Acute on chronic respiratory failure, obesity hypoventilation syndrome, CHF exacerbation DS: Discharge Diagnosis Discharge Diagnosis (1) Acute and chronic respiratory failure: Qualifiers: Respiratory failure complication: hypoxia and hypercapnia Qualified Code(s): J96.21 - Acute and chronic respiratory failure with hypoxia; J96.22 - Acute and chronic respiratory failure with hypercapnia; J96.22 - Acute and chronic respiratory failure with hypercapnia Code(s): J96.20 - Acute and chronic respiratory failure, unspecified whether with hypoxia or hypercapnia Status: Acute Assessment and Plan: Chronic respiratory failure, 5 L supplemental O2 at Home Presented with hypoxia, O2 sats in the 80s.? ABG with compensated respiratory acidosis 7.392/72.7/64.5/43.2 Bipap 18/8 rate of 22 and 40%, converted to AVAPS Pulmonology consult Trend SPO2 Most likely will need a home O2 eval Titrate Oxygen to maintain saturations >90% (2) Obesity hypoventilation syndrome: Code(s): E66.2 - Morbid (severe) obesity with alveolar hypoventilation Status: Acute Assessment and Plan: Likely the main etiology of respiratory failure Non-compliant with BiPAP, reports Only uses for 2 hours 3-4 nights per week.? Switched to AVAPS, stated felt more comfortable and was able to tolerate overnight Continue with supplemental O2 during the day and BiPAP at night. Pulmonary consulted (3) CHF (congestive heart failure): Qualifiers: Heart failure chronicity: acute on chronic Heart failure type: diastolic Qualified Code(s): I50.33 - Acute on chronic diastolic (congestive) heart failure Code(s): I50.9 - Heart failure, unspecified Status: Acute Assessment and Plan: Acute on chronic diastolic heart failure with exacerbation Echo reviewed from December 2022 showed grade 2 diastolic dysfunction and EF of 65-70%.? BNP elevated at 5700, appears volume overloaded Endorses 30 lb weight gain in 2 months Change Lasix 40 mg IV b.i.d, home bumex 1mg PO daily Down 8L, edema is better Monitor volume status closely with strict I&O and daily weights. Deescalate diuresis at this time with notable improvement (4) Paroxysmal atrial fibrillation: Code(s): I48.0 - Paroxysmal atrial fibrillation Status: Acute Assessment and Plan: Currently in sinus rhythm No rate control medications Continue Eliquis for stroke prophylaxis (5) Lower extremity ulceration: Qualifiers: Laterality: right Non-pressure ulcer stage: unspecified non-pressure ulcer stage Qualified Code(s): L97.919 - Non-pressure chronic ulcer of unspecified part of right lower leg with unspecified severity Code(s): L97.909 - Non-pressure chronic ulcer of unspecified part of unspecified lower leg with unspecified severity Status: Acute Assessment and Plan: Regular, shallow ulceration of medial right lower extremity weeping serous fluid.? Xray confirms no gas or osteomyelitis Maintained by home wound care Wound care consulted continue with silver gel and elastic wraps.? 3 appears stable Most likely related to CHF exacerbation DS: Summary Hospital Course Hospital Course: Carmelo Jasmine is a a 63-year-old male with a history of chronic respiratory failure maintained on 5 L supplemental O2 at all times, obesity hypoventilation syndrome, COPD, CHF, CKD, paroxysmal atrial fibrillation and questionable history of type 2 diabetes mellitus who presented to the emergency department on 04/10/2023 from his assisted living facility under the direction of his home health care nurse.Upon arrival patient stated that he was feeling okay however he was noted to have oxygen saturations in the mid upper 80s on his typical 5 L per nasal cannula.
--- NOTE | 2023-04-13 14:18 | PCRCNOTE ---
Contacted [facility]. in regards to setup of BIPAP for home use upon discharge. Maile from [facility] verified that all is arranged with home BIPAP unit and ready. Home O2 eval is completed with no adjustments from prior needs, 5L O2.
--- NOTE | 2023-04-13 15:44 | PCCCNOTE ---
On 04/13/23, the student, [Mia Blankenship ], provided care and completed [facility] documentation on this patient. I have reviewed the student's documentation and agree with the findings.
== END 2023-04-13 17:09 | DRG 291 ==
LOC: ANHED 10:54 → ANHIMU 15:44
PROVIDERS: Internal Medicine Pulmonary Disease; Physician Assistant; Admitting Provider Family Medicine; Emergency Provider General Practice; Visit Provider Physician Assistant
DX: I50.33 Acute on chronic diastolic (congestive) heart failure (principal); J96.21 Acute and chronic respiratory failure with hypoxia; J96.22 Acute and chronic respiratory failure with hypercapnia; E66.2 Morbid (severe) obesity with alveolar hypoventilation; Z68.42 Body mass index [BMI] 45.0-49.9, adult; L97.819 Non-pressure chronic ulcer of other part of right lower leg with unspecified severity; I87.2 Venous insufficiency (chronic) (peripheral); I89.0 Lymphedema, not elsewhere classified; I48.0 Paroxysmal atrial fibrillation; E11.9 Type 2 diabetes mellitus without complications; E78.5 Hyperlipidemia, unspecified; Z79.01 Long term (current) use of anticoagulants; Z99.81 Dependence on supplemental oxygen; Z87.891 Personal history of nicotine dependence
CPT/HCPCS: 36415; 36600; 71045; 73590; 80048; 80053; 82375; 82805; 82948; 83036; 83050; 83880; 84484; 85025; 85027; 85610; 85730; 93005; 94002; 94003; 94618; 94660; 94762; 96374; 99285; A9270; J1940

== ENCOUNTER 2023-06-12 14:24 | Inpatient (IN) | payer MEDICARE, SELFPAY ==
[2023-06-12] VITALS (9 sets, daily range): BP systolic 101–108; BP diastolic 57–73; PULSE 86–100; RESP 15–22; TEMP 35.8–37.1; O2SAT 90–98
--- NOTE | ~2023-06-12 | XR_ITS ---
EXAMINATION: XR chest 2V DATE: 06/12/2023 15:16 INDICATION: Shortness of breath TECHNIQUE: frontal and lateral views of the chest were obtained. COMPARISON: Chest radiograph dated 04/10/2023 FINDINGS: Chronic elevation of the right hemidiaphragm. Bilateral perihilar opacities. No pleural effusion or p neumothorax. Cardiomegaly. There are bridging osteophytes at multiple levels in the spine, consistent with diffuse idiopathic skeletal hyperostosis (DISH). IMPRESSION: 1. Cardiomegaly with bilateral perihilar opacities which could represent mild pulmonary edema or pneu monia. 2. Chronic elevation of the right hemidiaphragm. Reviewed, dictated and finalized at location L. IMPRESSION: 1. Cardiomegaly with bilateral perihilar opacities which could represent mild p ulmonary edema or pneumonia. 2. Chronic elevation of the right hemidiaphragm.
--- NOTE | ~2023-06-12 | XR_ITS ---
EXAMINATION: XR chest 1V portable DATE: 06/17/2023 13:15 INDICATION: Respiratory failure TECHNIQUE: frontal view of the chest was obtained. COMPARISON: Chest radiograph dated 06/12/2023 FINDINGS: Decreased right lung volume with chronic elevation the right hemidiaphragm. Organomegaly with pulmona ry vascular congestion and mild increased interstitial pattern consistent with mild pulmonary edema.. Left paracardial fat pad which extends to the costophrenic angle. No pleural effusion or pneumothora x. There are bridging osteophytes at multiple levels in the spine, consistent with diffuse idiopathic skeletal hyperostosis (DISH). IMPRESSION: 1. Cardiomegaly with mild pulmonary edema. 2. Chronic elevation the right hemidiaphragm. Reviewed, dictated and finalized at location A.
--- NOTE | ~2023-06-12 | XR_ITS ---
EXAMINATION: XR chest PICC line DATE: 06/17/2023 14:06 INDICATION: PICC line placement TECHNIQUE: frontal view of the chest was obtained. COMPARISON: Chest radiograph dated 06/17/2023 FINDINGS: Right upper extremity peripherally inserted central venous catheter (PICC) tip at the caudal superio r vena cava. Again seen is elevation the right hemidiaphragm. Cardiomegaly with pulmonary gastric congestion. Mild opacities at the bilateral lung bases. No pleural effusion or pneumothorax. IMPRESSION: 1. Right PICC line tip at the caudal superior vena cava. 2. Cardiomegaly with mild pulmonary edema. 3. Mild bibasilar opacities and favor atelectasis over pneumonia. Reviewed, dictated and finalized at location A.
--- NOTE | 2023-06-12 14:30 | ECG_ITS ---
Measurements Intervals [place] Rate: 90 P: 49 CT: 140 QRS: 9 QRSD: 131 T: -18 QT: 368 QTc: 451 Interpretive Statements SINUS RHYTHM LEFT ATRIAL ENLARGEMENT [-0.15mV P WAVE IN V1/V2] RIGHT BUNDLE BRANCH BLOCK ABNORMAL ECG COMPARED TO ECG 12/28/2022 13:00:45 NO SIGNIFICANT CHANGE Electronically Signed On 06-13-2023 7:39:28 CDT by Santosh Vieira M.D.
[2023-06-12 14:59] LABS: Basophils Percent Auto 0.4 % (0.2-1.2); Eosinophils Absolute Auto 0.2 K/mm3 (0-0.3); Eosinophils Percent Auto 1.9 % (0-4.4); Hematocrit 47.1 % (42.0-52.0); Hemoglobin 13.8 g/dL (14.0-18.0); Immature Granulocyte Absolute 0.03 K/mm3 (0.00-0.031); Immature Granulocyte Percent A 0.4 % (0-0.5); Lymphocytes Absolute Auto 0.85 K/mm3 (0.9-3.2); Lymphocytes Percent Auto 10.1 % (18.3-44.2); Mean Corpuscular HGB Conc 29.3 g/dl (32-36); Mean Corpuscular Hemoglobin 30.3 pg (26-34); Mean Corpuscular Volume 103.3 fl (80-100); Mean Platelet Volume 9.6 fl (7.4-10.4); Monocytes Percent Auto 11.9 % (2.6-8.5); Neutrophils Absolute Auto 6.3 K/mm3 (1.3-6.7); Neutrophils Percent Auto 75.3 % (45.5-73.1); Platelet Count Result 203 k/mm3 (150-375); Red Blood Count 4.56 M/mm3 (4.6-6.20); Red Cell Distribution Width 15.3 % (11.5-14.5); White Blood Count 8.4 K/mm3 (4.5-10.0)
[2023-06-12 15:09] LABS: Alanine Aminotransferase 22 U/L (6-50); Albumin Level 3.4 g/dL (3.5-5.1); Alkaline Phosphatase 81 U/L (38-126); Anion Gap 3 mmol/L (8-16); Aspartate Amino Transferase 22 U/L (17-59); Bilirubin,Total 0.8 mg/dL (0.2-1.3); Blood Urea Nitrogen 40 mg/dL (9-20); Calcium 8.5 mg/dL (8.4-10.2); Carbon Dioxide 29 mmol/L (22-30); Chloride 101 mmol/L (98-107); Estimated CRCL calculation 59 ml/min; Estimated Glomerular Filt Rate 41; Glucose 105 mg/dL (65-110); Potassium 5.2 mmol/L (3.4-5.0); Sodium 133 mmol/L (137-145)
[2023-06-12 15:10] LABS: INR 1.7; Prothrombin Time 21.3 Seconds (11.1-14.7)
[2023-06-12 15:11] LABS: Partial Thromboplastin Time 33.6 SECONDS (22.3-36.8)
[2023-06-12 15:20] LABS: NT Pro B Type Natriuretic Pept 7560 pg/mL (19.9-100); Troponin I < 0.012 ng/mL (0.000-0.034)
[2023-06-12] MEDS: BUMETANIDE INJ 1 MG/4 ML VIAL IV PUSH (15:38)
--- NOTE | 2023-06-12 16:41 | ED.SOB ---
HPI - SOB/Dyspnea General Chief Complaint: Shortness of Breath/Dyspnea Stated Complaint: SOB, hypoxic Time Seen by Provider: 06/12/23 14:28 History of Present Illness HPI Narrative: Patient is a 63-year-old male who presents ER with shortness of breath. He has had increased swelling to his legs. He has been taking his home Bumex without improvement. He has orthopnea. He is unable to lay down flat ever. No chest pain or chest pressure. No fevers or chills or sweats. No productive cough. Anticoagulated on Eliquis. Patient wears 5 L of oxygen chronically. Related Data Home Medications Medication Instructions Recorded Confirmed Acidophilus Probiotic Blend 1 billion cells PO DAILY 12/28/22 04/10/23 acetaminophen 500 mg tablet 500 mg PO Q6H PRN Pain, Mild 12/28/22 04/10/23 apixaban 5 mg tablet (Eliquis) 5 mg PO BID 12/28/22 04/10/23 atorvastatin 20 mg tablet 20 mg PO DAILY 12/28/22 04/10/23 ferrous sulfate 325 mg (65 mg 325 mg PO BID 12/28/22 04/10/23 iron) tablet (FeroSul) fluticasone propionate 50 50 mcg intranasal DAILY 12/28/22 04/10/23 mcg/actuation nasal spray,suspension pantoprazole 20 mg tablet,delayed 20 mg PO DAILY 12/28/22 04/10/23 release umeclidinium 62.5 mcg/actuation 1 inh inhalation DAILY 12/28/22 04/10/23 blister powder for inhalation (Incruse Ellipta) gabapentin 300 mg capsule 300 mg PO TID 04/10/23 04/10/23 lactulose 10 gram/15 mL oral 30 ml PO DAILY PRN Constipation 04/10/23 04/10/23 solution (Enulose) lidocaine 4 % topical patch 2 patch topical DAILY PRN Back Pain 04/10/23 04/10/23 (Lidocaine Pain Relief) potassium chloride 20 mEq 20 meq PO DAILY 04/10/23 04/10/23 tablet,extended release Allergies Allergy/AdvReac Type Severity Reaction Status Date / Time amoxicillin Allergy Unknown Diarrhea Verified 06/12/23 18:40 Review of Systems Review of Systems: All systems reviewed & are unremarkable except as noted in HPI and below Constitutional: Constitutional: Denies chills, Reports fatigue and Denies fever(s) ENT: Denies nasal congestion and Denies sore throat Cardiovascular: Cardiovascular: Denies chest pain, Denies rapid heart rate and Denies radiating jaw, neck or arm pain Respiratory: Respiratory: Denies cough, Reports dyspnea and Denies wheezing Comments: Positive orthopnea Gastrointestinal: Gastrointestinal: Denies abdominal pain, Denies nausea and Denies vomiting PMFSH Past Medical History Medical History (Updated 06/12/23 @ 22:06 by Israel Toledo MD) Chronic kidney disease, stage 3 Chronic respiratory failure with hypoxia, on home oxygen therapy Congestive heart failure Hyperlipidemia Lymphedema Obesity hypoventilation syndrome Obstructive sleep apnea Paroxysmal atrial fibrillation Type 2 diabetes mellitus Surgical History Surgical History (System 04/10/23 @ 16:29 by Gabrielle Tan) History of meniscectomy of left knee Family History Family History Mother Atrial fibrillation Hypothyroidism Father Colon cancer Deep venous thrombosis Social History Social History (System 04/10/23 @ 16:29 by Gabrielle Tan) Social History: Patient lives at [facility]. His primary care provider is ELISABETH Berry based at [facility]. He is a full code. He designates his sister, Verito, as his surrogate decision maker Smoking status: Former smoker Alcohol intake: former Alcohol use details: No alcohol in 4 years Substance use: never Lack of Transportation: No Lack of Food: Never True Current Housing: I Have Housing Concerned About Future Housing: No Difficulty Paying Gas/Electric Bills: No Difficulty Paying for Meds: Decline to Answer Currently Unemployed: No Education: Don't Know Difficulty w/ Childcare or Family Care: Decline to Answer Additional living arrangements comments: Assisted living at [facility]. Spiritual care concerns:
--- NOTE | 2023-06-12 18:38 | ADMGEN ---
This patient, Carmelo Jasmine, was admitted to [facility] Surg Room 316-02. Patient/family oriented to hospital policies and general routines including ID bracelet, bed and alarms, visiting hours, pain management, procedures, bathroom and other care routines, personal items, smoking policy, room service/diet, and visiting hours. Information on how to activate the Rapid Response Team has been discussed. Patient/Family are encouraged to report perceived risks to care and to ask questions if they do not understand what they are told or what they should do.
--- NOTE | 2023-06-12 19:22 | PC.NURSE ---
06/12/231919: Called [facility] and requested the patient's medication list be faxed over to us.
[2023-06-12] MEDS: ACETAMINOPHEN 325 MG TABLET 650 MG PO (21:03)
[2023-06-12] MEDS: HYDROcodone/acetaminophen (*CRX) 5-325 MG TABLET 1 TAB PO (22:00)
--- NOTE | 2023-06-12 23:11 | PM.IMHP ---
H&P: HPI History of Present Illness Date/Time: 06/12/23 23:11 Chief Complaint: Shortness of breath Narrative: This is a 63-year-old male patient who has a history of congestive heart failure. The patient states that he chronically sleeps up in the recliner. He lives home alone and in credit control assistant living has Ani Frazier. The patient has been having increased swelling to his lower extremities. The patient stated that they have been wrapping his legs. The patient has 4+ pitting edema to his lower extremities although it was abdomen. The patient chronically wears 5 L per nasal cannula at home. The patient has been taking his Bumex at home without improvement. His potassium slightly high at 5.2 and his sodium is 133. BUN is 40 and creatinine is 1.7. Previously his creatinine was 1.4 on 04/12/2023. Otherwise it was normal in the past. His BNP was 7560. His BNP has been up to 14,800 in the past. Chest x-ray was read as the following. Cardiomegaly with bilateral perihilar opacities which could represent mild pulmonary edema or pneumonia. 2. Chronic elevation of the right hemidiaphragm. The patient was given Bumex in the emergency room. The patient currently has appear a on and there was 200 cc in the canister. The patient is resting in a recliner with his feet up. The patient is being admitted to observation status on the date of service of 06/12/2023. Review of Systems Review of Systems: All systems reviewed & are unremarkable except as noted in HPI and below Constitutional: Constitutional: Reports as per HPI and Reports no additional constitutional complaints Eyes: Eyes: Reports as per HPI and Reports no additional eye complaints ENT: Reports system reviewed and no additional complaints, except as documented and Reports Normal hearing present Cardiovascular: Cardiovascular: Reports no additional cardiovascular complaints Respiratory: Respiratory: Reports no additional respiratory complaints and Reports no additional respiratory complaints Gastrointestinal: Gastrointestinal: Reports as per HPI and Reports no additional gastrointestinal complaints Musculoskeletal: Musculoskeletal: Reports no additional musculoskeletal complaints Integumentary/Breasts: Skin/Breast: Reports system reviewed and no additional complaints, except as docu and Reports as per HPI Neurologic: Reports system reviewed and no additional complaints, except as documented, Reports as per HPI and Reports Normal hearing present Psychiatric: Psychiatric: Reports no additional psychiatric complaints and Reports as per HPI Endocrine: Endocrine: Reports no additional endocrine complaints Hematologic/Lymphatic: Hematologic/Lymphatic: Reports no additional hematologic/lymphatic complaints Allergic/Immunologic: Allergic/Immunologic: Reports no additional allergic/immunologic complaints [facility] Past Medical History Medical History Chronic kidney disease, stage 3 Chronic respiratory failure with hypoxia, on home oxygen therapy Congestive heart failure Hyperlipidemia Lymphedema Obesity hypoventilation syndrome Obstructive sleep apnea Paroxysmal atrial fibrillation Type 2 diabetes mellitus Surgical History Surgical History History of meniscectomy of left knee Family History Family History Mother Atrial fibrillation Hypothyroidism Father Colon cancer Deep venous thrombosis Social History Social History (Updated 06/13/23 @ 00:58 by Xochitl Malone NP) Social History: He is single and has no children. He is retired from [email or web address]. Patient lives at [facility]. His primary care provider is ELISABETH Berry based at [facility]. He is a full code. He designates his sister, Verito, as his surrogate decision maker Code status full code Smoking status: Former smoker Alcohol int
[2023-06-13] MEDS: HYDROcodone/acetaminophen (*CRX) 5-325 MG TABLET 1 TAB PO ×5 (02:06→22:00)
[2023-06-13 06:00] VITALS: BP 98/56; PULSE 94; RESP 20; TEMP 36.8; O2SAT 88
[2023-06-13 07:00] LABS: Basophils Percent Auto 0.4 % (0.2-1.2); Eosinophils Absolute Auto 0.3 K/mm3 (0-0.3); Eosinophils Percent Auto 2.9 % (0-4.4); Hematocrit 47.6 % (42.0-52.0); Immature Granulocyte Absolute 0.04 K/mm3 (0.00-0.031); Immature Granulocyte Percent A 0.4 % (0-0.5); Lymphocytes Absolute Auto 1.03 K/mm3 (0.9-3.2); Lymphocytes Percent Auto 10.9 % (18.3-44.2); Mean Corpuscular HGB Conc 29.4 g/dl (32-36); Mean Corpuscular Hemoglobin 30.6 pg (26-34); Mean Corpuscular Volume 103.9 fl (80-100); Mean Platelet Volume 9.1 fl (7.4-10.4); Monocytes Absolute Auto 1.3 K/mm3 (0.1-0.6); Monocytes Percent Auto 13.8 % (2.6-8.5); Neutrophils Absolute Auto 6.8 K/mm3 (1.3-6.7); Neutrophils Percent Auto 71.6 % (45.5-73.1); Platelet Count Result 199 k/mm3 (150-375); Red Blood Count 4.58 M/mm3 (4.6-6.20); Red Cell Distribution Width 15.4 % (11.5-14.5); White Blood Count 9.4 K/mm3 (4.5-10.0)
[2023-06-13 07:06] LABS: Ammonia < 9 umol/L (9-30)
[2023-06-13 07:13] LABS: Alanine Aminotransferase 22 U/L (6-50); Albumin Level 3.5 g/dL (3.5-5.1); Alkaline Phosphatase 84 U/L (38-126); Anion Gap 4 mmol/L (8-16); Aspartate Amino Transferase 23 U/L (17-59); Bilirubin,Total 0.8 mg/dL (0.2-1.3); Blood Urea Nitrogen 41 mg/dL (9-20); Calcium 8.6 mg/dL (8.4-10.2); Carbon Dioxide 33 mmol/L (22-30); Chloride 101 mmol/L (98-107); Estimated CRCL calculation 56 ml/min; Estimated Glomerular Filt Rate 38; Glucose 108 mg/dL (65-110); Magnesium 2.1 mg/dL (1.6-2.3); Phosphorus 5.5 mg/dL (2.5-4.5); Potassium 5.7 mmol/L (3.4-5.0); Sodium 138 mmol/L (137-145)
[2023-06-13 07:37] LABS: Glucose Point of Care 99 mg/dl (65-105)
[2023-06-13 07:54] LABS: Hemoglobin A1C 5.9 % (<5.7)
[2023-06-13] MEDS: BUMETANIDE INJ 1 MG/4 ML VIAL IV PUSH ×2 (08:44→17:22)
[2023-06-13 11:39] LABS: Glucose Point of Care 139 mg/dl (65-105)
[2023-06-13] MEDS: SILVERGEL (ELTA) 45 ML 1 APPLIC TOPICAL (12:20)
[2023-06-13] MEDS: TOLNAFTATE 1% POWDER 45 GM BTL 1 APPLIC TOPICAL ×3 (12:21→20:47)
[2023-06-13 13:47] VITALS: BP 96/56; PULSE 89; RESP 20; TEMP 36.1; O2SAT 92
--- NOTE | 2023-06-13 13:48 | PM.IMPN ---
Progress Note: A&P Assessment and Plan (1) CHF exacerbation: Qualifiers: Heart failure type: unspecified Qualified Code(s): I50.9 - Heart failure, unspecified Code(s): I50.9 - Heart failure, unspecified Status: Acute Assessment and Plan: Echo on . Technically difficult echocardiogram in intubated patient, definity contrast used to improve exam. ? 2. Left ventricular hypertrophy with normal LV size and good systolic function. ? 3. Grade 2 diastolic noncompliance. ? 4. Enlarged right ventricle. ? 5. Tricuspid regurgitation velocities suggesting at least moderately elevated pulmonary artery pressure. The patient has been on Bumex p.o. however his renal failure is worsening somewhat but will need to monitor this closely. The patient was given IV Protonix in the emergency room. The patient has anasarca from his toes all the way up to his abdomen. The patient is currently on Bumex b.i.d.. The patient chronically sleeps in the recliner. Pt states he doesn't own a bed and is not able to recline far secondary to pain and orthopnea. States he has had this for several years. (2) Lower extremity ulceration: Qualifiers: Laterality: right Non-pressure ulcer stage: unspecified non-pressure ulcer stage Qualified Code(s): L97.919 - Non-pressure chronic ulcer of unspecified part of right lower leg with unspecified severity Code(s): L97.909 - Non-pressure chronic ulcer of unspecified part of unspecified lower leg with unspecified severity Status: Acute Assessment and Plan: Wound Care has been consulted. The patient stated that the dermatology physician assistant living has been doing dressings. The patient does have lymphedema. He has 3+ pitting edema. Wound care nurse consult greatly be appreciated. (3) Paroxysmal atrial fibrillation: Code(s): I48.0 - Paroxysmal atrial fibrillation Status: Acute Assessment and Plan: Will continue home dose of Eliquis (4) CKD (chronic kidney disease): Qualifiers: Chronic kidney disease stage: unspecified stage Qualified Code(s): N18.9 - Chronic kidney disease, unspecified Code(s): N18.9 - Chronic kidney disease, unspecified Status: Chronic Assessment and Plan: His creatinine is 1.8 today. His creatinine is been all way up to 2.7 in the past. Please continue to monitor. His BUN is 41 today and has been up to 15 the past. (5) Type 2 diabetes mellitus: Qualifiers: Diabetes mellitus chcf insulin use: without chcf use Diabetes mellitus complication status: with circulatory complication Diabetes mellitus complication detail: with other circulatory complications Qualified Code(s): E11.59 - Type 2 diabetes mellitus with other circulatory complications Code(s): E11.9 - Type 2 diabetes mellitus without complications Status: Acute Assessment and Plan: Patient's glucose is 108 today. The patient stated that he was not aware that he is diabetic. However is in his records that he is diabetic. Will do Accu-Cheks AC and HS with sliding scale insulin check A1c. (6) Lymphedema: Code(s): I89.0 - Lymphedema, not elsewhere classified Status: Acute Assessment and Plan: Continue with wraps to his lower extremities. (7) Chronic obstructive pulmonary disease: Code(s): J44.9 - Chronic obstructive pulmonary disease, unspecified Status: Acute Assessment and Plan: Continue Incruse Ellipta as at home (8) Obesity hypoventilation syndrome: Code(s): E66.2 - Morbid (severe) obesity with alveolar hypoventilation Status: Acute Assessment and Plan: Continue with home settings for BiPAP/CPAP (9) Acute on chronic respiratory failure with hypoxia and hypercapnia: Code(s): J96.21 - Acute and chronic respiratory failure with hypoxia; J96.22 - Acute and chronic respiratory failure with hypercapnia Status: Acute Assessment and P
[2023-06-13] MEDS: ATORVASTATIN 20 MG TABLET PO (14:39)
[2023-06-13] MEDS: PANTOPRAZOLE SOD SESQUIHYDRATE 20 MG TAB PO (14:39)
[2023-06-13] MEDS: GABAPENTIN 300 MG CAPSULE PO ×2 (14:39→17:22)
[2023-06-13 16:40] LABS: Glucose Point of Care 98 mg/dl (65-105)
[2023-06-13] MEDS: FERROUS SULFATE 325 MG TABLET DR PO (17:22)
[2023-06-13] MEDS: APIXABAN 5 MG TABLET PO (20:42)
[2023-06-13 21:05] LABS: Glucose Point of Care 97 mg/dl (65-105)
[2023-06-13 22:00] VITALS: BP 103/61; PULSE 100; RESP 16; TEMP 36.8; O2SAT 96
[2023-06-13 23:20] VITALS: O2SAT 95
[2023-06-14] MEDS: HYDROcodone/acetaminophen (*CRX) 5-325 MG TABLET 1 TAB PO ×4 (02:04→22:12)
[2023-06-14 06:00] VITALS: BP 98/59; PULSE 92; RESP 14; TEMP 36.2; O2SAT 91
[2023-06-14 08:17] LABS: Glucose Point of Care 80 mg/dl (65-105)
[2023-06-14] MEDS: UMECLIDINIUM BROMIDE 62.5 MCG ELLIPTA 1 PUFF INHALATION (09:32)
[2023-06-14 09:34] VITALS: PULSE 70; RESP 16
[2023-06-14 10:04] VITALS: O2SAT 92
[2023-06-14] MEDS: FERROUS SULFATE 325 MG TABLET DR PO ×2 (10:04→18:04)
[2023-06-14] MEDS: GABAPENTIN 300 MG CAPSULE PO ×3 (10:04→18:04)
[2023-06-14] MEDS: PANTOPRAZOLE SOD SESQUIHYDRATE 20 MG TAB PO (10:05)
[2023-06-14] MEDS: ACIDOPHILUS/BULGARICUS CHEWABLE TABLET 1 TABLET PO (10:05)
[2023-06-14] MEDS: APIXABAN 5 MG TABLET PO ×2 (10:05→20:31)
[2023-06-14] MEDS: FLUTICASONE PROPIONATE 0.05% NA SPR 16 GM BTL (*BKC) 1 SPRAY NASAL (10:05)
[2023-06-14] MEDS: BUMETANIDE INJ 1 MG/4 ML VIAL IV PUSH ×2 (10:05→18:04)
[2023-06-14] MEDS: ATORVASTATIN 20 MG TABLET PO (10:05)
[2023-06-14] MEDS: TOLNAFTATE 1% POWDER 45 GM BTL 1 APPLIC TOPICAL ×3 (10:06→20:34)
[2023-06-14] MEDS: SILVERGEL (ELTA) 45 ML 1 APPLIC TOPICAL (10:10)
--- NOTE | 2023-06-14 11:31 | PM.IMPN ---
Progress Note: A&P Assessment and Plan (1) CHF exacerbation: Qualifiers: Heart failure type: unspecified Qualified Code(s): I50.9 - Heart failure, unspecified Code(s): I50.9 - Heart failure, unspecified Status: Acute Assessment and Plan: Echo on 12/29/2022, normal EF with grade 2 diastolic dysfunction, continue diuresis with Bumex Strict I&Os, daily weights (2) Lower extremity ulceration: Qualifiers: Laterality: right Non-pressure ulcer stage: unspecified non-pressure ulcer stage Qualified Code(s): L97.919 - Non-pressure chronic ulcer of unspecified part of right lower leg with unspecified severity Code(s): L97.909 - Non-pressure chronic ulcer of unspecified part of unspecified lower leg with unspecified severity Status: Acute Assessment and Plan: Wound Care has been consulted. The patient stated that the carpenter assistant living has been doing dressings. The patient does have lymphedema. Wound care nurse consult greatly be appreciated. (3) Paroxysmal atrial fibrillation: Code(s): I48.0 - Paroxysmal atrial fibrillation Status: Acute Assessment and Plan: Will continue home dose of Eliquis (4) CKD (chronic kidney disease): Qualifiers: Chronic kidney disease stage: unspecified stage Qualified Code(s): N18.9 - Chronic kidney disease, unspecified Code(s): N18.9 - Chronic kidney disease, unspecified Status: Chronic Assessment and Plan: His creatinine is 1.8 today. His creatinine is been all way up to 2.7 in the past. Please continue to monitor. His BUN is 41 today and has been up to 15 the past. (5) Type 2 diabetes mellitus: Qualifiers: Diabetes mellitus complication detail: with other circulatory complications Diabetes mellitus complication status: with circulatory complication Diabetes mellitus detention insulin use: without tank terminal gauger use Qualified Code(s): E11.59 - Type 2 diabetes mellitus with other circulatory complications Code(s): E11.9 - Type 2 diabetes mellitus without complications Status: Acute Assessment and Plan: The patient stated that he was not aware that he is diabetic. However is in his records that he is diabetic. Will do Accu-Cheks AC and HS with sliding scale insulin check A1c. (6) Lymphedema: Code(s): I89.0 - Lymphedema, not elsewhere classified Status: Acute Assessment and Plan: Continue with wraps to his lower extremities. (7) Chronic obstructive pulmonary disease: Code(s): J44.9 - Chronic obstructive pulmonary disease, unspecified Status: Acute Assessment and Plan: Continue Incruse Ellipta as at home (8) Obesity hypoventilation syndrome: Code(s): E66.2 - Morbid (severe) obesity with alveolar hypoventilation Status: Acute Assessment and Plan: Continue with home settings for BiPAP/CPAP (9) Acute on chronic respiratory failure with hypoxia and hypercapnia: Code(s): J96.21 - Acute and chronic respiratory failure with hypoxia; J96.22 - Acute and chronic respiratory failure with hypercapnia Status: Acute Assessment and Plan: The patient is chronically on oxygen at home. The patient is currently on 5 L. The patient has and eroded area to his left earlobe. Plan DVT prophylaxis with Eliquis GI prophylaxis not indicated Code status full code Subjective Date/time seen: 06/14/23 11:31 Interval history: No overnight events noted. No chest pain or shortness of breath. No nausea, vomiting or diarrhea. No fevers or chills. Patient feels about the same as yesterday. Review of Systems Review of Systems: 12 point review of systems was assessed and was negative except as noted in the HPI Exam Narrative: General: No acute distress, alert and oriented per baseline HEENT: Atraumatic, normocephalic, mucous membranes moist CV: Regular rate and
[2023-06-14 11:56] LABS: Glucose Point of Care 114 mg/dl (65-105)
[2023-06-14 14:52] VITALS: BP 95/55; PULSE 93; RESP 16; TEMP 36.2; O2SAT 90
--- NOTE | 2023-06-14 15:12 | PC.NURSE ---
Addendum entered by Maricarmen Caraballo RN 06/14/23 19:14: Pt wound care and dressing changes done. Pt tolerated well. Pt was monitored for any changes in status. Original Note: Pt up in chair. Pt does not allow staff to assess bottom. Pt educated on the importance of keeping self clean and dry. Pt educated that dressing change needed to be done, pt refused to allow dressing change at this time. Pt was informed that it needs to be done this shift. Pt agreed to later in shift. Pt denies any openings on ankle. Pt educated on what dressing change will be and creams and medications used. Wound care will be documented once pt allows. Will continue to monitor pt.
[2023-06-14 17:01] LABS: Glucose Point of Care 91 mg/dl (65-105)
[2023-06-14 20:31] LABS: Glucose Point of Care 89 mg/dl (65-105)
[2023-06-14 22:00] VITALS: BP 105/51; PULSE 100; RESP 12; TEMP 36.8; O2SAT 90
[2023-06-14 22:45] VITALS: O2SAT 91
[2023-06-15] VITALS (7 sets, daily range): BP systolic 100–116; BP diastolic 52–71; PULSE 105–109; RESP 14–16; TEMP 36.2–36.3; O2SAT 90–98
[2023-06-15] MEDS: UMECLIDINIUM BROMIDE 62.5 MCG ELLIPTA 1 PUFF INHALATION (08:34)
[2023-06-15] MEDS: ACIDOPHILUS/BULGARICUS CHEWABLE TABLET 1 TABLET PO (09:33)
[2023-06-15] MEDS: BUMETANIDE INJ 1 MG/4 ML VIAL IV PUSH ×2 (09:33→16:57)
[2023-06-15] MEDS: PANTOPRAZOLE SOD SESQUIHYDRATE 20 MG TAB PO (09:34)
[2023-06-15] MEDS: FERROUS SULFATE 325 MG TABLET DR PO ×2 (09:34→16:57)
[2023-06-15] MEDS: FLUTICASONE PROPIONATE 0.05% NA SPR 16 GM BTL (*BKC) 1 SPRAY NASAL (09:34)
[2023-06-15] MEDS: ATORVASTATIN 20 MG TABLET PO (09:34)
[2023-06-15] MEDS: APIXABAN 5 MG TABLET PO ×2 (09:34→20:18)
[2023-06-15] MEDS: GABAPENTIN 300 MG CAPSULE PO ×3 (09:34→16:57)
[2023-06-15] MEDS: HYDROcodone/acetaminophen (*CRX) 5-325 MG TABLET 1 TAB PO ×2 (09:34→16:57)
[2023-06-15] MEDS: TOLNAFTATE 1% POWDER 45 GM BTL 1 APPLIC TOPICAL ×3 (09:36→20:18)
[2023-06-15] MEDS: SILVERGEL (ELTA) 45 ML 1 APPLIC TOPICAL (09:42)
[2023-06-15 10:03] LABS: Basophils Percent Auto 0.5 % (0.2-1.2); Eosinophils Absolute Auto 0.4 K/mm3 (0-0.3); Eosinophils Percent Auto 4.9 % (0-4.4); Hematocrit 45.4 % (42.0-52.0); Hemoglobin 13.4 g/dL (14.0-18.0); Immature Granulocyte Absolute 0.02 K/mm3 (0.00-0.031); Immature Granulocyte Percent A 0.2 % (0-0.5); Lymphocytes Percent Auto 12.2 % (18.3-44.2); Mean Corpuscular HGB Conc 29.5 g/dl (32-36); Mean Corpuscular Hemoglobin 30.5 pg (26-34); Mean Corpuscular Volume 103.4 fl (80-100); Mean Platelet Volume 9.7 fl (7.4-10.4); Monocytes Absolute Auto 0.9 K/mm3 (0.1-0.6); Monocytes Percent Auto 10.8 % (2.6-8.5); Neutrophils Absolute Auto 5.8 K/mm3 (1.3-6.7); Neutrophils Percent Auto 71.4 % (45.5-73.1); Platelet Count Result 194 k/mm3 (150-375); Red Blood Count 4.39 M/mm3 (4.6-6.20); Red Cell Distribution Width 15.5 % (11.5-14.5); White Blood Count 8.2 K/mm3 (4.5-10.0)
[2023-06-15 10:14] LABS: Alanine Aminotransferase 21 U/L (6-50); Albumin Level 3.5 g/dL (3.5-5.1); Alkaline Phosphatase 72 U/L (38-126); Anion Gap 5 mmol/L (8-16); Aspartate Amino Transferase 20 U/L (17-59); Bilirubin,Total 1.1 mg/dL (0.2-1.3); Blood Urea Nitrogen 41 mg/dL (9-20); Calcium 8.4 mg/dL (8.4-10.2); Carbon Dioxide 36 mmol/L (22-30); Chloride 95 mmol/L (98-107); Estimated CRCL calculation 62 ml/min; Estimated Glomerular Filt Rate 44; Glucose 120 mg/dL (65-110); Magnesium 1.8 mg/dL (1.6-2.3); Potassium 4.4 mmol/L (3.4-5.0); Sodium 136 mmol/L (137-145)
--- NOTE | 2023-06-15 11:02 | PM.IMPN ---
Progress Note: A&P Assessment and Plan (1) CHF exacerbation: Qualifiers: Heart failure type: unspecified Qualified Code(s): I50.9 - Heart failure, unspecified Code(s): I50.9 - Heart failure, unspecified Status: Acute (2) Lower extremity ulceration: Qualifiers: Laterality: right Non-pressure ulcer stage: unspecified non-pressure ulcer stage Qualified Code(s): L97.919 - Non-pressure chronic ulcer of unspecified part of right lower leg with unspecified severity Code(s): L97.909 - Non-pressure chronic ulcer of unspecified part of unspecified lower leg with unspecified severity Status: Acute (3) Paroxysmal atrial fibrillation: Code(s): I48.0 - Paroxysmal atrial fibrillation Status: Acute (4) CKD (chronic kidney disease): Qualifiers: Chronic kidney disease stage: unspecified stage Qualified Code(s): N18.9 - Chronic kidney disease, unspecified Code(s): N18.9 - Chronic kidney disease, unspecified Status: Chronic (5) Type 2 diabetes mellitus: Qualifiers: Diabetes mellitus long-term insulin use: without long-term use Diabetes mellitus complication status: with circulatory complication Diabetes mellitus complication detail: with other circulatory complications Qualified Code(s): E11.59 - Type 2 diabetes mellitus with other circulatory complications Code(s): E11.9 - Type 2 diabetes mellitus without complications Status: Acute (6) Lymphedema: Code(s): I89.0 - Lymphedema, not elsewhere classified Status: Acute (7) Chronic obstructive pulmonary disease: Code(s): J44.9 - Chronic obstructive pulmonary disease, unspecified Status: Acute (8) Obesity hypoventilation syndrome: Code(s): E66.2 - Morbid (severe) obesity with alveolar hypoventilation Status: Acute (9) Acute on chronic respiratory failure with hypoxia and hypercapnia: Code(s): J96.21 - Acute and chronic respiratory failure with hypoxia; J96.22 - Acute and chronic respiratory failure with hypercapnia Status: Acute Plan 63-year-old male patient who has a history of congestive heart failure.? The patient states that he chronically sleeps up in the recliner.? He lives home alone and in administrative assistant coordinator living has [facility].? presented having increased swelling to his lower extremities.? ? The patient chronically wears 5 L per nasal cannula at home.? 1)Acute on Chronic Resp Failure: C/w O2 support Currently on 6L(5L is baseline) c/w Bronchodilator) c/w Bumex 2)Chronic Lymphedema: Wound care consult appreciated C/w IV Bumex 3)CKD:Monitor Kidney function wth IV diuresis 4)Diabetes Mellitus: BG check TID AC and HS c/w SS insulin Adjust dose as needed 5)Paroxysmal Afibb: C/w Eliquis 6)Code:Full 7)DVT ppx: ELiquis 8)Dispo:pending improvement Time Spent With Patient Time with patient: 25 - 35 minutes Subjective Date/time seen: 06/15/23 11:02 Interval history: no acute events overnight Review of Systems Review of Systems: 12 point review of systems was assessed and was negative except as noted in the HPI Exam Narrative: General: No acute distress, alert and oriented per baseline HEENT: Atraumatic, normocephalic, mucous membranes moist CV: Regular rate and rhythm, S1, S2 Lungs: Clear to auscultation bilaterally, no rales or crackles noted, no wheezes, good air entry Abdomen: Soft, nontender, nondistended Extremities: Normal to inspection, brawny stasis dermatitis noted bilaterally, Patrice wraps on, still quite edematous Skin: No rashes noted, no lesions or wounds seen Psych: Euthymic, normal affect Objective Data Vital Signs Vital Signs: Vital Signs - 24 hr 06/14/23 14:52 06/14/23 22:00 06/14/23 22:45 Temperature 97.2 F L 98.2 F Pulse Rate 93 100 Respiratory Rate 16 12 Blood Pressure 95/55 L 105/51 L Pulse Oximetry 90 90 91 Oxygen Delivery Nasal Cannula Oxygen Fl
[2023-06-15 11:46] LABS: Glucose Point of Care 128 mg/dl (65-105)
[2023-06-15 17:03] LABS: Glucose Point of Care 94 mg/dl (65-105)
[2023-06-15 22:10] LABS: Glucose Point of Care 136 mg/dl (65-105)
[2023-06-16] VITALS (7 sets, daily range): BP systolic 97–104; BP diastolic 56–68; PULSE 100–108; RESP 16–18; TEMP 36.1–36.6; O2SAT 90–97
[2023-06-16] MEDS: HYDROcodone/acetaminophen (*CRX) 5-325 MG TABLET 1 TAB PO ×4 (01:47→20:06)
[2023-06-16 06:05] LABS: Basophils Percent Auto 0.3 % (0.2-1.2); Eosinophils Absolute Auto 0.2 K/mm3 (0-0.3); Eosinophils Percent Auto 2.3 % (0-4.4); Hematocrit 46.1 % (42.0-52.0); Hemoglobin 13.5 g/dL (14.0-18.0); Immature Granulocyte Absolute 0.03 K/mm3 (0.00-0.031); Immature Granulocyte Percent A 0.4 % (0-0.5); Lymphocytes Absolute Auto 0.75 K/mm3 (0.9-3.2); Lymphocytes Percent Auto 9.4 % (18.3-44.2); Mean Corpuscular HGB Conc 29.3 g/dl (32-36); Mean Corpuscular Hemoglobin 29.8 pg (26-34); Mean Corpuscular Volume 101.8 fl (80-100); Mean Platelet Volume 9.3 fl (7.4-10.4); Monocytes Absolute Auto 0.8 K/mm3 (0.1-0.6); Monocytes Percent Auto 9.6 % (2.6-8.5); Neutrophils Absolute Auto 6.2 K/mm3 (1.3-6.7); Platelet Count Result 188 k/mm3 (150-375); Red Blood Count 4.53 M/mm3 (4.6-6.20); Red Cell Distribution Width 15.3 % (11.5-14.5)
[2023-06-16 06:18] LABS: Anion Gap 0 mmol/L (8-16); Blood Urea Nitrogen 38 mg/dL (9-20); Calcium 8.4 mg/dL (8.4-10.2); Carbon Dioxide 37 mmol/L (22-30); Chloride 94 mmol/L (98-107); Estimated CRCL calculation 76 ml/min; Estimated Glomerular Filt Rate 56; Glucose 110 mg/dL (65-110); Potassium 3.8 mmol/L (3.4-5.0); Sodium 131 mmol/L (137-145)
[2023-06-16 07:29] LABS: Glucose Point of Care 98 mg/dl (65-105)
[2023-06-16] MEDS: UMECLIDINIUM BROMIDE 62.5 MCG ELLIPTA 1 PUFF INHALATION (08:39)
[2023-06-16] MEDS: APIXABAN 5 MG TABLET PO ×2 (09:24→20:39)
[2023-06-16] MEDS: GABAPENTIN 300 MG CAPSULE PO ×3 (09:25→17:10)
[2023-06-16] MEDS: POTASSIUM CHLORIDE 20 MEQ ER TABLET PO (09:25)
[2023-06-16] MEDS: ACIDOPHILUS/BULGARICUS CHEWABLE TABLET 1 TABLET PO (09:25)
[2023-06-16] MEDS: SILVERGEL (ELTA) 45 ML 1 APPLIC TOPICAL (09:26)
[2023-06-16] MEDS: TOLNAFTATE 1% POWDER 45 GM BTL 1 APPLIC TOPICAL ×3 (09:26→20:40)
[2023-06-16] MEDS: ATORVASTATIN 20 MG TABLET PO (09:26)
[2023-06-16] MEDS: FERROUS SULFATE 325 MG TABLET DR PO ×2 (09:26→17:10)
[2023-06-16] MEDS: PANTOPRAZOLE SOD SESQUIHYDRATE 20 MG TAB PO (09:26)
[2023-06-16] MEDS: FLUTICASONE PROPIONATE 0.05% NA SPR 16 GM BTL (*BKC) 1 SPRAY NASAL (09:26)
--- NOTE | 2023-06-16 11:34 | PM.IMPN ---
Progress Note: A&P Assessment and Plan (1) CHF exacerbation: Qualifiers: Heart failure type: unspecified Qualified Code(s): I50.9 - Heart failure, unspecified Code(s): I50.9 - Heart failure, unspecified Status: Acute (2) Lower extremity ulceration: Qualifiers: Laterality: right Non-pressure ulcer stage: unspecified non-pressure ulcer stage Qualified Code(s): L97.919 - Non-pressure chronic ulcer of unspecified part of right lower leg with unspecified severity Code(s): L97.909 - Non-pressure chronic ulcer of unspecified part of unspecified lower leg with unspecified severity Status: Acute (3) Paroxysmal atrial fibrillation: Code(s): I48.0 - Paroxysmal atrial fibrillation Status: Acute (4) CKD (chronic kidney disease): Qualifiers: Chronic kidney disease stage: unspecified stage Qualified Code(s): N18.9 - Chronic kidney disease, unspecified Code(s): N18.9 - Chronic kidney disease, unspecified Status: Chronic (5) Type 2 diabetes mellitus: Qualifiers: Diabetes mellitus penitentiary insulin use: without penitentiary use Diabetes mellitus complication status: with circulatory complication Diabetes mellitus complication detail: with other circulatory complications Qualified Code(s): E11.59 - Type 2 diabetes mellitus with other circulatory complications Code(s): E11.9 - Type 2 diabetes mellitus without complications Status: Acute (6) Lymphedema: Code(s): I89.0 - Lymphedema, not elsewhere classified Status: Acute (7) Chronic obstructive pulmonary disease: Code(s): J44.9 - Chronic obstructive pulmonary disease, unspecified Status: Acute (8) Obesity hypoventilation syndrome: Code(s): E66.2 - Morbid (severe) obesity with alveolar hypoventilation Status: Acute (9) Acute on chronic respiratory failure with hypoxia and hypercapnia: Code(s): J96.21 - Acute and chronic respiratory failure with hypoxia; J96.22 - Acute and chronic respiratory failure with hypercapnia Status: Acute Plan 63-year-old male patient who has a history of congestive heart failure.? The patient states that he chronically sleeps up in the recliner.? 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.? presented having increased swelling to his lower extremities.? ? The patient chronically wears 5 L per nasal cannula at home.? PT and OT consulted for discharge planning 1)Acute on Chronic Resp Failure: C/w O2 support Currently on 6L(5L is baseline) c/w Bronchodilator) c/w Bumex 2)Chronic Lymphedema: Wound care consult appreciated C/w IV Bumex 3)CKD:Monitor Kidney function wth IV diuresis 4)Diabetes Mellitus: BG check TID AC and HS c/w SS insulin Adjust dose as needed 5)Paroxysmal Afibb: C/w Eliquis 6)Code:Full 7)DVT ppx: Eliquis 8)Dispo:pending improvement Time Spent With Patient Time with patient: 25 - 35 minutes Subjective Date/time seen: 06/16/23 11:34 Interval history: No overnight events noted. No chest pain or shortness of breath. No nausea, vomiting or diarrhea. No fevers or chills. Patient feels about the same as yesterday. Review of Systems Review of Systems: 12 point review of systems was assessed and was negative except as noted in the HPI Exam Narrative: General: No acute distress, alert and oriented per baseline HEENT: Atraumatic, normocephalic, mucous membranes moist CV: Regular rate and rhythm, S1, S2 Lungs: Clear to auscultation bilaterally, no rales or crackles noted, no wheezes, good air entry Abdomen: Soft, nontender, nondistended Extremities: Normal to inspection, brawny stasis dermatitis noted bilaterally, Patrice wraps on, still quite edematous Skin: No rashes noted, no lesions or wounds seen Psych: Euthymic, normal affect Urinary Catheter: Urinary Catheter: other ([place]) Objective Data Vital Signs Vital Signs: Vital S
[2023-06-16 12:02] LABS: Glucose Point of Care 119 mg/dl (65-105)
[2023-06-16] MEDS: BUMETANIDE INJ 1 MG/4 ML VIAL IV PUSH ×2 (12:29→20:05)
[2023-06-16 16:26] LABS: Glucose Point of Care 104 mg/dl (65-105)
[2023-06-16 20:58] LABS: Glucose Point of Care 107 mg/dl (65-105)
[2023-06-17] VITALS (15 sets, daily range): BP systolic 95–119; BP diastolic 52–74; PULSE 69–126; RESP 16–26; TEMP 36.5–37.2; O2SAT 64–96
[2023-06-17 06:34] LABS: Basophils Percent Auto 0.3 % (0.2-1.2); Eosinophils Absolute Auto 0.1 K/mm3 (0-0.3); Eosinophils Percent Auto 1.3 % (0-4.4); Hemoglobin 14.3 g/dL (14.0-18.0); Immature Granulocyte Absolute 0.04 K/mm3 (0.00-0.031); Immature Granulocyte Percent A 0.4 % (0-0.5); Lymphocytes Absolute Auto 0.72 K/mm3 (0.9-3.2); Lymphocytes Percent Auto 7.4 % (18.3-44.2); Mean Corpuscular HGB Conc 29.2 g/dl (32-36); Mean Corpuscular Hemoglobin 29.9 pg (26-34); Mean Corpuscular Volume 102.5 fl (80-100); Mean Platelet Volume 9.2 fl (7.4-10.4); Monocytes Percent Auto 10.3 % (2.6-8.5); Neutrophils Absolute Auto 7.8 K/mm3 (1.3-6.7); Neutrophils Percent Auto 80.3 % (45.5-73.1); Platelet Count Result 188 k/mm3 (150-375); Red Blood Count 4.78 M/mm3 (4.6-6.20); Red Cell Distribution Width 15.2 % (11.5-14.5); White Blood Count 9.8 K/mm3 (4.5-10.0)
[2023-06-17 06:51] LABS: Blood Urea Nitrogen 36 mg/dL (9-20); Calcium 8.5 mg/dL (8.4-10.2); Carbon Dioxide > 40 mmol/L (22-30); Chloride 91 mmol/L (98-107); Estimated CRCL calculation 76 ml/min; Estimated Glomerular Filt Rate 56; Glucose 98 mg/dL (65-110); Potassium 4.1 mmol/L (3.4-5.0); Sodium 132 mmol/L (137-145)
[2023-06-17 07:27] LABS: Glucose Point of Care 93 mg/dl (65-105)
[2023-06-17] MEDS: ONDANSETRON INJ 4 MG/2 ML VIAL IV PUSH (08:41)
[2023-06-17] MEDS: GABAPENTIN 300 MG CAPSULE PO (08:42)
[2023-06-17] MEDS: ACIDOPHILUS/BULGARICUS CHEWABLE TABLET 1 TABLET PO (08:42)
[2023-06-17] MEDS: FERROUS SULFATE 325 MG TABLET DR PO (08:42)
[2023-06-17] MEDS: ATORVASTATIN 20 MG TABLET PO (08:42)
[2023-06-17] MEDS: POTASSIUM CHLORIDE 20 MEQ ER TABLET PO (08:42)
[2023-06-17] MEDS: BUMETANIDE INJ 1 MG/4 ML VIAL IV PUSH (08:42)
[2023-06-17] MEDS: APIXABAN 5 MG TABLET PO (08:42)
[2023-06-17] MEDS: SILVERGEL (ELTA) 45 ML 1 APPLIC TOPICAL (08:43)
[2023-06-17] MEDS: TOLNAFTATE 1% POWDER 45 GM BTL 1 APPLIC TOPICAL ×2 (08:43)
[2023-06-17] MEDS: UMECLIDINIUM BROMIDE 62.5 MCG ELLIPTA 1 PUFF INHALATION (08:43)
[2023-06-17] MEDS: HYDROcodone/acetaminophen (*CRX) 5-325 MG TABLET 1 TAB PO (08:47)
[2023-06-17] MEDS: PANTOPRAZOLE SOD SESQUIHYDRATE 20 MG TAB PO (09:40)
[2023-06-17] MEDS: WATER FOR IRRIGATION, STERILE 1,000 ML BOTTLE 1000 ML (11:57)
[2023-06-17 12:03] LABS: Alveolar/Arterial O2 Gradient 250.5 mmHg; Base Excess ABG 4.8 mEq/l (+/-2.0); Fractional Inspired Oxygen 60 %; HCO3 ABG 39.3 mEq/l (22.0-26.0); PO2 FiO2 Ratio Arterial Blood 0.79 %; Total Hemoglobin 16.6 g/dL (12.0-18.0)
[2023-06-17 12:06] LABS: Device NASAL CANNULA; Modified Allen's Test Pass; Oxygen Saturation ABG 67.4 % (95.0-100.0); PO2 ABG 47.5 mmHg (80.0-100.0); Site Drawn RIGHT RADIAL
[2023-06-17 12:09] LABS: Glucose Point of Care 162 mg/dl (65-105)
--- NOTE | 2023-06-17 12:39 | ECG_ITS ---
Measurements Intervals [place] Rate: 124 P: 47 [place]: 144 QRS: 9 QRSD: 122 T: 25 QT: 310 QTc: 446 Interpretive Statements SINUS TACHYCARDIA WITH OCCASIONAL VENTRICULAR PREMATURE COMPLEXES POSSIBLE RIGHT VENTRICULAR CONDUCTION DELAY [RSR (QR) IN V1/V2] COMPARED TO ECG 06/12/2023 14:38:32 SINUS TACHYCARDIA NOW PRESENT Electronically Signed On 06-17-2023 14:56:17 CDT by Jen Knox M.D.
--- NOTE | 2023-06-17 12:44 | WPDCNINT ---
Assessment and Plan Assessment and plan (1) Acute and chronic respiratory failure: Qualifiers: Respiratory failure complication: hypoxia and hypercapnia Qualified Code(s): J96.21 - Acute and chronic respiratory failure with hypoxia; J96.22 - Acute and chronic respiratory failure with hypercapnia; J96.22 - Acute and chronic respiratory failure with hypercapnia Code(s): J96.20 - Acute and chronic respiratory failure, unspecified whether with hypoxia or hypercapnia Status: Acute Assessment and Plan: Patient has history of chronic hypoxic and hypercarbic respiratory failure. He has obesity hypoventilation syndrome and congestive heart failure. Chest x-ray done on presentation showed bilateral pulmonary edema cardiomegaly and elevated right hemidiaphragm with elevated BNP. He has been afebrile with normal WBC Patient has been refusing to wear BiPAP in the hospital. ABG done this afternoon 7.14//47/39 Patient started on BiPAP. Settings reviewed /8 FiO2 70% at this time Will order repeat ABG Transferred to ICU Continue IV Bumex and diuresed patient Chest chest x-ray and BNP Place [place] catheter for accurate intake and output monitoring NPO at this time since patient may need intubation (2) CHF exacerbation: Qualifiers: Heart failure type: unspecified Qualified Code(s): I50.9 - Heart failure, unspecified Code(s): I50.9 - Heart failure, unspecified Status: Acute Assessment and Plan: Echo 01/04 Summary ? 1. Technically difficult echocardiogram in intubated patient, definity contrast used to improve exam. ? 2. Left ventricular hypertrophy with normal LV size and good systolic function. ? 3. Grade 2 diastolic noncompliance. ? 4. Enlarged right ventricle. ? 5. Tricuspid regurgitation velocities suggesting at least moderately elevated pulmonary artery pressure. Management as above (3) Lower extremity ulceration: Qualifiers: Laterality: right Non-pressure ulcer stage: unspecified non-pressure ulcer stage Qualified Code(s): L97.919 - Non-pressure chronic ulcer of unspecified part of right lower leg with unspecified severity Code(s): L97.909 - Non-pressure chronic ulcer of unspecified part of unspecified lower leg with unspecified severity Status: Acute Assessment and Plan: Chronic lower extremity edema and skin wounds Continue diuretics Continue local wound care (4) Paroxysmal atrial fibrillation: Code(s): I48.0 - Paroxysmal atrial fibrillation Status: Acute Assessment and Plan: Appears to be in sinus tachycardia at this time. Check 12 lead EKG Continue Eliquis Patient is not on any rate control or antiarrhythmic medications as an outpatient (5) Obesity hypoventilation syndrome: Code(s): E66.2 - Morbid (severe) obesity with alveolar hypoventilation Status: Acute Assessment and Plan: Currently on BiPAP (6) Type 2 diabetes mellitus: Qualifiers: Diabetes mellitus complication detail: with other circulatory complications Diabetes mellitus complication status: with circulatory complication Diabetes mellitus terminal system operator insulin use: without terminal system operator use Qualified Code(s): E11.59 - Type 2 diabetes mellitus with other circulatory complications Code(s): E11.9 - Type 2 diabetes mellitus without complications Status: Acute Assessment and Plan: Sliding scale insulin Plan DVT prophylaxis -Eliquis Stress ulcer prophylaxis - Nutrition -NPO at this time Patient has poor IV access and will obtain PICC line Code Status -spoke to patient regarding code status and he wishes to be DNI but wants CPR and resuscitation in the event of cardiac arrest. I have explained him that it is count in 2 to as any efforts to resuscitate him in the event of cardiac arrest will not be successful without intubation and mechanical ventilation but he continues to insist that he does not ventilator no matter w
--- NOTE | 2023-06-17 12:49 | PM.IMPN ---
Progress Note: A&P Assessment and Plan (1) Acute on chronic respiratory failure with hypoxia and hypercapnia: Code(s): J96.21 - Acute and chronic respiratory failure with hypoxia; J96.22 - Acute and chronic respiratory failure with hypercapnia Status: Acute Assessment and Plan: Patient had cyanotic nail beds upon assessment this morning. ABG ordered. Results show significant respiratory acidosis. Rapid response called and car repairer pullman to bedside. Patient placed on BiPAP which he did not resist at this time and moved to ICU room 3 (2) CHF exacerbation: Qualifiers: Heart failure type: unspecified Qualified Code(s): I50.9 - Heart failure, unspecified Code(s): I50.9 - Heart failure, unspecified Status: Acute (3) Lower extremity ulceration: Qualifiers: Laterality: right Non-pressure ulcer stage: unspecified non-pressure ulcer stage Qualified Code(s): L97.919 - Non-pressure chronic ulcer of unspecified part of right lower leg with unspecified severity Code(s): L97.909 - Non-pressure chronic ulcer of unspecified part of unspecified lower leg with unspecified severity Status: Acute (4) Paroxysmal atrial fibrillation: Code(s): I48.0 - Paroxysmal atrial fibrillation Status: Acute (5) CKD (chronic kidney disease): Qualifiers: Chronic kidney disease stage: unspecified stage Qualified Code(s): N18.9 - Chronic kidney disease, unspecified Code(s): N18.9 - Chronic kidney disease, unspecified Status: Chronic (6) Type 2 diabetes mellitus: Qualifiers: Diabetes mellitus parts counterman insulin use: without correction use Diabetes mellitus complication status: with circulatory complication Diabetes mellitus complication detail: with other circulatory complications Qualified Code(s): E11.59 - Type 2 diabetes mellitus with other circulatory complications Code(s): E11.9 - Type 2 diabetes mellitus without complications Status: Acute (7) Lymphedema: Code(s): I89.0 - Lymphedema, not elsewhere classified Status: Acute (8) Chronic obstructive pulmonary disease: Code(s): J44.9 - Chronic obstructive pulmonary disease, unspecified Status: Acute (9) Obesity hypoventilation syndrome: Code(s): E66.2 - Morbid (severe) obesity with alveolar hypoventilation Status: Acute Plan 63-year-old male patient who has a history of congestive heart failure.? The patient states that he chronically sleeps up in the recliner.? 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 presented having increased swelling to his lower extremities.? ? The patient chronically wears 5 L per nasal cannula at home.? PT and OT consulted for discharge planning 1)Acute on Chronic Resp Failure: C/w O2 support Currently on 8L(5L is baseline) c/w Bronchodilator) c/w Bumex Refuses BiPap, states intubation only if absolutely necessary 2)Chronic Lymphedema: Wound care consult appreciated C/w IV Bumex 3)CKD:Monitor Kidney function wth IV diuresis 4)Diabetes Mellitus: BG check TID AC and HS c/w SS insulin Adjust dose as needed 5)Paroxysmal Afib: Regular rhythm, tachycardic rate C/w Eliquis 6)Code:Full 7)DVT ppx: Eliquis 8)Dispo: Sent to ICU on BiPap Time Spent With Patient Time with patient: Greater than 35 minutes Subjective Date/time seen: 06/17/23 10:30 Interval history: 06/16: No overnight events noted. No chest pain or shortness of breath. No nausea, vomiting or diarrhea. No fevers or chills. Patient feels about the same as yesterday. 06/17: Patient seen this morning seated upright and recliner chair. Patient complains only of nausea, reports only drinking orange juice for breakfast. He states that he is not feeling short of breath but oxygen levels had been turned up to 8 liters/minute overnight due to low oxygen saturations. Patient refuses to wear his BiPAP at night. Upon evaluation
--- NOTE | 2023-06-17 13:01 | PCPTNOTE ---
Patient had orders for physical therapy, rapid response called at 1225 since then has transferred to ICU. Will check on patient tomorrow and see if medically appropriate for physical therapy.
[2023-06-17 13:11] LABS: NT Pro B Type Natriuretic Pept 6510 pg/mL (19.9-100)
--- NOTE | 2023-06-17 13:24 | PC.NURSE ---
Patient arrived to ICU 3 at 1300 post rapid response. Patient transported with RT and RN at bedside with Bipap in place. Patient oriented to room polices and procedures. Head to toe assessment preformed. Patients Bipap settings at time of arrival are as follows: 24/8 rate 24, 70% FiO2. Bed alarms set and in place, cl
--- NOTE | 2023-06-17 13:27 | PC.NURSE ---
Patient arrived to ICU 3 at 1300 post rapid response. Patient transported with RT and RN at bedside with Bipap in place. Patient oriented to room polices and procedures. Head to toe assessment preformed. Patients Bipap settings at time of arrival are as follows: 24/8 rate 24, 70% FiO2. Bed alarms set and in place, call light within reach. This RN to resume patient care.
[2023-06-17 13:36] LABS: Alveolar/Arterial O2 Gradient 383.7 mmHg; Base Excess ABG 2.8 mEq/l (+/-2.0); Fractional Inspired Oxygen 85 %; HCO3 ABG 37.9 mEq/l (22.0-26.0); Oxygen Content ABG 21.2 %vol (16.0-22.0); Oxygen Saturation ABG 92.9 % (95.0-100.0); Oxyhemoglobin 92.1 % THb (90.0-100.0); PO2 FiO2 Ratio Arterial Blood 1.08 %; Total Hemoglobin 16.3 g/dL (12.0-18.0)
[2023-06-17 13:39] LABS: PCO2 ABG 125.6 mmHg (35.0-45.0); Site Drawn LEFT BRACHIAL; pH ABG 7.097 (7.350-7.450)
[2023-06-17 13:42] LABS: Device NON-INVASIVE VENT
--- NOTE | 2023-06-17 13:51 | PM.EVENT ---
Event Note Event Note Event Note: Repeat ABG shows worsening of hypercarbia and respiratory acidosis. Patient is more drowsy now. I spoke to patient's sister who is his POA and she again confirmed the patient would not want to go on a ventilator. She is considering comfort care versus making continue BiPAP and other treatment but make him DNI/DNR. She would like to visit him and see him before making final decision.
[2023-06-17] MEDS: MORPHINE SULFATE INJ (*CRX) 10 MG/ML AMP 5 MG IV PUSH (18:12)
--- NOTE | 2023-06-17 18:43 | PC.NURSE ---
Patients family present at bedside. Patients family verbalizes that they now wish to proceed with comfort care at 1808. Bipap removed at 1812 per family request and patient placed on 2L NC. Initial dose of morphine given per MD orders. RN to continue to monitor patient and family.
[2023-06-17] MEDS: MORPHINE SULFATE (*CRX) 4 MG/ML INJ IV PUSH ×2 (18:59→20:23)
[2023-06-17] MEDS: LORazepam INJ (*CRX) 2 MG/ML VIAL IV PUSH (20:31)
--- NOTE | 2023-06-17 21:04 | PC.NURSE ---
Patient at 2044, confirmed by Jamin emmanuel RN and this RN. All family requests addressed.
[2023-06-18 11:54] LABS: Non-Invasive Expiratory Pressure 8 CMH2O; Non-Invasive Inspiratory Pressure 20 CMH2O; Non-Invasive Vent Rate 24 /MIN
--- NOTE | 2023-06-19 11:54 | P.DN_ITS ---
Discharge Summary Date and Time Date of : 06/17/23 Time of : 20:45 Provider Pronounced By: jim preston Probable Cause of Probable Cause of : Acute on Chronic hypercapnic respiratory failure and CHF exacerbation Summary Hospital Course: This is a 63-year-old male patient who was admitted to the hospital for congestive heart failure and acute on chronic hypercapnic respiratory failure. Patient has always refused to wear BiPAP at and continued to refuse in the hospital. He was receiving wound care for lymphedema and open wounds on his legs and receiving diuretic therapy for CHF. Patient noted to have cyanotic nail beds on 06/17 but patient had no complaints difficulty breathing or pain. ABG showed severe respiratory acidosis and patient repeatedly declined intubation. He was placed on BiPAP but after an hour his ABG appeared worse. Conversation with healthcare [id number] was contacted with the seriousness of situation and agreed that she would gather the family and make patient comfort care. Patient was removed from BiPAP and given pain and anxiety medications. Shortly thereafter patient had . Additional Data Confirmation of as documented by pronouncing clinician: Pupillary Reflex, Palpable Pulses, Response to Stimuli, Heart Tones and Breath Sounds Name of Provider Notified: hopen Time Provider Notified: 21:03 Provider Requests Autopsy: No Family Requests Autopsy: No Bricklayer'S Assistant Notified: Yes Date [facility] Notified of : 06/17/23 Time [facility] Notified of : 21:11
== END 2023-06-17 20:45 | disposition expired | DRG 189 ==
LOC: ANHED 14:53 → ANH3MEDSUR 17:46 → ANHICU 06-17 19:47 → ANH3MEDSUR 06-19 11:25 → ANHICU 06-19 11:25
PROVIDERS: Internal Medicine; Nurse Practitioner; Admitting Provider Student in an Organized Health Care Education/Training Program; Emergency Provider Emergency Medicine; Visit Provider Nurse Practitioner
DX: J96.21 Acute and chronic respiratory failure with hypoxia (principal); I50.33 Acute on chronic diastolic (congestive) heart failure; E66.2 Morbid (severe) obesity with alveolar hypoventilation; L97.919 Non-pressure chronic ulcer of unspecified part of right lower leg with unspecified severity; J96.22 Acute and chronic respiratory failure with hypercapnia; E11.22 Type 2 diabetes mellitus with diabetic chronic kidney disease; E78.5 Hyperlipidemia, unspecified; I89.0 Lymphedema, not elsewhere classified; I48.0 Paroxysmal atrial fibrillation; J44.9 Chronic obstructive pulmonary disease, unspecified; N18.30 Chronic kidney disease, stage 3 unspecified; Z87.891 Personal history of nicotine dependence; Z91.199 Patient's noncompliance with other medical treatment and regimen due to unspecified reason; Z66 Do not resuscitate; Z99.81 Dependence on supplemental oxygen; Z79.01 Long term (current) use of anticoagulants
CPT/HCPCS: 36415; 36569; 36600; 71045; 71046; 80048; 80053; 82140; 82805; 82948; 83036; 83605; 83735; 83880; 84100; 84484; 85025; 85610; 85730; 93005; 94640; 96374; 99285; A9270; C1751; G0378; J2060; J2270; J2405